=== PATIENT | female | born 1960 | race African-American/Black ===

== ENCOUNTER 2016-12-15 11:29 | Emergency (ER) | payer OTHER ==
[2016-12-15 11:39] VITALS: RESP 18
--- NOTE | 2016-12-15 11:51 | ED ---
General Adult HPI - General Chief complaint: Seizure Stated complaint: seizure Time Seen by Provider: 12/15/16 11:36 Source: patient, EMS, RN notes reviewed, old records reviewed Mode of arrival: EMS Limitations: no limitations - History of Present Illness Initial comments: Chief complaint and history of present illness is a 56-year-old female who according to the patient has had her third seizure in 1 month. The 2 previous seizures were treated at [facility]. ([facility] was called and they state they did not have any record of her having had any recent visit for seizures as she describes. They do have 1 visit in January 2015 where she was therefore a seizure.. ) Patient seizure was apparently witnessed lasted approximately 1 minute. EMS states she was postictal upon their arrival. The patient is less post ictal but still slightly forgetful. Patient denying any pain anywhere. - Related Data Home Medications Medication Instructions Recorded Confirmed ALPRAZolam [Xanax] 0.5 mg PO Q8HR 06/18/15 12/15/16 FLUoxetine HCL [PROzac] 40 mg PO DAILY 06/18/15 12/15/16 Losartan Potassium 100 mg PO DAILY 06/18/15 12/15/16 Docusate [Colace] 100 mg PO DAILY 12/15/16 12/15/16 Oxybutynin Chloride [Ditropan] 5 mg PO BID 12/15/16 12/15/16 Previous Rx's Medication Instructions Recorded Albuterol Inhaler [Ventolin Hfa 2 puff INHALATION RT-QID PRN #1 02/01/16 Inhaler] puff Chlorthalidone [Hygroton] 25 mg PO QAM #30 tab 02/01/16 Cholecalciferol [Vitamin D3] 800 unit PO DAILY #30 tab 02/01/16 Cyclobenzaprine [Flexeril] 10 mg PO TID #90 tab 02/01/16 Doxepin [SINEquan] 75 mg PO HS #90 cap 02/01/16 Fluticasone Nasal [place] [Flonase 1 spray EA NOSTRIL DAILY #1 spr 02/01/16 Nasal [place]] Montelukast [Singulair] 10 mg PO HS #30 tab 02/01/16 Pantoprazole [Protonix] 40 mg PO AC-BRKFST #30 tablet. 02/01/16 Perphenazine [Trilafon] 8 mg PO HS #60 tab 02/01/16 Allergies Allergy/AdvReac Type Severity Reaction Status Date / Time Penicillins Allergy Rash/Hives Verified 12/15/16 11:59 propoxyphene napsylate Allergy Itching Verified 12/15/16 11:59 [From Darvocet-N 100] aspirin AdvReac Nausea & Verified 12/15/16 11:59 Vomiting ibuprofen [From Motrin] AdvReac Nausea & Verified 12/15/16 11:59 Vomiting Review of Systems ROS Statement: Those systems with pertinent positive or pertinent negative responses have been documented in the HPI. Review of systems. Patient denies any visual acuity changes denies any headache denies chest pain denies shortness of breath denies any GI/ problems or neuro deficits. Not complaining of feeling depressed. All systems were otherwise reviewed. The patient also reports that she is not think she is taking tramadol or any medications that might lower her threshold have a seizure. But then on the other hand she can't remember her medications entirely she says she had them filled here in our pharmacy also be requested. Also her visit to [facility] will be requested.([facility] was notified. They state they do have records that are from January 2015 for having had a visit for a seizure .Patient's medication list was obtained from our pharmacy and there is no medication on the list I would typically decrease ones threshold to have a seizure. And it is unknown if the patient reviewing taken the medications listed. Past medical problems significant for hypertension and bipolar schizophrenia. The patient's surgeries total hysterectomy. Family history diabetes and hypertension. The patient has ALLERGIES to penicillin, aspirin, onions, Darvocet and ibuprofen. She does smoke strongly encouraged stop denies alcohol use. ROS Other: All systems not noted in ROS Statement are negative. Past Medical History Past Medical History: Asthma, Eye Disorder, Fibromyalgia, GERD/Reflux, Hyperlipidemia, Liver Disease, Osteoarthritis (OA), Seizure Disorder Additional Past Medical History / Comment(s): 08/11/15 Pt admitted to floor s/p anterior cervical decompression fusion C3-4, C4-5 with carpectomy. Other HX: had 1 seizure several years ago due to drug interaction, HIV positive, hx. Hep. C, neuropathy, hx. ulcers, glaucoma bilaterally with surgery. History of Any Multi-Drug Resistant Organisms: None Reported Past Surgical History: Hysterectomy Additional Past Surgical History / Comment(s): 08/11/15 Anterior cervical decompression fusion C3-4, C4-5 with carpectomy. Other surgical history: Eye surgery for glaucoma bilaterally. Past Anesthesia/Blood Transfusion Reactions: No Reported Reaction Past Psychological History: Anxiety, Depression, Schizophrenia Additional Psychological History / Comment(s): Pt lives alone. She uses a walker or wheelchair. She has never had a [place] driver's license. She gets rides thru her insurance. Smoking Status: Current every day smoker Past Alcohol Use History: Occasional Additional Past Alcohol Use History / Comment(s): Pt states she is 1 pack every 3 days smoker. She started smoking at age 14yrs. Pt states she will have an occasional beer or wine. Past Drug Use History: Marijuana Additional Drug Use History / Comment(s): medical use-smokes on occasion. - Past Family History Father History Unknown: Yes Family Medical History: Unable to Obtain Additional Family Medical History / Comment(s): Pt did not know her father. Mother Family Medical History: No Reported History General Exam - General Exam Comments Initial Comments: General: The patient is awake and alert, currently in no distress, and does not appear acutely ill. She had a 1 minute witnessed seizure and EMS reported that she was postictal upon pickup. Vital signs show temperature 98.1 pulse 103 her story rate 18 pulse ox 95% room air blood pressure 144/94 Eye: Pupils are equal, round and reactive to light, extra-ocular movements are intact ; there is normal conjunctiva bilaterally. No signs of icterus. Ears, nose, mouth and throat: There are moist mucous membranes and no oral lesions. Neck: The neck is supple, there is no tenderness . Cardiovascular: There is a regular rate and rhythm. No murmur, rub or gallop is appreciated. Respiratory: Lungs are clear to auscultation, respirations are non-labored, breath sounds are equal. No wheezes, stridor, rales, or rhonchi. Gastrointestinal: Soft, non-distended, non-tender abdomen without masses or organomegaly noted. There is no rebound or guarding present. No CVA tenderness. Bowel sounds are unremarkable. Back: There is no tenderness to palpation in the midline. There is no obvious deformity. No rashes noted. Musculoskeletal: Normal ROM, no tenderness, There is no pedal edema. There is no calf tenderness or swelling. Sensation intact. Pulses equal bilaterally 2+. Neurological: CN II-XII intact, There are no obvious motor or sensory deficits. Coordination appears grossly intact. Speech is normal. No focal or lateralizing findings. Skin: Skin is warm and dry and no rashes or lesions are noted. Psychiatric: No complaints and depression. Past history of bipolar disorder, schizophrenia. On psychiatric medications. Limitations: no limitations Course Vital Signs 12/15/16 11:35 Temperature 98.1 F Pulse Rate 103 H Respiratory 18 Rate Blood Pressure 144/94 O2 Sat by Pulse 95 Oximetry EKG Findings - EKG Comments: EKG Findings:: EKG was done and reviewed at 1212 show normal sinus rhythm no acute ST elevation no ectopy no ischemic changes. Rate 91. Was 152 QRS [address] QT [address] Chu Medical Decision Making - Medical Decision Making Medical decision making the patient's white count 6 hemoglobin 12 medical 37, potassium 3.9 BUN 13 creatinine 0.83 to GFR greater than 60. Glucose 122. Tylenol and aspirin levels 0. CT the brain was done and reviewed radiologist; his impression is; there is no evidence of acute intracranial hemorrhage, acute ischemic changes, mass, mass effect, or extra-axial fluid collection. There is no effacement of cerebral sulci or basal subarachnoid sisters. There is no hydrocephalus. There is no midline shift. Garcia-white matter distinction is preserved. Paranasal sinuses and mastoid air cells are well pneumatized, old medial orbital wall blowout fracture on the right. The globes appear intact. Impression no acute intracranial abnormality. As read by Dr. Osborne Patient has a place to stay with a girlfriend. She'll be given a taxi ride there. She'll be referred onto both her family physician and on-call neurologist Dr. Parikh. Patient states she was confused about the number seizure she's had recently and she does state that the last one she had was approximately 2 years ago. - Lab Data Result diagrams: 12/15/16 12:10 12/15/16 12:10 Lab Results 12/15/16 12/15/16 12/15/16 Range/Units 12:10 12:10 12:13 WBC 6.7 (3.8-10.6) k/uL RBC 4.30 (3.80-5.40) m/uL Hgb 12.2 (11.4-16.0) gm/dL Hct 37.9 (34.0-46.0) % MCV 88.0 (80.0-100.0) fL MCH 28.5 (25.0-35.0) pg MCHC 32.3 (31.0-37.0) g/dL RDW 13.8 (11.5-15.5) % Plt Count 226 (150-450) k/uL Neutrophils % 68 % Lymphocytes % 23 % Monocytes % 6 % Eosinophils % 0 % Basophils % 1 % Neutrophils # 4.5 (1.3-7.7) k/uL Lymphocytes # 1.5 (1.0-4.8) k/uL Monocytes # 0.4 (0-1.0) k/uL Eosinophils # 0.0 (0-0.7) k/uL Basophils # 0.0 (0-0.2) k/uL Sodium 141 (137-145) mmol/L Potassium 3.9 (3.5-5.1) mmol/L Chloride 103 (98-107) mmol/L Carbon Dioxide 24 (22-30) mmol/L Anion Gap 14 mmol/L BUN 13 (7-17) mg/dL Creatinine 0.83 (0.52-1.04) mg/dL Est GFR (MDRD) Af Amer >60 (>60 ml/min/1.73 sqM) Est GFR (MDRD) Non-Af >60 (>60 ml/min/1.73 sqM) Glucose 122 H (74-99) mg/dL POC Glucose (mg/dL) 103 H (75-99) mg/dL POC Glu Casserole Preparer ID Ofelia Hayes Calcium 9.5 (8.4-10.2) mg/dL Total Bilirubin 0.7 (0.2-1.3) mg/dL AST 26 (14-36) U/L ALT 23 (9-52) U/L Alkaline Phosphatase 108 (38-126) U/L Total Protein 8.1 (6.3-8.2) g/dL Albumin 4.5 (3.5-5.0) g/dL Salicylates <1.0 mg/dL Acetaminophen <10.0 ug/mL Disposition Clinical Impression: Seizure Disposition: HOME SELF-CARE Condition: Fair Instructions: New-Onset Seizure in Adults (ED) Additional Instructions: Follow-up with your family physician and on-call neurologist Dr. parikh Referrals: Stephanitaff,Physician [REFERRING] - 1-2 days Sonja Parikh MD [STAFF PHYSICIAN] - 1-2 days Time of Disposition: 14:09
[2016-12-15 12:16] LABS: Basophils % (A) 1 %; CH 28.3; CHCM 32.3; Eosinophils % (A) 0 %; HCT 37.9 % (34.0-46.0); HDW 2.41; HGB 12.2 gm/dL (11.4-16.0); Luc # (Auto) 0.14; Luc % (Auto) 2; Lymphocytes # (A) 1.5 k/uL (1.0-4.8); Lymphocytes % (A) 23 %; MCH 28.5 pg (25.0-35.0); MCHC 32.3 g/dL (31.0-37.0); Mean Platelet Volume 6.8; Monocytes # (A) 0.4 k/uL (0-1.0); Monocytes % (A) 6 %; Neutrophils # (A) 4.5 k/uL (1.3-7.7); Neutrophils % (A) 68 %; RDW 13.8 % (11.5-15.5); WBC 6.7 k/uL (3.8-10.6); WBC (Perox) 6.12
[2016-12-15 12:17] LABS: Glucose,Whole Blood 103 mg/dL (75-99)
[2016-12-15 12:28] LABS: ALT 23 U/L (9-52); AST 26 U/L (14-36); Acetaminophen <10.0 ug/mL; Alkaline Phosphatase 108 U/L (38-126); Anion Gap 14 mmol/L; Blood Urea Nitrogen 13 mg/dL (7-17); Calcium 9.5 mg/dL (8.4-10.2); Carbon Dioxide 24 mmol/L (22-30); Chloride 103 mmol/L (98-107); Glucose 122 mg/dL (74-99); Non-African American GFR(MDRD) >60 (>60 ml/min/1.73 sqM); Potassium 3.9 mmol/L (3.5-5.1); Salicylate <1.0 mg/dL; Sodium 141 mmol/L (137-145); Total Bilirubin 0.7 mg/dL (0.2-1.3); Total Protein 8.1 g/dL (6.3-8.2)
[2016-12-15] MEDS ORDERED: ACETAMINOPHEN TAB 500 MG TAB PO STA (13:00)
--- NOTE | 2016-12-15 13:41 | CT ---
EXAMINATION TYPE: CT brain wo con DATE OF EXAM: 12/15/2016 1:15 PM COMPARISON: NONE HISTORY: 56-year-old female seizure today. Patient appears weak and lethargic TECHNIQUE: Examination was done in axial plane without intravenous contrast. Coronal and sagittal r econstructions performed. CT DLP: 1017.9 mGycm Automated exposure control for dose reduction was used. FINDINGS: There is no evidence of acute intracranial hemorrhage, acute ischemic changes, mass, mass-effect, or extra-axial fluid collection. There is no effacement of cerebral sulci or basal subarachnoid cister ns. There is no hydrocephalus. There is no midline shift. Lin-white matter distinction is preserv ed. Paranasal sinuses and mastoid air cells are well pneumatized. Old medial orbital wall blowout fractur e on the right. The globes appear intact. IMPRESSION: No acute intracranial abnormality seen.
[2016-12-15 14:36] VITALS: BP 112/76; PULSE 85; TEMP 97.2
== END 2016-12-15 14:37 | disposition home or self-care (01) ==
LOC: EC 11:29
DX: G40.909 Epilepsy, unspecified, not intractable, without status epilepticus (principal); F41.9 Anxiety disorder, unspecified; F32.9 Major depressive disorder, single episode, unspecified; F17.200 Nicotine dependence, unspecified, uncomplicated; Z88.6 Allergy status to analgesic agent; Z88.0 Allergy status to penicillin; Z88.5 Allergy status to narcotic agent; Z79.899 Other long term (current) drug therapy
CPT/HCPCS: 36415; 70450; 80053; 83520; 85025; 93005; 99285

== ENCOUNTER → 2018-03-27 | Outpatient (CLI) | payer OTHER ==
--- NOTE | 2018-03-28 08:14 | MM ---
Reason for exam: screening (asymptomatic). Last mammogram was performed 3 years and 7 months ago. History: Patient is postmenopausal and had first child at age 32. Took estrogen for 1 year beginning at age 49. Physical Findings: A clinical breast exam by your physician is recommended on an annual basis and results should be correlated with mammographic findings. MG Screening Mammo w CAD Bilateral CC and MLO view(s) were taken. Prior study comparison: August 24, 2014, bilateral MG screening mammo w CAD. August 22, 2013, bilateral digital screening mammo w/CAD. The breast tissue is heterogeneously dense. This may lower the sensitivity of mammography. Focal asymmetry inner upper left breast posterior third position. This finding is changed when compared with previous exams. ASSESSMENT: Incomplete: need additional imaging evaluation, BI-RAD 0 RECOMMENDATION: Special view mammogram and ultrasound of the left breast. [facility] will attempt to contact patient to return for supplemental views and ultrasound.
== END | disposition home or self-care (01) ==
LOC: RADMAMWWP 08:43
PROVIDERS: ATTEND Nurse Practitioner
DX: Z12.31 Encounter for screening mammogram for malignant neoplasm of breast (principal)
CPT/HCPCS: 77067

== ENCOUNTER → 2018-04-04 | Outpatient (CLI) | payer OTHER ==
--- NOTE | 2018-04-04 11:05 | MM ---
Reason for exam: additional evaluation requested from abnormal screening. Last mammogram was performed less than 1 month ago. History: Patient is postmenopausal and had first child at age 32. Took estrogen for 1 year beginning at age 49. Physical Findings: Nurse Summary: 0.5cm nodule in the left breast at 11 o'clock and 3 o'clock (nurse cw). MG Work Up Mamm w CAD LT Spot compression CC, spot compression ML, and LM view(s) were taken of the left breast. Prior study comparison: March 27, 2018, bilateral MG screening mammo w CAD. August 24, 2014, bilateral MG screening mammo w CAD. The breast tissue is heterogeneously dense. This may lower the sensitivity of mammography. BB's correspond to spherical areas of density. No significant new findings when compared with previous films. These results were verbally communicated with the patient and result sheet given to the patient on 04/04/18. ASSESSMENT: Benign, BI-RAD 2 RECOMMENDATION: Return to routine screening mammogram schedule for both breasts.
== END | disposition home or self-care (01) ==
LOC: RADMAMWWP 09:03
PROVIDERS: ATTEND Nurse Practitioner
DX: R92.8 Other abnormal and inconclusive findings on diagnostic imaging of breast (principal)
CPT/HCPCS: 77065

== ENCOUNTER → 2019-05-28 | Outpatient (CLI) | payer OTHER ==
--- NOTE | 2019-06-30 11:55 | EM ---
EVENT MONITOR I have only been provided one rhythm strip at this patient with monitoring time of 05/28/2019 to 05/29/2019. Not quite sure what happened to the rest of the rhythm strips but this is a normal sinus rhythm and one episode of sinus tachycardia with a heart rate of 111 beats per minute. MMJEAN CARLOS / DUNIA: [id number] /
== END | disposition home or self-care (01) ==
LOC: RADECHMAIN 11:44
PROVIDERS: ATTEND Internal Medicine Cardiovascular Disease
DX: R00.2 Palpitations (principal)
CPT/HCPCS: 93270

== ENCOUNTER 2019-12-01 15:34 | Observation (INO) | payer OTHER ==
--- NOTE | 2019-12-01 16:41 | ED ---
Fall HPI - General Chief Complaint: Fall Stated Complaint: Fall Time Seen by Provider: 12/01/19 15:40 Source: patient, EMS Mode of arrival: EMS - History of Present Illness Initial Comments: The patient is a 59-year-old female with past medical history of seizure disorder, hepatitis C, HIV who presents to the emergency department with reported bilateral lower extremity weakness, back pain and multiple falls. The patient reports that she has chronic knee pain secondary to osteoarthritis was previously on Mathews. States she has not taken this medication overuse year. States her pain has gotten progressive to the point where he has had difficulty ambulating. Over the past several days she has had 2 falls because her legs are buckling on her. She denies any saddle anesthesia. No bowel or bladder incontinence. Denies any fevers or chills. No current or recent IV drug use. She denies any abdominal pain. No headaches or vertiginous symptoms. Denies ataxia. The patient is concerned that she lives alone. There are no other alleviating, precipitating or modifying factors - Related Data Home Medications Medication Instructions Recorded Confirmed FLUoxetine HCL [PROzac] 40 mg PO HS 06/18/15 12/01/19 Losartan Potassium 100 mg PO DAILY 06/18/15 12/01/19 Docusate [Colace] 100 mg PO HS 12/15/16 12/01/19 Albuterol Sulfate [Ventolin HFA] 2 puff INHALATION RT-QID PRN 12/01/19 12/01/19 Cyanocobalamin (Vitamin B-12) 1,000 mcg PO DAILY 12/01/19 12/01/19 [Vitamin B-12] Doxepin HCl [SINEquan] 150 mg PO HS 12/01/19 12/01/19 Metoprolol Tartrate [Lopressor] 50 mg PO BID 12/01/19 12/01/19 Perphenazine [Trilafon] 8 mg PO HS 12/01/19 12/01/19 Thiamine [Vitamin B-1] 100 mg PO DAILY 12/01/19 12/01/19 hydrOXYzine PAMOATE [Vistaril] 50 mg PO HS 12/01/19 12/01/19 levETIRAcetam [Keppra] 500 mg PO BID 12/01/19 12/01/19 Previous Rx's Medication Instructions Recorded HYDROcodone/APAP 10-325MG [Mathews 1 each PO Q4HR PRN #18 tab 12/03/19 10-325] Allergies Allergy/AdvReac Type Severity Reaction Status Date / Time Penicillins Allergy Rash/Hives Verified 12/01/19 20:45 propoxyphene napsylate Allergy Itching Verified 12/01/19 20:45 [From Darvocet-N 100] aspirin AdvReac Nausea & Verified 12/01/19 20:45 Vomiting ibuprofen [From Motrin] AdvReac Nausea & Verified 12/01/19 20:45 Vomiting Review of Systems ROS Statement: Those systems with pertinent positive or pertinent negative responses have been documented in the HPI. ROS Other: All systems not noted in ROS Statement are negative. Past Medical History Past Medical History: Asthma, Eye Disorder, Fibromyalgia, GERD/Reflux, Hyperlipidemia, Liver Disease, Osteoarthritis (OA), Seizure Disorder Additional Past Medical History / Comment(s): 08/11/15 Pt admitted to floor s/p anterior cervical decompression fusion C3-4, C4-5 with carpectomy. Other HX: had 1 seizure several years ago due to drug interaction, HIV positive, hx. Hep. C, neuropathy, hx. ulcers, glaucoma bilaterally with surgery. History of Any Multi-Drug Resistant Organisms: None Reported Past Surgical History: Hysterectomy Additional Past Surgical History / Comment(s): 08/11/15 Anterior cervical decompression fusion C3-4, C4-5 with carpectomy. Other surgical history: Eye surgery for glaucoma bilaterally. Past Anesthesia/Blood Transfusion Reactions: No Reported Reaction Past Psychological History: Anxiety, Depression, Schizophrenia Smoking Status: Former smoker Past Alcohol Use History: Occasional Past Drug Use History: Marijuana - Past Family History Father History Unknown: Yes Family Medical History: Unable to Obtain Additional Family Medical History / Comment(s): Pt did not know her father. Mother Family Medical History: No Reported History General Exam Limitations: no limitations General appearance: alert, in no apparent distress Head exam: Present: atraumatic, normocephalic, normal inspection Eye exam: Present: normal appearance, PERRL, EOMI. Absent: scleral icterus, conjunctival injection, periorbital swelling ENT exam: Present: normal exam, mucous membranes moist Neck exam: Present: normal inspection. Absent: tenderness, meningismus, lymphadenopathy Respiratory exam: Present: normal lung sounds bilaterally. Absent: respiratory distress, wheezes, rales, rhonchi, stridor Cardiovascular Exam: Present: regular rate, normal rhythm, normal heart sounds. Absent: systolic murmur, diastolic murmur, rubs, gallop, clicks GI/Abdominal exam: Present: soft, normal bowel sounds. Absent: distended, tenderness, guarding, rebound, rigid Extremities exam: Present: normal inspection, full ROM, normal capillary refill, other (5/5 muscle strength in the bilateral lower extremities. Achilles and patellar reflexes intact. tenderness to palpation of the bilateral knees however no appreciable joint swelling. No calf pain or tenderness to palpation. ). Absent: tenderness, pedal edema, joint swelling, calf tenderness Back exam: Present: normal inspection Neurological exam: Present: alert, oriented X3, CN II-XII intact Psychiatric exam: Present: normal affect, normal mood Skin exam: Present: warm, dry, intact, normal color. Absent: rash Course Vital Signs 12/01/19 12/01/19 12/01/19 15:36 18:51 20:40 Temperature 99.1 F Pulse Rate 99 84 85 Pulse Rate [ Pulse Oximetery ] Respiratory 18 16 16 Rate Blood Pressure 153/110 128/92 138/90 Blood Pressure [Right Arm] O2 Sat by Pulse 100 97 97 Oximetry 12/01/19 12/01/19 21:35 21:40 Temperature 98.2 F 98.2 F Pulse Rate Pulse Rate [ 77 Pulse Oximetery ] Respiratory 18 Rate Blood Pressure Blood Pressure 155/103 [Right Arm] O2 Sat by Pulse 97 95 Oximetry Medical Decision Making - Medical Decision Making Upon arrival the patient is placed in room 16. A thorough history and physical exam was performed. The patient was provided with an oral Mathews. Laboratory studies were conducted and she was sent over for a chest x-ray, lumbar spine CT and bilateral knee x-ray. Laboratory studies are unremarkable. Urinalysis is positive for 33 epithelial cells with occasional bacteria. The testing is negative chest x-ray demonstrates no evidence for acute cardiopulmonary disease. CT of the lumbar spine demonstrates multilevel degenerative changes. Bilateral knee x-ray demonstrates mild to moderate tricompartment joint space loss with mild to moderate spurring. No acute fractures. Discuss results with the patient. She states that she does feel comfortable going home at this time because of her multiple falls. I discussed the case with Dr. Becerril who agreed to admit the patient. Patient was transferred to the floor in stable condition - Lab Data Result diagrams: 12/02/19 06:13 12/02/19 06:13 Lab Results 12/01/19 12/01/19 12/01/19 Range/Units 17:37 17:37 17:37 WBC 10.0 (3.8-10.6) k/uL RBC 5.25 (3.80-5.40) m/uL Hgb 14.4 (11.4-16.0) gm/dL Hct 46.0 (34.0-46.0) % MCV 87.7 (80.0-100.0) fL MCH 27.5 (25.0-35.0) pg MCHC 31.3 (31.0-37.0) g/dL RDW 13.3 (11.5-15.5) % Plt Count 232 (150-450) k/uL Neutrophils % 74 % Lymphocytes % 19 % Monocytes % 5 % Eosinophils % 1 % Basophils % 0 % Neutrophils # 7.4 (1.3-7.7) k/uL Lymphocytes # 1.9 (1.0-4.8) k/uL Monocytes # 0.5 (0-1.0) k/uL Eosinophils # 0.1 (0-0.7) k/uL Basophils # 0.0 (0-0.2) k/uL Hypochromasia Slight Sodium (137-145) mmol/L Potassium (3.5-5.1) mmol/L Chloride (98-107) mmol/L Carbon Dioxide (22-30) mmol/L Anion Gap mmol/L BUN (7-17) mg/dL Creatinine (0.52-1.04) mg/dL Est GFR (CKD-EPI)AfAm (>60 ml/min/1.73 sqM) Est GFR (CKD-EPI)NonAf (>60 ml/min/1.73 sqM) Glucose (74-99) mg/dL Plasma Lactic Acid Robbie (0.7-2.0) mmol/L Calcium (8.4-10.2) mg/dL Magnesium (1.6-2.3) mg/dL Total Bilirubin (0.2-1.3) mg/dL AST (14-36) U/L ALT (4-34) U/L Alkaline Phosphatase (38-126) U/L Creatine Kinase 114 (30-135) U/L Troponin I 0.015 (0.000-0.034) ng/mL Total Protein (6.3-8.2) g/dL Albumin (3.5-5.0) g/dL Vitamin D 25-Hydroxy (30.0-100.0) ng/mL TSH (0.465-4.680) mIU/L Urine Color Urine Appearance (Clear) Urine pH (5.0-8.0) Ur Specific [place] (1.001-1.035) Urine Protein (Negative) Urine Glucose (UA) (Negative) Urine Ketones (Negative) Urine Blood (Negative) Urine Nitrite (Negative) Urine Bilirubin (Negative) Urine Urobilinogen (<2.0) mg/dL Ur Leukocyte Esterase (Negative) Urine RBC (0-5) /hpf Urine WBC (0-5) /hpf Ur Squamous Epith Cells (0-4) /hpf Amorphous Sediment (None) /hpf Urine Bacteria (None) /hpf Hyaline Casts (0-2) /lpf Urine Mucus (None) /hpf Coronavirus (PCR) (Not Detectd) 12/01/19 12/01/19 12/01/19 Range/Units 17:37 18:18 19:10 WBC (3.8-10.6) k/uL RBC (3.80-5.40) m/uL Hgb (11.4-16.0) gm/dL Hct (34.0-46.0) % MCV (80.0-100.0) fL MCH (25.0-35.0) pg MCHC (31.0-37.0) g/dL RDW (11.5-15.5) % Plt Count (150-450) k/uL Neutrophils % % Lymphocytes % % Monocytes % % Eosinophils % % Basophils % % Neutrophils # (1.3-7.7) k/uL Lymphocytes # (1.0-4.8) k/uL Monocytes # (0-1.0) k/uL Eosinophils # (0-0.7) k/uL Basophils # (0-0.2) k/uL Hypochromasia Sodium 140 (137-145) mmol/L Potassium 4.4 (3.5-5.1) mmol/L Chloride 111 H (98-107) mmol/L Carbon Dioxide 22 (22-30) mmol/L Anion Gap 7 mmol/L BUN 14 (7-17) mg/dL Creatinine 0.69 (0.52-1.04) mg/dL Est GFR (CKD-EPI)AfAm >90 (>60 ml/min/1.73 sqM) Est GFR (CKD-EPI)NonAf >90 (>60 ml/min/1.73 sqM) Glucose 89 (74-99) mg/dL Plasma Lactic Acid Robbie 0.8 (0.7-2.0) mmol/L Calcium 9.6 (8.4-10.2) mg/dL Magnesium (1.6-2.3) mg/dL Total Bilirubin 0.8 (0.2-1.3) mg/dL AST 37 H (14-36) U/L ALT 24 (4-34) U/L Alkaline Phosphatase 108 (38-126) U/L Creatine Kinase (30-135) U/L Troponin I (0.000-0.034) ng/mL Total Protein 7.9 (6.3-8.2) g/dL Albumin 4.3 (3.5-5.0) g/dL Vitamin D 25-Hydroxy (30.0-100.0) ng/mL TSH (0.465-4.680) mIU/L Urine Color Yellow Urine Appearance Cloudy H (Clear) Urine pH 5.5 (5.0-8.0) Ur Specific [place] 1.027 (1.001-1.035) Urine Protein 1+ H (Negative) Urine Glucose (UA) Negative (Negative) Urine Ketones Negative (Negative) Urine Blood Negative (Negative) Urine Nitrite Negative (Negative) Urine Bilirubin Negative (Negative) Urine Urobilinogen <2.0 (<2.0) mg/dL Ur Leukocyte Esterase Small H (Negative) Urine RBC 1 (0-5) /hpf Urine WBC 4 (0-5) /hpf Ur Squamous Epith Cells 33 H (0-4) /hpf Amorphous Sediment Rare H (None) /hpf Urine Bacteria Occasional H (None) /hpf Hyaline Casts 4 H (0-2) /lpf Urine Mucus Many H (None) /hpf Coronavirus (PCR) (Not Detectd) 12/01/19 12/01/19 12/02/19 Range/Units 20:38 22:45 06:13 WBC 7.9 (3.8-10.6) k/uL RBC 5.08 (3.80-5.40) m/uL Hgb 14.0 (11.4-16.0) gm/dL Hct 45.6 (34.0-46.0) % MCV 89.8 (80.0-100.0) fL MCH 27.6 (25.0-35.0) pg MCHC 30.7 L (31.0-37.0) g/dL RDW 13.4 (11.5-15.5) % Plt Count 230 (150-450) k/uL Neutrophils % 44 % Lymphocytes % 46 % Monocytes % 6 % Eosinophils % 2 % Basophils % 0 % Neutrophils # 3.5 (1.3-7.7) k/uL Lymphocytes # 3.7 (1.0-4.8) k/uL Monocytes # 0.4 (0-1.0) k/uL Eosinophils # 0.1 (0-0.7) k/uL Basophils # 0.0 (0-0.2) k/uL Hypochromasia Moderate Sodium (137-145) mmol/L Potassium (3.5-5.1) mmol/L Chloride (98-107) mmol/L Carbon Dioxide (22-30) mmol/L Anion Gap mmol/L BUN (7-17) mg/dL Creatinine (0.52-1.04) mg/dL Est GFR (CKD-EPI)AfAm (>60 ml/min/1.73 sqM) Est GFR (CKD-EPI)NonAf (>60 ml/min/1.73 sqM) Glucose (74-99) mg/dL Plasma Lactic Acid Robbie (0.7-2.0) mmol/L Calcium (8.4-10.2) mg/dL Magnesium 1.9 (1.6-2.3) mg/dL Total Bilirubin (0.2-1.3) mg/dL AST (14-36) U/L ALT (4-34) U/L Alkaline Phosphatase (38-126) U/L Creatine Kinase (30-135) U/L Troponin I (0.000-0.034) ng/mL Total Protein (6.3-8.2) g/dL Albumin (3.5-5.0) g/dL Vitamin D 25-Hydroxy 10.0 L (30.0-100.0) ng/mL TSH (0.465-4.680) mIU/L Urine Color Urine Appearance (Clear) Urine pH (5.0-8.0) Ur Specific [place] (1.001-1.035) Urine Protein (Negative) Urine Glucose (UA) (Negative) Urine Ketones (Negative) Urine Blood (Negative) Urine Nitrite (Negative) Urine Bilirubin (Negative) Urine Urobilinogen (<2.0) mg/dL Ur Leukocyte Esterase (Negative) Urine RBC (0-5) /hpf Urine WBC (0-5) /hpf Ur Squamous Epith Cells (0-4) /hpf Amorphous Sediment (None) /hpf Urine Bacteria (None) /hpf Hyaline Casts (0-2) /lpf Urine Mucus (None) /hpf Coronavirus (PCR) Not Detected (Not Detectd) 12/02/19 Range/Units 06:13 WBC (3.8-10.6) k/uL RBC (3.80-5.40) m/uL Hgb (11.4-16.0) gm/dL Hct (34.0-46.0) % MCV (80.0-100.0) fL MCH (25.0-35.0) pg MCHC (31.0-37.0) g/dL RDW (11.5-15.5) % Plt Count (150-450) k/uL Neutrophils % % Lymphocytes % % Monocytes % % Eosinophils % % Basophils % % Neutrophils # (1.3-7.7) k/uL Lymphocytes # (1.0-4.8) k/uL Monocytes # (0-1.0) k/uL Eosinophils # (0-0.7) k/uL Basophils # (0-0.2) k/uL Hypochromasia Sodium 140 (137-145) mmol/L Potassium 4.1 (3.5-5.1) mmol/L Chloride 109 H (98-107) mmol/L Carbon Dioxide 26 (22-30) mmol/L Anion Gap 5 mmol/L BUN 10 (7-17) mg/dL Creatinine 0.65 (0.52-1.04) mg/dL Est GFR (CKD-EPI)AfAm >90 (>60 ml/min/1.73 sqM) Est GFR (CKD-EPI)NonAf >90 (>60 ml/min/1.73 sqM) Glucose 87 (74-99) mg/dL Plasma Lactic Acid Robbie (0.7-2.0) mmol/L Calcium 9.4 (8.4-10.2) mg/dL Magnesium (1.6-2.3) mg/dL Total Bilirubin (0.2-1.3) mg/dL AST (14-36) U/L ALT (4-34) U/L Alkaline Phosphatase (38-126) U/L Creatine Kinase (30-135) U/L Troponin I (0.000-0.034) ng/mL Total Protein (6.3-8.2) g/dL Albumin (3.5-5.0) g/dL Vitamin D 25-Hydroxy (30.0-100.0) ng/mL TSH (0.465-4.680) mIU/L Urine Color Urine Appearance (Clear) Urine pH (5.0-8.0) Ur Specific [place] (1.001-1.035) Urine Protein (Negative) Urine Glucose (UA) (Negative) Urine Ketones (Negative) Urine Blood (Negative) Urine Nitrite (Negative) Urine Bilirubin (Negative) Urine Urobilinogen (<2.0) mg/dL Ur Leukocyte Esterase (Negative) Urine RBC (0-5) /hpf Urine WBC (0-5) /hpf Ur Squamous Epith Cells (0-4) /hpf Amorphous Sediment (None) /hpf Urine Bacteria (None) /hpf Hyaline Casts (0-2) /lpf Urine Mucus (None) /hpf Coronavirus (PCR) (Not Detectd) - EKG Data EKG Comments: EKG demonstrates a normal sinus rhythm with a ventricular rate of 89. KS interval 160. QRS 88. QTC of 476. Left axis deviation. No acute ST segment elevations. Disposition Clinical Impression: Multiple falls, Low back pain, Chronic pain of both knees Disposition: ADMITTED IP TO THIS HOSP Condition: Stable Is patient prescribed a controlled substance at d/c from ED?: No Decision to Admit Reason: Admit from EC Decision Date: 12/01/19 Decision Time: 20:59
[2019-12-01] MEDS ORDERED: HYDROcodone/APAP 5-325MG 1 EACH TAB PO STA (17:09)
[2019-12-01 17:48] LABS: Basophils % (A) 0 %; Eosinophils # (A) 0.1 k/uL (0-0.7); Eosinophils % (A) 1 %; HGB 14.4 gm/dL (11.4-16.0); Hypochromasia Slight; Lymphocytes # (A) 1.9 k/uL (1.0-4.8); Lymphocytes % (A) 19 %; MCH 27.5 pg (25.0-35.0); MCHC 31.3 g/dL (31.0-37.0); MCV 87.7 fL (80.0-100.0); Mean Platelet Volume 8.5; Monocytes # (A) 0.5 k/uL (0-1.0); Monocytes % (A) 5 %; Neutrophils # (A) 7.4 k/uL (1.3-7.7); Neutrophils % (A) 74 %; Platelet Count 232 k/uL (150-450); RBC 5.25 m/uL (3.80-5.40); RDW 13.3 % (11.5-15.5)
--- NOTE | 2019-12-01 17:52 | XR ---
EXAMINATION TYPE: XR chest 2V DATE OF EXAM: 12/01/2019 COMPARISON: 06/17/2015 HISTORY: Shortness of breath TECHNIQUE: Frontal and lateral views of the chest are obtained. FINDINGS: Scattered senescent parenchymal changes noted. Hyperinflation compatible with COPD. No evidence for infiltrate. No evidence for atelectasis. Heart size is stable. Mediastinal structures are stable and grossly unremarkable. No evidence for hilar prominence. Degenerative changes dorsal spine. IMPRESSION: 1. No evidence for acute pulmonary disease.
[2019-12-01 17:56] LABS: ALT 24 U/L (4-34); AST 37 U/L (14-36); African American GFR (CKD) >90 (>60 ml/min/1.73 sqM); Albumin 4.3 g/dL (3.5-5.0); Alkaline Phosphatase 108 U/L (38-126); Anion Gap 7 mmol/L; Blood Urea Nitrogen 14 mg/dL (7-17); Calcium 9.6 mg/dL (8.4-10.2); Carbon Dioxide 22 mmol/L (22-30); Chloride 111 mmol/L (98-107); Glucose 89 mg/dL (74-99); Non-African American GFR(CKD) >90 (>60 ml/min/1.73 sqM); Potassium 4.4 mmol/L (3.5-5.1); Sodium 140 mmol/L (137-145); Total Bilirubin 0.8 mg/dL (0.2-1.3); Total Protein 7.9 g/dL (6.3-8.2)
[2019-12-01 19:22] LABS: Amorphous Sediment,Urine Rare /hpf; Appearance,Urine Cloudy (Clear); Bacteria,Urine Occasional /hpf; Bilirubin,Urine Negative (Negative); Blood,Urine Negative (Negative); Color,Urine Yellow; Glucose,Urine (UA) Negative (Negative); Hyaline Casts,Urine 4 /lpf (0-2); Ketones,Urine Negative (Negative); Leukocyte Esterase,Urine Small (Negative); Mucus,Urine Many /hpf; Nitrite,Urine Negative (Negative); PH, Urine 5.5 (5.0-8.0); Protein,Urine 1+ (Negative); RBC,Urine 1 /hpf (0-5); Specific Gravity,Urine 1.027 (1.001-1.035); Squamous Epithelial Cell,Urine 33 /hpf (0-4); Urobilinogen,Urine <2.0 mg/dL (<2.0); WBC,Urine 4 /hpf (0-5)
--- NOTE | 2019-12-01 20:12 | CT ---
EXAMINATION TYPE: CT lumbar spine wo con DATE OF EXAM: 12/01/2019 8:04 PM COMPARISON: None. HISTORY: chronic low back pain CT DLP: 934.6 mGycm Automated exposure control for dose reduction was used. Unenhanced CT of the lumbar spine was performed. Bone and soft tissue window settings are submitted as well as coronal and sagittal reconstructions. There are 5 lumbar type vertebra identified. Lumbar spine shows satisfactory alignment without eviden ce of acute fracture or dislocation. Vertebral body heights are maintained. There is mild to moderate disc space narrowing with vacuum disc phenomenon at T12-L1 level. There is moderate disc space narro wing with vacuum disc phenomenon at L5-S1 level. Mild multilevel anterior and lateral spurring is pre sent. Posterior disc herniation noted L5-S1 level on sagittal images. Review of axial images shows mild facet degenerative change and broad disc bulge minimally effacing a nterior thecal sac at L2-L3 level. Axial images at L3-L4 level show mild/moderate facet degenerative changes and ligament flavum hypertr ophy with mild broad disc bulge minimally effaces the anterior thecal sac. Axial images at L4-L5 level show moderate to advanced right greater than left facet degenerative jones ges effacing posterior lateral thecal sac. There is broad-based posterior disc protrusion causing mil d to moderate bilateral neural foraminal narrowing. Axial images at L5-S1 level show mild/moderate facet degenerative changes bilaterally. There is broad -based posterior disc protrusion minimally effacing the anterior thecal sac and causing moderate bila teral anterior inferior neural foraminal narrowing. Some fecal prominence of the cecum is partially i pablo. IMPRESSION: Multilevel degenerative changes as detailed above. No acute findings are evident.
[2019-12-01] MEDS ORDERED: cefTRIAXone IN SWFI 1,000 MG/10 ML SYRINGE IVP STA (20:58)
[2019-12-01] MEDS ORDERED: HYDROcodone/APAP 5-325MG 1 EACH TAB PO PRN (21:00)
[2019-12-01] MEDS ORDERED: NALOXONE 0.4 MG/ML 1 ML VIAL IV PRN (21:00)
--- NOTE | 2019-12-01 21:49 | XR ---
EXAMINATION TYPE: XR knee 4V bilateral DATE OF EXAM: 12/01/2019 CLINICAL HISTORY: Bilateral pain TECHNIQUE: 4 views of bilateral knees are obtained. COMPARISON: None. FINDINGS: There is no acute fracture/dislocation evident in either knee. Patellar articulation is sa tisfactory in the bilateral sunrise views. Mild to moderate tricompartment joint space loss with mild to moderate spurring greatest medial tibiofemoral and patellofemoral compartments bilaterally. Ricardo tional anterior superior spurs at distal quadriceps tendon attachment bilaterally. Right knee shows a dditional anterior inferior spur of proximal patellar tendon attachment. The overlying soft tissue ap pears unremarkable bilaterally. IMPRESSION: As above.
[2019-12-01 23:11] LABS: Magnesium 1.9 mg/dL (1.6-2.3)
[2019-12-01] MEDS: PERPHENAZINE 4 MG TAB PO SCH (23:31)
[2019-12-01] MEDS: hydrOXYzine HCL 25 MG TAB PO SCH (23:31)
--- NOTE | 2019-12-01 23:31 | P.HPIM ---
History of Present Illness H&P Date: 12/01/19 Chief Complaint: falls at home 59 year old female wtih hypertension , History of HIV, seizure patient comes in due to frequent falling at home, due to acute on chronic low b ack pain patient reports that when she starts walking around her home using a chiquis, her back starts hurting and she starts leaning forward then loses her balance and falls down, denies any head injury or LOC, deneis any associated dizziness, lightheadeness, nausea , vomiting , palpitations, SOB, chest pain. denies any focal neuro deficits, denies any weakness, numbness or tingling she denies any saddle numbness, or urinary or bowel incontinence or retention she denies any recent injuries to her back, denies any fever, or chills. in the ED her workup was unremarkable patient did not feel safe to go home, as she lives alone and having freqquennt falls. Review of Systems Pertinent positives as noted in HPI. All other systems were reviewed and are negative Past Medical History Past Medical History: Asthma, Eye Disorder, Fibromyalgia, GERD/Reflux, Hyperlipidemia, Liver Disease, Osteoarthritis (OA), Seizure Disorder Additional Past Medical History / Comment(s): 08/11/15 Pt admitted to floor s/p anterior cervical decompression fusion C3-4, C4-5 with carpectomy. Other HX: had 1 seizure several years ago due to drug interaction, HIV positive, hx. Hep. C, neuropathy, hx. ulcers, glaucoma bilaterally with surgery. History of Any Multi-Drug Resistant Organisms: None Reported Past Surgical History: Hysterectomy Additional Past Surgical History / Comment(s): 08/11/15 Anterior cervical decompression fusion C3-4, C4-5 with carpectomy. Other surgical history: Eye surgery for glaucoma bilaterally. Past Anesthesia/Blood Transfusion Reactions: No Reported Reaction Past Psychological History: Anxiety, Depression, Schizophrenia Smoking Status: Former smoker Past Alcohol Use History: Occasional Past Drug Use History: Marijuana - Past Family History Father History Unknown: Yes Family Medical History: Unable to Obtain Additional Family Medical History / Comment(s): Pt did not know her father. Mother Family Medical History: No Reported History Medications and Allergies Home Medications Medication Instructions Recorded Confirmed Type FLUoxetine HCL [PROzac] 40 mg PO HS 06/18/15 12/01/19 History Losartan Potassium 100 mg PO DAILY 06/18/15 12/01/19 History Docusate [Colace] 100 mg PO HS 12/15/16 12/01/19 History Albuterol Sulfate [Ventolin HFA] 2 puff INHALATION RT-QID PRN 12/01/19 12/01/19 History Cyanocobalamin (Vitamin B-12) 1,000 mcg PO DAILY 12/01/19 12/01/19 History [Vitamin B-12] Doxepin HCl [SINEquan] 150 mg PO HS 12/01/19 12/01/19 History Metoprolol Tartrate [Lopressor] 50 mg PO BID 12/01/19 12/01/19 History Perphenazine [Trilafon] 8 mg PO HS 12/01/19 12/01/19 History Thiamine [Vitamin B-1] 100 mg PO DAILY 12/01/19 12/01/19 History hydrOXYzine PAMOATE [Vistaril] 50 mg PO HS 12/01/19 12/01/19 History levETIRAcetam [Keppra] 500 mg PO BID 12/01/19 12/01/19 History Allergies Allergy/AdvReac Type Severity Reaction Status Date / Time Penicillins Allergy Rash/Hives Verified 12/01/19 20:45 propoxyphene napsylate Allergy Itching Verified 12/01/19 20:45 [From Darvocet-N 100] aspirin AdvReac Nausea & Verified 12/01/19 20:45 Vomiting ibuprofen [From Motrin] AdvReac Nausea & Verified 12/01/19 20:45 Vomiting Physical Exam Vitals: Vital Signs Temp Pulse Resp BP Pulse Ox 12/01/19 20:40 85 16 138/90 97 12/01/19 18:51 84 16 128/92 97 12/01/19 15:36 99.1 F 99 18 153/110 100 Intake and Output 12/01/19 12/01/19 12/01/19 06:59 14:59 22:59 Other: Weight 78.018 kg Constitutional: No acute distress, conversant, pleasant Eyes: Anicteric sclerae, moist conjunctiva, no lid-lag Pupils equal round reactive to light ENMT: NC/AT Oropharynx clear, no erythema, or exudates Neck: Supple, FROM, no masses, or JVD No carotid bruits No thyromegaly Lungs: Clear to auscultation Clear to percussion Normal respiratory effort, no accessory muscle use Cardiovascular: Heart regular in rate and rhythm, No murmurs, gallops, or rubs No peripheral edema Abdominal: Soft Nontender, no guarding, rebound or rigidity Abdomen moving with respiration Normoactive bowel sounds No hepatomegaly, No splenomegaly No palpable mass No abdominal wall hernia noted Skin: Normal temperature, tone, texture, turgor No induration No subcutaneous nodules No rash, lesions No ulcers Extremities: No digital cyanosis No clubbing Pedal pulses intact and symmetrical Radial pulses intact and symmetrical No calf tenderness Psychiatric: Alert and oriented to person, place and time Appropriate affect fair judgement Neuro Muscles Strength 5/5 in all 4 extremities Sensation to light touch grossly present throughout Cranial nerves II-XII grossly intact No focal sensory deficits straight leg rising is negative bilaterally deep tendon reflexes brisk bilateral knees, equivocal planter reflex Lymphatics: no palpable cervical or supraclavicular , or inguinal lymph no liza Results CBC & Chem 7: 12/01/19 17:37 12/01/19 17:37 Labs: Abnormal Lab Results - Last 24 Hours (Table) 12/01/19 12/01/19 Range/Units 17:37 19:10 Chloride 111 H (98-107) mmol/L AST 37 H (14-36) U/L Urine Appearance Cloudy H (Clear) Urine Protein 1+ H (Negative) Ur Leukocyte Esterase Small H (Negative) Ur Squamous Epith Cells 33 H (0-4) /hpf Amorphous Sediment Rare H (None) /hpf Urine Bacteria Occasional H (None) /hpf Hyaline Casts 4 H (0-2) /lpf Urine Mucus Many H (None) /hpf Assessment and Plan Assessment: 59 year old female with recent diagnosis of seizure, history of HIV and liver disease but patient claims to be stable off medications. she comes in due to frequent falling over the past 2 days due to severe low back pain acute on chronic admitted under observation with anticipated length of stay < 2 midnights acute on chronic low back pain frequent falling fall precautions neuro checks PT /OT eval pain control with norco no focal neuro deficits no urinary or bowel incontinence or retention check vit D 25 hydroxy chronic conditions HIV seizure chronic liver disease hypertension resume home meds CODE STATUS:full code DVT prophylaxis: heparin sc tid Discussed with: Patient, ER, RN Anticipated length of stay <than [address]: home A total of 75 minutes was spent on the care of this complex patient more than 50% of the time was spent in counseling and care coordination.
[2019-12-01] MEDS: levETIRAcetam 500 MG TAB PO SCH (23:32)
[2019-12-01] MEDS: DOXEPIN 25 MG CAP PO SCH (23:32)
[2019-12-01] MEDS: DOCUSATE 100 MG CAP PO SCH (23:33)
[2019-12-01] MEDS: METOPROLOL TARTRATE 50 MG TAB PO SCH (23:33)
[2019-12-01] MEDS: CYANOCOBALAMIN 500 MCG TAB PO SCH (23:33)
[2019-12-01] MEDS: FLUoxetine HCL 20 MG CAP PO SCH (23:33)
[2019-12-01] MEDS: HYDROcodone/APAP 10-325MG 1 EACH TAB PO PRN (23:34)
[2019-12-02] MEDS: HEPARIN SODIUM,PORCINE 5,000 UNIT/ML 1 ML VIAL SQ SCH ×4 (01:33→23:19)
[2019-12-02] MEDS: HYDROcodone/APAP 10-325MG 1 EACH TAB PO PRN ×3 (06:20→20:05)
[2019-12-02 06:37] LABS: Basophils % (A) 0 %; Eosinophils # (A) 0.1 k/uL (0-0.7); Eosinophils % (A) 2 %; HCT 45.6 % (34.0-46.0); Hypochromasia Moderate; Lymphocytes # (A) 3.7 k/uL (1.0-4.8); Lymphocytes % (A) 46 %; MCH 27.6 pg (25.0-35.0); MCHC 30.7 g/dL (31.0-37.0); MCV 89.8 fL (80.0-100.0); Mean Platelet Volume 8.5; Monocytes # (A) 0.4 k/uL (0-1.0); Monocytes % (A) 6 %; Neutrophils # (A) 3.5 k/uL (1.3-7.7); Neutrophils % (A) 44 %; Platelet Count 230 k/uL (150-450); RBC 5.08 m/uL (3.80-5.40); RDW 13.4 % (11.5-15.5); WBC 7.9 k/uL (3.8-10.6)
[2019-12-02 06:47] LABS: African American GFR (CKD) >90 (>60 ml/min/1.73 sqM); Anion Gap 5 mmol/L; Blood Urea Nitrogen 10 mg/dL (7-17); Calcium 9.4 mg/dL (8.4-10.2); Carbon Dioxide 26 mmol/L (22-30); Chloride 109 mmol/L (98-107); Glucose 87 mg/dL (74-99); Non-African American GFR(CKD) >90 (>60 ml/min/1.73 sqM); Potassium 4.1 mmol/L (3.5-5.1); Sodium 140 mmol/L (137-145)
[2019-12-02] MEDS: ALBUTEROL NEBULIZED 2.5 MG/3 ML INHALATION PRN ×3 (07:42→16:34)
[2019-12-02] MEDS: CYANOCOBALAMIN 500 MCG TAB PO SCH (08:35)
[2019-12-02] MEDS: LOSARTAN 50 MG TAB PO SCH (08:35)
[2019-12-02] MEDS: THIAMINE 100 MG TAB PO SCH (08:35)
[2019-12-02] MEDS: levETIRAcetam 500 MG TAB PO SCH ×2 (08:36→20:06)
[2019-12-02] MEDS: METOPROLOL TARTRATE 50 MG TAB PO SCH ×2 (08:36→20:06)
--- NOTE | 2019-12-02 11:17 | P.PN ---
Subjective Progress Note Date: 12/02/19 Principal diagnosis: Recurrent Falls 59 year old female wtih hypertension , History of HIV, seizure Patient comes in due to frequent falling at home, due to acute on chronic low b ack pain Patient reports that when she starts walking around her home using a chiquis, her back starts hurting and she starts leaning forward then loses her balance and falls down, denies any head injury or LOC, deneis any associated dizziness, lightheadeness, nausea , vomiting , palpitations, SOB, chest pain. denies any focal neuro deficits, denies any weakness, numbness or tingling she denies any saddle numbness, or urinary or bowel incontinence or retention she denies any recent injuries to her back, denies any fever, or chills. In the ED her workup was unremarkable Patient did not feel safe to go home, as she lives alone and having freqquennt falls. Patient seen and examined at chair side. Patient is awake alert and denies chest pain shortness of breath nausea vomiting fevers or chills. Objective - Vital Signs Vital signs: Vital Signs Temp 97.8 F 12/02/19 07:00 Pulse 72 12/02/19 07:50 Resp 20 12/02/19 07:00 BP 136/87 12/02/19 07:00 Pulse Ox 94 L 12/02/19 07:00 Intake & Output 12/01/19 12/02/19 12/02/19 18:59 06:59 18:59 Weight 78.018 kg 78.018 kg Other: # Voids 1 - Exam General: [non toxic], [no distress], [appears at stated age] Derm: [warm], [dry] Head: [atraumatic], [normocephalic], [symmetric] Eyes: [EOMI], [no lid lag], [anicteric sclera] Mouth: [no lip lesion], [mucus membranes moist] Cardiovascular: [S1S2 reg], [no murmur], [positive posterior tibial pulse bilateral], Lungs: [CTA bilateral], [no rhonchi, no rales] , [no accessory muscle use] Abdominal: [soft], [ nontender to palpation], [no guarding], [no appreciable organomegaly] Ext: [no gross muscle atrophy], [no edema], [no contractures] Neuro: [ CN II-XI grossly intact], [no focal neuro deficits] Psych: [Alert], [oriented], [appropriate affect] - Labs CBC & Chem 7: 12/02/19 06:13 12/02/19 06:13 Labs: Abnormal Lab Results - Last 24 Hours (Table) 12/01/19 12/01/19 12/02/19 Range/Units 17:37 19:10 06:13 MCHC 30.7 L (31.0-37.0) g/dL Chloride 111 H (98-107) mmol/L AST 37 H (14-36) U/L Urine Appearance Cloudy H (Clear) Urine Protein 1+ H (Negative) Ur Leukocyte Esterase Small H (Negative) Ur Squamous Epith Cells 33 H (0-4) /hpf Amorphous Sediment Rare H (None) /hpf Urine Bacteria Occasional H (None) /hpf Hyaline Casts 4 H (0-2) /lpf Urine Mucus Many H (None) /hpf 12/02/19 Range/Units 06:13 MCHC (31.0-37.0) g/dL Chloride 109 H (98-107) mmol/L AST (14-36) U/L Urine Appearance (Clear) Urine Protein (Negative) Ur Leukocyte Esterase (Negative) Ur Squamous Epith Cells (0-4) /hpf Amorphous Sediment (None) /hpf Urine Bacteria (None) /hpf Hyaline Casts (0-2) /lpf Urine Mucus (None) /hpf Assessment and Plan Assessment: 1. Acute on chronic low back pain with frequent falls patient was placed on IV Abx possible UTI no culture obtained fall precautions neuro checks PT /OT eval pain control with norco no focal neuro deficits no urinary or bowel incontinence or retention Consult Case Management for placement since patient feels unsafe at home 2. Hx of HIV 3. Hx of Seizure seizure keppra 4. Hx Chronic liver disease 5. Hypertension controlled resume home meds 6 GI and DVT prophylaxis CODE STATUS:full code DVT prophylaxis: heparin sc tid Discussed with: Patient Anticipated length of stay > [address]: home vs SNF A total of 35 minutes was spent on the care of this complex patient more than 50% of the time was spent in counseling and care coordination.
[2019-12-02] MEDS: FAMOTIDINE 20 MG TAB PO SCH (11:52)
--- NOTE | 2019-12-02 13:12 | P.CNOR ---
History of Present Illness - [facility] Consult date: 12/02/19 Requesting physician: Juno Becerril Consult reason: low back pain (Severe low back pain) History of present illness: Patient is a very pleasant 59-year-old female who is well known to our service who is seen and examined at bedside for intractable low back pain and difficulty with ambulation due to pain with frequent falls. Patient states she has been using a cane to aid in ambulation with past 2 years. Over the past 2 months she has been experiencing significantly worsening low back pain causing her legs to give out on her and her to fall to the ground. She has fallen multiple times in the past 2 months. She has fell 3 times yesterday. She was attempting to ambu late to our office at [facility] and fell to the ground outside of the office. EMS was called and she was transferred to [facility] for further evaluation. Patient denies specific lower extremity radiculopathy or weakness bilaterally. She states during ambulating the back pain becomes so severe it causes her to ambulate with small steps and then her legs gave out causing her to fall to the ground. She is difficulty with getting up after falling. She does have pain at the bilateral knees. She is known to have degenerative changes at her bilateral knees. Patient does have a significant medical history including HIV, hepatitis, and seizure disorder. She is not on any medications were HIV or hepatitis. She does regularly take medications for seizures. She does continue to experience seizures couple times per year. Patient also has hypertension. She is previously known to have undergone a cervical fusion in 2016 and has recovered well without difficulty. She has not had any recent evaluation regards to her lumbar spine. Patient does not feel safe at home. She has been seen by medicine who are planning for evaluation for placement at the time of discharge. She denies any changes in bowel or bladder. She is eating and voiding without difficulty. Past Medical History Past Medical History: Asthma, Eye Disorder, Fibromyalgia, GERD/Reflux, Hyperlipidemia, Liver Disease, Osteoarthritis (OA), Seizure Disorder Additional Past Medical History / Comment(s): 08/11/15 Pt admitted to floor s/p anterior cervical decompression fusion C3-4, C4-5 with carpectomy. Other HX: had 1 seizure several years ago due to drug interaction, HIV positive, hx. Hep. C, neuropathy, hx. ulcers, glaucoma bilaterally with surgery. History of Any Multi-Drug Resistant Organisms: None Reported Past Surgical History: Hysterectomy Additional Past Surgical History / Comment(s): 08/11/15 Anterior cervical decompression fusion C3-4, C4-5 with carpectomy. Other surgical history: Eye surgery for glaucoma bilaterally. Past Anesthesia/Blood Transfusion Reactions: No Reported Reaction Past Psychological History: Anxiety, Depression, Schizophrenia Smoking Status: Former smoker Past Alcohol Use History: Occasional Past Drug Use History: Marijuana - Past Family History Father History Unknown: Yes Family Medical History: Unable to Obtain Additional Family Medical History / Comment(s): Pt did not know her father. Mother Family Medical History: No Reported History Medications and Allergies Home Medications Medication Instructions Recorded Confirmed Type FLUoxetine HCL [PROzac] 40 mg PO HS 06/18/15 12/01/19 History Losartan Potassium 100 mg PO DAILY 06/18/15 12/01/19 History Docusate [Colace] 100 mg PO HS 12/15/16 12/01/19 History Albuterol Sulfate [Ventolin HFA] 2 puff INHALATION RT-QID PRN 12/01/19 12/01/19 History Cyanocobalamin (Vitamin B-12) 1,000 mcg PO DAILY 12/01/19 12/01/19 History [Vitamin B-12] Doxepin HCl [SINEquan] 150 mg PO HS 12/01/19 12/01/19 History Metoprolol Tartrate [Lopressor] 50 mg PO BID 12/01/19 12/01/19 History Perphenazine [Trilafon] 8 mg PO HS 12/01/19 12/01/19 History Thiamine [Vitamin B-1] 100 mg PO DAILY 12/01/19 12/01/19 History hydrOXYzine PAMOATE [Vistaril] 50 mg PO HS 12/01/19 12/01/19 History levETIRAcetam [Keppra] 500 mg PO BID 12/01/19 12/01/19 History Allergies Allergy/AdvReac Type Severity Reaction Status Date / Time Penicillins Allergy Rash/Hives Verified 12/01/19 20:45 propoxyphene napsylate Allergy Itching Verified 12/01/19 20:45 [From Darvocet-N 100] aspirin AdvReac Nausea & Verified 12/01/19 20:45 Vomiting ibuprofen [From Motrin] AdvReac Nausea & Verified 12/01/19 20:45 Vomiting Physical Examination Physical exam: Patient is awake, alert, and oriented 3 Vital signs stable Good chest excursion with deep inspiration and expiration Abdomen soft nontender Examination of lumbar spine reveals skin is intact with no abrasions, lacerations, or bruises; no erythema, purulence or signs of infection Pain with palpation along the midline of the mid to lower lumbar spine Dorsiflexion, plantarflexion, and extensor hallucis longus positive sustained bilaterally Lower extremity strength 5/5 bilaterally Patellar reflex 2+ bilaterally and Achilles reflexes 2+ bilaterally Some generalized pain with active range of motion of the knees bilaterally No lower extremity hyperreflexia bilaterally Straight leg test negative bilateral lower extremities Negative Lasegue's test bilaterally No signs or symptoms of DVT; no calf pain No pain with internal and external rotation of the hips bilaterally Neurovascularly intact Results Pertinent studies: CT of the lumbar spine taken on 12/01/2019: L3-4 facet degenerative changes and mild broad-based disc bulging with ligament of flavum hypertrophy; L4-5 facet arthropathy greater on the right than the left with broad-based posterior disc protrusion resulting in mild to moderate bilateral neural foraminal narrowing; L5-S1 degenerative disc disease, vacuum disc phenomenon, multiple moderate facet degenerative changes and broad-based disc herniation resulting in bilateral neural foraminal narrowing; no evidence of vertebral body compression fracture; no evidence of spondylolisthesis; T12-L1 degenerative disc disease with vacuum disc phenomenon X-rays of bilateral knees taken on 12/01/2019: No evidence of fracture dislocation in the knees bilaterally; mild to moderate tricompartmental joint space loss with mild to moderate spurring; anterior spurring at the distal quadriceps attachment bilaterally; additional spurring at the inferior proximal patellar tendon on the right - Labs Labs: Abnormal Lab Results - Last 24 Hours (Table) 12/01/19 12/01/19 12/01/19 Range/Units 17:37 19:10 22:45 MCHC (31.0-37.0) g/dL Chloride 111 H (98-107) mmol/L AST 37 H (14-36) U/L Vitamin D 25-Hydroxy 10.0 L (30.0-100.0) ng/mL Urine Appearance Cloudy H (Clear) Urine Protein 1+ H (Negative) Ur Leukocyte Esterase Small H (Negative) Ur Squamous Epith Cells 33 H (0-4) /hpf Amorphous Sediment Rare H (None) /hpf Urine Bacteria Occasional H (None) /hpf Hyaline Casts 4 H (0-2) /lpf Urine Mucus Many H (None) /hpf 12/02/19 12/02/19 Range/Units 06:13 06:13 MCHC 30.7 L (31.0-37.0) g/dL Chloride 109 H (98-107) mmol/L AST (14-36) U/L Vitamin D 25-Hydroxy (30.0-100.0) ng/mL Urine Appearance (Clear) Urine Protein (Negative) Ur Leukocyte Esterase (Negative) Ur Squamous Epith Cells (0-4) /hpf Amorphous Sediment (None) /hpf Urine Bacteria (None) /hpf Hyaline Casts (0-2) /lpf Urine Mucus (None) /hpf H & H 12/01/19 12/02/19 Range/Units 17:37 06:13 Hgb 14.4 14.0 (11.4-16.0) gm/dL Hct 46.0 45.6 (34.0-46.0) % Result Diagrams: 12/02/19 06:13 12/02/19 06:13 Assessment and Plan Assessment: Assessment: Intractable low back pain Frequent falls Difficulty ambulation due to back pain Lumbar facet arthropathy L5-S1 degenerative disc disease, vacuum disc phenomenon, herniated nucleus pulposus and facet degeneration Osteoarthritis of the bilateral knees Chronic bilateral knee pain History of HIV History hepatitis C Seizure disorder Hypertension (1) Intractable low back pain Current Visit: Yes Status: Acute Code(s): M54.5 - LOW BACK PAIN SNOMED Code(s): 47478904225182589 (2) Osteoarthritis of knees, bilateral Current Visit: Yes Status: Acute Code(s): M17.0 - BILATERAL PRIMARY OSTEOARTHRITIS OF KNEE SNOMED Code(s): 294413220067736 (3) Degenerative disc disease at L5-S1 level Current Visit: Yes Status: Acute Code(s): M51.36 - OTHER INTERVERTEBRAL DISC DEGENERATION, LUMBAR REGION SNOMED Code(s): 43110052 (4) Facet arthritis, degenerative, L5-S1 level, lumbosacral spine Current Visit: Yes Status: Acute Code(s): M47.817 - SPONDYLS W/O MYELOPATHY OR RADICULOPATHY, LUMBOSACR REGION SNOMED Code(s): 605977812 (5) History of HIV infection Current Visit: Yes Status: Acute Code(s): B20 - HUMAN IMMUNODEFICIENCY VIRUS [HIV] DISEASE SNOMED Code(s): 212733477 (6) History of hepatitis C Current Visit: Yes Status: Acute Code(s): Z86.19 - PERSONAL HISTORY OF OTHER INFECTIOUS AND PARASITIC DISEASES SNOMED Code(s): 15271049927984 (7) Seizure disorder Current Visit: Yes Status: Acute Code(s): G40.909 - EPILEPSY, UNSP, NOT INTRACTABLE, WITHOUT STATUS EPILEPTICUS SNOMED Code(s): 631593075 (8) Hypertension Current Visit: Yes Status: Acute Code(s): I10 - ESSENTIAL (PRIMARY) HYPERTENSION SNOMED Code(s): 50738281 (9) Chronic pain of both knees Current Visit: Yes Status: Acute Code(s): M25.561 - PAIN IN RIGHT KNEE; M25.562 - PAIN IN LEFT KNEE; G89.29 - OTHER CHRONIC PAIN SNOMED Code(s): 54166528 (10) Multiple falls Current Visit: Yes Status: Acute Code(s): R29.6 - REPEATED FALLS SNOMED Code(s): 213798679 Plan: Plan: 1. After physical examination the patient, further discussion with the patient, and review of imaging, we will currently plan to order an MRI of the lumbar spine with and without contrast. Patient has been sitting worsening and debilitating low back pain with frequent falls and inability to ambulate due to pain over the past 2 months. She fell 3 times yesterday and needed to be garrett sported to the hospital via EMS. She is known to have degenerative changes at her bilateral knees. She is not currently experiencing significant or specific lower extremity weakness or radiculopathy bilaterally. Her pain is most specific at her lumbar spine but has become debilitating. She has been using a cane to aid in ambulation with a past 2 years. At this time, we'll plan to obtain a lumbar MRI and will follow up with further evaluation and a plan of care following the completion and interpretation of her lumbar MRI. 2. Patient may continue with pain control medications as prescribed by medicine 3. Patient will continue to be seen and examined by medicine Time with Patient: Greater than 30 (Including obtaining history, physical examination, reviewing of imaging, and dictation.)
[2019-12-02] MEDS ORDERED: ALPRAZolam 0.5 MG TAB PO PRN (13:51)
--- NOTE | 2019-12-02 15:50 | MR ---
EXAMINATION TYPE: MR lumbar spine wo con DATE OF EXAM: 12/02/2019 COMPARISON: CT lumbar spine one day earlier HISTORY: Intractable Lower Back Pain. Difficulty Ambulating. LBP for years but getting Worse. TECHNIQUE: Multiplanar, multisequence imaging of the lumbar spine is performed without IV contrast. FINDINGS: Sagittal images of the lumbar spine show vertebral body heights and alignment to remain sat isfactory. There is multilevel disc desiccation. There is vacuum disc phenomenon with mild to modera te disc space narrowing L5-S1 level. 1The conus medullaris is slightly low in position ending mid to inferior L2 level. No abnormal signal or suspicious clumping of lumbosacral nerve roots. The bone mar row signal intensity is within normal limits. Axial images show T12-L1 and L1-L2 levels to appear within normal limits. Axial images at L2-L3 level show mild broad disc bulge minimally effacing anterior thecal sac. Axial images at L3-L4 level show mild broad disc bulge minimally effacing the anterior thecal sac. Axial images at L4-L5 level show moderate facet degenerative changes and ligamentum flavum hypertroph y. There is left foraminal disc protrusion causing mild left-sided anterior inferior neural foraminal narrowing. Axial images at the L5-S1 level show moderate facet degenerative changes bilaterally. There is broad- based paracentral/foraminal disc protrusion but spinal canal is preserved. [id number] bilateral anterior inferior neural foraminal narrowing encroaching along the anterior-inferior margin of both L5 nerves axial image 3 corresponding to sagittal image 12 on the right and 2 on the left respectivel y. No suspicious incidental retroperitoneal finding. IMPRESSION: Multilevel degenerative changes in the mid to lower lumbar spine. Encroachment along the anterior-inferior margin of the bilateral L5 nerves noted on MRI.
[2019-12-02] MEDS: hydrOXYzine HCL 25 MG TAB PO SCH (20:06)
[2019-12-02] MEDS: FLUoxetine HCL 20 MG CAP PO SCH (20:06)
[2019-12-02] MEDS: DOXEPIN 25 MG CAP PO SCH (20:06)
[2019-12-02] MEDS: PERPHENAZINE 4 MG TAB PO SCH (20:06)
[2019-12-02] MEDS: DOCUSATE 100 MG CAP PO SCH (20:06)
[2019-12-03 07:41] VITALS: BP 136/87; PULSE 55; RESP 17; TEMP 97.7
[2019-12-03] MEDS: METOPROLOL TARTRATE 50 MG TAB PO SCH (08:18)
[2019-12-03] MEDS: HEPARIN SODIUM,PORCINE 5,000 UNIT/ML 1 ML VIAL SQ SCH (08:18)
[2019-12-03] MEDS: CYANOCOBALAMIN 500 MCG TAB PO SCH (08:18)
[2019-12-03] MEDS: THIAMINE 100 MG TAB PO SCH (08:18)
[2019-12-03] MEDS: LOSARTAN 50 MG TAB PO SCH (08:18)
[2019-12-03] MEDS: FAMOTIDINE 20 MG TAB PO SCH (08:18)
[2019-12-03] MEDS: levETIRAcetam 500 MG TAB PO SCH (08:19)
--- NOTE | 2019-12-03 09:57 | P.PN ---
Progress Note - Text Progress Note Date: 12/03/19 Patient is seen and examined at bedside. She says that she has been having issues with her walking and neck and frequent falls. She says her. She feels like her back is out. She is not having specific radiculopathy her lower extremities. She says that she feels she bends forward more and more and then has the point where she is unable to stand on her own. She denies any fevers chills. She denies any change in bowel bladder function. On exam She is afebrile stable vital signs. She is comfortable in her room. She is able to sit up in bed without any problems. And lower extremity shows full active and passive range of motion with 5 out of 5 strength the dorsal flexion plantarflexion EHL hip flexion and extension. There is no pain with internal or external rotation of her hips. There is no pain at her back. Her back is clear without any tenderness to palpation. Her skin is clear. her new MRI was completed. It shows degenerative disc disease L3 4 L4 5. There is some facet arthrosis with some evidence of foraminal stenosis particularly at L4 5 and some degree at L5-S1. There is no significant central stenosis there is no evidence of any cauda equina syndrome or significant neurologic compromise. There is no evidence of any fracture Assessment and plan Acute on chronic lumbar strain Frequent falls without neurologic deficit Degenerative disc disease L3 4 L4 5 and L5-S1 with mild to moderate foraminal encroachment without obvious neurologic deficit, no new herniation or stenosis I think the patient had an acute flareup of her chronic lumbar issues. She does not have any specific neurologic deficit and I do not think she is a candidate for any surgical intervention for her lumbar spine. I would not recommend any specific further surgical intervention and the patient is asking to go home today. From a orthopedic spine standpoint it is okay for the patient be discharged home today. She may be candidate for interventional pain management on an outpatient basis which she can pursue with acid painter. I do not have any plans for surgical intervention and she can follow-up with me on an as-needed basis. She is encouraged to continue her home exercises and to try to increase her core strength and mobility and endurance. I discussed with her that her core strength and mobility is less than a can help keep her back strong and prevent recurrent flareups and she seems to understand.
--- NOTE | 2019-12-03 12:34 | P.DS ---
Providers Date of admission: 12/03/19 09:32 Expected date of discharge: 12/03/19 Attending physician: Juno Becerril MD Consults: 12/02/19 00:11 Consult Physician Routine Consulting Provider: Pasquale Mobley Consult Reason/Comments: severe low back pain Do you want consulting provider notified?: Yes, Notify in am Primary care physician: [facility] Course: 59 year old female wtih hypertension , History of HIV, seizure Patient comes in due to frequent falling at home, due to acute on chronic low back pain Patient reports that when she starts walking around her home using a cane, her back starts hurting and she starts leaning forward then loses her balance and falls down, denies any head injury or LOC, denies any associated dizziness, lightheadeness, nausea, vomiting, palpitations, SOB, chest pain. denies any focal neuro deficits, denies any weakness, numbness or tingling she denies any saddle numbness, or urinary or bowel incontinence or retention. Patient was an unsafe discharge for home as she lived by herself and she was admitted for treatment of acute on chronic lower back pain. She was placed on fall precautions, advanced neurochecks and physical therapy was consulted. Her pain was controlled with Napavine. Orthopedic surgery was also consulted. Orthopedic surgery recommended no surgical intervention and conservative darren gement. Her pain did improve with oral analgesics. PT worked with the patient during her hospitalization. Patient was adamant about wanting to go home rather than any sort of rehab. MRI of the lumbar spine was done which showed multilevel degenerative changes with encroachment along the anterior inferior margin of the L5 nerves. Patient was seen and examined. No acute events overnight. Patient reports improvement in her lower back pain. She denies any chest pain, shortness of breath or palpitations. No nausea or vomiting. No fever or chills. General: [non toxic], [no distress], [appears at stated age] Derm: [warm], [dry] Head: [atraumatic], [normocephalic], [symmetric] Eyes: [EOMI], [no lid lag], [anicteric sclera] Mouth: [no lip lesion], [mucus membranes moist] Cardiovascular: [S1S2 reg], [no murmur], [positive DP pulse bilateral], Lungs: [CTA bilateral], [no rhonchi, no rales] , [no accessory muscle use] Abdominal: [soft], [ nontender to palpation], [no guarding], [no appreciable organomegaly] Ext: [no gross muscle atrophy], [no edema], [no contractures] Neuro: [no focal neuro deficits] Psych: [Alert], [oriented], [appropriate affect] 1. Acute on chronic low back pain with frequent falls patient was placed on IV Abx possible UTI no culture obtained fall precautions neuro checks PT /OT eval pain control with norco no focal neuro deficits no urinary or bowel incontinence or retention Consult Case Management for placement since patient feels unsafe at home but patient is unwilling 2. Hx of HIV 3. Hx of Seizure seizure keppra 4. Hx Chronic liver disease 5. Hypertension controlled resume home meds 6 GI and DVT prophylaxis [Plans for DC home today with 3 day supply of Napavine. Patient is agreeable to the plan.] Pertinent Studies: Chest x-ray, lumbar spine CT, knee x-ray, MRI lumbar spine Patient Condition at Discharge: Stable Plan - Discharge Summary Discharge Rx Participant: Yes New Discharge Prescriptions: New HYDROcodone/APAP 10-325MG [Napavine 10-325] 1 each PO Q4HR PRN #18 tab PRN Reason: Pain Continue FLUoxetine HCL [PROzac] 40 mg PO HS Losartan Potassium 100 mg PO DAILY Docusate [Colace] 100 mg PO HS Albuterol Sulfate [Ventolin HFA] 2 puff INHALATION RT-QID PRN PRN Reason: Shortness Of Breath Cyanocobalamin (Vitamin B-12) [Vitamin B-12] 1,000 mcg PO DAILY Doxepin HCl [SINEquan] 150 mg PO HS hydrOXYzine PAMOATE [Vistaril] 50 mg PO HS levETIRAcetam [Keppra] 500 mg PO BID Metoprolol Tartrate [Lopressor] 50 mg PO BID Perphenazine [Trilafon] 8 mg PO HS Thiamine [Vitamin B-1] 100 mg PO DAILY Discharge Medication List FLUoxetine HCL [PROzac] 40 mg PO HS 06/18/15 [History] Losartan Potassium 100 mg PO DAILY 06/18/15 [History] Docusate [Colace] 100 mg PO HS 12/15/16 [History] Albuterol Sulfate [Ventolin HFA] 2 puff INHALATION RT-QID PRN 12/01/19 [History] Cyanocobalamin (Vitamin B-12) [Vitamin B-12] 1,000 mcg PO DAILY 12/01/19 [History] Doxepin HCl [SINEquan] 150 mg PO HS 12/01/19 [History] Metoprolol Tartrate [Lopressor] 50 mg PO BID 12/01/19 [History] Perphenazine [Trilafon] 8 mg PO HS 12/01/19 [History] Thiamine [Vitamin B-1] 100 mg PO DAILY 12/01/19 [History] hydrOXYzine PAMOATE [Vistaril] 50 mg PO HS 12/01/19 [History] levETIRAcetam [Keppra] 500 mg PO BID 12/01/19 [History] HYDROcodone/APAP 10-325MG [Napavine 10-325] 1 each PO Q4HR PRN #18 tab 12/03/19 [Rx] Follow up Appointment(s)/Referral(s): Pasquale Mobley DO [Doctor of Osteopathic Medicine] - As Needed [facility] [[facility]] - 12/11/19 12:00 pm [facility] Visiting Nurse, [NON-STAFF] - Patient Instructions/Handouts: Fall Prevention for Older Adults (DC), Fall Prevention (DC) Activity/Diet/Wound Care/Special Instructions: Diet: Low-salt Follow-up PCP within 3 days of discharge. Follow-up with orthopedic surgery within 1 week of discharge. Take all medications as advised. Come back to the ED or call 911 for unilateral weakness of your lower extremities, bladder or bowel incontinence, loss of sensation in the groin area. Discharge Disposition: HOME SELF-CARE
== END 2019-12-03 12:15 | disposition home or self-care (01) ==
LOC: EC 15:34 → 4SSUR 21:00 → INTOOBSV 12-03 09:32 → OBSVTOIN 12-03 09:32 → UNDODISIN 12-03 12:15
PROVIDERS: ADMIT Internal Medicine; ATTEND Internal Medicine
DX: M54.5 Low back pain (principal); M51.16 Intervertebral disc disorders with radiculopathy, lumbar region; R29.6 Repeated falls; E78.5 Hyperlipidemia, unspecified; F20.9 Schizophrenia, unspecified; F32.9 Major depressive disorder, single episode, unspecified; F41.9 Anxiety disorder, unspecified; G40.909 Epilepsy, unspecified, not intractable, without status epilepticus; G89.29 Other chronic pain; I10 Essential (primary) hypertension; Z21 Asymptomatic human immunodeficiency virus [HIV] infection status; J45.909 Unspecified asthma, uncomplicated; B19.20 Unspecified viral hepatitis C without hepatic coma; M17.0 Bilateral primary osteoarthritis of knee; M47.26 Other spondylosis with radiculopathy, lumbar region; M79.7 Fibromyalgia; W19.XXXA Unspecified fall, initial encounter; Y92.009 Unspecified place in unspecified non-institutional (private) residence as the place of occurrence of the external cause; Z79.899 Other long term (current) drug therapy; Z03.818 Encounter for observation for suspected exposure to other biological agents ruled out; Z87.891 Personal history of nicotine dependence; Z90.710 Acquired absence of both cervix and uterus; Z98.1 Arthrodesis status; H40.9 Unspecified glaucoma; Z60.2 Problems related to living alone; G62.9 Polyneuropathy, unspecified; Z88.6 Allergy status to analgesic agent; Z88.0 Allergy status to penicillin
CPT/HCPCS: 96365; 96366; 96372 ×2; 99285; 36415; 94640 ×2; 93005; 97116; 97162; 97535; 97166; 80053; 80048; 82550; 83605; 83735; 84443; 84484; 85025 ×2; 81001; 87040; 82306; 87635; 73564; 71046; 72131; 72148; G0378 ×3; Q0175 ×2; J1644 ×2; J0696

== ENCOUNTER 2020-03-30 17:17 | Emergency (ER) | payer OTHER ==
[2020-03-30 17:24] VITALS: RESP 18
--- NOTE | 2020-03-30 17:40 | ED ---
General Adult HPI - General Chief complaint: Psychiatric Symptoms Stated complaint: mental health Time Seen by Provider: 03/30/20 17:25 Source: patient, RN notes reviewed Mode of arrival: ambulatory Limitations: no limitations - History of Present Illness Initial comments: Patient is a pleasant [age]-year-old female presenting to the emergency department secondary to not having her medications. Patient states it is been around 10 days. Patient states she does go to [facility] [address] and has been calling however they have not given her the medications. Patient states she has not slept the last 10 days. No hallucinations. No alcohol or street drug use other than marijuana. No suicidal or homicidal thoughts. Patient admits to feeling anxious. No new physical complaints. - Related Data Home Medications Medication Instructions Recorded Confirmed FLUoxetine HCL [PROzac] 40 mg PO HS 06/18/15 03/30/20 Losartan Potassium 100 mg PO DAILY 06/18/15 03/30/20 Docusate [Colace] 100 mg PO HS 12/15/16 03/30/20 Albuterol Sulfate [Ventolin HFA] 2 puff INHALATION RT-QID PRN 12/01/19 03/30/20 Cyanocobalamin (Vitamin B-12) 1,000 mcg PO DAILY 12/01/19 03/30/20 [Vitamin B-12] Doxepin HCl [SINEquan] 150 mg PO HS 12/01/19 03/30/20 Metoprolol Tartrate [Lopressor] 50 mg PO BID 12/01/19 03/30/20 Perphenazine [Trilafon] 8 mg PO HS 12/01/19 03/30/20 Thiamine [Vitamin B-1] 100 mg PO DAILY 12/01/19 03/30/20 hydrOXYzine pamoate [Vistaril] 50 mg PO HS 12/01/19 03/30/20 levETIRAcetam [Keppra] 500 mg PO BID 12/01/19 03/30/20 Previous Rx's Medication Instructions Recorded Doxepin HCl [SINEquan] 150 mg PO DAILY #7 cap 03/30/20 FLUoxetine HCL [PROzac] 40 mg PO DAILY #7 cap 03/30/20 Allergies Allergy/AdvReac Type Severity Reaction Status Date / Time Penicillins Allergy Rash/Hives Verified 03/30/20 19:39 propoxyphene napsylate Allergy Itching Verified 03/30/20 19:39 [From Darvocet-N 100] aspirin AdvReac Nausea & Verified 03/30/20 19:39 Vomiting ibuprofen [From Motrin] AdvReac Nausea & Verified 03/30/20 19:39 Vomiting Review of Systems ROS Statement: Those systems with pertinent positive or pertinent negative responses have been documented in the HPI. ROS Other: All systems not noted in ROS Statement are negative. Constitutional: Denies: fever Eyes: Denies: eye pain ENT: Denies: ear pain Respiratory: Denies: cough, dyspnea Cardiovascular: Denies: chest pain Endocrine: Denies: fatigue Gastrointestinal: Denies: abdominal pain Genitourinary: Denies: urgency Musculoskeletal: Denies: back pain Skin: Denies: rash Neurological: Denies: weakness Psychiatric: Reports: anxiety, depression. Denies: auditory hallucinations, visual hallucinations, homicidal thoughts, suicidal thoughts Past Medical History Past Medical History: Asthma, Eye Disorder, Fibromyalgia, GERD/Reflux, Hyperlipidemia, Liver Disease, Osteoarthritis (OA), Seizure Disorder Additional Past Medical History / Comment(s): 08/11/15 Pt admitted to floor s/p anterior cervical decompression fusion C3-4, C4-5 with carpectomy. Other HX: had 1 seizure several years ago due to drug interaction, HIV positive, hx. Hep. C, neuropathy, hx. ulcers, glaucoma bilaterally with surgery. History of Any Multi-Drug Resistant Organisms: None Reported Past Surgical History: Hysterectomy Additional Past Surgical History / Comment(s): 08/11/15 Anterior cervical decompression fusion C3-4, C4-5 with carpectomy. Other surgical history: Eye surgery for glaucoma bilaterally. Past Anesthesia/Blood Transfusion Reactions: No Reported Reaction Past Psychological History: Anxiety, Depression, Schizophrenia Smoking Status: Never smoker Past Alcohol Use History: Occasional Past Drug Use History: Marijuana - Past Family History Father History Unknown: Yes Family Medical History: Unable to Obtain Additional Family Medical History / Comment(s): Pt did not know her father. Mother Family Medical History: No Reported History General Exam Limitations: no limitations General appearance: alert, in no apparent distress Head exam: Present: atraumatic Eye exam: Present: normal appearance Neck exam: Present: normal inspection Respiratory exam: Present: normal lung sounds bilaterally Cardiovascular Exam: Present: regular rate, normal rhythm GI/Abdominal exam: Present: soft. Absent: tenderness Extremities exam: Present: normal inspection Neurological exam: Present: alert Psychiatric exam: Present: normal affect, normal mood Skin exam: Present: normal color Course Vital Signs 03/30/20 17:19 Temperature 99.0 F Pulse Rate 66 Respiratory 18 Rate Blood Pressure 163/114 O2 Sat by Pulse 96 Oximetry Medical Decision Making - Medical Decision Making Patient seen by mental health services with plan for discharge. They do request patient to get a few day prescription of her doxepin and Prozac. Patient will follow-up with [facility]. They will call to help arrange follow-up. - Lab Data Lab Results 03/30/20 Range/Units 17:40 Urine Opiates Screen Not Detected (NotDetected) Ur Oxycodone Screen Not Detected (NotDetected) Urine Methadone Screen Not Detected (NotDetected) Ur Propoxyphene Screen Not Detected (NotDetected) Ur Barbiturates Screen Not Detected (NotDetected) U Tricyclic Antidepress Detected H (NotDetected) Ur Phencyclidine Scrn Not Detected (NotDetected) Ur Amphetamines Screen Not Detected (NotDetected) U Methamphetamines Scrn Not Detected (NotDetected) U Benzodiazepines Scrn Not Detected (NotDetected) Urine Cocaine Screen Not Detected (NotDetected) U Marijuana (THC) Screen Detected H (NotDetected) Disposition Clinical Impression: Acute anxiety Disposition: HOME SELF-CARE Condition: Stable Instructions (If sedation given, give patient instructions): Depression (ED), Anxiety (ED) Additional Instructions: Prescriptions sent to [facility]. Please follow-up with [facility] in the next day or 2 as recommended. Please also follow-up with primary care physician. Return for thoughts of self-harm, worsening symptoms or other concerns. Prescriptions: FLUoxetine HCL [PROzac] 40 mg PO DAILY #7 cap Doxepin HCl [SINEquan] 150 mg PO DAILY #7 cap Is patient prescribed a controlled substance at d/c from ED?: No Referrals: [facility] [Primary Care Provider] - 1-2 days Time of Disposition: 20:24
[2020-03-30 18:14] LABS: Amphetamine Screen,Urine Not Detected (NotDetected); Barbiturate Screen,Urine Not Detected (NotDetected); Benzodiazepines Screen,Urine Not Detected (NotDetected); Cocaine Screen,Urine Not Detected (NotDetected); Methadone Screen, Urine Not Detected (NotDetected); Opiate Screen,Urine Not Detected (NotDetected); Oxycodone Screen, Urine Not Detected (NotDetected); Phencyclidine Screen,Urine Not Detected (NotDetected); Tricyclic Antidepressant,Urine Detected (NotDetected); Urn Cannabinoid Scrn Detected (NotDetected)
[2020-03-30] MEDS ORDERED: FLUoxetine HCL 20 MG CAP PO STA (20:24)
[2020-03-30 20:51] VITALS: BP 156/88; PULSE 69; TEMP 98.8
== END 2020-03-30 20:51 | disposition home or self-care (01) ==
LOC: EC 17:17
DX: F41.9 Anxiety disorder, unspecified (principal); F32.9 Major depressive disorder, single episode, unspecified; F41.0 Panic disorder [episodic paroxysmal anxiety]; J45.909 Unspecified asthma, uncomplicated; F20.9 Schizophrenia, unspecified; M19.90 Unspecified osteoarthritis, unspecified site; G40.909 Epilepsy, unspecified, not intractable, without status epilepticus; M79.7 Fibromyalgia; Z21 Asymptomatic human immunodeficiency virus [HIV] infection status; Z88.0 Allergy status to penicillin; Z88.6 Allergy status to analgesic agent; Z88.8 Allergy status to other drugs, medicaments and biological substances; Z98.1 Arthrodesis status
CPT/HCPCS: 80306; 82075; 99284

== ENCOUNTER 2020-09-08 13:10 | Inpatient (IN) | payer OTHER ==
[2020-09-08] MEDS ORDERED: MORPHINE SULFATE 4 MG/ML SYRINGE IVP STA (13:41)
[2020-09-08] MEDS ORDERED: ONDANSETRON 4 MG/2 ML VIAL IVP STA (13:41)
--- NOTE | 2020-09-08 13:56 | ED ---
Fall HPI - General Chief Complaint: Fall Stated Complaint: Fall Time Seen by Provider: 09/08/20 13:28 Source: patient, EMS, RN notes reviewed Mode of arrival: EMS Limitations: no limitations - History of Present Illness Initial Comments: 59-year-old female presents emergency Department with chief complaint of left ankle injury. Patient states she had a prior fracture when she was younger. Patient states that she was walking stepped on some ice to a ankle she states she felt a pop. Patient complains of pain on the lateral portion of her left ankle no head injury no loss conscious denies any hip pain no back pain no chest pain or shortness breath. - Related Data Home Medications Medication Instructions Recorded Confirmed FLUoxetine HCL [PROzac] 40 mg PO HS 06/18/15 03/30/20 Losartan Potassium 100 mg PO DAILY 06/18/15 03/30/20 Docusate [Colace] 100 mg PO HS 12/15/16 03/30/20 Albuterol Sulfate [Ventolin HFA] 2 puff INHALATION RT-QID PRN 12/01/19 03/30/20 Cyanocobalamin (Vitamin B-12) 1,000 mcg PO DAILY 12/01/19 03/30/20 [Vitamin B-12] Doxepin HCl [SINEquan] 150 mg PO HS 12/01/19 03/30/20 Metoprolol Tartrate [Lopressor] 50 mg PO BID 12/01/19 03/30/20 Perphenazine [Trilafon] 8 mg PO HS 12/01/19 03/30/20 Thiamine [Vitamin B-1] 100 mg PO DAILY 12/01/19 03/30/20 hydrOXYzine pamoate [Vistaril] 50 mg PO HS 12/01/19 03/30/20 levETIRAcetam [Keppra] 500 mg PO BID 12/01/19 03/30/20 Previous Rx's Medication Instructions Recorded Doxepin HCl [SINEquan] 150 mg PO DAILY #7 cap 03/30/20 FLUoxetine HCL [PROzac] 40 mg PO DAILY #7 cap 03/30/20 Allergies Allergy/AdvReac Type Severity Reaction Status Date / Time Penicillins Allergy Rash/Hives Verified 03/30/20 19:39 propoxyphene napsylate Allergy Itching Verified 03/30/20 19:39 [From Darvocet-N 100] aspirin AdvReac Nausea & Verified 03/30/20 19:39 Vomiting ibuprofen [From Motrin] AdvReac Nausea & Verified 03/30/20 19:39 Vomiting Review of Systems ROS Statement: Those systems with pertinent positive or pertinent negative responses have been documented in the HPI. ROS Other: All systems not noted in ROS Statement are negative. Past Medical History Past Medical History: Asthma, Eye Disorder, Fibromyalgia, GERD/Reflux, Hyperlipidemia, Liver Disease, Osteoarthritis (OA), Seizure Disorder Additional Past Medical History / Comment(s): 08/11/15 Pt admitted to floor s/p anterior cervical decompression fusion C3-4, C4-5 with carpectomy. Other HX: had 1 seizure several years ago due to drug interaction, HIV positive, hx. Hep. C, neuropathy, hx. ulcers, glaucoma bilaterally with surgery. History of Any Multi-Drug Resistant Organisms: None Reported Past Surgical History: Hysterectomy Additional Past Surgical History / Comment(s): 08/11/15 Anterior cervical decompression fusion C3-4, C4-5 with carpectomy. Other surgical history: Eye surgery for glaucoma bilaterally. Past Anesthesia/Blood Transfusion Reactions: No Reported Reaction Past Psychological History: Anxiety, Depression, Schizophrenia Smoking Status: Never smoker Past Alcohol Use History: Occasional Past Drug Use History: Marijuana - Past Family History Father History Unknown: Yes Family Medical History: Unable to Obtain Additional Family Medical History / Comment(s): Pt did not know her father. Mother Family Medical History: No Reported History General Exam General appearance: alert, in no apparent distress Head exam: Present: atraumatic, normocephalic, normal inspection Eye exam: Present: normal appearance, PERRL, EOMI. Absent: scleral icterus, conjunctival injection, periorbital swelling Respiratory exam: Present: normal lung sounds bilaterally. Absent: respiratory distress, wheezes, rales, rhonchi, stridor Cardiovascular Exam: Present: regular rate, normal rhythm, normal heart sounds. Absent: systolic murmur, diastolic murmur, rubs, gallop, clicks GI/Abdominal exam: Present: soft, normal bowel sounds. Absent: distended, tenderness, guarding, rebound, rigid Extremities exam: Present: other (Left ankle there is swelling on the lateral portion of the lateral malleoli region, tenderness with palpation no proximal tib-fib tenderness no distal foot tenderness pulses are palpable and equal bilaterally.) Back exam: Present: full ROM. Absent: tenderness, paraspinal tenderness, vertebral tenderness Neurological exam: Present: alert, oriented X3, reflexes normal. Absent: motor sensory deficit Skin exam: Present: warm, dry, intact, normal color. Absent: rash Course Vital Signs 09/08/20 13:16 Temperature 98.9 F Pulse Rate 75 Respiratory 18 Rate Blood Pressure 148/104 O2 Sat by Pulse 92 L Oximetry Procedures - Orthopedic Splinting/Casting Injury #1 Side: left Lower Extremity Injury Location: short leg, ankle Lower Extremity Immobilizer: posterior splint, synthetic pre-padded splint Medical Decision Making - Medical Decision Making 59-year-old female presented for fall left ankle injury. X-ray reviewed shows evidence of displaced fracture. Case discussed with bartolome montenegro on-call for orthopedics. Patient had CT and will be admitted for surgery patient will be placed in splints with neuro checks and consult to medicine Disposition Clinical Impression: Fall, Closed fracture of distal end of left fibula and tibia Disposition: ADMITTED IP TO THIS HOSP Condition: Fair Referrals: [facility] [Primary Care Provider] - 1-2 days
--- NOTE | 2020-09-08 14:14 | XR ---
EXAMINATION TYPE: XR ankle complete LT DATE OF EXAM: 09/08/2020 COMPARISON: NONE HISTORY: Pain FINDINGS: Three views of the ankle demonstrate displaced oblique fracture of the distal tibia and fibula. Soft tissue edema noted. IMPRESSION: 1. Diffuse soft tissue edema with oblique displaced fractures of the distal tibia and fibula.
[2020-09-08] MEDS ORDERED: ACETAMINOPHEN TAB 325 MG TAB PO PRN (14:52)
[2020-09-08] MEDS ORDERED: ONDANSETRON 4 MG/2 ML VIAL IVP PRN (14:52)
[2020-09-08] MEDS ORDERED: HYDROcodone/APAP 5-325MG 1 EACH TAB PO PRN (14:52)
[2020-09-08] MEDS ORDERED: NALOXONE 0.4 MG/ML 1 ML VIAL IV PRN (14:52)
--- NOTE | 2020-09-08 14:54 | CT ---
EXAMINATION TYPE: CT ankle LT wo con DATE OF EXAM: 09/08/2020 COMPARISON: X-ray 09/08/2014 HISTORY: Fractured left ankle CT DLP: 313 mGycm Automated exposure control for dose reduction was used. CONTRAST: CT scan of the ankle was performed. FINDINGS- Diffuse soft tissue edema. There is a posterior malleolus fracture of the tibia. Proximally there is an oblique fracture with displacement of the distal diaphysis of the tibia. There is a displaced frac ture involving the distal diaphysis of the fibula which has a spiral orientation extending into the m etaphysis. Medial malleolus appears intact. Remaining osseous structures intact. There is asymmetry o f the ankle mortise. IMPRESSION- 1. There are oblique fractures of the distal tibia and fibula corresponding to the x-ray abnormality. 2. There is a posterior malleolar, tibial fracture with mild displacement. 3. Asymmetry of the ankle mortise.
[2020-09-08] MEDS: MORPHINE SULFATE 4 MG/ML SYRINGE IV PRN ×2 (15:14→23:27)
[2020-09-08 15:16] LABS: Basophils % (A) 0 %; Eosinophils # (A) 0.1 k/uL (0-0.7); Eosinophils % (A) 1 %; HCT 43.9 % (34.0-46.0); HGB 14.1 gm/dL (11.4-16.0); Lymphocytes # (A) 1.7 k/uL (1.0-4.8); Lymphocytes % (A) 18 %; MCH 27.9 pg (25.0-35.0); MCHC 32.2 g/dL (31.0-37.0); MCV 86.7 fL (80.0-100.0); Mean Platelet Volume 7.4; Monocytes # (A) 0.5 k/uL (0-1.0); Monocytes % (A) 5 %; Neutrophils # (A) 7.1 k/uL (1.3-7.7); Neutrophils % (A) 75 %; Platelet Count 219 k/uL (150-450); RBC 5.07 m/uL (3.80-5.40); RDW 13.7 % (11.5-15.5); WBC 9.5 k/uL (3.8-10.6)
[2020-09-08 15:25] LABS: ALT 16 U/L (4-34); AST 21 U/L (14-36); African American GFR (CKD) >90 (>60 ml/min/1.73 sqM); Alkaline Phosphatase 98 U/L (38-126); Anion Gap 6 mmol/L; Blood Urea Nitrogen 17 mg/dL (7-17); Calcium 9.3 mg/dL (8.4-10.2); Carbon Dioxide 25 mmol/L (22-30); Chloride 107 mmol/L (98-107); Glucose 112 mg/dL (74-99); Non-African American GFR(CKD) 79 (>60 ml/min/1.73 sqM); Sodium 138 mmol/L (137-145); Total Bilirubin 0.7 mg/dL (0.2-1.3); Total Protein 7.6 g/dL (6.3-8.2)
[2020-09-08 15:26] LABS: INR 0.9 (<1.2); Partial Thromboplastin Time 22.6 sec (22.0-30.0); Prothrombin Time 10.2 sec (9.0-12.0)
[2020-09-08] MEDS ORDERED: HYDROmorphone 0.5 MG/0.5 ML SYRINGE IVP STA (16:01)
--- NOTE | 2020-09-08 16:02 | ED ---
Medical Decision Making - Lab Data Result diagrams: 09/08/20 15:01 09/08/20 15:01 Lab Results 09/08/20 09/08/20 09/08/20 Range/Units 15:01 15:01 15:01 WBC 9.5 (3.8-10.6) k/uL RBC 5.07 (3.80-5.40) m/uL Hgb 14.1 (11.4-16.0) gm/dL Hct 43.9 (34.0-46.0) % MCV 86.7 (80.0-100.0) fL MCH 27.9 (25.0-35.0) pg MCHC 32.2 (31.0-37.0) g/dL RDW 13.7 (11.5-15.5) % Plt Count 219 (150-450) k/uL MPV 7.4 Neutrophils % 75 % Lymphocytes % 18 % Monocytes % 5 % Eosinophils % 1 % Basophils % 0 % Neutrophils # 7.1 (1.3-7.7) k/uL Lymphocytes # 1.7 (1.0-4.8) k/uL Monocytes # 0.5 (0-1.0) k/uL Eosinophils # 0.1 (0-0.7) k/uL Basophils # 0.0 (0-0.2) k/uL PT 10.2 (9.0-12.0) sec INR 0.9 (<1.2) APTT 22.6 (22.0-30.0) sec Sodium 138 (137-145) mmol/L Potassium 5.0 (3.5-5.1) mmol/L Chloride 107 (98-107) mmol/L Carbon Dioxide 25 (22-30) mmol/L Anion Gap 6 mmol/L BUN 17 (7-17) mg/dL Creatinine 0.81 (0.52-1.04) mg/dL Est GFR (CKD-EPI)AfAm >90 (>60 ml/min/1.73 sqM) Est GFR (CKD-EPI)NonAf 79 (>60 ml/min/1.73 sqM) Glucose 112 H (74-99) mg/dL Calcium 9.3 (8.4-10.2) mg/dL Total Bilirubin 0.7 (0.2-1.3) mg/dL AST 21 (14-36) U/L ALT 16 (4-34) U/L Alkaline Phosphatase 98 (38-126) U/L Total Protein 7.6 (6.3-8.2) g/dL Albumin 4.0 (3.5-5.0) g/dL Disposition Clinical Impression: Fall, Closed fracture of distal end of left fibula and tibia Disposition: ADMITTED IP TO THIS [facility] Condition: Fair Procedures - Orthopedic Splinting/Casting Injury #1 Side: left Lower Extremity Injury Location: short leg Lower Extremity Immobilizer: posterior splint Additional Comments: neuro Vascular status intact after splint applied.
[2020-09-08 17:17] LABS: Basophils % (A) 0 %; Eosinophils % (A) 0 %; HGB 13.9 gm/dL (11.4-16.0); Lymphocytes % (A) 19 %; MCH 27.8 pg (25.0-35.0); MCHC 31.7 g/dL (31.0-37.0); MCV 87.6 fL (80.0-100.0); Mean Platelet Volume 7.5; Monocytes # (A) 0.5 k/uL (0-1.0); Monocytes % (A) 4 %; Neutrophils % (A) 75 %; Platelet Count 231 k/uL (150-450); RBC 5.02 m/uL (3.80-5.40); RDW 13.7 % (11.5-15.5); WBC 10.7 k/uL (3.8-10.6)
[2020-09-08 17:21] LABS: ALT 16 U/L (4-34); AST 23 U/L (14-36); African American GFR (CKD) >90 (>60 ml/min/1.73 sqM); Albumin 4.1 g/dL (3.5-5.0); Albumin/Globulin Ratio 1.1; Alkaline Phosphatase 104 U/L (38-126); Anion Gap 7 mmol/L; Blood Urea Nitrogen 16 mg/dL (7-17); Calcium 9.3 mg/dL (8.4-10.2); Carbon Dioxide 24 mmol/L (22-30); Chloride 107 mmol/L (98-107); Globulin 3.6 g/dL; Glucose 114 mg/dL (74-99); Non-African American GFR(CKD) 84 (>60 ml/min/1.73 sqM); Potassium 4.7 mmol/L (3.5-5.1); Sodium 138 mmol/L (137-145); Total Bilirubin 0.8 mg/dL (0.2-1.3); Total Protein 7.7 g/dL (6.3-8.2)
[2020-09-08] MEDS: hydrALAZINE HCL 20 MG/ML 1 ML VIAL IVP PRN (17:40)
--- NOTE | 2020-09-08 18:07 | P.HPOR ---
History of Present Illness H&P Date: 09/08/20 Chief Complaint: Left ankle fracture Patient is a 59-year-old female who presents [facility] today after injuring her left leg. Patient apparently slipped on ice and felt a pop in her left ankle. She noticed immediate deformity and was unable to weight-cruzito r. EMS to bring the patient to the hospital for further evaluation. Upon arrival to the hospital, imaging and lab tests were done. Images demonstrated a displaced and comminuted left distal tibia and fibular fracture. I was contacted by the emergency room staff regarding the patient, I was unable to discuss the case my attending Dr. Means. A computed tomography scan of the left ankle was then obtained prior to admission. Patient was then admitted under our orthopedic care was plan for surgical intervention. A posterior splint was applied via the emergency room staff, patient's neurovascular status was intact prior and after splint application. Patient was evaluated today in the med/surgical floor. She is resting in her bed. She notes all discomfort in the distal aspect of her left lower extremity. She denies any right lower extremity pain. She denies any bilateral upper extremity pain. She denies any new onset cervical, thoracic or lumbar pain. She denies any paresthesias of the bilateral upper extremities or lower extremities. Patient does have a history of previous left ankle fracture when she was younger, there was no surgical intervention done. Currently patient denies any headaches, lightheadedness, shortness of breath, chest pain, nausea vomiting, abdominal pain, fever or chills. Review of Systems Constitutional: Reports as per HPI Past Medical History Past Medical History: Asthma, Eye Disorder, Fibromyalgia, GERD/Reflux, Hyperlipidemia, Liver Disease, Osteoarthritis (OA), Seizure Disorder Additional Past Medical History / Comment(s): Other HX: had 1 seizure several years ago due to drug interaction, HIV positive, hx. Hep. C, neuropathy, hx. ulcers, glaucoma bilaterally with surgery. History of Any Multi-Drug Resistant Organisms: None Reported Past Surgical History: Hysterectomy Additional Past Surgical History / Comment(s): 08/11/15 Anterior cervical decom pression fusion C3-4, C4-5 with carpectomy. Other surgical history: Eye surgery for glaucoma bilaterally. Past Anesthesia/Blood Transfusion Reactions: No Reported Reaction Past Psychological History: Anxiety, Depression, Schizophrenia Additional Psychological History / Comment(s): Pt lives alone. She uses a walker or wheelchair. 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 She gets rides thru her insurance. Smoking Status: Never smoker Past Alcohol Use History: Occasional Additional Past Alcohol Use History / Comment(s): Pt states she is 1 pack every 3 days smoker. She started smoking at age 14yrs. Pt states she will have an occasional beer or wine. Past Drug Use History: Marijuana Additional Drug Use History / Comment(s): medical use-smokes on occasion. - Past Family History Father History Unknown: Yes Family Medical History: Unable to Obtain Additional Family Medical History / Comment(s): Pt did not know her father. Mother Family Medical History: No Reported History Medications and Allergies Home Medications Medication Instructions Recorded Confirmed Type Losartan Potassium 100 mg PO DAILY 06/18/15 09/08/20 History Docusate [Colace] 100 mg PO DAILY 12/15/16 09/08/20 History Albuterol Sulfate [Ventolin HFA] 2 puff INHALATION RT-Q4H PRN 12/01/19 09/08/20 History Doxepin HCl [SINEquan] 150 mg PO HS 12/01/19 09/08/20 History Metoprolol Tartrate [Lopressor] 50 mg PO BID 12/01/19 09/08/20 History Perphenazine [Trilafon] 8 mg PO HS 12/01/19 09/08/20 History Thiamine [Vitamin B-1] 100 mg PO DAILY 12/01/19 09/08/20 History hydrOXYzine pamoate [Vistaril] 50 mg PO HS 12/01/19 09/08/20 History levETIRAcetam [Keppra] 500 mg PO BID 12/01/19 09/08/20 History FLUoxetine HCL [PROzac] 40 mg PO DAILY #7 cap 03/30/20 09/08/20 Rx Cholecalciferol (Vitamin D3) 125 mcg PO DAILY 09/08/20 09/08/20 History [Vitamin D3 (5000 Iu)] Fluticasone Nasal [place] [Flonase 1 spray EA NOSTRIL DAILY 09/08/20 09/08/20 History Nasal [place]] Omeprazole 20 mg PO DAILY 09/08/20 09/08/20 History Allergies Allergy/AdvReac Type Severity Reaction Status Date / Time Penicillins Allergy Rash/Hives Verified 09/08/20 15:41 propoxyphene napsylate Allergy Itching Verified 09/08/20 15:41 [From Darvocet-N 100] aspirin AdvReac Nausea & Verified 09/08/20 15:41 Vomiting ibuprofen [From Motrin] AdvReac Nausea & Verified 09/08/20 15:41 Vomiting Physical Examination Left lower extremity: Posterior splint with Dominick bandage fixation is in place. The splint is placed slightly more medial, the foot is more externally rotated, but ankle flexion is close to 90. Her sensation to light touch both proximal and distal to the splinter intact. The skin is warm to touch both proximal and distal to the splint. She is nontender with palpation surrounding the knee. She is nontender the proximal femur. Logroll maneuver the extremity reproduces no groin pain. Range of motion along with strength testing was not assessed the remaining muscle groups of the left lower extremity Right lower extremity: No obvious open lesions or sores are visualized throughout the extremity, there is no point tenderness noted throughout the extremity. Range of motion is intact with regards to hip flexion, knee extension, knee flexion, plantar flexion, dorsiflexion, EHL, FHL. Logroll maneuver reproduces no pain. Calf is soft, no tenderness with palpation. Sensory exam to light touch throughout the extremity is intact, dorsalis pedis pulses 2+. Gen. orthopedic exam: No obvious skin changes are noted throughout the bilateral upper extremities, full range of motion of all major muscle groups of the bilateral upper extremities. No obvious point tenderness noted throughout the bilateral upper extremities Nontender with palpation of the midline and paraspinal regions cervical, thoracic or lumbar spine Results - Labs Labs: Abnormal Lab Results - Last 24 Hours (Table) 09/08/20 09/08/20 09/08/20 Range/Units 15:01 16:50 16:50 WBC 10.7 H (3.8-10.6) k/uL Neutrophils # 8.0 H (1.3-7.7) k/uL Glucose 112 H 114 H (74-99) mg/dL H & H 09/08/20 09/08/20 Range/Units 15:01 16:50 Hgb 14.1 13.9 (11.4-16.0) gm/dL Hct 43.9 44.0 (34.0-46.0) % Coagulation 09/08/20 Range/Units 15:01 INR 0.9 (<1.2) Result Diagrams: 09/08/20 16:50 09/08/20 16:50 - Diagnostic results Ankle/Foot x-ray: report reviewed, image reviewed Ankle/Foot CT: report reviewed, image reviewed Assessment and Plan Assessment: Imaging: Multiple x-rays were reviewed of the left ankle including a computed tomography scan of the left ankle. These images and reports were also reviewed with my attending Dr. Means. Obvious displaced and comminuted left distal tibia and fibular fracture. There is also posterior malleolus fracture involving the left tibia. Assessment: Left distal tibia fracture, displaced and comminuted Left distal fibular fracture, displaced and comminuted Left ankle posterior malleolus fracture, displaced Status post slip and fall on ice Plan: Patient will be admitted under orthopedic care with plan for surgical intervention. Plan for surgery on 09/10/2020. Please see consent form for further description of procedure. Treatment option was discussed with the patient today at bedside, she was notified to Dr. Means would be available to discuss risk and assessment of the procedure Dr. Means will be available tomorrow along with myself to further evaluate the splint integrity Nonweightbearing left lower extremity, ice and elevate [id number] Neurovascular checks every 3 hours DVT prophylaxis, heparin 5000 units every 12 Medical recommendations and clearance for surgery Pain control, oral and IV medication as needed Regular diet at this time Further recommendations to follow Time with Patient: Less than 30
--- NOTE | 2020-09-08 19:13 | P.CONS ---
History of Present Illness - Reason for Consult Consult date: 09/08/20 Requesting physician: Arvind Means - Chief Complaint Ankle fracture - History of Present Illness This is a 59-year-old pleasant lady, known history of asthma, mild intermittent, fibromyalgia, hyperlipidemia, liver disease, seizure disorder HIV, hepatitis C, neuropathy, last seizure was several years ago, due to drug interaction. Also with glaucoma requiring surgery. She presented emergency room after injuring her left leg, she slipped on ice, and felt discomfort and a pop in her left ankle. She noticed some local swelling, and vomiting, unable to put weight on it. EMS has seen the patient, and brought her to evaluation, for which imaging x-rays shows comminuted displaced left distal tibia fibular fracture. Consult was made to our service from primary admitting with Dr. Means for medical management. They anticipating surgery tomorrow morning September 09, most likely ORIF. Patient currently any symptoms of chest pain palpitations, headedness dizziness, shortness of breath no abdominal pain nausea vomiting no diarrhea. No fever no chills no cough, no symptoms of any viral infection. Review of Systems Constitutional: Reports as per HPI, Denies anorexia, Denies chills, Denies chronic headaches, Denies chronic pain, Denies daytime sleepiness, Denies fatigue, Denies fever, Denies lethargy, Denies malaise, Denies night sweats, Denies poor appetite, Denies sweats, Denies weakness, Denies weight gain, Denies weight loss Ears, nose, mouth and throat: Reports as per HPI, Denies ant. neck pain, Denies bleeding gums, Denies dental pain, Denies dysphagia, Denies epistaxis, Denies headache, Denies hoarseness, Denies mouth pain, Denies nasal congestion, Denies nasal discharge, Denies neck fullness/pressure, Denies neck lump, Denies nose pain, Denies odynophagia, Denies post-nasal drip, Denies sinus pain, Denies sinus pressure, Denies swelling in mouth, Denies swelling in throat, Denies sore throat, Denies vertigo, Denies voice changes Cardiovascular: Reports as per HPI Respiratory: Reports as per HPI, Denies congestion, Denies cough, Denies cough with sputum, Denies dyspnea, Denies excessive sputum, Denies hemoptysis, Denies home oxygen, Denies pain, Denies pain on inspiration, Denies pleurisy, Denies respiratory infections, Denies sleep apnea, Denies snoring, Denies wheezing Gastrointestinal: Reports as per HPI, Denies abdominal pain, Denies belching, Denies bloating, Denies BRBPR, Denies change in bowel habits, Denies coffee ground emesis, Denies constipation, Denies diarrhea, Denies dyspepsia, Denies early satiety, Denies excessive gas, Denies heartburn, Denies hematemesis, Denie s hematochezia, Denies indigestion, Denies jaundice, Denies lactose intolerance, Denies loss of appetite, Denies melena, Denies nausea, Denies vomiting Genitourinary: Reports as per HPI, Denies abnormal vaginal bleeding, Denies decreased libido, Denies difficulty conceiving, Denies difficulty voiding, Denies dysmenorrhea, Denies dyspareunia, Denies dysuria, Denies flank pain, Denies genital sores, Denies hematuria, Denies hot flashes, Denies incomplete emptying, Denies kidney stones, Denies menorrhagia, Denies mixed incontinence, Denies nocturia, Denies pelvic pain, Denies post void dribbling, Denies , Denies prolapse symptoms, Denies stress incontinence, Denies urge incontinence, Denies urgency, Denies urinary frequency, Denies vaginal discharge, Denies vaginal dryness, Denies vaginal itching, Denies vaginal odor Menstruation: Reports as per HPI, Denies amenorrhea, Denies amenorrhea on BC, Denies currently menstrual, Denies cycle < 21 days, Denies cycle > 35 days, Denies cycle variable, Denies menses 1-7 days, Denies menses 8 or > days, Denies menses variable, Denies period heavy, Denies period light, Denies period normal, Denies period spotting, Denies post hysterectomy, Denies postmenopausal, Denies premenarcheal Musculoskeletal: Reports as per HPI, Denies arm numbness/tingling, Denies atrophy, Denies fractures, Denies frequent falls, Denies gait dysfunction, Denies hot joints, Denies leg numbness/tingling, Denies limitation of motion, Denies loss of height, Denies low back pain, Denies morning stiffness, Denies muscle cramps, Denies muscle weakness, Denies myalgias, Denies neck pain, Denies neck stiffness, Denies prior amputations, Denies redness of joints, Denies shooting arm pain, Denies shooting leg pain Integumentary: Reports as per HPI Neurological: Reports as per HPI, Reports gait dysfunction, Denies aphasia, Denies ataxia, Denies balance difficulties, Denies burning pain, Denies change in mentation, Denies change in smell/taste, Denies change in speech, Denies confusion, Denies convulsions, Denies double vision, Denies head injury, Denies headaches, Denies hearing difficulties, Denies lack of coordination, Denies loss of vision, Denies memory loss, Denies migraines, Denies motor disturbance, Denies numbness, Denies paralysis, Denies paresthesias, Denies seizures, Denies sensory deficit, Denies spasticity, Denies syncope, Denies tic, Denies tingling, Denies transient paralysis, Denies tremors, Denies vertigo, Denies weakness, Denies visual changes Psychiatric: Reports as per HPI, Denies anhedonia, Denies anxiety, Denies anxiety attacks, Denies change in appetite, Denies change in libido, Denies change in sleep habits, Denies confusion, Denies depression, Denies difficulty concentrating, Denies disorientation, Denies hallucinations, Denies hopelessness, Denies hypersomnia, Denies insomnia, Denies irritability, Denies memory loss, Denies mood swings, Denies paranoia, Denies sadness/tearfulness, Denies sleep disturbances, Denies suicidal ideation Endocrine: Reports as per HPI Hematologic/Lymphatic: Reports as per HPI Allergic/Immunologic: Reports as per HPI Past Medical History Past Medical History: Asthma, Eye Disorder, Fibromyalgia, GERD/Reflux, Hyperlipidemia, Liver Disease, Osteoarthritis (OA), Seizure Disorder Additional Past Medical History / Comment(s): Other HX: had 1 seizure several years ago due to drug interaction, HIV positive, hx. Hep. C, neuropathy, hx. ulcers, glaucoma bilaterally with surgery. History of Any Multi-Drug Resistant Organisms: None Reported Past Surgical History: Hysterectomy Additional Past Surgical History / Comment(s): 08/11/15 Anterior cervical decompression fusion C3-4, C4-5 with carpectomy. Other surgical history: Eye surgery for glaucoma bilaterally. Past Anesthesia/Blood Transfusion Reactions: No Reported Reaction Past Psychological History: Anxiety, Depression, Schizophrenia Additional Psychological History / Comment(s): Pt lives alone. She uses a walker or wheelchair. She has never had a hog driver's license. She gets rides thru her insurance. Smoking Status: Never smoker Past Alcohol Use History: Occasional Additional Past Alcohol Use History / Comment(s): Pt states she is 1 pack every 3 days smoker. She started smoking at age 14yrs. Pt states she will have an occasional beer or wine. Past Drug Use History: Marijuana Additional Drug Use History / Comment(s): medical use-smokes on occasion. - Past Family History Father History Unknown: Yes Family Medical History: Unable to Obtain Additional Family Medical History / Comment(s): Pt did not know her father. Mother Family Medical History: No Reported History Medications and Allergies Home Medications Medication Instructions Recorded Confirmed Type Losartan Potassium 100 mg PO DAILY 06/18/15 09/08/20 History Docusate [Colace] 100 mg PO DAILY 12/15/16 09/08/20 History Albuterol Sulfate [Ventolin HFA] 2 puff INHALATION RT-Q4H PRN 12/01/19 09/08/20 History Doxepin HCl [SINEquan] 150 mg PO HS 12/01/19 09/08/20 History Metoprolol Tartrate [Lopressor] 50 mg PO BID 12/01/19 09/08/20 History Perphenazine [Trilafon] 8 mg PO HS 12/01/19 09/08/20 History Thiamine [Vitamin B-1] 100 mg PO DAILY 12/01/19 09/08/20 History hydrOXYzine pamoate [Vistaril] 50 mg PO HS 12/01/19 09/08/20 History levETIRAcetam [Keppra] 500 mg PO BID 12/01/19 09/08/20 History FLUoxetine HCL [PROzac] 40 mg PO DAILY #7 cap 03/30/20 09/08/20 Rx Cholecalciferol (Vitamin D3) 125 mcg PO DAILY 09/08/20 09/08/20 History [Vitamin D3 (5000 Iu)] Fluticasone Nasal [place] [Flonase 1 spray EA NOSTRIL DAILY 09/08/20 09/08/20 History Nasal [place]] Omeprazole 20 mg PO DAILY 09/08/20 09/08/20 History Allergies Allergy/AdvReac Type Severity Reaction Status Date / Time Penicillins Allergy Rash/Hives Verified 09/08/20 15:41 propoxyphene napsylate Allergy Itching Verified 09/08/20 15:41 [From Darvocet-N 100] aspirin AdvReac Nausea & Verified 09/08/20 15:41 Vomiting ibuprofen [From Motrin] AdvReac Nausea & Verified 09/08/20 15:41 Vomiting Physical Exam Vitals: Vital Signs Temp Pulse Pulse Resp BP BP Pulse Ox 09/08/20 18:27 144/95 09/08/20 16:25 99.1 F 66 16 170/113 95 09/08/20 15:51 90 18 138/98 95 09/08/20 13:16 98.9 F 75 18 148/104 92 L Intake and Output 09/08/20 09/08/20 09/08/20 06:59 14:59 22:59 Other: # Voids 1 Weight 75.75 kg 75.75 kg - Constitutional General appearance: cooperative, no acute distress, obese - EENT Eyes: EOMI, PERRLA, dentition normal, normal appearance - Neck Neck: normal ROM - Respiratory Respiratory: bilateral: CTA, negative: diminished, dullness, rales, rhonchi - Cardiovascular Rhythm: regular Heart sounds: normal: S1, S2 Abnormal Heart Sounds: no systolic murmur, no diastolic murmur, no rub, no S3 Gallop, no S4 Gallop, no click, no other - Gastrointestinal General gastrointestinal: normal bowel sounds, soft - Integumentary Integumentary: decreased turgor, normal - Neurologic Neurologic: CNII-XII intact - Musculoskeletal Musculoskeletal: strength equal bilaterally - Psychiatric Psychiatric: A&O x's 3, appropriate affect, intact judgment & insight Results CBC & Chem 7: 09/08/20 16:50 09/08/20 16:50 Labs: Abnormal Lab Results - Last 24 Hours (Table) 09/08/20 09/08/20 09/08/20 Range/Units 15:01 16:50 16:50 WBC 10.7 H (3.8-10.6) k/uL Neutrophils # 8.0 H (1.3-7.7) k/uL Glucose 112 H 114 H (74-99) mg/dL Laboratory Results WBC 10.7 k/uL (3.8-10.6) H 09/08/20 16:50 RBC 5.02 m/uL (3.80-5.40) 09/08/20 16:50 Hgb 13.9 gm/dL (11.4-16.0) 09/08/20 16:50 Hct 44.0 % (34.0-46.0) 09/08/20 16:50 MCV 87.6 fL (80.0-100.0) 09/08/20 16:50 MCH 27.8 pg (25.0-35.0) 09/08/20 16:50 MCHC 31.7 g/dL (31.0-37.0) 09/08/20 16:50 RDW 13.7 % (11.5-15.5) 09/08/20 16:50 Plt Count 231 k/uL (150-450) 09/08/20 16:50 MPV 7.5 09/08/20 16:50 Neutrophils % 75 % 09/08/20 16:50 Lymphocytes % 19 % 09/08/20 16:50 Monocytes % 4 % 09/08/20 16:50 Eosinophils % 0 % 09/08/20 16:50 Basophils % 0 % 09/08/20 16:50 Neutrophils # 8.0 k/uL (1.3-7.7) H 09/08/20 16:50 Lymphocytes # 2.0 k/uL (1.0-4.8) 09/08/20 16:50 Monocytes # 0.5 k/uL (0-1.0) 09/08/20 16:50 Eosinophils # 0.0 k/uL (0-0.7) 09/08/20 16:50 Basophils # 0.0 k/uL (0-0.2) 09/08/20 16:50 PT 10.2 sec (9.0-12.0) 09/08/20 15:01 INR 0.9 (<1.2) 09/08/20 15:01 APTT 22.6 sec (22.0-30.0) 09/08/20 15:01 Sodium 138 mmol/L (137-145) 09/08/20 16:50 Potassium 4.7 mmol/L (3.5-5.1) 09/08/20 16:50 Chloride 107 mmol/L (98-107) 09/08/20 16:50 Carbon Dioxide 24 mmol/L (22-30) 09/08/20 16:50 Anion Gap 7 mmol/L 09/08/20 16:50 BUN 16 mg/dL (7-17) 09/08/20 16:50 Creatinine 0.77 mg/dL (0.52-1.04) 09/08/20 16:50 Est GFR (CKD-EPI)AfAm >90 (>60 ml/min/1.73 sqM) 09/08/20 16:50 Est GFR (CKD-EPI)NonAf 84 (>60 ml/min/1.73 sqM) 09/08/20 16:50 Glucose 114 mg/dL (74-99) H 09/08/20 16:50 Calcium 9.3 mg/dL (8.4-10.2) 09/08/20 16:50 Total Bilirubin 0.8 mg/dL (0.2-1.3) 09/08/20 16:50 AST 23 U/L (14-36) 09/08/20 16:50 ALT 16 U/L (4-34) 09/08/20 16:50 Alkaline Phosphatase 104 U/L (38-126) 09/08/20 16:50 Total Protein 7.7 g/dL (6.3-8.2) 09/08/20 16:50 Albumin 4.1 g/dL (3.5-5.0) 09/08/20 16:50 Globulin 3.6 g/dL 09/08/20 16:50 Albumin/Globulin Ratio 1.1 09/08/20 16:50 Coronavirus (PCR) Not Detected (Not Detectd) 09/08/20 15:47 Assessment and Plan Plan: 1. Left ankle fracture displaced comminuted left distal tib-fib, on traumatic fall from ice, patient will undergo surgical nutrition on 09/09/2020, patient does not have any history of CAD CHF CVA, diabetes mellitus type 2, no CK D stage III. She would be classified as class II ASA risk, with pre-existing mild intermittent asthma which is controlled, and history of hepatitis C and HIV. Seizures is controlled. RCR I of 0. Patient would present with low risk for surgical intervention complications, [facility] 2 Mild intermittent asthma, controlled, when necessary Flonase, and albuterol as needed. 3. Seizure disorder, Keppra 500 mg twice a day maintained controlled without any flareups over several years. Maintain sleep hygiene, avoid sleep deprivation, control pain on doxepin 150 at bedtime 4. History of HIV, and hepatitis C 5 Hx of schizophrenia on [er[henazine.caution on anesthetic for its use 6. Hypertension, on losartan 100 mg daily, metoprolol 50 mg twice a day, hydralazine 10 every 4 when necessary for uncontrolled pain 7. Prior history of anterior cervical decompression on 08/11/2015, involving C3-C4, C4-C5 with corpectomy, GI prophylaxis DVT prophylaxis
[2020-09-08] MEDS: HYDROcodone/APAP 7.5-325MG 1 EACH TAB PO PRN (19:33)
[2020-09-08] MEDS: hydrOXYzine pamoate 25 MG CAP PO SCH (20:45)
[2020-09-08] MEDS: DOXEPIN 25 MG CAP PO SCH (20:46)
[2020-09-08] MEDS: METOPROLOL TARTRATE 50 MG TAB PO SCH (20:46)
[2020-09-08] MEDS: PERPHENAZINE 4 MG TAB PO SCH (20:46)
[2020-09-08] MEDS: levETIRAcetam 500 MG TAB PO SCH (20:46)
[2020-09-09] MEDS: HYDROcodone/APAP 7.5-325MG 1 EACH TAB PO PRN ×3 (04:23→16:32)
[2020-09-09] MEDS: MORPHINE SULFATE 4 MG/ML SYRINGE IV PRN (07:04)
[2020-09-09] MEDS: METOPROLOL TARTRATE 50 MG TAB PO SCH ×2 (08:21→21:56)
[2020-09-09] MEDS: CHOLECALCIFEROL 25 MCG (1000 IU) TABLET PO SCH (08:21)
[2020-09-09] MEDS: PANTOPRAZOLE 40 MG TABLET PO SCH (08:22)
[2020-09-09] MEDS: LOSARTAN 50 MG TAB PO SCH (08:22)
[2020-09-09] MEDS: THIAMINE 100 MG TAB PO SCH (08:22)
[2020-09-09] MEDS: FLUoxetine HCL 20 MG CAP PO SCH (08:23)
[2020-09-09] MEDS: FLUTICASONE 50MCG/SPRAY NASAL 16GM EA NOSTRIL SCH (08:29)
[2020-09-09] MEDS: ALBUTEROL HFA INHALER INHALATION PRN ×3 (08:54→21:05)
[2020-09-09] MEDS ORDERED: HYDROmorphone 1 MG/ML 1 ML SYRINGE IVP STA (09:25)
[2020-09-09] MEDS ORDERED: CYCLOBENZAPRINE 10 MG TAB PO PRN (10:24)
[2020-09-09] MEDS: DOCUSATE 100 MG CAP PO SCH (10:35)
[2020-09-09] MEDS: levETIRAcetam 500 MG TAB PO SCH ×2 (10:51→21:56)
[2020-09-09] MEDS: CYCLOBENZAPRINE 10 MG TAB PO PRN ×2 (13:04→22:04)
[2020-09-09] MEDS: HYDROmorphone 1 MG/ML 1 ML SYRINGE IVP PRN ×3 (13:04→20:37)
--- NOTE | 2020-09-09 14:38 | P.PN ---
Subjective Progress Note Date: 09/09/20 HISTORY OF PRESENT ILLNESS This is a 59-year-old pleasant lady, known history of asthma, mild intermittent, fibromyalgia, hyperlipidemia, liver disease, seizure disorder HIV, hepatitis C, neuropathy, last seizure was several years ago, due to drug interaction. Also with glaucoma requiring surgery. She presented emergency room after injuring her left leg, she slipped on ice, and felt discomfort and a pop in her left ankle. She noticed some local swelling, and vomiting, unable to put weight on it. EMS has seen the patient, and brought her to evaluation, for which imaging x-rays shows comminuted displaced left distal tibia fibular fracture. Consult was made to our service from primary admitting with Dr. Means for medical management. They anticipating surgery tomorrow morning September 09, most likely ORIF. Patient currently any symptoms of chest pain palpitations, headedness dizziness, shortness of breath no abdominal pain nausea vomiting no diarrhea. No fever no chills no cough, no symptoms of any viral infection. 09/09: Patient is seen in follow-up today. She is scheduled for surgery tomorrow, I am nail left tibia, ORIF left ankle lateral and posterior malleolus. She has been afebrile, heart rate 89, blood pressure 137/93, pulse ox 96% on room air. Incentive spirometry ordered. REVIEW OF SYSTEMS Constitutional: No fever, no chills, no night sweats. No weight change. No weakness, fatigue or lethargy. No daytime sleepiness. EENT: No headache. No blurred vision or double vision, no loss of vision. No loss of Hearing, no ringing in the ears, no dizziness. No nasal drainage or congestion. No epistaxis. No sore throat. Lungs: No shortness of breath, cough, no sputum production. No wheezing. Cardiovascular: No chest pain, no lower extremity edema. No palpitations. No paroxysmal nocturnal dyspnea. No orthopnea. No lightheadedness or dizziness. No syncopal episodes. Abdominal: No abdominal pain. No nausea, vomiting. No diarrhea. No constipation. No bloody or tarry stools.. No loss of appetite. Genitourinary: No dysuria, increased frequency, urgency. No urinary retention. Musculoskeletal: No myalgias. No muscle weakness, no gait dysfunction, no frequent falls. No back pain. No neck pain. Integumentary: No wounds, no lesions. No rash or pruritus. No unusual bruising. No change in hair or nails. Neurologic: No aphasia. No facial droop. No change in mentation. No head injury. No headache. No paralysis. No paresthesia. Psychiatric: No depression. No anxiety. No mood swings. Endocrine: No abnormal blood sugars. No weight change. No excessive sweating or thirst. No cold intolerance. PHYSICAL EXAMINATION Gen: This is a 59-year-old female. Patient is resting in bed and appears to be comfortable. HEENT: Head is atraumatic, normocephalic. Pupils equal, round. Sclerae is anicteric. NECK: Supple. No JVD. No lymphadenopathy. No thyromegaly. LUNGS: Clear to auscultation. No wheezes or rhonchi. No intercostal retractions. HEART: Regular rate and rhythm. No murmur. ABDOMEN: Soft. Bowel sounds are present. No masses. No tenderness. EXTREMITIES: No pedal edema. No calf tenderness. Dressing in place to the left lower leg and ankle. NEUROLOGICAL: Patient is awake, alert and oriented x3. Cranial nerves 2 through 12 are grossly intact. ASSESSMENT AND PLAN 1. Left ankle fracture displaced comminuted left distal tib-fib, on traumatic fall from ice, patient will undergo surgical retention tomorrow She would be classified as class II ASA risk, with pre-existing mild intermittent asthma which is controlled, and history of hepatitis C and HIV. Seizures is controlled. RCR I of 0. Patient would present with low risk for surgical intervention complications. 2 Mild intermittent asthma, controlled, when necessary Flonase, and albuterol as needed. 3. Seizure disorder, Keppra 500 mg twice a day maintained controlled without any flareups over several years. Maintain sleep hygiene, avoid sleep depri vation, control pain on doxepin 150 at bedtime 4. History of HIV, and hepatitis C 5 Hx of schizophrenia area and continue perphenazine. 6. Hypertension, on losartan 100 mg daily, metoprolol 50 mg twice a day, hydralazine 10 every 4 when necessary for uncontrolled pain 7. Prior history of anterior cervical decompression on 08/11/2015, involving C3-C4, C4-C5 with corpectomy, GI prophylaxis DVT prophylaxis DISCHARGE PLAN To be determined. Possibly home with [facility]NA Impression and plan of care have been directed as dictated by the signing physician. Penny Lugo nurse practitioner acting as scribe for signing physician. Objective - Vital Signs Vital signs: Vital Signs Temp 97.3 F L 09/09/20 06:59 Pulse 69 09/09/20 06:59 Resp 14 09/09/20 07:00 BP 137/93 09/09/20 06:59 Pulse Ox 96 09/09/20 06:59 Intake & Output 09/08/20 09/09/20 09/09/20 18:59 06:59 18:59 Weight 75.75 kg Other: # Voids 1 3 - Labs CBC & Chem 7: 09/08/20 16:50 09/08/20 16:50 Labs: Abnormal Lab Results - Last 24 Hours (Table) 09/08/20 09/08/20 09/08/20 Range/Units 15:01 16:50 16:50 WBC 10.7 H (3.8-10.6) k/uL Neutrophils # 8.0 H (1.3-7.7) k/uL Glucose 112 H 114 H (74-99) mg/dL
[2020-09-09] MEDS: hydrALAZINE HCL 20 MG/ML 1 ML VIAL IVP PRN (20:37)
[2020-09-09] MEDS: hydrOXYzine pamoate 25 MG CAP PO SCH (21:57)
[2020-09-09] MEDS: DOXEPIN 25 MG CAP PO SCH (21:58)
[2020-09-09] MEDS: PERPHENAZINE 4 MG TAB PO SCH (22:02)
[2020-09-10] MEDS: HYDROmorphone 1 MG/ML 1 ML SYRINGE IVP PRN ×3 (01:16→11:50)
[2020-09-10] MEDS ORDERED: CLINDAMYCIN 900 MG in DEXTROSE 5% IN WATER 50 ML IVPB ONE ×2 (05:00)
[2020-09-10] MEDS: PANTOPRAZOLE 40 MG TABLET PO SCH (07:50)
[2020-09-10] MEDS: MORPHINE SULFATE 4 MG/ML SYRINGE IV PRN (08:00)
[2020-09-10] MEDS: LOSARTAN 50 MG TAB PO SCH (08:13)
[2020-09-10] MEDS: levETIRAcetam 500 MG TAB PO SCH ×2 (08:14→20:55)
[2020-09-10] MEDS: METOPROLOL TARTRATE 50 MG TAB PO SCH ×2 (08:14→20:55)
[2020-09-10] MEDS: FLUoxetine HCL 20 MG CAP PO SCH (08:14)
[2020-09-10] MEDS: FLUTICASONE 50MCG/SPRAY NASAL 16GM EA NOSTRIL SCH (08:15)
--- NOTE | 2020-09-10 08:20 | P.PN ---
Progress Note - Text Progress Note Date: 09/10/20 Patient seen and examined this morning. No acute events overnight. She is ready for surgery. Orthopedic Surgery Risk Review Ilda Mojica is a 59-year-old female presenting for evaluation of sudden onset sided leg pain, inability to ambulate after standing on ice. It was my pleasure to have seen and examined Ilda Mojica. In our visit today we have had a chance to go over subjective complaints, physical examination findings and treatments including the natural course history without intervention and various interventional options. And her imaging demonstrates the one third spiral tibial shaft fracture with a distal fibular fracture. On physical exam, Ilda Mojica demonstrates pain with motion of left lower extremity, which is NV intact at this time. I have explained to the patient that this fracture needs stabilization. Based on the patients imaging, physical exam, and the rapid progression and disabling nature of her symptoms, at this time I recommend surgery in the form or a: Open reduction internal fixation left tibia and fibula fracture with intramedullary nail fixation I discussed the risk and benefits of this procedure at length with Ilda Mojica. Questions were invited and answered, and the patient wishes to proceed as outlined below. Currently, I am recommendin. Open reduction and internal fixation of the left tibia and fibula fracture with intramedullary fixation of tibia and plate fixation of fibula 2. Review of surgical risks and benefits as well as an educational packet on the proposed surgical procedure. Risks: All surgical procedures come with inherent risks, including those related to positioning, anesthesia, intraoperative findings, and postoperative complications. It is important to understand that surgery does not come with any guarantee of a successful outcome as complications and adverse events are always possible. The patient was given a handout discussing the surgical procedure and risks associated with the intervention, both of which were discussed with the patient. These risks include but are not limited to the following: - Experiencing same, different or even worse symptoms compared to before surgery. - Requiring further surgery or other forms of treatment presently or at some time in the future . - On an extreme but fortunately relatively rare basis severe complication such as blindness, stroke, heart attack, temporary and/or permanent nerve injury, paralysis, coma, or may occur, sometimes without known explanation. - Surgical complications may include but are not limited to risk of infection, fluid accumulation in the surgical dissection site, including a seroma or hematoma, that requires additional surgery, wound drainage, bleeding, new numbness or weakness, vision changes/loss, spinal fluid leakage, non-healing and/or infected incision, headaches, difficulty or inability to swallow, hoarseness, hemopneumothorax, pneumothorax, injury to nerves, spinal cord, blood vessels, lymphatics or other vital organs (i.e., bowel injury, injury to the great vessels); heterotopic bone formation; complications related to the hardware such as screws, rods, including misplaced hardware, device failure, hardware fracture/breakage, or hardware loosening; retained surgical instrumentations or devices and the need for further surgery. - Medical risks of the planned surgery include but are not limited to generalized Infections to the whole body or local areas outside of the surgical site (sepsis), heart attack, bleeding, anaphylaxis, meningitis, seizure, epilepsy, hearing loss, burn mena, laceration of the head or other areas of the body, bruising, hypersensitivity of the skin, bladder over distension; allergic reaction; shoulder injury related to positioning; fat, blood and air clots to other areas of the body like heart, lungs, brain; failure of internal organs such as lungs, kidneys, liver and excessive bleeding. If blood transfusions are necessary, note that transfusions may cause intolerance reactions such as anaphylaxis or other complex reactions. Despite best efforts, the results of surgery might not heal in terms of bone, soft tissues such as skin, fascia, ligaments, and joints. [facility] is an educational center that serves as a training facility for physician assistants, nurses, orthopedic residents and fellows. Residents are physicians who are completing their surgical intensive training following medical school. They assist in the operating room with direct supervision of the attending surgeons. Mccracken are surgeons who have completed their training and eligible for board certification. They have opted for an elective year of more specialized training in their field. They assist in the operating room under the supervision of the attending surgeons. Physician assistants are medically trained surgical providers who function in the outpatient, inpatient, and operating room setting under the direct supervision of the attending surgeon. [facility] has multiple operating rooms with single and overlapping rooms running daily. They currently function under the required guidelines as produced by the [facility] with regards to the overlapping rooms and will continue to comply with changes to this policy as they occur. The requirements include and are complied with as follows: (1) the critical portions of the overlapping rooms will not occur at the same time, (2) the attending physician will be physically present during the critical portions of the procedure and immediately available during the entire case, and (3) a back-up attending is designated should the primary attending not be immediately available. The patient has had a chance to review all the listed information, has been given print outs detailing this information, and has had all his/her questions answered to their satisfaction. It was my pleasure to have seen and examined Ilda Mojica. In our visit today we have had a chance to go over my understanding of our patient's current condition, the natural course history without intervention and various interventional options. Questions were invited and answered, and the patient wishes to proceed as outlined above. I have seen and examined the patient for 25 minutes and we have spent more than 50% of the time in repeat and detailed counseling about the patient's condition, its natural course history with out and as much as can be predicted with surgery and re-review of various surgical treatment options. In conclusion, Ilda Mojica requested we proceed with the above suggested surgery and are willing to accept risks and limitations of the suggested surgery as nature of the disease process and our best attempts at treatment for the condition. Thank you again for allowing us to be part of your patient's care. Please don't hesitate to contact me if you have any further questions. Signed and authenticated by: Arvind Tariq [facility] [address] [place] [id number]
[2020-09-10] MEDS: ALBUTEROL HFA INHALER INHALATION PRN (08:59)
[2020-09-10] MEDS: CYCLOBENZAPRINE 10 MG TAB PO PRN (09:18)
[2020-09-10] MEDS: CHOLECALCIFEROL 25 MCG (1000 IU) TABLET PO SCH (10:43)
[2020-09-10] MEDS: THIAMINE 100 MG TAB PO SCH (10:44)
[2020-09-10] MEDS: DOCUSATE 100 MG CAP PO SCH (10:44)
--- NOTE | 2020-09-10 12:41 | P.PN ---
Subjective Progress Note Date: 09/10/20 HISTORY OF PRESENT ILLNESS This is a 59-year-old pleasant lady, known history of asthma, mild intermittent, fibromyalgia, hyperlipidemia, liver disease, seizure disorder HIV, hepatitis C, neuropathy, last seizure was several years ago, due to drug interaction. Also with glaucoma requiring surgery. She presented emergency room after injuring her left leg, she slipped on ice, and felt discomfort and a pop in her left ankle. She noticed some local swelling, and vomiting, unable to put weight on it. EMS has seen the patient, and brought her to evaluation, for which imaging x-rays shows comminuted displaced left distal tibia fibular fracture. Consult was made to our service from primary admitting with Dr. Means for medical management. They anticipating surgery tomorrow morning September 09, most likely ORIF. Patient currently any symptoms of chest pain palpitations, headedness dizziness, shortness of breath no abdominal pain nausea vomiting no diarrhea. No fever no chills no cough, no symptoms of any viral infection. 09/09: Patient is seen in follow-up today. She is scheduled for surgery tomorrow, I am nail left tibia, ORIF left ankle lateral and posterior malleolus. She has been afebrile, heart rate 89, blood pressure 137/93, pulse ox 96% on room air. Incentive spirometry ordered. 09/10: Patient is scheduled for surgery today. She denies having any chest pain or shortness of breath. No lightheadedness or dizziness. She has been afebrile, heart rate 94, blood pressure 121/84, pulse ox 93% on room air. REVIEW OF SYSTEMS Constitutional: No fever, no chills, no night sweats. No weight change. No weakness, fatigue or lethargy. No daytime sleepiness. EENT: No headache. No blurred vision or double vision, no loss of vision. No loss of Hearing, no ringing in the ears, no dizziness. No nasal drainage or congestion. No epistaxis. No sore throat. Lungs: No shortness of breath, cough, no sputum production. No wheezing. Cardiovascular: No chest pain, no lower extremity edema. No palpitations. No paroxysmal nocturnal dyspnea. No orthopnea. No lightheadedness or dizziness. No syncopal episodes. Abdominal: No abdominal pain. No nausea, vomiting. No diarrhea. No constipation. No bloody or tarry stools.. No loss of appetite. Genitourinary: No dysuria, increased frequency, urgency. No urinary retention. Musculoskeletal: No myalgias. No muscle weakness, no gait dysfunction, no frequent falls. No back pain. No neck pain. Integumentary: No wounds, no lesions. No rash or pruritus. No unusual bruising. No change in hair or nails. Neurologic: No aphasia. No facial droop. No change in mentation. No head injury. No headache. No paralysis. No paresthesia. Psychiatric: No depression. No anxiety. No mood swings. Endocrine: No abnormal blood sugars. No weight change. No excessive sweating or thirst. No cold intolerance. PHYSICAL EXAMINATION Gen: This is a 59-year-old female. Patient is resting in bed and appears to be comfortable. HEENT: Head is atraumatic, normocephalic. Pupils equal, round. Sclerae is anicteric. NECK: Supple. No JVD. No lymphadenopathy. No thyromegaly. LUNGS: Clear to auscultation. No wheezes or rhonchi. No intercostal retractions. HEART: Regular rate and rhythm. No murmur. ABDOMEN: Soft. Bowel sounds are present. No masses. No tenderness. EXTREMITIES: No pedal edema. No calf tenderness. Dressing in place to the left lower leg and ankle. NEUROLOGICAL: Patient is awake, alert and oriented x3. Cranial nerves 2 through 12 are grossly intact. ASSESSMENT AND PLAN 1. Left ankle fracture displaced comminuted left distal tib-fib, on traumatic fall from ice, patient will undergo surgical retention tomorrow She would be classified as class II ASA risk, with pre-existing mild intermittent asthma which is controlled, and history of hepatitis C and HIV. Seizures is controlled. RCR I of 0. Patient would present with low risk for surgical intervention complications. 2 Mild intermittent asthma, controlled, when necessary Flonase, and albuterol as needed. 3. Seizure disorder, Keppra 500 mg twice a day maintained controlled without any flareups over several years. Maintain sleep hygiene, avoid sleep deprivation, control pain on doxepin 150 at bedtime 4. History of HIV, and hepatitis C 5. Hx of schizophrenia area and continue perphenazine. 6. Hypertension, on losartan 100 mg daily, metoprolol 50 mg twice a day, hydralazine 10 every 4 when necessary for uncontrolled pain 7. Prior history of anterior cervical decompression on 08/11/2015, involving C3-C4, C4-C5 with corpectomy, GI prophylaxis DVT prophylaxis DISCHARGE PLAN [facility] Impression and plan of care have been directed as dictated by the signing physician. Penny Lugo nurse practitioner acting as scribe for signing physician. Objective - Vital Signs Vital signs: Vital Signs Temp 98.7 F 09/10/20 01:51 Pulse 87 09/10/20 01:51 Resp 19 09/10/20 01:51 BP 154/98 09/10/20 01:51 Pulse Ox 93 L 09/10/20 01:51 Intake & Output 09/09/20 09/10/20 09/10/20 18:59 06:59 18:59 Intake Total 320 Balance 320 Intake: Oral 320 Other: Voiding Method Bedpan Bedpan Diaper # Voids 3 - Labs CBC & Chem 7: 09/08/20 16:50 09/08/20 16:50
[2020-09-10] MEDS ORDERED: LACTATED RINGERS 1,000 ML IV ONE ×2 (13:37→18:12)
[2020-09-10] MEDS ORDERED: DEXAMETHASONE SOD PHOSPHATE 4 MG/ML 1 ML VIAL IVP ONE (13:42)
[2020-09-10] MEDS ORDERED: ONDANSETRON 4 MG/2 ML VIAL IVP ONE (13:42)
[2020-09-10] MEDS ORDERED: fentaNYL (PF) 50 MCG/ML 2 ML AMP IVP ONE (13:43)
[2020-09-10] MEDS ORDERED: ePHEDrine SULFATE/0.9% NACL/PF 50 MG/5 ML SYRINGE IV ONE (15:13)
[2020-09-10] MEDS ORDERED: LIDOCAINE 1% INJ 10MG/ML (20 ML MDV) ONE (15:13)
[2020-09-10] MEDS ORDERED: SUCCINYLCHOLINE CHLORIDE 100 MG/5 ML SYR IV ONE (15:13)
[2020-09-10] MEDS ORDERED: GLYCOPYRROLATE 0.2 MG/ML 2 ML VIAL ONE (15:13)
[2020-09-10] MEDS ORDERED: PROPOFOL 10 MG/ML 20 ML VIAL IV ONE (15:13)
[2020-09-10] MEDS ORDERED: MIDAZOLAM 2 MG/2 ML VIAL ONE (15:13)
[2020-09-10] MEDS ORDERED: HYDROmorphone (PF) 1 MG/ML ONE (15:13)
[2020-09-10] MEDS ORDERED: fentaNYL (PF) 50 MCG/ML 2 ML AMP ONE (15:13)
[2020-09-10] MEDS ORDERED: NEOSTIGMINE 1 MG/ML 10 ML VIAL ONE (15:13)
[2020-09-10] MEDS ORDERED: PHENYLEPHRINE-0.9% NACL SYG 1,000 MCG/10 ML SYRINGE ONE (15:13)
[2020-09-10] MEDS ORDERED: ROCURONIUM 10 MG/ML (5 ML VIAL) IV ONE (15:13)
[2020-09-10] MEDS ORDERED: HYDROmorphone 0.5 MG/0.5 ML SYRINGE IVP ONE ×2 (19:26→19:40)
[2020-09-10] MEDS ORDERED: hydrALAZINE HCL 20 MG/ML 1 ML VIAL IV ONE (19:35)
[2020-09-10] MEDS: DOXEPIN 25 MG CAP PO SCH (20:52)
[2020-09-10] MEDS: hydrOXYzine pamoate 25 MG CAP PO SCH (20:52)
[2020-09-10] MEDS: PERPHENAZINE 4 MG TAB PO SCH (20:56)
[2020-09-10] MEDS: HEPARIN SODIUM,PORCINE 5,000 UNIT/ML 1 ML VIAL SQ SCH (21:07)
[2020-09-10] MEDS: HYDROcodone/APAP 7.5-325MG 1 EACH TAB PO PRN (21:19)
--- NOTE | 2020-09-10 23:05 | XR ---
EXAMINATION TYPE: XR tibia fibula LT DATE OF EXAM: 09/10/2020 COMPARISON: NONE HISTORY: Tibia surgery TECHNIQUE: 9 views FINDINGS: 9 fluoroscopic images were obtained at show placement of intramedullary porter with transverse screws in the tibia fixing the fracture of the distal shaft of the tibia. There is a plate with scre ws fixing fracture distal shaft of the fibula. Fragments are in anatomic position. There was 4 minutes and 16 seconds fluoroscopy time recorded for the operation. IMPRESSION: Satisfactory internal fixation of the fractures.
[2020-09-10] MEDS: CLINDAMYCIN 900 MG in DEXTROSE 5% IN WATER 50 ML IVPB SCH ×2 (23:58)
[2020-09-11] MEDS: CYCLOBENZAPRINE 10 MG TAB PO PRN ×2 (00:03→19:25)
[2020-09-11] MEDS: HYDROmorphone 1 MG/ML 1 ML SYRINGE IVP PRN (01:48)
[2020-09-11] MEDS: CLINDAMYCIN 900 MG in DEXTROSE 5% IN WATER 50 ML IVPB SCH ×2 (07:22)
[2020-09-11] MEDS: HEPARIN SODIUM,PORCINE 5,000 UNIT/ML 1 ML VIAL SQ SCH ×2 (07:39→20:23)
[2020-09-11] MEDS: HYDROcodone/APAP 7.5-325MG 1 EACH TAB PO PRN ×4 (07:39→17:39)
[2020-09-11] MEDS: PANTOPRAZOLE 40 MG TABLET PO SCH (07:40)
[2020-09-11] MEDS: METOPROLOL TARTRATE 50 MG TAB PO SCH ×2 (07:40→20:18)
[2020-09-11] MEDS: DOCUSATE 100 MG CAP PO SCH (07:41)
[2020-09-11] MEDS: THIAMINE 100 MG TAB PO SCH (07:41)
[2020-09-11] MEDS: LOSARTAN 50 MG TAB PO SCH (07:41)
[2020-09-11] MEDS: FLUoxetine HCL 20 MG CAP PO SCH (07:50)
[2020-09-11] MEDS: CHOLECALCIFEROL 25 MCG (1000 IU) TABLET PO SCH (07:50)
[2020-09-11] MEDS: ALBUTEROL HFA INHALER INHALATION PRN ×4 (08:25→19:14)
[2020-09-11] MEDS: FLUTICASONE 50MCG/SPRAY NASAL 16GM EA NOSTRIL SCH (09:39)
[2020-09-11] MEDS: levETIRAcetam 500 MG TAB PO SCH ×2 (09:39→20:23)
--- NOTE | 2020-09-11 09:40 | FL ---
EXAMINATION TYPE: FL guidance operating room DATE OF EXAM: 09/10/2020 FLUOROSCOPY Fluoroscopy time of 4 minutes 16 seconds was used during ORIF left tibia/fibula. 9 image/s document/ s the procedure.
--- NOTE | 2020-09-11 11:03 | P.PN ---
Subjective Progress Note Date: 09/11/20 Principal diagnosis: Right distal one third tibial shaft fracture Right distal fibula comminuted fracture Patient seen and examined she doing well she is in bed she has her leg elevated for swelling control. She states pain in her leg is much better she denies a numbness or tingling states she is able move her toes denies fevers chills shortness of breath or chest pain has not been up. Objective - Vital Signs Vital signs: Vital Signs Temp 100.5 F H 09/11/20 08:00 Pulse 95 09/11/20 08:00 Resp 16 09/11/20 08:00 BP 126/83 09/11/20 08:00 Pulse Ox 96 09/11/20 08:00 Intake & Output 09/10/20 09/11/20 09/11/20 18:59 06:59 18:59 Intake Total 1256 50 Output Total 550 975 Balance 706 -925 Intake: IV 1256 50 Output: Urine 400 975 Estimated Blood Loss 150 Other: Voiding Method Bedpan Indwelling Catheter Diaper # Voids 1 - Exam Patient is alert and oriented 3 appears well-nourished well-hydrated is in no acute distress. They does not appear septic. On exam the patient has no t enderness to palpation of her thoracic or lumbar spine. There is no edema or ballottement sign. They have good strength in her lower extremities with 5 out of 5 dorsiflexion plantar flexion EHL and FHL bilaterally. Upper extremities show 5/5 strength in all major muscle groups. There is FROM that is painless of the b/l UE and LE in all major joints. They are intact to light touch sensation in L2 to S1 nerve distribution. Patient has palpable dorsalis pedis was posterior tibial pulses. Compartments are soft and compressible. Patient shows a negative Homans, Julien's, negative Babinski's negative clonus bilaterally. negative straight leg raise bilaterally. No tensioning signs.Cranial nerves II through XII are grossly intact. Overall alignment is well-maintained in the sagittal coronal planes. Cast is clean dry and intact Wiggles all toes appropriately on the left Refill brisk and less than 2 seconds in the left lower extremity Compartments are soft and compressive - Labs CBC & Chem 7: 09/08/20 16:50 09/08/20 16:50 Assessment and Plan Assessment: Postop day 1 left tibial IM nail placement with a left fibular ORIF doing well Plan: -Appreciate medicine management. -Pain control: Adequate at this time -Nonweightbearing left lower extremity -Walker -Aggressive ambulation protocol. OOB with all meals. OOB or in chair 4-5x daily. -PT/OT -TEDs, SCDs, mechanical ppx. OK for heparin today. Early ambulation is best. -GI ppx. -[No further imaging needed at this time] -Trend labs. -Dispo: Pending. Will likely need SANTOS she lives alone
--- NOTE | 2020-09-11 11:16 | P.OP ---
Date of Procedure: 09/10/20 Preoperative Diagnosis: L closed, comminuted, displaced distal 1/3 tibial shaft fracture L closed, comminuted, displaced distal fibular fracture [facility] S/p fall from standing Multiple medical comorbidities. Postoperative Diagnosis: Same Procedure(s) Performed: 1. Intramedullary nail fixation of LEFT TIBIA 2. Open reduction and internal fixation of LEFT distal fibular fracture Implants: Synthese TFN and distal locking fibular plate Anesthesia: GETA Surgeon: Arvind Means Senior Branch Manager #1: Prashant Menchaca (Present for the entire case and necessary due to the complexity of the case.) Estimated Blood Loss (ml): 200 IV fluids (ml): 2,000 Urine output (ml): 200 Pathology: none sent Condition: stable Disposition: PACU Indications for Procedure: HPI: This is 59-year-old female presented to [facility] after falling onto her left leg. She has slipped a fall on ice felt a pop in her left leg and left ankle and immediate pain and deformity was noted. Patient came to the emergency department was found to have a distal spiral tibia and fibular fracture. She is splinted in the emergency department and admitted hospital. Patient has a host of medical comorbidities including HIV and hep C. She states pain in her left lower extremity denies numbness or tingling. She states that she is comfortable in bed right now. She denies any other injuries and no blunt head trauma or loss of consciousness with fall. No fevers chills shortness breath or chest pain at this time. Operative Findings: Comminuted displaced fractures of the distal 1/3 tibial shaft and distal fibula compromising the ankle mortise. Description of Procedure: The patient was seen and examined in the preoperative area. All preoperative protocols were followed. Informed consent was obtained risks and benefits of the procedure were discussed at length. Risks including bleeding infection damage to the surrounding tissue and risk of reoperation were discussed with the patient. Risk of anesthesia up to and including was a discussed with the patient. These are outlined in the risk reviewed. They were willing to accept these risks and all of the risks of surgery. The patient was given a weight- based dose of antibiotics in the form of 900 mg clindamycin IVPB preoperatively. The patient was seen and evaluated by the anesthesia team who deemed them fit for surgery. The site was marked, the patient was willing to proceed with the procedure. The patient was transferred to the operative suite by the Department of anesthesia. There were then drifted off to sleep by the department of anesthesia an GETA anesthesia was used. Once adequate anesthesia had been obtained the patient was carefully transferred to the operative bed. All bony prominences were padded accordingly. SCDs were placed on the nonoperative lower extremities. Arms were well padded. Left lower extremity was exposed. Tourniquet was placed around patient's left upper leg. She is well-padded. 10:15 placed around this. Her left lower shunt was placed on a bone foam bump placed under left hip. Preoperative briefing was done with the operative team and everyone was ready for the procedure to start. The patients left lower extremity was then prepped and draped in the normal sterile fashion. Timeout was then performed and all parties in agreement with the procedure to be performed. Incision was made over the suprapatellar region taken down to the quad tendon for split in line with the fibers to access the knee joint. Suprapatellar patient's jig was then inserted underneath the patella carefully advancing until it was on the anterior superior portion of the tibial plateau. Under fluoroscopy AP and lateral and positioned this guide as well as a starting pin disallow the medial tibial eminence directed straight down the shaft of the tibia M on the ridge of the articular surface taking care not to violate or disrupt the articular surface. Once guidepins in place initially G was removed entrance reamer was placed under fluoroscopic guidance followed by reamers sequentially down a ball tip guidewire which was placed distally x-rays were taken to ensure that the guidewires in good position. We then sequentially reamed from 9-12 for placement of a 11 mm nail there was good chatter at 12 mm reamer fracture was held reduced during reaming to allow for correct reaming profile. Then over the guidewire the nail was placed under fluoroscopic guidance and with gentle tamponade. Once the nail was at the fascial scar distally AP and lateral confirmed good placement as well as reduction of the fracture however slight distraction the fracture. Therefore distal screws were placed in the a to P as well as oblique holes using perfect tolowa dee-ni' method once these were placed the nail was gently back slapped to allow for compression fracture and under fluoroscopic guidance to showed good compression and reduction of fracture canal was then statically and dynamically locked proximally with 2 screws through the jig. Under fluoroscopic visualization this was all done and there were no issues. The insertion guide was then removed from the nail as well as a suprapatellar guide. Final x-rays taken and the fracture was reduced with good nail placement the knee joint was then copiously irrigated with sterile saline and antibiotic irrigation the quad tendon was closed with 0 Vicryl in a running locking fashion followed by 0 Vicryl in the subcuticular subcu region 2-0 Vicryl subcu region and alfonzo the poke holes distally were closed with nylon stitch. Attention was then drawn to the patient's fibula. Fluoroscopic guidance showed that there was incomplete reduction of the Turner B portion of the fracture of the fibula and so in order to reduce this standard lateral approach to the ankle was performed subperiosteal dissectors and would handle periosteal dissectors allowed for visualization of the fracture. There is a high amount of comminution of this fracture which appeared to be more high-energy than initially thought periosteal stripping was noted all the way up to the middle one third of the fibula. Reduction clamps were used to reduce the fibula and up a plate was selected and pinned into place x-ray guidance confirmed good placement of the plate as well as reduction of the fracture we selected a bridge plating technique secondary to high comminution of the fracture and so distal locking screws were placed first once these were placed proximal shaft screws were placed which offered maintenance of length alignment and rotation fracture reduction and stabilization. We then stressed the ankle with a cotton test as well as external rotation test and the mortise was stable. Final images were taken the wound was copiously irrigated with normal sterile saline. Wound was then closed all outside with 2-0 Vicryl as well as 2-0 nylon in a running stitch wounds were then cleaned with alcohol and dried and dressed sterilely with sterile Adaptic 4 x 4's ABDs. Patient was placed in a short leg bivalve cast that was well-padded and well molded. This was overwrapped with an Dominick wrap. The patient was then transferred back to their hospital bed. There were awakened by department of anesthesia having tolerated the procedure very well with no complications. The patient was then transported to the postoperative care unit in stable condition.
[2020-09-11 16:16] LABS: Appearance,Urine Clear (Clear); Bilirubin,Urine Negative (Negative); Blood,Urine Moderate (Negative); Color,Urine Yellow; Glucose,Urine (UA) Negative (Negative); Ketones,Urine Negative (Negative); Leukocyte Esterase,Urine Small (Negative); Nitrite,Urine Negative (Negative); Protein,Urine Trace (Negative); RBC,Urine 23 /hpf (0-5); Specific Gravity,Urine 1.014 (1.001-1.035); Urobilinogen,Urine <2.0 mg/dL (<2.0); WBC,Urine 8 /hpf (0-5)
--- NOTE | 2020-09-11 17:32 | P.PN ---
Subjective Progress Note Date: 09/11/20 This is a 59-year-old pleasant lady, known history of asthma, mild intermittent, fibromyalgia, hyperlipidemia, liver disease, seizure disorder HIV, hepatitis C, neuropathy, last seizure was several years ago, due to drug interaction. Also with glaucoma requiring surgery. She presented emergency room after injuring her left leg, she slipped on ice, and felt discomfort and a pop in her left ankle. She noticed some local swelling, and vomiting, unable to put weight on it. EMS has seen the patient, and brought her to evaluation, for which imaging x-rays shows comminuted displaced left distal tibia fibular fracture. Consult was made to our service from primary admitting with Dr. Means for medical management. They anticipating surgery tomorrow morning September 09, most likely ORIF. Patient currently any symptoms of chest pain palpitations, headedness dizziness, shortness of breath no abdominal pain nausea vomiting no diarrhea. No fever no chills no cough, no symptoms of any viral infection. 09/09: Patient is seen in follow-up today. She is scheduled for surgery tomorrow, I am nail left tibia, ORIF left ankle lateral and posterior malleolus. She has been afebrile, heart rate 89, blood pressure 137/93, pulse ox 96% on room air. Incentive spirometry ordered. 09/10: Patient is scheduled for surgery today. She denies having any chest pain or shortness of breath. No lightheadedness or dizziness. She has been afebrile, heart rate 94, blood pressure 121/84, pulse ox 93% on room air. 09/11: Patient underwent ORIF IM nailing left tibia, left ankle, and last for posterior malleolus, on 09/10/2020, patient is on an immobilizer cast below the knee, noted to have some hypotension and slight tachycardia today, has some lightheadedness, patient did not fall, no syncope. IV fluids increase, metoprolol 50 mg twice a day continue,, and losartan 25 mg daily., Anticipate for transfer to subacute rehab [facility] most likely Sunday. Patient lives alone, has difficulties with pivoting, nonweightbearing on the left leg, moderate assistance required. Fall risk very high REVIEW OF SYSTEMS Constitutional: No fever, no chills, no night sweats. No weight change. No weakness, fatigue or lethargy. No daytime sleepiness. EENT: No headache. No blurred vision or double vision, no loss of vision. No loss of Hearing, no ringing in the ears, no dizziness. No nasal drainage or congestion. No epistaxis. No sore throat. Lungs: No shortness of breath, cough, no sputum production. No wheezing. Cardiovascular: No chest pain, no lower extremity edema. No palpitations. No paroxysmal nocturnal dyspnea. No orthopnea. No lightheadedness or dizziness. No syncopal episodes. Abdominal: No abdominal pain. No nausea, vomiting. No diarrhea. No constipation. No bloody or tarry stools.. No loss of appetite. Genitourinary: No dysuria, increased frequency, urgency. No urinary retention. Musculoskeletal: No myalgias. No muscle weakness, no gait dysfunction, no frequent falls. No back pain. No neck pain. Integumentary: No wounds, no lesions. No rash or pruritus. No unusual bruising. No change in hair or nails. Neurologic: No aphasia. No facial droop. No change in mentation. No head injury. No headache. No paralysis. No paresthesia. Psychiatric: No depression. No anxiety. No mood swings. Endocrine: No abnormal blood sugars. No weight change. No excessive sweating or thirst. No cold intolerance. Objective - Vital Signs Vital signs: Vital Signs Temp 99.6 F 09/11/20 14:00 Pulse 142 H 09/11/20 14:00 Resp 18 09/11/20 14:00 BP 94/68 09/11/20 14:00 Pulse Ox 97 09/11/20 14:00 Intake & Output 09/10/20 09/11/20 09/11/20 18:59 06:59 18:59 Intake Total 1256 50 Output Total 550 975 Balance 706 -925 Intake: IV 1256 50 Output: Urine 400 975 Estimated Blood Loss 150 Other: Voiding Method Bedpan Indwelling Catheter Diaper # Voids 1 - Constitutional General appearance: Present: cooperative, no acute distress - EENT Eyes: Present: EOMI, PERRLA, dentition normal ENT: Present: NA/AT, normal oropharynx - Neck Neck: Present: normal ROM - Respiratory Respiratory: bilateral: CTA, negative: diminished, dullness, rales - Cardiovascular Rhythm: regular Heart sounds: normal: S1, S2 Abnormal Heart Sounds: Absent: systolic murmur, diastolic murmur, rub, S3 Gallop, S4 Gallop, click, other - Gastrointestinal General gastrointestinal: Present: soft - Integumentary Integumentary: Present: decreased turgor, normal - Neurologic Neurologic: Present: CNII-XII intact - Musculoskeletal Musculoskeletal: Present: gait normal, strength equal bilaterally - Psychiatric Psychiatric: Present: appropriate affect, intact judgment & insight - Labs CBC & Chem 7: 09/08/20 16:50 09/08/20 16:50 Labs: Abnormal Lab Results - Last 24 Hours (Table) 09/11/20 Range/Units 16:08 Urine Protein Trace H (Negative) Urine Blood Moderate H (Negative) Ur Leukocyte Esterase Small H (Negative) Urine RBC 23 H (0-5) /hpf Urine WBC 8 H (0-5) /hpf Assessment and Plan Plan: 1. Left ankle fracture displaced comminuted left distal tib-fib, on traumatic fall from ice, patient will undergo surgicalintervention on 09/09/2020, patient does not have any history of CAD CHF CVA, diabetes mellitus type 2, no CK D stage III. She would be classified as class II ASA risk, with pre-existing mild intermittent asthma which is controlled, and history of hepatitis C and HIV. Seizures is controlled. RCR I of 0. Patient would present with low risk for surgical intervention complications, with the limb orthopedic surgery ORIF on 2020 IM nailing fixation, left tibia left distal fibular fracture. Nonweightbearing lower extremity nonweightbearing left lower extremity, local cast care, below the knee 2 Mild intermittent asthma, controlled, when necessary Flonase, and albuterol as needed. 3. Seizure disorder, Keppra 500 mg twice a day maintained controlled without any flareups over several years. Maintain sleep hygiene, avoid sleep deprivation, control pain on doxepin 150 at bedtime 4. History of HIV, and hepatitis C 5 Hx of schizophrenia on [er[henazine.caution on anesthetic for its use 6. Hypertension, on losartan 100 mg daily, metoprolol 50 mg twice a day, h ydralazine 10 every 4 when necessary for uncontrolled pain 7. Prior history of anterior cervical decompression on 08/11/2015, involving C3-C4, C4-C5 with corpectomy, GI prophylaxis DVT prophylaxis [facility] nonweightbearing left lower extremity
[2020-09-11] MEDS: PERPHENAZINE 4 MG TAB PO SCH (20:22)
[2020-09-11] MEDS: hydrOXYzine pamoate 25 MG CAP PO SCH (20:22)
[2020-09-11] MEDS: DOXEPIN 25 MG CAP PO SCH (20:23)
[2020-09-12] MEDS: HYDROcodone/APAP 7.5-325MG 1 EACH TAB PO PRN ×4 (00:21→21:32)
[2020-09-12] MEDS: FLUoxetine HCL 20 MG CAP PO SCH (08:15)
[2020-09-12] MEDS: FLUTICASONE 50MCG/SPRAY NASAL 16GM EA NOSTRIL SCH (08:16)
[2020-09-12] MEDS: levETIRAcetam 500 MG TAB PO SCH ×2 (08:16→20:48)
[2020-09-12] MEDS: CHOLECALCIFEROL 25 MCG (1000 IU) TABLET PO SCH (08:16)
[2020-09-12] MEDS: METOPROLOL TARTRATE 50 MG TAB PO SCH ×2 (08:16→20:48)
[2020-09-12] MEDS: PANTOPRAZOLE 40 MG TABLET PO SCH (08:16)
[2020-09-12] MEDS: polyethylene glycoL 3350 17 GM POWD.PACK PO SCH (08:16)
[2020-09-12] MEDS: LOSARTAN 25 MG TAB PO SCH (08:16)
[2020-09-12] MEDS: DOCUSATE 100 MG CAP PO SCH (08:16)
[2020-09-12] MEDS: THIAMINE 100 MG TAB PO SCH (08:16)
[2020-09-12] MEDS: HEPARIN SODIUM,PORCINE 5,000 UNIT/ML 1 ML VIAL SQ SCH ×2 (08:17→20:49)
[2020-09-12 10:11] LABS: African American GFR (CKD) 92.2 (60.0-200.0); Albumin 4.1 g/dL (3.80-4.90); Albumin/Globulin Ratio 1.58 (1.60-3.17); BUN/Creat Ratio 8.75 Ratio (12.00-20.00); Calcium 8.9 mg/dL (8.7-10.3); Globulin 2.6 g/dL (1.6-3.3); Non-African American GFR(CKD) 79.6 (60.0-200.0); Potassium 5.9 mmol/L (3.5-5.5); Total Protein 6.7 g/dL (6.2-8.2)
--- NOTE | 2020-09-12 10:32 | XR ---
EXAMINATION TYPE: XR tibia fibula LT DATE OF EXAM: 09/12/2020 COMPARISON: NONE HISTORY: Postop TECHNIQUE: Two views are submitted. FINDINGS: Postsurgical changes are seen. Diffuse osteopenia. Alignment near-anatomic. Small ossific density adj acent to the tibial tubercle. Slight persistent deformity of the distal fibula. IMPRESSION: 1. Postsurgical change
--- NOTE | 2020-09-12 12:10 | P.PN ---
Subjective Progress Note Date: 09/12/20 Principal diagnosis: Right distal one third tibial shaft fracture Right distal fibula comminuted fracture Patient was evaluated at bedside today, she is resting comfortably. She has her foot elevated on multiple toes. She notes improvement in the overall pain of the left lower extremity. She currently denies any headaches, lightheadedness, chest pain, shortness of breath, fever or chills, nausea vomiting Objective - Vital Signs Vital signs: Vital Signs Temp 98.8 F 09/12/20 08:45 Pulse 116 H 09/12/20 08:45 Resp 16 09/12/20 08:45 BP 134/95 09/12/20 08:45 Pulse Ox 96 09/12/20 08:45 Intake & Output 09/11/20 09/12/20 09/12/20 18:59 06:59 18:59 Intake Total 540 Output Total 500 1300 Balance 40 -1300 Intake: Oral 540 Output: Urine 500 1300 Other: # Bowel Movements 0 - Exam Left lower extremity: Short leg cast is in good position and condition, Dominick bandages in good position. Her skin is warm to touch both proximal distal to the cast. Compartments of the upper leg are soft and compressible. She is able to wiggle the toes and no difficulties. Sensation to light touch both proximal distal splinter intact - Labs CBC & Chem 7: 09/08/20 16:50 09/12/20 06:16 Labs: Abnormal Lab Results - Last 24 Hours (Table) 09/11/20 09/12/20 Range/Units 16:08 06:16 Potassium 5.9 H (3.5-5.5) mmol/L BUN 7.0 L (9.0-27.0) mg/dL BUN/Creatinine Ratio 8.75 L (12.00-20.00) Ratio Glucose 113 H (70-110) mg/dL AST 51 H (13-35) U/L Albumin/Globulin Ratio 1.58 L (1.60-3.17) g/dL Urine Protein Trace H (Negative) Urine Blood Moderate H (Negative) Ur Leukocyte Esterase Small H (Negative) Urine RBC 23 H (0-5) /hpf Urine WBC 8 H (0-5) /hpf Assessment and Plan Assessment: Postoperative day #2 status post IM nail left tibia fracture, ORIF left distal fibular fracture Plan: Pain control, continue current medication. Continue to limit IV pain medication DVT prophylaxis, continue subcu heparin. We'll likely discharged on the same medication Nonweightbearing left lower extremity, continued ice and elevate [id number] PT/OT evaluation on Sunday, utilize walker or crutches Internal medicine recommendations Encourage incentive spirometer Discharge planning: Anticipate discharge to rehab tomorrow Time with Patient: Less than 30
[2020-09-12 13:06] LABS: Basophils # (A) 0.05 X 10*3/uL (0.00-0.10); Basophils % (A) 0.3 %; Eosinophils # (A) 0.09 X 10*3/uL (0.04-0.35); Eosinophils % (A) 0.6 %; HCT 40.1 % (37.2-46.3); HGB 12.4 g/dL (12.0-15.0); Lymphocytes # (A) 2.82 X 10*3/uL (0.90-5.00); MCH 28.5 pg (27.0-32.0); MCHC 30.9 g/dL (32.0-37.0); MCV 92.2 fL (80.0-97.0); Mean Platelet Volume 11.3 fL (9.5-12.2); Monocytes # (A) 1.32 X 10*3/uL (0.20-1.00); Monocytes % (A) 8.9 %; Neutrophils % (A) 70.7 %; Platelet Count 235 X 10*3/uL (140-440); RBC 4.35 X 10*6/uL (4.10-5.20); RDW 14.3 % (11.5-14.5); WBC 14.86 X 10*3/uL (4.50-10.00)
--- NOTE | 2020-09-12 15:00 | P.PN ---
Subjective Progress Note Date: 09/12/20 This is a 59-year-old pleasant lady, known history of asthma, mild intermittent, fibromyalgia, hyperlipidemia, liver disease, seizure disorder HIV, hepatitis C, neuropathy, last seizure was several years ago, due to drug interaction. Also with glaucoma requiring surgery. She presented emergency room after injuring her left leg, she slipped on ice, and felt discomfort and a pop in her left ankle. She noticed some local swelling, and vomiting, unable to put weight on it. EMS has seen the patient, and brought her to evaluation, for which imaging x-rays shows comminuted displaced left distal tibia fibular fracture. Consult was made to our service from primary admitting with Dr. Means for medical management. They anticipating surgery tomorrow morning September 09, most likely ORIF. Patient currently any symptoms of chest pain palpitations, headedness dizziness, shortness of breath no abdominal pain nausea vomiting no diarrhea. No fever no chills no cough, no symptoms of any viral infection. 09/09: Patient is seen in follow-up today. She is scheduled for surgery tomorrow, I am nail left tibia, ORIF left ankle lateral and posterior malleolus. She has been afebrile, heart rate 89, blood pressure 137/93, pulse ox 96% on room air. Incentive spirometry ordered. 09/10: Patient is scheduled for surgery today. She denies having any chest pain or shortness of breath. No lightheadedness or dizziness. She has been afebrile, heart rate 94, blood pressure 121/84, pulse ox 93% on room air. 09/11: Patient underwent ORIF IM nailing left tibia, left ankle, and last for posterior malleolus, on 09/10/2020, patient is on an immobilizer cast below the knee, noted to have some hypotension and slight tachycardia today, has some lightheadedness, patient did not fall, no syncope. IV fluids increase, metoprolol 50 mg twice a day continue,, and losartan 25 mg daily., Anticipate for transfer to subacute rehab [facility] most likely Sunday. Patient lives alone, has difficulties with pivoting, nonweightbearing on the left leg, moderate assistance required. Fall risk very high 09/12: Patient is doing better, postop pain is controlled, no nausea, patient was constipated, MiraLAX ordered, patient does not have any fever no chills, no lightheadedness no dizziness. Hemoglobin 12.2 wbc count 14.86, creatinine normal potassium at 5.4 urine WBC of 8 most likely at contaminant, no antibiotics needed at this time plan for subacute rehab, in the next 24 hours REVIEW OF SYSTEMS Constitutional: No fever, no chills, no night sweats. No weight change. No weakness, fatigue or lethargy. No daytime sleepiness. EENT: No headache. No blurred vision or double vision, no loss of vision. No loss of Hearing, no ringing in the ears, no dizziness. No nasal drainage or congestion. No epistaxis. No sore throat. Lungs: No shortness of breath, cough, no sputum production. No wheezing. Cardiovascular: No chest pain, no lower extremity edema. No palpitations. No paroxysmal nocturnal dyspnea. No orthopnea. No lightheadedness or dizziness. No syncopal episodes. Abdominal: No abdominal pain. No nausea, vomiting. No diarrhea. No constipation. No bloody or tarry stools.. No loss of appetite. Genitourinary: No dysuria, increased frequency, urgency. No urinary retention. Musculoskeletal: No myalgias. No muscle weakness, no gait dysfunction, no frequent falls. No back pain. No neck pain. Integumentary: No wounds, no lesions. No rash or pruritus. No unusual bruising. No change in hair or nails. Neurologic: No aphasia. No facial droop. No change in mentation. No head injury. No headache. No paralysis. No paresthesia. Psychiatric: No depression. No anxiety. No mood swings. Endocrine: No abnormal blood sugars. No weight change. No excessive sweating or thirst. No cold intolerance. Objective - Vital Signs Vital signs: Vital Signs Temp 98.8 F 09/12/20 08:45 Pulse 116 H 09/12/20 08:45 Resp 16 09/12/20 08:45 BP 134/95 09/12/20 08:45 Pulse Ox 96 09/12/20 08:45 Intake & Output 09/11/20 09/12/20 09/12/20 18:59 06:59 18:59 Intake Total 540 Output Total 500 1300 Balance 40 -1300 Intake: Oral 540 Output: Urine 500 1300 Other: # Bowel Movements 0 - Constitutional General appearance: Present: cooperative, no acute distress - EENT Eyes: Present: PERRLA, dentition normal, normal appearance ENT: Present: NA/AT, normal oropharynx - Neck Neck: Present: lymphadenopathy, other - Respiratory Respiratory: bilateral: CTA, wheezing, prolonged expiration, prolonged inspiration - Cardiovascular Rhythm: regular Heart sounds: normal: S1, S2 - Gastrointestinal General gastrointestinal: Present: normal bowel sounds, soft - Integumentary Integumentary: Present: normal - Musculoskeletal Musculoskeletal: Present: gait normal, strength equal bilaterally - Psychiatric Psychiatric: Present: A&O x's 3, appropriate affect - Labs CBC & Chem 7: 09/12/20 06:16 09/12/20 06:16 Labs: Abnormal Lab Results - Last 24 Hours (Table) 09/11/20 09/12/20 Range/Units 16:08 06:16 Potassium 5.9 H (3.5-5.5) mmol/L BUN 7.0 L (9.0-27.0) mg/dL BUN/Creatinine Ratio 8.75 L (12.00-20.00) Ratio Glucose 113 H (70-110) mg/dL AST 51 H (13-35) U/L Albumin/Globulin Ratio 1.58 L (1.60-3.17) g/dL Urine Protein Trace H (Negative) Urine Blood Moderate H (Negative) Ur Leukocyte Esterase Small H (Negative) Urine RBC 23 H (0-5) /hpf Urine WBC 8 H (0-5) /hpf Assessment and Plan Plan: 1. Left ankle fracture displaced comminuted left distal tib-fib, on traumatic fall from ice, patient will undergo surgicalintervention on 09/09/2020, postop day #3 patient does not have any history of CAD CHF CVA, diabetes mellitus type 2, no CK D stage III. She would be classified as class II ASA risk, with pre- existing mild intermittent asthma which is controlled, and history of hepatitis C and HIV. Seizures is controlled. RCR I of 0. Patient would present with low risk for surgical intervention complications, with the limb orthopedic surgery ORIF on 2020 IM nailing fixation, left tibia left distal fibular fracture. Nonweightbearing lower extremity nonweightbearing left lower extremity, local cast care, below the knee 2 Mild intermittent asthma, controlled, when necessary Flonase, and albuterol as needed. 3. Seizure disorder, Keppra 500 mg twice a day maintained controlled without any flareups over several years. Maintain sleep hygiene, avoid sleep deprivation, control pain on doxepin 150 at bedtime 4. History of HIV, and hepatitis C 5 Hx of schizophrenia on [er[henazine.caution on anesthetic for its use 6. Hypertension, on losartan 100 mg daily, metoprolol 50 mg twice a day, hydralazine 10 every 4 when necessary for uncontrolled pain 7. Prior history of anterior cervical decompression on 08/11/2015, involving C3-C4, C4-C5 with corpectomy, 8 Hyperkalemia, possibly related to hemolysis during blood draw, GI prophylaxis DVT prophylaxis [facility] non[facility] left lower extremity
[2020-09-12] MEDS: hydrOXYzine pamoate 25 MG CAP PO SCH (20:48)
[2020-09-12] MEDS: DOXEPIN 25 MG CAP PO SCH (20:48)
[2020-09-12] MEDS: PERPHENAZINE 4 MG TAB PO SCH (20:48)
[2020-09-13] MEDS: HEPARIN SODIUM,PORCINE 5,000 UNIT/ML 1 ML VIAL SQ SCH (07:53)
[2020-09-13] MEDS: levETIRAcetam 500 MG TAB PO SCH (07:53)
[2020-09-13] MEDS: PANTOPRAZOLE 40 MG TABLET PO SCH (07:53)
[2020-09-13] MEDS: METOPROLOL TARTRATE 50 MG TAB PO SCH (07:53)
[2020-09-13] MEDS: THIAMINE 100 MG TAB PO SCH (07:53)
[2020-09-13] MEDS: DOCUSATE 100 MG CAP PO SCH (07:53)
[2020-09-13] MEDS: FLUTICASONE 50MCG/SPRAY NASAL 16GM EA NOSTRIL SCH (07:53)
[2020-09-13] MEDS: LOSARTAN 25 MG TAB PO SCH (07:53)
[2020-09-13] MEDS: CHOLECALCIFEROL 25 MCG (1000 IU) TABLET PO SCH (07:54)
[2020-09-13] MEDS: FLUoxetine HCL 20 MG CAP PO SCH (07:54)
[2020-09-13] MEDS: HYDROcodone/APAP 7.5-325MG 1 EACH TAB PO PRN ×2 (07:54→13:52)
[2020-09-13] MEDS: polyethylene glycoL 3350 17 GM POWD.PACK PO SCH (07:55)
[2020-09-13] MEDS ORDERED: SENNOSIDES-DOCUSATE SODIUM 1 EACH TAB PO SCH ×2 (09:00)
--- NOTE | 2020-09-13 09:57 | P.PN ---
Subjective Progress Note Date: 09/13/20 Principal diagnosis: Right distal one third tibial shaft fracture Right distal fibula comminuted fracture Patient was evaluated at bedside today, she is resting comfortably. Pain is well controlled. She currently denies any headaches, lightheadedness, chest pain, shortness of breath, fever or chills, nausea vomiting Objective - Vital Signs Vital signs: Vital Signs Temp 98.8 F 09/13/20 08:00 Pulse 90 09/13/20 08:00 Resp 17 09/13/20 08:00 BP 141/93 09/13/20 08:00 Pulse Ox 92 L 09/13/20 08:00 Intake & Output 09/12/20 09/13/20 09/13/20 18:59 06:59 18:59 Intake Total 540 Balance 540 Intake: Oral 540 Other: Voiding Method Indwelling Catheter # Voids 3 2 - Exam Left lower extremity: Short leg cast is in good position and condition, Dominick bandages in good position. Her skin is warm to touch both proximal distal to the cast. Compartments of the upper leg are soft and compressible. She is able to wiggle the toes and no difficulties. Sensation to light touch both proximal distal splinter intact - Labs CBC & Chem 7: 09/12/20 06:16 09/12/20 06:16 Labs: Abnormal Lab Results - Last 24 Hours (Table) 09/12/20 09/12/20 Range/Units 06:16 06:16 WBC 14.86 H (4.50-10.00) X 10*3/uL MCHC 30.9 L (32.0-37.0) g/dL Immature Gran # 0.08 H (0.00-0.04) X 10*3/uL Neutrophils # 10.50 H (1.80-7.70) X 10*3/uL Monocytes # 1.32 H (0.20-1.00) X 10*3/uL Potassium 5.9 H (3.5-5.5) mmol/L BUN 7.0 L (9.0-27.0) mg/dL BUN/Creatinine Ratio 8.75 L (12.00-20.00) Ratio Glucose 113 H (70-110) mg/dL AST 51 H (13-35) U/L Albumin/Globulin Ratio 1.58 L (1.60-3.17) g/dL Assessment and Plan Assessment: Postoperative day #3 status post IM nail left tibia fracture, ORIF left distal fibular fracture Plan: Pain control, plan for discharge on [place] 7.5mg/325mg DVT prophylaxis, heparin 5000 units q 12 hours Nonweightbearing left lower extremity, continued ice and elevate [id number] Internal medicine recommendations Encourage incentive spirometer Discharge planning: Discharge to rehab today Time with Patient: Less than 30
--- NOTE | 2020-09-13 10:07 | P.DS ---
Providers Date of admission: 09/10/20 14:56 Expected date of discharge: 09/13/20 Attending physician: Arvind Means DO Consults: 09/08/20 14:52 Consult Physician Urgent Consulting Provider: Odilia Capone Consult Reason/Comments: Surgical clearance, Andrew management Do you want consulting provider notified?: Yes Primary care physician: [facility] Hospital Course: Date of admission: 09/08/2020 Date of discharge: 09/13/2020 Admission diagnosis: L closed, comminuted, displaced distal 1/3 tibial shaft fracture, L closed, comminuted, displaced distal fibular fracture [place] B/C Discharge diagnosis: Same Attending physician: Dr. Means Surgical procedures: Intramedullary nail fixation of left tibia, open reduction internal fixation of left distal fibular fracture Brief history: Patient is a 59-year-old female who presented to [facility] on 09/08/2020 after slipping on ice and sustaining an injury to her left ankle. It was determined she had a very severe fracture that will require surgical fixation. She was admitted under orthopedic care with plan for surgical intervention on 09/10/2020. Internal medicine was consulted for clearance and medical management. Hospital course: Details of patient's surgery can be found in operative report. Patient tolerated the procedure well and was subsequently transported to [facility]. Patient's orthopeidc and medical care was provided daily. Patient had daily laboratory tests performed for evaluation of overall blood counts. Patient had daily physical therapy to include strengthening range of motion as well as education with walker ambulation. Patient was treated with heparin for their postoperative DVT prophylaxis during their inpatient stay. Patient was noted to have a relatively uneventful postoperative course. Patient reported satisfactory pain control with oral pain medications by postoperative day 0. Patient showed satisfactory progress with physical therapy. Patient moved steadily through the program and had no difficulty meeting the goals by postoperative day 3. Given patient's otherwise satisfactory course and having met physical therapy goals, plan is to discharge patient rehab on postoperative day 3. Discharge condition/disposition: Patient will be discharged to rehab in stable condition. Discharge medications: Instructions are given on resumption of patient's normal daily medications per primary care recommendation, in addition patient will be prescribed [place] 7.5 mg/325 mg, Colace 100 mg, MiraLAX 17.6 g, heparin 5000 units. Discharge instructions: 1. Nonweightbearing left lower extremity 2. Do not remove Dominick wrap or cast 3. Keep the cast covered and dry while showering 4. Utilize crutches, walker or wheelchair 5. Plan [facility] 2 weeks for recheck Procedures: Intramedullary nail fixation of LEFT TIBIA, open reduction and internal fixation of LEFT distal fibular fracture Patient Condition at Discharge: Fair Plan - Discharge Summary Discharge Rx Participant: Yes New Discharge Prescriptions: New Heparin Sodium,Porcine [Heparin Sodium] 5,000 unit SQ Q12HR #60 vial polyethylene glycoL 3350 [Miralax] 17 gm PO DAILY #21 packet HYDROcodone/APAP 7.5-325MG [[place]ams 7.5] 1 - 2 each PO Q6HR PRN #42 tab PRN Reason: Pain No Action Losartan Potassium 100 mg PO DAILY Docusate [Colace] 100 mg PO DAILY Albuterol Sulfate [Ventolin HFA] 2 puff INHALATION RT-Q4H PRN PRN Reason: Shortness Of Breath Doxepin HCl [SINEquan] 150 mg PO HS hydrOXYzine pamoate [Vistaril] 50 mg PO HS levETIRAcetam [Keppra] 500 mg PO BID Metoprolol Tartrate [Lopressor] 50 mg PO BID Perphenazine [Trilafon] 8 mg PO HS Thiamine [Vitamin B-1] 100 mg PO DAILY FLUoxetine HCL [PROzac] 40 mg PO DAILY #7 cap Fluticasone Nasal [place] [Flonase Nasal [place]] 1 spray EA NOSTRIL DAILY Cholecalciferol (Vitamin D3) [Vitamin D3 (5000 Iu)] 125 mcg PO DAILY Omeprazole 20 mg PO DAILY Discharge Medication List Losartan Potassium 100 mg PO DAILY 06/18/15 [History] Docusate [Colace] 100 mg PO DAILY 12/15/16 [History] Albuterol Sulfate [Ventolin HFA] 2 puff INHALATION RT-Q4H PRN 12/01/19 [History] Doxepin HCl [SINEquan] 150 mg PO HS 12/01/19 [History] Metoprolol Tartrate [Lopressor] 50 mg PO BID 12/01/19 [History] Perphenazine [Trilafon] 8 mg PO HS 12/01/19 [History] Thiamine [Vitamin B-1] 100 mg PO DAILY 12/01/19 [History] hydrOXYzine pamoate [Vistaril] 50 mg PO HS 12/01/19 [History] levETIRAcetam [Keppra] 500 mg PO BID 12/01/19 [History] FLUoxetine HCL [PROzac] 40 mg PO DAILY #7 cap 03/30/20 [Rx] Cholecalciferol (Vitamin D3) [Vitamin D3 (5000 Iu)] 125 mcg PO DAILY 09/08/20 [History] Fluticasone Nasal [place] [Flonase Nasal [place]] 1 spray EA NOSTRIL DAILY 09/08/20 [History] Omeprazole 20 mg PO DAILY 09/08/20 [History] HYDROcodone/APAP 7.5-325MG [[place] 7.5] 1 - 2 each PO Q6HR PRN #42 tab 09/13/20 [Rx] Heparin Sodium,Porcine [Heparin Sodium] 5,000 unit SQ Q12HR #60 vial 09/13/20 [Rx] polyethylene glycoL 3350 [Miralax] 17 gm PO DAILY #21 packet 09/13/20 [Rx] Follow up Appointment(s)/Referral([facility] - 1-2 days Arvind Means DO [Doctor of Osteopathic Medicine] - 2 Weeks Patient Instructions/Handouts: Closed Reduction Internal Fixation of Leg Fracture in Adults (DC) Activity/Diet/Wound Care/Special Instructions: Orthopedic discharge instructions: 1. Nonweightbearing left lower extremity 2. Do not remove the splint or Dominick bandage 3. Keep extremity elevated and iced at all times 4. Utilize walker, crutches or wheelchair with ambulation 5. Plan for [facility]-up at [facility] 2 weeks for recheck Discharge Disposition: TRANSFER TO SNF/ECF
[2020-09-13 10:21] LABS: HCT 38.3 % (34.0-46.0); HGB 11.9 gm/dL (11.4-16.0); MCH 27.1 pg (25.0-35.0); MCV 87.3 fL (80.0-100.0); Mean Platelet Volume 8.1; Platelet Count 250 k/uL (150-450); RBC 4.39 m/uL (3.80-5.40); RDW 13.6 % (11.5-15.5); WBC 11.1 k/uL (3.8-10.6)
[2020-09-13 10:31] LABS: African American GFR (CKD) >90 (>60 ml/min/1.73 sqM); Anion Gap 7 mmol/L; Blood Urea Nitrogen 9 mg/dL (7-17); Calcium 9.2 mg/dL (8.4-10.2); Carbon Dioxide 27 mmol/L (22-30); Chloride 102 mmol/L (98-107); Glucose 116 mg/dL (74-99); Non-African American GFR(CKD) >90 (>60 ml/min/1.73 sqM); Potassium 4.2 mmol/L (3.5-5.1); Sodium 136 mmol/L (137-145)
[2020-09-13 14:00] VITALS: BP 127/94; PULSE 93; RESP 18; TEMP 99.2
--- NOTE | 2020-09-17 11:50 | P.PN ---
Subjective Progress Note Date: 09/13/20 HISTORY OF PRESENT ILLNESS This is a 59-year-old pleasant lady, known history of asthma, mild intermittent, fibromyalgia, hyperlipidemia, liver disease, seizure disorder HIV, hepatitis C, neuropathy, last seizure was several years ago, due to drug interaction. Also with glaucoma requiring surgery. She presented emergency room after injuring her left leg, she slipped on ice, and felt discomfort and a pop in her left ankle. She noticed some local swelling, and vomiting, unable to put weight on it. EMS has seen the patient, and brought her to evaluation, for which imaging x-rays shows comminuted displaced left distal tibia fibular fracture. Consult was made to our service from primary admitting with Dr. Means for medical management. They anticipating surgery tomorrow morning September 09, most likely ORIF. Patient currently any symptoms of chest pain palpitations, headedness dizziness, shortness of breath no abdominal pain nausea vomiting no diarrhea. No fever no chills no cough, no symptoms of any viral infection. 09/09: Patient is seen in follow-up today. She is scheduled for surgery tomorrow, I am nail left tibia, ORIF left ankle lateral and posterior malleolus. She has been afebrile, heart rate 89, blood pressure 137/93, pulse ox 96% on room air. Incentive spirometry ordered. 09/10: Patient is scheduled for surgery today. She denies having any chest pain or shortness of breath. No lightheadedness or dizziness. She has been afebrile, heart rate 94, blood pressure 121/84, pulse ox 93% on room air. 09/11: Patient underwent ORIF IM nailing left tibia, left ankle, and last for posterior malleolus, on 09/10/2020, patient is on an immobilizer cast below the knee, noted to have some hypotension and slight tachycardia today, has some lig htheadedness, patient did not fall, no syncope. IV fluids increase, metoprolol 50 mg twice a day continue,, and losartan 25 mg daily., Anticipate for transfer [facility] subacute [facility] [place] most likely Sunday. Patient lives alone, has difficulties with pivoting, nonweightbearing on the left leg, moderate assistance required. Fall risk very high 09/12: Patient is doing better, postop pain is controlled, no nausea, patient was constipated, MiraLAX ordered, patient does not have any fever no chills, no lightheadedness no dizziness. Hemoglobin 12.2 wbc count 14.86, creatinine normal potassium at 5.4 urine WBC of 8 most likely at contaminant, no antibiotics needed at this time plan for subacute rehab, in the next 24 hours 09/13: Patient is postop day #3 for IM nail left tibial fracture, ORIF left distal fibular fracture. Patient is nonweightbearing on the left lower extremity. Patient is scheduled for discharge to rehab today. Temperature max 100.0. Heart rate 90, blood pressure 141/93, pulse ox 92% on room air. TSH 2.940. Medication reconciliation has been reviewed. Patient is clear for discharge from medicine. REVIEW OF SYSTEMS Constitutional: No fever, no chills, no night sweats. No weight change. No weakness, fatigue or lethargy. No daytime sleepiness. EENT: No headache. No blurred vision or double vision, no loss of vision. No loss of Hearing, no ringing in the ears, no dizziness. No nasal drainage or congestion. No epistaxis. No sore throat. Lungs: No shortness of breath, cough, no sputum production. No wheezing. Cardiovascular: No chest pain, no lower extremity edema. No palpitations. No paroxysmal nocturnal dyspnea. No orthopnea. No lightheadedness or dizziness. No syncopal episodes. Abdominal: No abdominal pain. No nausea, vomiting. No diarrhea. Reports constipation. No bloody or tarry stools.. No loss of appetite. Genitourinary: No dysuria, increased frequency, urgency. No urinary retention. Musculoskeletal: No myalgias. No muscle weakness, reports gait dysfunction, no frequent falls. No back pain. No neck pain. Reports left leg pain. Integumentary: No wounds, no lesions. No rash or pruritus. No unusual bruising. No change in hair or nails. Neurologic: No aphasia. No facial droop. No change in mentation. No head injury. No headache. No paralysis. No paresthesia. Psychiatric: No depression. No anxiety. No mood swings. Endocrine: No abnormal blood sugars. No weight change. No excessive sweating or thirst. No cold intolerance. PHYSICAL EXAMINATION Gen: This is a 59-year-old female. Patient is resting in bed and appears to be comfortable. HEENT: Head is atraumatic, normocephalic. Pupils equal, round. Sclerae is anicteric. NECK: Supple. No JVD. No lymphadenopathy. No thyromegaly. LUNGS: Clear to auscultation. No wheezes or rhonchi. No intercostal retractions. HEART: Regular rate and rhythm. No murmur. ABDOMEN: Soft. Bowel sounds are present. No masses. No tenderness. EXTREMITIES: No pedal edema. No calf tenderness. Dressing in place to the left lower leg and ankle. NEUROLOGICAL: Patient is awake, alert and oriented x3. Cranial nerves 2 through 12 are grossly intact. ASSESSMENT AND PLAN 1. Left ankle fracture displaced comminuted left distal tib-fib, on traumatic fall from ice status post ORIF IM nailing left tibia, left ankle, and last for posterior malleolus. 2. Mild intermittent asthma, controlled, when necessary Flonase, and albuterol as needed. 3. Seizure disorder, Keppra 500 mg twice a day maintained controlled without any flareups over several years. Maintain sleep hygiene, avoid sleep deprivation, control pain on doxepin 150 at bedtime 4. History of HIV, and hepatitis C 5. Hx of schizophrenia area and continue perphenazine. 6. Hypertension, on losartan increased to 25 mg daily due to hypotension, continue metoprolol 50 mg twice a day, hydralazine 10 every 4 when necessary for uncontrolled pain 7. Prior history of anterior cervical decompression on 08/11/2015, involving C3-C4, C4-C5 with corpectomy, GI prophylaxis DVT prophylaxis DISCHARGE PLAN [facility] Impression and plan of care have been directed as dictated by the signing physician. Penny Lugo nurse practitioner acting as scribe for signing physician. Objective - Vital Signs Vital signs: Vital Signs Temp 98.8 F 09/13/20 08:00 Pulse 90 09/13/20 08:00 Resp 17 09/13/20 08:00 BP 141/93 09/13/20 08:00 Pulse Ox 92 L 09/13/20 08:00 Intake & Output 09/12/20 09/13/20 09/13/20 18:59 06:59 18:59 Intake Total 540 Balance 540 Intake: Oral 540 Other: Voiding Method Indwelling Catheter # Voids 3 2 - Labs CBC & Chem 7: 09/13/20 09:40 09/13/20 09:40 Labs: Abnormal Lab Results - Last 24 Hours (Table) 09/12/20 09/12/20 Range/Units 06:16 06:16 WBC 14.86 H (4.50-10.00) X 10*3/uL MCHC 30.9 L (32.0-37.0) g/dL Immature Gran # 0.08 H (0.00-0.04) X 10*3/uL Neutrophils # 10.50 H (1.80-7.70) X 10*3/uL Monocytes # 1.32 H (0.20-1.00) X 10*3/uL Potassium 5.9 H (3.5-5.5) mmol/L BUN 7.0 L (9.0-27.0) mg/dL BUN/Creatinine Ratio 8.75 L (12.00-20.00) Ratio Glucose 113 H (70-110) mg/dL AST 51 H (13-35) U/L Albumin/Globulin Ratio 1.58 L (1.60-3.17) g/dL
== END 2020-09-13 15:26 | DRG 493 ==
LOC: EC 13:10 → 4SSUR 15:27 → OBSVTOIN 09-10 14:56
PROVIDERS: ADMIT Orthopaedic Surgery; ATTEND Orthopaedic Surgery
PROC: 0QSK04Z Reposition Left Fibula with Internal Fixation Device, Open Approach (ICD-10-PCS; 2020-09-10)
PROC: 0QSH06Z Reposition Left Tibia with Intramedullary Internal Fixation Device, Open Approach (ICD-10-PCS; principal; 2020-09-10 13:45)
DX: S82.62XA Displaced fracture of lateral malleolus of left fibula, initial encounter for closed fracture (principal); S82.242A Displaced spiral fracture of shaft of left tibia, initial encounter for closed fracture; Z21 Asymptomatic human immunodeficiency virus [HIV] infection status; Z20.822 Contact with and (suspected) exposure to COVID-19; I95.9 Hypotension, unspecified; G40.909 Epilepsy, unspecified, not intractable, without status epilepticus; F20.9 Schizophrenia, unspecified; B19.20 Unspecified viral hepatitis C without hepatic coma; E78.5 Hyperlipidemia, unspecified; J45.20 Mild intermittent asthma, uncomplicated; M79.7 Fibromyalgia; K21.9 Gastro-esophageal reflux disease without esophagitis; M19.90 Unspecified osteoarthritis, unspecified site; H40.9 Unspecified glaucoma; G62.9 Polyneuropathy, unspecified; F32.9 Major depressive disorder, single episode, unspecified; F41.9 Anxiety disorder, unspecified; M25.512 Pain in left shoulder; E87.5 Hyperkalemia; F17.210 Nicotine dependence, cigarettes, uncomplicated; I10 Essential (primary) hypertension; W00.0XXA Fall on same level due to ice and snow, initial encounter; Z79.899 Other long term (current) drug therapy; Z98.1 Arthrodesis status; Z90.710 Acquired absence of both cervix and uterus; Z98.890 Other specified postprocedural states; Z88.6 Allergy status to analgesic agent; Z88.0 Allergy status to penicillin; Z88.8 Allergy status to other drugs, medicaments and biological substances
CPT/HCPCS: 29515; 36415; 80048; 80053; 81001; 83735; 84443; 85025; 85027; 85610; 85730; 87635; 93005; 94640; 96374; 96375; 96376; 99285

== ENCOUNTER 2020-12-13 18:30 | Inpatient (IN) | payer OTHER ==
[2020-12-13] MEDS ORDERED: SODIUM CHLORIDE 0.9% 500 ML 500 ML IV STA (18:48)
[2020-12-13 18:56] LABS: Glucose,Whole Blood 107 mg/dL (75-99)
--- NOTE | 2020-12-13 18:57 | ED ---
General Adult HPI - General Chief complaint: Neuro Symptoms/Deficit Stated complaint: right side arm weakness Time Seen by Provider: 12/13/20 18:45 Source: patient Mode of arrival: wheelchair Limitations: no limitations - History of Present Illness Initial comments: Dictation was produced using [employer] dictation software. please excuse any grammatical, word or spelling errors. This patient was cared for during a federal and state declared state of emergency secondary to Covid 19 Chief Complaint: 60-year-old female with past medical history of nonprogressive HIV presents with right hand weakness History of Present Illness: 60-year-old female she states that at approximately 4:45 PM she noticed that her right hand became weak to the point where she was not able to use it. Patient also complains of weakness in her elbow and her right shoulder. She has no other complaints at this time. Patient denies any history of stroke. States she does not have any medical problems however on her chart review she has history of dyslipidemia seizure disorder asthma and liver disease. The ROS documented in this emergency department record has been reviewed and confirmed by me. Those systems with pertinent positive or negative responses have been documented in the HPI. All other systems are other negative and/or noncontributory. PHYSICAL EXAM: General Impression: Alert and oriented x3, not in acute distress HEENT: Normocephalic atraumatic, extra-ocular movements intact, pupils equal and reactive to light bilaterally, mucous membranes moist. Cardiovascular: Heart regular rate and rhythm Chest: Able to complete full sentences, no retractions, no tachypnea Abdomen: abdomen soft, non-tender, non-distended, no organomegaly Musculoskeletal: Pulses present and equal in all extremities, no peripheral edema Motor: no focal deficits noted Neurological: CN II-XII grossly intact, weakness to the right upper extremity most notable the right hand with mold runner strength, right elbow flexion and right upper extremity abduction, rest extremity shows no weakness. She has no sensory deficits to light touch. non-aphasic, no facial asymmetry, NIH of 1 Skin: Intact with no visualized rashes Psych: Normal affect and mood ED course: 60-year-old female presents to the emergency department for right upper extremity weakness. Patient's symptoms began at 4:45 PM. She presented to us 2 hours after the onset of symptoms. Code stroke page. Vital signs upon arrival are within acceptable limits. Dr. Oleary reviewed films. I did receive a call from him at around 7:11 PM. They're worse in ischemic findings seen in the left hemisphere. Did not recommend TPA or thrombectomy. He recommended aspirin and admission with neurology consultation. EKG interpretation: Ventricular rate 107, sinus tachycardia,. 122, QRS 80, QTc 451. No ME prolongation, no QTC prolongation, no ST or T-wave changes noted. EKG compared to that. 05/18/2021 showing no changes. Overall, this EKG is unremarkable Laboratory evaluation obtained. Leukocytosis O.4 likely secondary to stress. Coag panel is negative. Metabolic panel is within acceptable limits. Computed tomography scan the brain shows wedge-shaped area of low attenuation in the left posterior occipital lobe findings maintained a negative of subacute infarct. CT angiography of the head and neck shows no significant abnormality as read by radiologist. Case is discussed with Dr. Capone who is willing to accept patients care for admission. Dr. Capone requested echocardiogram ordered. Neurology on consult. Patient given aspirin. - Related Data Home Medications Medication Instructions Recorded Confirmed Docusate [Colace] 100 mg PO DAILY 12/15/16 12/13/20 Albuterol Sulfate [Ventolin HFA] 2 puff INHALATION RT-Q4H PRN 12/01/19 12/13/20 Doxepin HCl [SINEquan] 150 mg PO HS 12/01/19 12/13/20 Metoprolol Tartrate [Lopressor] 50 mg PO BID 12/01/19 12/13/20 Perphenazine [Trilafon] 8 mg PO HS 12/01/19 12/13/20 Thiamine [Vitamin B-1] 100 mg PO DAILY 12/01/19 12/13/20 hydrOXYzine pamoate [Vistaril] 50 mg PO HS 12/01/19 12/13/20 levETIRAcetam [Keppra] 500 mg PO BID 12/01/19 12/13/20 Cholecalciferol (Vitamin D3) 125 mcg PO DAILY 09/08/20 12/13/20 [Vitamin D3 (5000 Iu)] Fluticasone Nasal [place] [Flonase 1 spray EA NOSTRIL DAILY 09/08/20 12/13/20 Nasal [place]] Omeprazole 20 mg PO DAILY 09/08/20 12/13/20 Losartan Potassium [Cozaar] 100 mg PO DAILY 12/13/20 12/13/20 Naproxen [Naprosyn] 500 mg PO BID PRN 12/13/20 12/13/20 Previous Rx's Medication Instructions Recorded FLUoxetine HCL [PROzac] 40 mg PO DAILY #7 cap 03/30/20 Allergies Allergy/AdvReac Type Severity Reaction Status Date / Time Penicillins Allergy Rash/Hives Verified 12/13/20 20:22 propoxyphene napsylate Allergy Itching Verified 12/13/20 20:22 [From Darvocet-N 100] aspirin AdvReac Nausea & Verified 12/13/20 20:22 Vomiting ibuprofen [From Motrin] AdvReac Nausea & Verified 12/13/20 20:22 Vomiting Review of Systems ROS Statement: Those systems with pertinent positive or pertinent negative responses have been documented in the HPI. ROS Other: All systems not noted in ROS Statement are negative. Past Medical History Past Medical History: Asthma, Eye Disorder, Fibromyalgia, GERD/Reflux, Hyperlipidemia, Liver Disease, Osteoarthritis (OA), Seizure Disorder Additional Past Medical History / Comment(s): Other HX: had 1 seizure several years ago due to drug interaction, HIV positive, hx. Hep. C, neuropathy, hx. ulcers, glaucoma bilaterally with surgery. History of Any Multi-Drug Resistant Organisms: None Reported Past Surgical History: Hysterectomy Additional Past Surgical History / Comment(s): 08/11/15 Anterior cervical decompression fusion C3-4, C4-5 with carpectomy. Other surgical history: Eye surgery for glaucoma bilaterally. Past Anesthesia/Blood Transfusion Reactions: No Reported Reaction Past Psychological History: Anxiety, Depression, Schizophrenia Smoking Status: Never smoker Past Alcohol Use History: Occasional Past Drug Use History: Marijuana - Past Family History Father History Unknown: Yes Family Medical History: Unable to Obtain Additional Family Medical History / Comment(s): Pt did not know her father. Mother Family Medical History: No Reported History General Exam Limitations: no limitations Course Vital Signs 12/13/20 12/13/20 12/13/20 18:38 18:45 19:00 Temperature 99.2 F 98 F 98 F Pulse Rate 76 108 H 108 H Respiratory 16 18 18 Rate Blood Pressure 137/99 153/120 178/123 O2 Sat by Pulse 98 96 97 Oximetry 12/13/20 12/13/20 12/13/20 19:13 19:15 19:30 Temperature Pulse Rate 112 H 110 H 92 Respiratory 18 18 18 Rate Blood Pressure 189/116 179/126 163/116 O2 Sat by Pulse 99 95 99 Oximetry 12/13/20 12/13/20 12/13/20 19:45 20:00 20:15 Temperature Pulse Rate 107 H 118 H 96 Respiratory 18 18 18 Rate Blood Pressure 155/134 172/149 138/53 O2 Sat by Pulse 100 98 100 Oximetry 12/13/20 20:30 Temperature Pulse Rate 110 H Respiratory 18 Rate Blood Pressure 168/124 O2 Sat by Pulse 100 Oximetry Medical Decision Making - Lab Data Result diagrams: 12/13/20 18:53 12/13/20 18:53 Lab Results 12/13/20 12/13/20 12/13/20 Range/Units 18:50 18:53 18:53 WBC 12.4 H (3.8-10.6) k/uL RBC 6.00 H (3.80-5.40) m/uL Hgb 16.0 (11.4-16.0) gm/dL Hct 51.5 H (34.0-46.0) % MCV 85.8 (80.0-100.0) fL MCH 26.6 (25.0-35.0) pg MCHC 31.0 (31.0-37.0) g/dL RDW 13.8 (11.5-15.5) % Plt Count 276 (150-450) k/uL MPV 7.4 Neutrophils % 82 % Lymphocytes % 13 % Monocytes % 4 % Eosinophils % 1 % Basophils % 0 % Neutrophils # 10.1 H (1.3-7.7) k/uL Lymphocytes # 1.6 (1.0-4.8) k/uL Monocytes # 0.5 (0-1.0) k/uL Eosinophils # 0.1 (0-0.7) k/uL Basophils # 0.0 (0-0.2) k/uL PT 10.7 (9.0-12.0) sec INR 1.0 (<1.2) APTT 24.8 (22.0-30.0) sec Sodium (137-145) mmol/L Potassium (3.5-5.1) mmol/L Chloride (98-107) mmol/L Carbon Dioxide (22-30) mmol/L Anion Gap mmol/L BUN (7-17) mg/dL Creatinine (0.52-1.04) mg/dL Est GFR (CKD-EPI)AfAm (>60 ml/min/1.73 sqM) Est GFR (CKD-EPI)NonAf (>60 ml/min/1.73 sqM) Glucose (74-99) mg/dL POC Glucose (mg/dL) 107 H (75-99) mg/dL POC Glu Chemical Lab Technician ID Hortencia Leger Calcium (8.4-10.2) mg/dL Total Bilirubin (0.2-1.3) mg/dL AST (14-36) U/L ALT (4-34) U/L Alkaline Phosphatase (38-126) U/L Troponin I (0.000-0.034) ng/mL Total Protein (6.3-8.2) g/dL Albumin (3.5-5.0) g/dL 12/13/20 12/13/20 Range/Units 18:53 18:53 WBC (3.8-10.6) k/uL RBC (3.80-5.40) m/uL Hgb (11.4-16.0) gm/dL Hct (34.0-46.0) % MCV (80.0-100.0) fL MCH (25.0-35.0) pg MCHC (31.0-37.0) g/dL RDW (11.5-15.5) % Plt Count (150-450) k/uL MPV Neutrophils % % Lymphocytes % % Monocytes % % Eosinophils % % Basophils % % Neutrophils # (1.3-7.7) k/uL Lymphocytes # (1.0-4.8) k/uL Monocytes # (0-1.0) k/uL Eosinophils # (0-0.7) k/uL Basophils # (0-0.2) k/uL PT (9.0-12.0) sec INR (<1.2) APTT (22.0-30.0) sec Sodium 143 (137-145) mmol/L Potassium 4.1 (3.5-5.1) mmol/L Chloride 108 H (98-107) mmol/L Carbon Dioxide 20 L (22-30) mmol/L Anion Gap 15 mmol/L BUN 10 (7-17) mg/dL Creatinine 0.75 (0.52-1.04) mg/dL Est GFR (CKD-EPI)AfAm >90 (>60 ml/min/1.73 sqM) Est GFR (CKD-EPI)NonAf 86 (>60 ml/min/1.73 sqM) Glucose 115 H (74-99) mg/dL POC Glucose (mg/dL) (75-99) mg/dL POC Glu Chemical Lab Technician ID Calcium 10.3 H (8.4-10.2) mg/dL Total Bilirubin 0.8 (0.2-1.3) mg/dL AST 113 H (14-36) U/L ALT 56 H (4-34) U/L Alkaline Phosphatase 137 H (38-126) U/L Troponin I <0.012 (0.000-0.034) ng/mL Total Protein 8.9 H (6.3-8.2) g/dL Albumin 4.9 (3.5-5.0) g/dL Critical Care Time Critical Care Time: Yes Total Critical Care Time: 33 Disposition Clinical Impression: Cerebrovascular accident (CVA) Disposition: ADMITTED IP TO THIS [facility] Condition: Fair Referrals: [facility] [Primary Care Provider] - 1-2 days
[2020-12-13 19:05] LABS: Basophils % (A) 0 %; Eosinophils # (A) 0.1 k/uL (0-0.7); Eosinophils % (A) 1 %; HCT 51.5 % (34.0-46.0); Lymphocytes # (A) 1.6 k/uL (1.0-4.8); Lymphocytes % (A) 13 %; MCH 26.6 pg (25.0-35.0); MCV 85.8 fL (80.0-100.0); Mean Platelet Volume 7.4; Monocytes # (A) 0.5 k/uL (0-1.0); Monocytes % (A) 4 %; Neutrophils # (A) 10.1 k/uL (1.3-7.7); Neutrophils % (A) 82 %; Platelet Count 276 k/uL (150-450); RDW 13.8 % (11.5-15.5); WBC 12.4 k/uL (3.8-10.6)
[2020-12-13 19:11] LABS: ALT 56 U/L (4-34); AST 113 U/L (14-36); African American GFR (CKD) >90 (>60 ml/min/1.73 sqM); Albumin 4.9 g/dL (3.5-5.0); Alkaline Phosphatase 137 U/L (38-126); Anion Gap 15 mmol/L; Blood Urea Nitrogen 10 mg/dL (7-17); Calcium 10.3 mg/dL (8.4-10.2); Carbon Dioxide 20 mmol/L (22-30); Chloride 108 mmol/L (98-107); Glucose 115 mg/dL (74-99); Non-African American GFR(CKD) 86 (>60 ml/min/1.73 sqM); Sodium 143 mmol/L (137-145); Total Bilirubin 0.8 mg/dL (0.2-1.3); Total Protein 8.9 g/dL (6.3-8.2)
[2020-12-13] MEDS ORDERED: ASPIRIN 81 MG PO STA ×2 (19:12→20:36)
[2020-12-13 19:27] LABS: Potassium 4.1 mmol/L (3.5-5.1)
[2020-12-13 20:07] LABS: Partial Thromboplastin Time 24.8 sec (22.0-30.0); Prothrombin Time 10.7 sec (9.0-12.0)
--- NOTE | 2020-12-13 20:25 | CT ---
EXAMINATION TYPE: CT brain wo con for TPA DATE OF EXAM: 12/13/2020 COMPARISON: CT 12/15/2016 HISTORY: right sided arm weakness CT DLP: 1528.2 mGycm Automated exposure control for dose reduction was used. Helical imaging through the brain. FINDINGS: There is no hemorrhage or hydrocephalus. There is a wedge-shaped area of low-attenuation which is dev eloped in the interval involving the left posterior occipital lobe. IMPRESSION: FINDINGS MAY BE INDICATIVE OF SUBACUTE INFARCT.
--- NOTE | 2020-12-13 20:33 | XR ---
EXAMINATION TYPE: XR chest 1V portable DATE OF EXAM: 12/13/2020 COMPARISON: Chest x-ray December 01, 2019 HISTORY: Altered mental status and weakness. TECHNIQUE: Single AP portable frontal upright view of the chest is obtained. FINDINGS: There is chronic parenchymal changes bilaterally without suspicious new focal air space op acity, pleural effusion, or pneumothorax seen. The cardiac silhouette size is stable and upper limit s of normal. Surgical change to the cervical spine is redemonstrated. IMPRESSION: Chronic changes without acute pulmonary process.
[2020-12-13] MEDS ORDERED: ONDANSETRON 4 MG/2 ML VIAL IVP STA (20:36)
--- NOTE | 2020-12-13 20:47 | CT ---
EXAMINATION TYPE: CT angio head neck DATE OF EXAM: 12/13/2020 HISTORY: right sided arm weakness COMPARISON: CT brain same date CT DLP: 1528.2 mGycm. Automated Exposure Control for Dose Reduction was Utilized. TECHNIQUE: CTA scan of the neck is performed with IV Contrast, patient injected with 65 mL of Isovue 370, axial images are obtained, coronal and sagittal reformatted images are reviewed. Three-D recons tructed images are created on an independent workstation and reviewed. FINDINGS: Carotid/Vascular Structures: Thoracic aorta, 2 super branch vessels are patent, left and right subcla vian artery, innominate artery, left and right common carotid artery, left vertebral artery are paten t. There is no stenosis of the internal carotid arteries by NASCET criteria. Internal and external c arotid arteries are patent. [place] shows patent anterior and posterior circulation. No evident aneurysm, dissection, st enosis or embolus. Other: Postop changes are noted to the cervical spine. IMPRESSION: No significant abnormality is seen.
[2020-12-13] MEDS ORDERED: hydrALAZINE HCL 20 MG/ML 1 ML VIAL IVP PRN (23:35)
[2020-12-13] MEDS ORDERED: ALBUTEROL NEBULIZED 2.5 MG/3 ML INHALATION PRN (23:35)
[2020-12-13] MEDS: hydrOXYzine pamoate 25 MG CAP PO SCH (23:49)
[2020-12-13] MEDS: METOPROLOL TARTRATE 50 MG TAB PO SCH (23:49)
[2020-12-13] MEDS: DOXEPIN 25 MG CAP PO SCH (23:50)
[2020-12-13] MEDS: PERPHENAZINE 4 MG TAB PO SCH (23:50)
[2020-12-14] MEDS: PANTOPRAZOLE 40 MG TABLET PO SCH (06:41)
[2020-12-14] MEDS: ATORVASTATIN 40 MG TAB PO SCH (08:13)
[2020-12-14] MEDS: THIAMINE 100 MG TAB PO SCH (08:13)
[2020-12-14] MEDS: CHOLECALCIFEROL 25 MCG (1000 IU) TABLET PO SCH (08:14)
[2020-12-14] MEDS: FLUoxetine HCL 20 MG CAP PO SCH (08:14)
[2020-12-14] MEDS: METOPROLOL TARTRATE 50 MG TAB PO SCH ×2 (08:14→21:11)
[2020-12-14] MEDS: LOSARTAN 50 MG TAB PO SCH (08:14)
[2020-12-14] MEDS: DOCUSATE 100 MG CAP PO SCH (08:14)
[2020-12-14 09:08] LABS: Cholesterol 170 mg/dL (<200); HDL Cholesterol 51 mg/dL (40-60); LDL Cholesterol,Calculated 89 mg/dL (0-99); Triglycerides 151 mg/dL (<150)
--- NOTE | 2020-12-14 11:17 | P.HPIM ---
History of Present Illness H&P Date: 12/14/20 HISTORY OF PRESENT ILLNESS This is a 60-year-old female patient of David Akins NP at [facility] with past medical history of mild intermittent asthma, fibromyalgia, hyperlipidemia, hypertension, seizure disorder, HIV, hepatitis C, neuropathy, schizophrenia. Patient states that she was diagnosed with seizure 1 year ago and had only had one episode of seizure activity which she relates is medication related. She is maintained on Keppra and follows with Dr. Juarez as her neurologist. Patient gives history of having a fall about 2 weeks ago and was lightheaded at the time. She now presents yesterday to the emergency center complaining of right arm/hand weakness. She denies having any neck pain. No swallowing difficulties. No change in speech or smile. Patient presented to [facility] emergency center for evaluation. NIH score of 1. Temperature 99.2, heart rate 76, blood pressure 137/99, pulse ox 90% on room air. EKG was sinus tachycardia at heart rate of 107. WBC 12.4, hemoglobin 16, platelet count 276. Sodium 143, potassium 4.1, chloride 108, CO2 20, BUN 10 and creatinine 0.75. Blood sugar 115. Calcium 10.3. Total bilirubin 0.8, AST 113, ALT 56, alkaline phosphatase 137. Troponin negative. Triglycerides 151, cholesterol 170, LDL 89, HDL 51. Coronavirus PCR not detected. CAT scan of the brain resulted as may be indicative of subacute infarct. CT angiogram of the head and neck showed no significant abnormality. Case was reviewed by stroke team remotely with no recommendations for TPA or thrombectomy. It was recommended for aspirin and neurology consult. Chest x- ray showed chronic changes without acute process. Patient was admitted to the cardiac stepdown unit and consult requested with neurology. Patient was started on aspirin 325 mg daily, Lipitor 40 mg daily. REVIEW OF SYSTEMS Constitutional: No fever, no chills, no night sweats. No weight change. No weakness, fatigue or lethargy. No daytime sleepiness. EENT: No headache. No blurred vision or double vision, no loss of vision. No loss of Hearing, no ringing in the ears, no dizziness. No nasal drainage or congestion. No epistaxis. No sore throat. Lungs: No shortness of breath, cough, no sputum production. No wheezing. Cardiovascular: No chest pain, no lower extremity edema. No palpitations. No paroxysmal nocturnal dyspnea. No orthopnea. No lightheadedness or dizziness. No syncopal episodes. Abdominal: No abdominal pain. No nausea, vomiting. No diarrhea. No constipation. No bloody or tarry stools.. No loss of appetite. Genitourinary: No dysuria, increased frequency, urgency. No urinary retention. Musculoskeletal: No myalgias. No muscle weakness, reports gait dysfunction, occasional falls. No back pain. No neck pain. Integumentary: No wounds, no lesions. No rash or pruritus. No unusual bruising. No change in hair or nails. Neurologic: No aphasia. No facial droop. No change in mentation. No head injury. No headache. Weakness right hand. Psychiatric: No depression. No anxiety. No mood swings. Endocrine: No abnormal blood sugars. No weight change. No excessive sweating or thirst. No cold intolerance. SOCIAL HISTORY Patient is a smoker of one pack per 3 days. Patient smoked from age 14 until 58. She denies any alcohol intake. She does not have oxygen, CPAP at home. She does have a walker. Patient lives alone. FAMILY HISTORY Both parents have from alcohol complications. Patient does not have any sisters. She has 2 brothers and she does not know them. She has one son with no major medical problems.. PHYSICAL EXAMINATION Gen: This is a 60-year-old black female area patient is resting in bed and appears to be comfortable and in no acute distress. No respiratory distress noted. HEENT: Head is atraumatic, normocephalic. Pupils equal, round. Sclerae is anicteric. NECK: Supple. No JVD. No lymphadenopathy. No thyromegaly. LUNGS: Clear to auscultation. No wheezes or rhonchi. No intercostal retractions. HEART: Regular rate and rhythm. No murmur. ABDOMEN: Soft. Bowel sounds are present. No masses. No tenderness. EXTREMITIES: No pedal edema. No calf tenderness. NEUROLOGICAL: Patient is awake, alert and oriented x3. Cranial nerves 2 through 12 are grossly intact. Strength 3/5 in right upper extremity, 4/5 on right lower extremity. ASSESSMENT AND PLAN 1. Right arm weakness, rule out CVA. CT revealed possible subacute infarct. Continue aspirin 325 mg daily, Lipitor 40 mg daily, neurology consult, EEG to rule out seizure activity, echocardiogram, MRI of the brain, PT and OT consults. 2. Mild intermittent asthma, stable without exacerbation. Continue albuterol nebulizer treatment every 4 hours as needed. 3. Fibromyalgia, stable. 4. History of HIV. 5. History of hepatitis C. 6. Transaminitis of unclear etiology. Acute hepatitis panel ordered and repeat CMP tomorrow. 7. Peripheral neuropathy. 8. History of seizure disorder. Continue Keppra 500 mg twice daily. 9. Hyperlipidemia. Patient started on Lipitor. 10. Hypertension. Continue Cozaar 100 mg daily, Lopressor 50 mg twice daily. 11. Schizophrenia, generalized anxiety and recurrent depression. Continue doxepin 150 mg at bedtime, Prozac 40 mg daily, perphenazine 8 mg at bedtime, Vistaril 50 mg at bedtime 12. Gastroesophageal reflux disease and GI prophylaxis. Protonix 40 mg daily. 13. DVT prophylaxis. Heparin subcu. 14. COVID-19 testing negative. Patient has been hospitalized during a pandemic. Patient will be admitted to the hospital for a minimum of 2 night stay. DISCHARGE PLAN Most likely return home with homecare. PT and OT consults in place. Impression and plan of care have been directed as dictated by the signing physician. Penny Lugo nurse practitioner acting as scribe for signing physician. Past Medical History Past Medical History: Eye Disorder, Fibromyalgia, GERD/Reflux, Hyperlipidemia, Liver Disease, Osteoarthritis (OA), Seizure Disorder Additional Past Medical History / Comment(s): Other HX: had 1 seizure several years ago due to drug interaction, HIV positive, hx. Hep. C, neuropathy, hx. ulcers History of Any Multi-Drug Resistant Organisms: None Reported Past Surgical History: Hysterectomy Additional Past Surgical History / Comment(s): 08/11/15 Anterior cervical decompression fusion C3-4, C4-5 with carpectomy. Past Anesthesia/Blood Transfusion Reactions: No Reported Reaction Past Psychological History: Anxiety, Depression, Schizophrenia Additional Psychological History / Comment(s): Pt lives alone. She uses a walker or wheelchair. 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 She gets rides through her insurance. Smoking Status: Never smoker Past Alcohol Use History: Occasional Additional Past Alcohol Use History / Comment(s): Pt states she is 1 pack every 3 days smoker. She started smoking at age 14yrs. Pt states she will have an occasional beer or wine. Past Drug Use History: Marijuana Additional Drug Use History / Comment(s): medical use-smokes on occasion. - Past Family History Father History Unknown: Yes Family Medical History: Unable to Obtain Additional Family Medical History / Comment(s): Pt did not know her father. Mother Family Medical History: No Reported History Medications and Allergies Home Medications Medication Instructions Recorded Confirmed Type Docusate [Colace] 100 mg PO DAILY 12/15/16 12/13/20 History Albuterol Sulfate [Ventolin HFA] 2 puff INHALATION RT-Q4H PRN 12/01/19 12/13/20 History Doxepin HCl [SINEquan] 150 mg PO HS 12/01/19 12/13/20 History Metoprolol Tartrate [Lopressor] 50 mg PO BID 12/01/19 12/13/20 History Perphenazine [Trilafon] 8 mg PO HS 12/01/19 12/13/20 History Thiamine [Vitamin B-1] 100 mg PO DAILY 12/01/19 12/13/20 History hydrOXYzine pamoate [Vistaril] 50 mg PO HS 12/01/19 12/13/20 History levETIRAcetam [Keppra] 500 mg PO BID 12/01/19 12/13/20 History FLUoxetine HCL [PROzac] 40 mg PO DAILY #7 cap 03/30/20 12/13/20 Rx Cholecalciferol (Vitamin D3) 125 mcg PO DAILY 09/08/20 12/13/20 History [Vitamin D3 (5000 Iu)] Fluticasone Nasal [place] [Flonase 1 spray EA NOSTRIL DAILY 09/08/20 12/13/20 History Nasal [place]] Omeprazole 20 mg PO DAILY 09/08/20 12/13/20 History Losartan Potassium [Cozaar] 100 mg PO DAILY 12/13/20 12/13/20 History Naproxen [Naprosyn] 500 mg PO BID PRN 12/13/20 12/13/20 History Allergies Allergy/AdvReac Type Severity Reaction Status Date / Time Penicillins Allergy Rash/Hives Verified 12/13/20 20:22 propoxyphene napsylate Allergy Itching Verified 12/13/20 20:22 [From Darvocet-N 100] aspirin AdvReac Nausea & Verified 12/13/20 20:22 Vomiting ibuprofen [From Motrin] AdvReac Nausea & Verified 12/13/20 20:22 Vomiting Physical Exam Vitals: Vital Signs Temp Pulse Pulse Resp BP BP Pulse Ox 12/14/20 08:00 60 16 144/92 100 12/14/20 03:32 98.7 F 72 18 173/113 94 L 12/14/20 02:00 18 12/14/20 00:00 99.3 F 105 H 18 169/125 94 L 12/13/20 22:23 98.9 F 98 18 157/122 100 12/13/20 22:00 94 18 100 12/13/20 21:30 110 H 18 160/123 99 12/13/20 20:30 110 H 18 168/124 100 12/13/20 20:15 96 18 138/53 100 12/13/20 20:00 118 H 18 172/149 98 12/13/20 19:45 107 H 18 155/134 100 12/13/20 19:30 92 18 163/116 99 12/13/20 19:15 110 H 18 179/126 95 12/13/20 19:13 112 H 18 189/116 99 12/13/20 19:00 98 F 108 H 18 178/123 97 12/13/20 18:45 98 F 108 H 18 153/120 96 12/13/20 18:38 99.2 F 76 16 137/99 98 Intake and Output 12/13/20 12/14/20 12/14/20 22:59 06:59 14:59 Intake Total 10 Output Total 200 Balance -190 Intake: IV 10 Invasive Line 1 10 Output: Urine 200 Other: Voiding Method Bedside Commode # Voids 1 Weight 72.575 kg 62 kg Results CBC & Chem 7: 12/13/20 18:53 12/13/20 18:53 Labs: Abnormal Lab Results - Last 24 Hours (Table) 12/13/20 12/13/20 12/13/20 Range/Units 18:50 18:53 18:53 WBC 12.4 H (3.8-10.6) k/uL RBC 6.00 H (3.80-5.40) m/uL Hct 51.5 H (34.0-46.0) % Neutrophils # 10.1 H (1.3-7.7) k/uL Chloride 108 H (98-107) mmol/L Carbon Dioxide 20 L (22-30) mmol/L Glucose 115 H (74-99) mg/dL POC Glucose (mg/dL) 107 H (75-99) mg/dL Calcium 10.3 H (8.4-10.2) mg/dL AST 113 H (14-36) U/L ALT 56 H (4-34) U/L Alkaline Phosphatase 137 H (38-126) U/L Total Protein 8.9 H (6.3-8.2) g/dL Triglycerides (<150) mg/dL 12/14/20 Range/Units 07:57 WBC (3.8-10.6) k/uL RBC (3.80-5.40) m/uL Hct (34.0-46.0) % Neutrophils # (1.3-7.7) k/uL Chloride (98-107) mmol/L Carbon Dioxide (22-30) mmol/L Glucose (74-99) mg/dL POC Glucose (mg/dL) (75-99) mg/dL Calcium (8.4-10.2) mg/dL AST (14-36) U/L ALT (4-34) U/L Alkaline Phosphatase (38-126) U/L Total Protein (6.3-8.2) g/dL Triglycerides 151 H (<150) mg/dL Thrombosis Risk Factor Assmnt - Choose All That Apply Each Risk Factor Represents 2 Points: Age 61-74 years Thrombosis Risk Factor Assessment Total Risk Factor Score: 2 Thrombosis Risk Factor Assessment Level: Low Risk
--- NOTE | 2020-12-14 12:00 | ECHOF ---
Referral Reason:cva MEASUREMENTS -------- HEIGHT: 154.9 cm WEIGHT: 61.7 kg BP: 173/113 RVIDd: 3.0 cm (< 3.3) IVSd: 1.6 cm (0.6 - 1.1) LVIDd: 3.7 cm (3.9 - 5.3) LVPWd: 1.3 cm (0.6 - 1.1) IVSs: 1.8 cm LVIDs: 2.8 cm LVPWs: 1.4 cm LA Diam: 3.3 cm (2.7 - 3.8) LAESV Index (A-L): 25.08 ml/m Ao Diam: 3.8 cm (2.0 - 3.7) AV Cusp: 2.0 cm (1.5 - 2.6) MV EXCURSION: 14.881 mm (> 18.000) MV EF SLOPE: 65 mm/s (70 - 150) EPSS: 1.1 cm MV E Jake: 0.66 m/s MV DecT: 277 ms MV A Jake: 0.81 m/s MV E/A Ratio: 0.81 RAP: 5.00 mmHg RVSP: 31.05 mmHg FINDINGS -------- Sinus rhythm. This was a technically good study. The left ventricular size is normal. There is moderate concentric left ventricular hypertrophy. O verall left ventricular systolic function is mildly impaired with, an EF between 45 - 50 %. The right ventricle is normal in size. Normal LA size by volume 22+/-6 ml/m2. The right atrium is normal in size. Interatrial and interventricular septum intact. The aortic valve is trileaflet and appears structurally normal. There is trace to mild mitral regurgitation. Mild tricuspid regurgitation present. Right ventricular systolic pressure is normal at < 35 mmHg. There is no pulmonic regurgitation present. The aortic root is dilated measuring 3.8cm. Normal inferior vena cava with normal inspiratory collapse consistent with estimated right atrial pre ssure of 5 mmHg. There is no pericardial effusion. CONCLUSIONS -------- 1. The left ventricular size is normal. 2. There is moderate concentric left ventricular hypertrophy. 3. Overall left ventricular systolic function is mildly impaired with, an EF between 45 - 50 %. 4. There is trace to mild mitral regurgitation. 5. Mild tricuspid regurgitation present. 6. The aortic root is dilated measuring 3.8cm. 7. There is no pericardial effusion. ROD MILL OPERATOR: Chel Delgadillo RDCS
--- NOTE | 2020-12-14 14:22 | P.CNNES ---
History of Present Illness Consult date: 12/14/20 Requesting physician: Kota Mares Reason for Consult: CVA History of Present Illness: Patient is a 60-year-old female came to the hospital yesterday at 6:30 PM for acute onset of weakness of the right hand. No previous history of strokes. Patient states that the stroke symptoms started 2 days prior to arrival to the ER. She did not come to the hospital. She notices that she could not pear picker objects and things were falling off the right hand. She denies any weakness in the legs, any facial droop, any problem with the vision or speech. Patient does not take any aspirin or other antiplatelet medications. Patient was started on aspirin. She has not noticed any improvement or worsening since she arrived to the hospital. Vital signs on arrival blood pressure 137/99, pulse rate 76, temperature 99.2. The blood pressure did go up to 168/[address] head showed findings may be indicative of subacute infarct involving wedge shaped area of low attenuation in the left posterior occipital lobe. CTA of head and neck negative. No significant abnormality. Chest x-ray showed chronic changes without acute pulmonary process. EKG with sinus tachycardia, probable left atrial enlargement. Stroke code was activated in the ER and the ED physician spoke to Dr. Oleary, and patient was felt not a candidate for TPA. He recommended aspirin and admission for further workup. Patient denies any history of diabetes. She has hypertension, smoked 1 pack every 3 days since age 14, quit at age 56, (4 years ago). Denies any alcohol use or any drugs. Patient apparently does not take any antiplatelet medication at home. She is on Keppra 100 mg twice a day, doxepin 50 mg at bedtime, perphen azine 8 mg at bedtime, fluoxetine 40 mg losartan 100 mg. Patient also has history of seizure disorder. She states that she had 3 seizures in her lifetime, which for a few months apart. The last seizure was about a year ago. She was placed on Keppra and since then she has not had any seizures. Review of Systems As above in detail. Denies any chest pain, shortness of breath, wheezing or cough. Denies any abdominal pain nausea vomiting diarrhea. Denies any problem with the vision. Past Medical History Past Medical History: Eye Disorder, Fibromyalgia, GERD/Reflux, Hyperlipidemia, Liver Disease, Osteoarthritis (OA), Seizure Disorder Additional Past Medical History / Comment(s): Other HX: had 1 seizure several years ago due to drug interaction, HIV positive, hx. Hep. C, neuropathy, hx. ulcers History of Any Multi-Drug Resistant Organisms: None Reported Past Surgical History: Hysterectomy Additional Past Surgical History / Comment(s): 08/11/15 Anterior cervical decompression fusion C3-4, C4-5 with carpectomy. Past Anesthesia/Blood Transfusion Reactions: No Reported Reaction Past Psychological History: Anxiety, Depression, Schizophrenia Additional Psychological History / Comment(s): Pt lives alone. She uses a walker or wheelchair. 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 She gets rides through her insurance. Smoking Status: Never smoker Past Alcohol Use History: Occasional Additional Past Alcohol Use History / Comment(s): Pt states she is 1 pack every 3 days smoker. She started smoking at age 14yrs. Pt states she will have an occasional beer or wine. Past Drug Use History: Marijuana Additional Drug Use History / Comment(s): medical use-smokes on occasion. - Past Family History Father History Unknown: Yes Family Medical History: Unable to Obtain Additional Family Medical History / Comment(s): Pt did not know her father. Mother Family Medical History: No Reported History Medications and Allergies Home Medications Medication Instructions Recorded Confirmed Type Docusate [Colace] 100 mg PO DAILY 12/15/16 12/13/20 History Albuterol Sulfate [Ventolin HFA] 2 puff INHALATION RT-Q4H PRN 12/01/19 12/13/20 History Doxepin HCl [SINEquan] 150 mg PO HS 12/01/19 12/13/20 History Metoprolol Tartrate [Lopressor] 50 mg PO BID 12/01/19 12/13/20 History Perphenazine [Trilafon] 8 mg PO HS 12/01/19 12/13/20 History Thiamine [Vitamin B-1] 100 mg PO DAILY 12/01/19 12/13/20 History hydrOXYzine pamoate [Vistaril] 50 mg PO HS 12/01/19 12/13/20 History levETIRAcetam [Keppra] 500 mg PO BID 12/01/19 12/13/20 History FLUoxetine HCL [PROzac] 40 mg PO DAILY #7 cap 03/30/20 12/13/20 Rx Cholecalciferol (Vitamin D3) 125 mcg PO DAILY 09/08/20 12/13/20 History [Vitamin D3 (5000 Iu)] Fluticasone Nasal [place] [Flonase 1 spray EA NOSTRIL DAILY 09/08/20 12/13/20 History Nasal [place]] Omeprazole 20 mg PO DAILY 09/08/20 12/13/20 History Losartan Potassium [Cozaar] 100 mg PO DAILY 12/13/20 12/13/20 History Naproxen [Naprosyn] 500 mg PO BID PRN 12/13/20 12/13/20 History Allergies Allergy/AdvReac Type Severity Reaction Status Date / Time Penicillins Allergy Rash/Hives Verified 12/13/20 20:22 propoxyphene napsylate Allergy Itching Verified 12/13/20 20:22 [From Darvocet-N 100] aspirin AdvReac Nausea & Verified 12/13/20 20:22 Vomiting ibuprofen [From Motrin] AdvReac Nausea & Verified 12/13/20 20:22 Vomiting Physical Examination - Vital Signs Vital Signs: Vital Signs Temp Pulse Pulse Resp BP BP Pulse Ox 12/14/20 08:00 60 16 144/92 100 12/14/20 03:32 98.7 F 72 18 173/113 94 L 12/14/20 02:00 18 12/14/20 00:00 99.3 F 105 H 18 169/125 94 L 12/13/20 22:23 98.9 F 98 18 157/122 100 12/13/20 22:00 94 18 100 12/13/20 21:30 110 H 18 160/123 99 12/13/20 20:30 110 H 18 168/124 100 12/13/20 20:15 96 18 138/53 100 12/13/20 20:00 118 H 18 172/149 98 12/13/20 19:45 107 H 18 155/134 100 12/13/20 19:30 92 18 163/116 99 12/13/20 19:15 110 H 18 179/126 95 12/13/20 19:13 112 H 18 189/116 99 12/13/20 19:00 98 F 108 H 18 178/123 97 12/13/20 18:45 98 F 108 H 18 153/120 96 12/13/20 18:38 99.2 F 76 16 137/99 98 Intake and Output 12/13/20 12/14/20 12/14/20 22:59 06:59 14:59 Intake Total 10 10 Output Total 200 Balance -190 10 Intake: IV 10 10 Invasive Line 1 10 10 Output: Urine 200 Other: Voiding Method Bedside Commode # Voids 1 Weight 72.575 kg 62 kg Patient is a late middle aged Afro-[place] female, in no acute distress. Patient is alert and awake. Patient knows it is November and states the year is . Then she states it is 2000. She knows that she is in [place] in the hospital but does not know the name. Patient is alert awake oriented to time place and person. Speech and language functions are normal. Attention, concentration is decreased and fund of knowledge is slightly limited. Patient can name and repeat well. On cranial examination, pupils are equal, round and reacting to light, visual dasilva on confrontation revealed neglect on double simultaneous stimulation involving the right upper visual field. However patient has a fixed visual field deficit involving the right lower quadrant. extraocular muscles are intact with no nystagmus. Patient has right facial droop, tongue protrudes to the midline. Palatal elevation and sensation normal, hearing is mildly decreased and shoulder shrug normal, facial sensation normal. Shoulder shrug normal. On muscle strength testing, patient has right pronator drift. The strength is normal in the left arm and left leg. On the right side, deltoid is 4, biceps 5- , triceps 5-, whirley operator 4-. Hip flexion is 4+5-on the right. Ankle dorsiflexion is normal. Knee extension normal. Deep tendon reflexes are 2+ to 3 all over in the arms and legs and plantars are downgoing. Sensory to touch is equal with no neglect on double simultaneous stimulation. Cerebellar function showed no ataxia for [id number] testing, although patie nt is slow on the right. Finger tapping is slow on the right. Tone and bulk of muscles normal. Patient could not perform [id number] testing on the right leg as appears to be somewhat stiff. Gait deferred. On general examination, there is no carotid bruit or murmur, S1-S2 audible. Abdomen is soft nontender. Chest is clear. Peripheral pulses are present. No edema. Results - Laboratory Findings CBC and BMP: 12/13/20 18:53 12/13/20 18:53 Abnormal Lab Findings: Abnormal Labs 12/13/20 12/13/20 12/13/20 18:50 18:53 18:53 WBC 12.4 H RBC 6.00 H Hct 51.5 H Neutrophils # 10.1 H Chloride 108 H Carbon Dioxide 20 L Glucose 115 H POC Glucose (mg/dL) 107 H Calcium 10.3 H AST 113 H ALT 56 H Alkaline Phosphatase 137 H Total Protein 8.9 H Triglycerides 12/14/20 07:57 WBC RBC Hct Neutrophils # Chloride Carbon Dioxide Glucose POC Glucose (mg/dL) Calcium AST ALT Alkaline Phosphatase Total Protein Triglycerides 151 H Assessment and Plan Assessment: * Acute to Subacute ischemic stroke involving left posterior occipitoparietal junction. Patient clinically has right facial brachial weakness and right visual field deficit. * Hypertension * X tobacco use * HIV positive status. * Elevated LFTs. * Seizure disorder, well controlled on Keppra 500 mg twice a day. * Obesity Plan: * MRI of the brain to evaluate for acute stroke. * 2-D echo revealed normal left-ventricular size. Moderate concentric LVH. EF is 45-50%. Trace to mild MR. The aortic root is dilated measuring 3.8 cm. Consider SIMON. * Telemetry monitoring so far showing sinus rhythm. * Fasting lipid panel showed cholesterol 170, LDL 89, HDL 51 and triglycerides 151. * Patient was not taking any antiplatelet medication at home. Patient will be placed on dual antiplatelet medication for 21 days and then stop Plavix and continue aspirin 81 mg daily. * Hemoglobin A1c. * EEG pending. * Continue Keppra 500 mg twice a day. * Urine drug screen. * PT and OT.
--- NOTE | 2020-12-14 14:30 | MR ---
EXAMINATION TYPE: MR brain wo con DATE OF EXAM: 12/14/2020 COMPARISON: CT brain from yesterday. HISTORY: Rt side weakness, CVA TECHNIQUE: Multiplanar, multisequence imaging of the brain and brainstem is performed without IV cont rast. FINDINGS: Diffusion weighted images demonstrate areas of increased signal on diffusion weighted images with dim inished signal on ADC mapping left occipital level over roughly 2.7 x 2.8 cm segment with T2 hyperint ensity and T1 hypointensity that show sulcal effacement corresponding to the area of CT concern axial image 31. Cannot exclude additional punctate foci subcortical left parietal lobe and lateral aspect left external capsule image 112 series 305. Area of involvement roughly 3.7 cm craniocaudal dimension coronal image 26 Background mild ventricular and sulcal prominence. Septum pellucidum vergae redemonstrated. Backgroun d scattered foci of T2 hyperintensity throughout the superficial deep and periventricular white matte r more prominent than expected on CT comparison. Midline structures demonstrate normal morphology. The craniocervical junction appears within normal limits. Normal vascular flow voids are present. The visualized sinuses are clear and the globes are i ntact. IMPRESSION: 1. Confirmation of evolving acute/subacute infarct over roughly 3.7 cm segment left occipital lobe as detailed above. 2. Background mild diffuse cerebral atrophy and moderate to borderline advanced chronic small vessel ischemic changes. A Yellow level critical message alert has been initiated for Odilia Capone MD via the [employer] Critical Results System on 12/14/2020 2:28 PM. This message alert has been sent to David Gallardo via the preferences provided by the clinician for the receipt of Radiology Critical Findings. [employer]mon[employer].is ID [id number].
[2020-12-14] MEDS: HEPARIN SODIUM,PORCINE/PF 5,000 UNIT/0.5 ML SYRINGE SQ SCH (16:24)
[2020-12-14] MEDS: CLOPIDOGREL 75 MG TAB PO SCH (16:25)
[2020-12-14] MEDS: FLUTICASONE 50MCG/SPRAY NASAL 16GM EA NOSTRIL SCH (16:25)
[2020-12-14 19:30] LABS: Hepatitis A Antibody IgM Non-Reactive (Non-Reactive); Hepatitis B Core IgM Non-Reactive (Non-Reactive); Hepatitis B Surface Antigen Non-Reactive (Non-Reactive); Hepatitis C IgG Antibody Reactive (Non-Reactive)
[2020-12-14] MEDS: hydrOXYzine pamoate 25 MG CAP PO SCH (21:11)
[2020-12-14] MEDS: DOXEPIN 25 MG CAP PO SCH (21:11)
[2020-12-14] MEDS: PERPHENAZINE 4 MG TAB PO SCH (21:11)
[2020-12-14] MEDS: levETIRAcetam 500 MG TAB PO SCH (21:12)
[2020-12-15] MEDS: HEPARIN SODIUM,PORCINE/PF 5,000 UNIT/0.5 ML SYRINGE SQ SCH ×4 (01:09→23:38)
--- NOTE | 2020-12-15 06:02 | P.CONS ---
History of Present Illness - Chief Complaint Gait disturbance, right hemiparesthesias - History of Present Illness I had the opportunity to see patient for inpatient rehab consultation with regard to gait disturbance. Patient admitted to [facility] December 13 acute onset right-sided weakness. Seen by neurology, Dr. Graves for the stroke. Initial head CT demonstrates evolving left posterior occipital infarct. Chest x-ray chronic change. Angiogram CT negative. Brain MRI with left a simple infarct and atrophy. Patient started therapies. PT reports minimal assistance bed mobility, transfers, gait 4 feet, hand-held. OT reports minimal assistance for upper dressing and transfers and moderate assistance for lower dressing, bathing, toileting. Previous functional history as elicited from patient: 60-year-old left-handed female who is lives in a first-floor apartment with . On disability. She is independent with cooking and laundry and a sitdown shower. Has a girlfriend who assists with driving or Jayashree. Patient doesn't require assistive device for gait around apartment. PCP is [facility]. Denies tobacco or alcohol. Review of Systems Review of systems: ENT: Denies sneezes or discharge. Eyes: Denies discharge or photophobia. Cardiac: Denies chest pain or palpitation. Pulmonary: Denies cough or shortness of breath. Breast: Denies discharge or lumps. Gastrointestinal: Denies nausea, emesis, constipation, diarrhea. Genitourinary: Denies discharge or frequency. Musculoskeletal: Denies muscle or bone aches. Neurologic: Right-sided weakness. Endocrine: Denies shakes or sweats. Oncology: Denies cancers. Dermatologic: Denies rash, itching, pruritus. ALLERGY/immunology: Denies sneezes, rashes. Past Medical History Past Medical History: Eye Disorder, Fibromyalgia, GERD/Reflux, Hyperlipidemia, Liver Disease, Osteoarthritis (OA), Seizure Disorder Additional Past Medical History / Comment(s): Other HX: had 1 seizure several years ago due to drug interaction, HIV positive, hx. Hep. C, neuropathy, hx. ulcers History of Any Multi-Drug Resistant Organisms: None Reported Past Surgical History: Hysterectomy Additional Past Surgical History / Comment(s): 08/11/15 Anterior cervical decompression fusion C3-4, C4-5 with carpectomy. Past Anesthesia/Blood Transfusion Reactions: No Reported Reaction Past Psychological History: Anxiety, Depression, Schizophrenia Additional Psychological History / Comment(s): Pt lives alone. She uses a walker or wheelchair. 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 She gets rides through her insurance. Smoking Status: Never smoker Past Alcohol Use History: Occasional Additional Past Alcohol Use History / Comment(s): Pt states she is 1 pack every 3 days smoker. She started smoking at age 14yrs. Pt states she will have an occasional beer or wine. Past Drug Use History: Marijuana Additional Drug Use History / Comment(s): medical use-smokes on occasion. - Past Family History Father History Unknown: Yes Family Medical History: Unable to Obtain Additional Family Medical History / Comment(s): Pt did not know her father. Mother Family Medical History: No Reported History Medications and Allergies Home Medications Medication Instructions Recorded Confirmed Type Docusate [Colace] 100 mg PO DAILY 12/15/16 12/13/20 History Albuterol Sulfate [Ventolin HFA] 2 puff INHALATION RT-Q4H PRN 12/01/19 12/13/20 History Doxepin HCl [SINEquan] 150 mg PO HS 12/01/19 12/13/20 History Metoprolol Tartrate [Lopressor] 50 mg PO BID 12/01/19 12/13/20 History Perphenazine [Trilafon] 8 mg PO HS 12/01/19 12/13/20 History Thiamine [Vitamin B-1] 100 mg PO DAILY 12/01/19 12/13/20 History hydrOXYzine pamoate [Vistaril] 50 mg PO HS 12/01/19 12/13/20 History levETIRAcetam [Keppra] 500 mg PO BID 12/01/19 12/13/20 History FLUoxetine HCL [PROzac] 40 mg PO DAILY #7 cap 03/30/20 12/13/20 Rx Cholecalciferol (Vitamin D3) 125 mcg PO DAILY 09/08/20 12/13/20 History [Vitamin D3 (5000 Iu)] Fluticasone Nasal [place] [Flonase 1 spray EA NOSTRIL DAILY 09/08/20 12/13/20 History Nasal [place]] Omeprazole 20 mg PO DAILY 09/08/20 12/13/20 History Losartan Potassium [Cozaar] 100 mg PO DAILY 12/13/20 12/13/20 History Naproxen [Naprosyn] 500 mg PO BID PRN 12/13/20 12/13/20 History Allergies Allergy/AdvReac Type Severity Reaction Status Date / Time Penicillins Allergy Rash/Hives Verified 12/13/20 20:22 propoxyphene napsylate Allergy Itching Verified 12/13/20 20:22 [From Darvocet-N 100] aspirin AdvReac Nausea & Verified 12/13/20 20:22 Vomiting ibuprofen [From Motrin] AdvReac Nausea & Verified 12/13/20 20:22 Vomiting Physical Exam Vitals: Vital Signs Temp Pulse Resp BP Pulse Ox 12/15/20 00:00 98.5 F 61 16 158/117 92 L 12/14/20 20:00 99.1 F 76 16 163/113 96 12/14/20 16:00 16 154/102 95 12/14/20 14:00 16 12/14/20 12:00 59 L 16 148/97 97 12/14/20 08:00 60 16 144/92 100 Intake and Output 12/14/20 12/14/20 12/15/20 14:59 22:59 06:59 Intake Total 260 250 Output Total 200 Balance 260 50 Intake: IV 20 10 Invasive Line 1 20 10 Oral 240 240 Output: Urine 200 Other: Voiding Method Bedside Commode Bedside Commode Bedside Commode # Voids 1 1 Weight 70.5 kg Skin: Good color, texture, turgor. General: Medium build and comfortable appearance. Head: Normocephalic, atraumatic. Eyes: Symmetric. Pupils equal round. Ears: Symmetric. Hearing within normal limits. Mouth: Clear. Neck: Supple. Carotid without bruit. Cardiac: Regular rate and rhythm. Lungs: Clear anteriorly and posteriorly. Abdomen: Soft active nontender. Extremities: Normal tone. Neurological: Mental status: Alert, cooperative, pleasant. Cranial nerves: Symmetric facial tone and trapezius. Motor: Normal strength and isolation left arm and leg. Right arm more so than leg leg apraxic. Sensation: Intact throughout. DTRs: Symmetric and equal throughout. Mobility: Requires physical assist for bed mobility and to sit up. Results CBC & Chem 7: 12/13/20 18:53 12/13/20 18:53 Labs: Abnormal Lab Results - Last 24 Hours (Table) 12/14/20 12/14/20 Range/Units 07:57 07:57 Triglycerides 151 H (<150) mg/dL Hep C IgG Ab Reactive A (Non-Reactive) Assessment and Plan (1) Cerebrovascular accident (CVA) Current Visit: Yes Status: Acute Code(s): I63.9 - CEREBRAL INFARCTION, UNSPECIFIED SNOMED Code(s): 655459286 Plan: Impression: 1. Gait disturbance due to stroke result in right hemiparesthesias. 2. DDD including lumbar. 3. Osteoarthritis. 4. Hypertension. 5. Dyslipidemia. 6. GERD. Comments and plan: At this time PT and OT are ongoing. Safety concerns noted. Have discussed inpatient rehab with patient and she seems agreeable.
[2020-12-15] MEDS: PANTOPRAZOLE 40 MG TABLET PO SCH (06:30)
[2020-12-15 07:09] LABS: Amphetamine Screen,Urine Not Detected (NotDetected); Barbiturate Screen,Urine Not Detected (NotDetected); Benzodiazepines Screen,Urine Not Detected (NotDetected); Cocaine Screen,Urine Not Detected (NotDetected); Methadone Screen, Urine Not Detected (NotDetected); Opiate Screen,Urine Not Detected (NotDetected); Oxycodone Screen, Urine Not Detected (NotDetected); Phencyclidine Screen,Urine Not Detected (NotDetected); Tricyclic Antidepressant,Urine Detected (NotDetected); Urn Cannabinoid Scrn Detected (NotDetected)
[2020-12-15 08:06] LABS: HCT 44.1 % (34.0-46.0); HGB 14.4 gm/dL (11.4-16.0); MCH 28.1 pg (25.0-35.0); MCHC 32.6 g/dL (31.0-37.0); MCV 86.2 fL (80.0-100.0); Mean Platelet Volume 7.8; Platelet Count 237 k/uL (150-450); RBC 5.12 m/uL (3.80-5.40); RDW 13.3 % (11.5-15.5); WBC 8.4 k/uL (3.8-10.6)
[2020-12-15 08:19] LABS: Albumin 4.1 g/dL (3.5-5.0); Calcium 9.5 mg/dL (8.4-10.2); Potassium 4.3 mmol/L (3.5-5.1); Total Protein 7.3 g/dL (6.3-8.2)
[2020-12-15] MEDS ORDERED: ASPIRIN 325 MG TAB PO SCH (09:00)
[2020-12-15] MEDS: CHOLECALCIFEROL 25 MCG (1000 IU) TABLET PO SCH (09:01)
[2020-12-15] MEDS: LOSARTAN 50 MG TAB PO SCH (09:01)
[2020-12-15] MEDS: CLOPIDOGREL 75 MG TAB PO SCH (09:01)
[2020-12-15] MEDS: METOPROLOL TARTRATE 50 MG TAB PO SCH ×2 (09:01→20:07)
[2020-12-15] MEDS: ATORVASTATIN 40 MG TAB PO SCH (09:02)
[2020-12-15] MEDS: DOCUSATE 100 MG CAP PO SCH (09:02)
[2020-12-15] MEDS: FLUTICASONE 50MCG/SPRAY NASAL 16GM EA NOSTRIL SCH (09:02)
[2020-12-15] MEDS: levETIRAcetam 500 MG TAB PO SCH ×2 (09:02→20:08)
[2020-12-15] MEDS: FLUoxetine HCL 20 MG CAP PO SCH (09:02)
[2020-12-15] MEDS: THIAMINE 100 MG TAB PO SCH (09:02)
--- NOTE | 2020-12-15 13:51 | P.PN ---
Subjective Progress Note Date: 12/15/20 HISTORY OF PRESENT ILLNESS This is a 60-year-old female patient of David Akins NP at [facility] with past medical history of mild intermittent asthma, fibromyalgia, hyperlipidemia, hypertension, seizure disorder, HIV, hepatitis C, neuropathy, schizophrenia. Patient states that she was diagnosed with seizure 1 year ago and had only had one episode of seizure activity which she relates is medication related. She is maintained on Keppra and follows with Dr. Juarez as her neurologist. Patient gives history of having a fall about 2 weeks ago and was lightheaded at the time . She now presents yesterday to the emergency center complaining of right arm/hand weakness. She denies having any neck pain. No swallowing difficulties. No change in speech or smile. Patient presented to [facility] emergency center for evaluation. NIH score of 1. Temperature 99.2, heart rate 76, blood pressure 137/99, pulse ox 90% on room air. EKG was sinus tachycardia at heart rate of 107. WBC 12.4, hemoglobin 16, platelet count 276. Sodium 143, potassium 4.1, chloride 108, CO2 20, BUN 10 and creatinine 0.75. Blood sugar 115. Calcium 10.3. Total bilirubin 0.8, AST 113, ALT 56, alkaline phosphatase 137. Troponin negative. Triglycerides 151, cholesterol 170, LDL 89, HDL 51. Coronavirus PCR not detected. CAT scan of the brain resulted as may be indicative of subacute infarct. CT angiogram of the head and neck showed no significant abnormality. Case was reviewed by stroke team remotely with no recommendations for TPA or thrombectomy. It was recommended for aspirin and neurology consult. Chest x- ray showed chronic changes without acute process. Patient was admitted to the cardiac stepdown unit and consult requested with neurology. Patient was started on aspirin 325 mg daily, Lipitor 40 mg daily. 12/15: Patient is afebrile, heart rate 62, blood pressure 111/73, pulse ox 97% on room air. Repeat blood work reveals CBC was unremarkable. Electrolytes normal. BUN 18 and creatinine 0.89. Blood sugar 103. AST 37, ALT 30, alkaline phosphatase 110. Urine drug screen is positive for tricyclic antidepressants and marijuana. Hepatitis C IgG antibodies reactive. Echocardiogram reveals EF of 45-50% with moderate concentric left ventricle hypertrophy, trace to mild mitral regurgitation, mild tricuspid regurgitation. Aortic root is dilated at 3.8 cm. MRI of the brain revealed evolving acute/subacute infarct 3.7 cm left occipital lobe. Background of mild diffuse cerebral atrophy and moderate to borderline advanced chronic small vessel ischemic change. EEG report is pending. Therapies have recommended inpatient rehab. Dr. Landeros who started the patient on Plavix 75 mg daily. Patient has been seen by Dr. George and possible candidate for inpatient rehab. Case management and social services manager following. REVIEW OF SYSTEMS Constitutional: No fever, no chills, no night sweats. No weight change. No weakness, fatigue or lethargy. No daytime sleepiness. EENT: No headache. No blurred vision or double vision, no loss of vision. No loss of Hearing, no ringing in the ears, no dizziness. No nasal drainage or congestion. No epistaxis. No sore throat. Lungs: No shortness of breath, cough, no sputum production. No wheezing. Cardiovascular: No chest pain, no lower extremity edema. No palpitations. No paroxysmal nocturnal dyspnea. No orthopnea. No lightheadedness or dizziness. No syncopal episodes. Abdominal: No abdominal pain. No nausea, vomiting. No diarrhea. No constipation. No bloody or tarry stools.. No loss of appetite. Genitourinary: No dysuria, increased frequency, urgency. No urinary retention. Musculoskeletal: No myalgias. No muscle weakness, reports gait dysfunction, occasional falls. No back pain. No neck pain. Integumentary: No wounds, no lesions. No rash or pruritus. No unusual bruising. No change in hair or nails. Neurologic: No aphasia. No facial droop. No change in mentation. No head injury. No headache. Weakness right hand. Psychiatric: No depression. No anxiety. No mood swings. Endocrine: No abnormal blood sugars. No weight change. No excessive sweating or thirst. No cold intolerance. PHYSICAL EXAMINATION Gen: This is a 60-year-old black female area patient is resting in bed and appears to be comfortable and in no acute distress. No respiratory distress noted. HEENT: Head is atraumatic, normocephalic. Pupils equal, round. Sclerae is anicteric. NECK: Supple. No JVD. No lymphadenopathy. No thyromegaly. LUNGS: Clear to auscultation. No wheezes or rhonchi. No intercostal retractions. HEART: Regular rate and rhythm. No murmur. ABDOMEN: Soft. Bowel sounds are present. No masses. No tenderness. EXTREMITIES: No pedal edema. No calf tenderness. NEUROLOGICAL: Patient is awake, alert and oriented x3. Cranial nerves 2 through 12 are grossly intact. Strength 3/5 in right upper extremity, 4/5 on right lower extremity. ASSESSMENT AND PLAN 1. Right arm weakness secondary to acute or subacute left occipital CVA. Consult with neurology appreciated. Plan is for dual antiplatelet medication for 21 days and then stop Plavix. Continue aspirin 81 mg daily, Plavix 75 mg daily, Lipitor 40 mg daily, neurology consult, EEG to rule out seizure activity, PT and OT consults. 2. Mild intermittent asthma, stable without exacerbation. Continue albuterol nebulizer treatment every 4 hours as needed. 3. Fibromyalgia, stable. 4. History of HIV. 5. History of hepatitis C. 6. Transaminitis of unclear etiology. Acute hepatitis panel ordered and repeat CMP tomorrow. 7. Peripheral neuropathy. 8. History of seizure disorder. Continue Keppra 500 mg twice daily. EEG is pending. 9. Hyperlipidemia. Patient started on Lipitor. 10. Hypertension. Continue Cozaar 100 mg daily, Lopressor 50 mg twice daily. 11. Schizophrenia, generalized anxiety and recurrent depression. Continue doxepin 150 mg at bedtime, Prozac 40 mg daily, perphenazine 8 mg at bedtime, Vistaril 50 mg at bedtime 12. Gastroesophageal reflux disease and GI prophylaxis. Protonix 40 mg daily. 13. DVT prophylaxis. Heparin subcu. 14. COVID-19 testing negative. Patient has been hospitalized during a pandemic. DISCHARGE PLAN Inpatient rehab. Consult with Dr George appreciated. PT and OT consults in place. Impression and plan of care have been directed as dictated by the signing physician. Penny Lugo nurse practitioner acting as scribe for signing physician. Objective - Vital Signs Vital signs: Vital Signs Temp 98.3 F 12/15/20 04:00 Pulse 62 12/15/20 08:00 Resp 16 12/15/20 08:00 BP 111/73 12/15/20 08:00 Pulse Ox 97 12/15/20 08:00 Intake & Output 12/14/20 12/15/20 12/15/20 18:59 06:59 18:59 Intake Total 500 10 240 Output Total 200 Balance 300 10 240 Weight 70.5 kg Intake: IV 20 10 Invasive Line 1 20 10 Oral 480 240 Output: Urine 200 Other: Voiding Method Bedside Commode Bedside Commode Bedside Commode # Voids 1 1 - Labs CBC & Chem 7: 12/15/20 07:08 12/15/20 07:08 Labs: Abnormal Lab Results - Last 24 Hours (Table) 12/14/20 12/15/20 12/15/20 Range/Units 07:57 06:45 07:08 BUN 18 H (7-17) mg/dL Glucose 103 H (74-99) mg/dL AST 37 H (14-36) U/L ALT 38 H (4-34) U/L U Tricyclic Antidepress Detected H (NotDetected) U Marijuana (THC) Screen Detected H (NotDetected) Hep C IgG Ab Reactive A (Non-Reactive)
[2020-12-15] MEDS: DOXEPIN 25 MG CAP PO SCH (20:07)
[2020-12-15] MEDS: PERPHENAZINE 4 MG TAB PO SCH (20:08)
[2020-12-15] MEDS: ACETAMINOPHEN TAB 325 MG TAB PO PRN (20:08)
[2020-12-15] MEDS: hydrOXYzine pamoate 25 MG CAP PO SCH (20:08)
--- NOTE | 2020-12-16 00:36 | EEG ---
ELECTROENCEPHALOGRAM REPORT DATE OF SERVICE: 12/14/2020 PREAMBLE: This is a 60-year-old female came with a stroke. She does have history of seizure disorder. This study is performed to evaluate for any epileptiform activity. EEG FINDINGS: This is a 21 channel routine EEG recording in a patient utilizing 10/20 international system with referential and bipolar montages. Background consists of well-developed, moderately well regulated, mixed frequencies of an 8-9 hertz alpha with low-voltage fast frequency beta activity. Background is posterior dominant and seems to be reactive to eye opening and closing. Photic driving response was not clearly seen. Different stages of sleep were not seen. No definitive focal or generalized epileptiform activity was seen. EKG channel showed no arrhythmia. IMPRESSION: This is a mildly abnormal EEG due to slight disorganization and with excessive fast frequency beta activity. This is suggestive of mild generalized cerebral dysfunction as can be seen with encephalopathy from metabolic causes or medication effect. No definitive epileptiform activity was seen. MMODL / IJN: [id number] /
[2020-12-16] MEDS: ACETAMINOPHEN TAB 325 MG TAB PO PRN ×3 (05:46→20:11)
[2020-12-16] MEDS: PANTOPRAZOLE 40 MG TABLET PO SCH (07:03)
[2020-12-16] MEDS: CHOLECALCIFEROL 25 MCG (1000 IU) TABLET PO SCH (09:00)
[2020-12-16] MEDS: ASPIRIN 81 MG PO SCH (09:00)
[2020-12-16] MEDS: FLUoxetine HCL 20 MG CAP PO SCH (09:00)
[2020-12-16] MEDS: HEPARIN SODIUM,PORCINE/PF 5,000 UNIT/0.5 ML SYRINGE SQ SCH ×2 (09:00→16:22)
[2020-12-16] MEDS: LOSARTAN 50 MG TAB PO SCH (09:01)
[2020-12-16] MEDS: CLOPIDOGREL 75 MG TAB PO SCH (09:01)
[2020-12-16] MEDS: ATORVASTATIN 40 MG TAB PO SCH (09:01)
[2020-12-16] MEDS: DOCUSATE 100 MG CAP PO SCH (09:01)
[2020-12-16] MEDS: levETIRAcetam 500 MG TAB PO SCH ×2 (09:01→20:07)
[2020-12-16] MEDS: METOPROLOL TARTRATE 50 MG TAB PO SCH ×2 (09:01→20:08)
[2020-12-16] MEDS: THIAMINE 100 MG TAB PO SCH (09:01)
[2020-12-16] MEDS: FLUTICASONE 50MCG/SPRAY NASAL 16GM EA NOSTRIL SCH (09:01)
--- NOTE | 2020-12-16 09:11 | P.PN ---
Subjective Progress Note Date: 12/15/20 Patient was seen for a follow-up. Patient states she is feeling much better. No new neurological symptoms. Her right arm numbness and weakness has improved. Speech is improved. Telemetry monitoring showing sinus bradycardia. Objective - Vital Signs Vital signs: Vital Signs Temp 98.3 F 12/15/20 04:00 Pulse 57 L 12/15/20 16:00 Resp 16 12/15/20 16:00 BP 133/79 12/15/20 16:00 Pulse Ox 95 12/15/20 16:00 Intake & Output 12/15/20 12/15/20 12/16/20 06:59 18:59 06:59 Intake Total 10 480 240 Output Total 300 200 Balance 10 180 40 Weight 70.5 kg Intake: IV 10 Invasive Line 1 10 Oral 480 240 Output: Urine 300 200 Other: Voiding Method Bedside Commode Bedside Commode # Voids 1 - Exam Patient's mental status, speech and language functions are normal. Patient is much more fluent, no dysarthria. On cranial nerve examination pupils are round and reacting, visual dasilva revealed normal visual field involving the right lower quadrant with no neglect. She has only very mild neglect over the right upper quadrant only very peripherally, much improved than yesterday, face is symmetric and tongue protrudes the midline. Palatal elevation is normal. Muscle strength testing patient has mild right pronator drift. The strength is normal on the left side. In the right side, her deltoid is 5-, biceps 5, triceps 5, electrical inspector 3+, hip flexion 5-, ankles and toes are normal. Sensations are improved. No ataxia. - Labs CBC & Chem 7: 12/15/20 07:08 12/15/20 07:08 Labs: Abnormal Lab Results - Last 24 Hours (Table) 12/15/20 12/15/20 Range/Units 06:45 07:08 BUN 18 H (7-17) mg/dL Glucose 103 H (74-99) mg/dL AST 37 H (14-36) U/L ALT 38 H (4-34) U/L U Tricyclic Antidepress Detected H (NotDetected) U Marijuana (THC) Screen Detected H (NotDetected) Assessment and Plan Assessment: * Acute to Subacute ischemic stroke involving left posterior occipitoparietal junction. Patient clinically has right facial brachial weakness and right visual field deficit. Her neurological deficits have improved as compared to yesterday. * Hypertension * X tobacco use * HIV positive status. * Elevated LFTs. * Seizure disorder, well controlled on Keppra 500 mg twice a day. * Obesity Plan: * MRI of the brain revealed confirmation of evolving acute/subacute infarct over roughly 3.7 cm segment long occipital lobe. Background mild diffuse cerebral atrophy and moderate to borderline advanced chronic small vessel ischemic changes. * 2-D echo revealed normal left-ventricular size. Moderate concentric LVH. EF is 45-50%. Trace to mild MR. The aortic root is dilated measuring 3.8 cm. Recommend SIMON to rule out embolic source. * Telemetry monitoring so far showing sinus rhythm with sinus bradycardia. * Fasting lipid panel showed cholesterol 170, LDL 89, HDL 51 and triglycerides 151. * Patient was not taking any antiplatelet medication at home. Patient will be placed on dual antiplatelet medication for 21 days and then stop Plavix and continue aspirin 81 mg daily. * Hemoglobin A1c pending. * EEG was mildly abnormal due to slight disorganization with excessive fast frequency beta activity. This is suggestive of mild generalized cerebral dysfunction as can be seen with encephalopathy from metabolic cause or medication effect. No epileptiform activity was seen. * Continue Keppra 500 mg twice a day. * Urine drug screen positive for tricyclics and marijuana. * PT and OT.
--- NOTE | 2020-12-16 12:00 | P.PN ---
Subjective Progress Note Date: 12/16/20 HISTORY OF PRESENT ILLNESS This is a 60-year-old female patient of David Akins NP at [facility] with past medical history of mild intermittent asthma, fibromyalgia, hyperlipidemia, hypertension, seizure disorder, HIV, hepatitis C, neuropathy, schizophrenia. Patient states that she was diagnosed with seizure 1 year ago and had only had one episode of seizure activity which she relates is medication related. She is maintained on Keppra and follows with Dr. Juarez as her neurologist. Patient gives history of having a fall about 2 weeks ago and was lightheaded at the time . She now presents yesterday to the emergency center complaining of right arm/hand weakness. She denies having any neck pain. No swallowing difficulties. No change in speech or smile. Patient presented to [facility] emergency center for evaluation. NIH score of 1. Temperature 99.2, heart rate 76, blood pressure 137/99, pulse ox 90% on room air. EKG was sinus tachycardia at heart rate of 107. WBC 12.4, hemoglobin 16, platelet count 276. Sodium 143, potassium 4.1, chloride 108, CO2 20, BUN 10 and creatinine 0.75. Blood sugar 115. Calcium 10.3. Total bilirubin 0.8, AST 113, ALT 56, alkaline phosphatase 137. Troponin negative. Triglycerides 151, cholesterol 170, LDL 89, HDL 51. Coronavirus PCR not detected. CAT scan of the brain resulted as may be indicative of subacute infarct. CT angiogram of the head and neck showed no significant abnormality. Case was reviewed by stroke team remotely with no recommendations for TPA or thrombectomy. It was recommended for aspirin and neurology consult. Chest x- ray showed chronic changes without acute process. Patient was admitted to the cardiac stepdown unit and consult requested with neurology. Patient was started on aspirin 325 mg daily, Lipitor 40 mg daily. 12/15: Patient is afebrile, heart rate 62, blood pressure 111/73, pulse ox 97% on room air. Repeat blood work reveals CBC was unremarkable. Electrolytes normal. BUN 18 and creatinine 0.89. Blood sugar 103. AST 37, ALT 30, alkaline phosphatase 110. Urine drug screen is positive for tricyclic antidepressants and marijuana. Hepatitis C IgG antibodies reactive. Echocardiogram reveals EF of 45-50% with moderate concentric left ventricle hypertrophy, trace to mild mitral regurgitation, mild tricuspid regurgitation. Aortic root is dilated at 3.8 cm. MRI of the brain revealed evolving acute/subacute infarct 3.7 cm left occipital lobe. Background of mild diffuse cerebral atrophy and moderate to borderline advanced chronic small vessel ischemic change. EEG report is pending. Therapies have recommended inpatient rehab. Dr. Ladneros who started the patient on Plavix 75 mg daily. Patient has been seen by Dr. George and possible candidate for inpatient rehab. Case management and social services coordinator following. 12/16: Patient in general is feeling much better. Her speech is improved as well as her right arm weakness improved. Consult for cardiology for SIMON which is scheduled for tomorrow at noon. EEG revealed abnormal due to slight diso rganization and with excessive fast frequency beta activity. This is suggestive of mild generalized cerebral dysfunction as seen in encephalopathy from metabolic causes or medication effect. No definitive epileptiform activity was seen. Patient has been afebrile, heart rate 53, blood pressure 129/87, pulse ox 93% on room air. classroom monitor has been sinus bradycardia. Patient continues to be followed by therapies with plan for inpatient rehab tomorrow after SIMON is completed. REVIEW OF SYSTEMS Constitutional: No fever, no chills, no night sweats. No weight change. No weakness, fatigue or lethargy. No daytime sleepiness. EENT: No headache. No blurred vision or double vision, no loss of vision. No loss of Hearing, no ringing in the ears, no dizziness. No nasal drainage or congestion. No epistaxis. No sore throat. Lungs: No shortness of breath, cough, no sputum production. No wheezing. Cardiovascular: No chest pain, no lower extremity edema. No palpitations. No paroxysmal nocturnal dyspnea. No orthopnea. No lightheadedness or dizziness. No syncopal episodes. Abdominal: No abdominal pain. No nausea, vomiting. No diarrhea. No constipation. No bloody or tarry stools.. No loss of appetite. Genitourinary: No dysuria, increased frequency, urgency. No urinary retention. Musculoskeletal: No myalgias. No muscle weakness, reports gait dysfunction, occasional falls. No back pain. No neck pain. Integumentary: No wounds, no lesions. No rash or pruritus. No unusual bruising. No change in hair or nails. Neurologic: No aphasia. No facial droop. No change in mentation. No head injury. No headache. Weakness right hand. Psychiatric: No depression. No anxiety. No mood swings. Endocrine: No abnormal blood sugars. No weight change. No excessive sweating or thirst. No cold intolerance. PHYSICAL EXAMINATION Gen: This is a 60-year-old black female area patient is resting in bed and appears to be comfortable and in no acute distress. No respiratory distress noted. HEENT: Head is atraumatic, normocephalic. Pupils equal, round. Sclerae is anicteric. NECK: Supple. No JVD. No lymphadenopathy. No thyromegaly. LUNGS: Clear to auscultation. No wheezes or rhonchi. No intercostal retractions. HEART: Regular rate and rhythm. No murmur. ABDOMEN: Soft. Bowel sounds are present. No masses. No tenderness. EXTREMITIES: No pedal edema. No calf tenderness. NEUROLOGICAL: Patient is awake, alert and oriented x3. Cranial nerves 2 through 12 are grossly intact. Strength 3/5 in right upper extremity, 4/5 on right lower extremity. ASSESSMENT AND PLAN 1. Right arm weakness secondary to acute or subacute left occipital CVA. Consult with neurology appreciated. Plan is for dual antiplatelet medication for 21 days and then stop Plavix. Continue aspirin 81 mg daily, Plavix 75 mg daily, Lipitor 40 mg daily, neurology consult, appreciated, PT and OT consults. SIMON scheduled for tomorrow at noon. 2. Mild intermittent asthma, stable without exacerbation. Continue albuterol nebulizer treatment every 4 hours as needed. 3. Fibromyalgia, stable. 4. History of HIV. 5. History of hepatitis C. 6. Transaminitis of unclear etiology. Acute hepatitis panel ordered and repeat CMP tomorrow. 7. Peripheral neuropathy. 8. History of seizure disorder. Continue Keppra 500 mg twice daily. EEG is pending. 9. Hyperlipidemia. Patient started on Lipitor. 10. Hypertension. Continue Cozaar 100 mg daily, Lopressor 50 mg twice daily. 11. Schizophrenia, generalized anxiety and recurrent depression. Continue doxepin 150 mg at bedtime, Prozac 40 mg daily, perphenazine 8 mg at bedtime, Vistaril 50 mg at bedtime 12. Gastroesophageal reflux disease and GI prophylaxis. Protonix 40 mg daily. 13. DVT prophylaxis. Heparin subcu. 14. COVID-19 testing negative. Patient has been hospitalized during a pandemic. DISCHARGE PLAN Inpatient rehab on Sunday. Impression and plan of care have been directed as dictated by the signing physician. Penny Lugo nurse practitioner acting as scribe for signing physician. Objective - Vital Signs Vital signs: Vital Signs Temp 98.4 F 12/16/20 08:00 Pulse 53 L 12/16/20 08:00 Resp 16 12/16/20 08:00 BP 129/87 12/16/20 08:00 Pulse Ox 93 L 12/16/20 08:00 Intake & Output 12/15/20 12/16/20 12/16/20 18:59 06:59 18:59 Intake Total 480 250 120 Output Total 300 200 Balance 180 50 120 Weight 64.5 kg Intake: IV 10 Invasive Line 1 10 Oral 480 240 120 Output: Urine 300 200 Other: Voiding Method Bedside Commode Bedside Commode # Voids 1 - Labs CBC & Chem 7: 12/15/20 07:08 12/15/20 07:08
--- NOTE | 2020-12-16 16:10 | CONS ---
CONSULTATION CHIEF COMPLAINT: CVA. This is a 60-year-old lady with history of hypertension, dyslipidemia, fibromyalgia, seizure disorder, HIV, hepatitis C, neuropathy, schizophrenia, who presented to hospital with right arm weakness. CT scan showed a subacute infarct. Cardiology has been consulted for a SIMON. At the time of my evaluation, patient is feeling better. The right arm weakness has improved. I have explained risks and benefits of transesophageal echo. She understood and accepted. PAST MEDICAL HISTORY: Significant for hepatitis C, HIV, fibromyalgia, peripheral neuropathy, seizure disorder, hypertension, dyslipidemia, schizophrenia. MEDICATIONS: Medications at home include Ventolin, doxepin, Lopressor 50 b.i.d., thiamine, Vistaril, Keppra, Prozac, Flonase, Cozaar, omeprazole. ALLERGIES: PENICILLIN, ASPIRIN, MOTRIN DARVOCET. FAMILY HISTORY: Negative for premature coronary artery disease. SOCIAL HISTORY: Negative for smoking, EtOH abuse or drug abuse. REVIEW OF SYSTEMS: HEENT is unremarkable. CARDIAC: As described above. RESPIRATORY: As described above. GI: Negative. GENITOURINARY: Negative. ALLERGY: Negative. IMMUNOLOGY: Negative. SKIN: Negative. MUSCULOSKELETAL: Negative. ENDOCRINE: Negative. DERMATOLOGY: Negative. CONSTITUTIONAL: Negative. FINANCIAL SYSTEMS DIRECTOR: Significant for right arm weakness. PHYSICAL EXAMINATION: Patient is comfortable at rest. Afebrile. Heart rate is 53 beats per minute. Blood pressure is 130/87. Respiratory rate is 18. Oxygen saturation is 93%. There is no jugular venous distention. Carotid upstroke is normal. There is no bruit. Chest exam reveals good air entry bilaterally. Heart exam reveals first and second heart sounds. No gallop. No murmur. No rub. Abdomen is soft, nontender. Examination of extremities did not reveal any edema. Peripheral pulses are felt. FINANCIAL SYSTEMS DIRECTOR exam shows right arm weakness. LABS: Labs show a hemoglobin of 14.4, potassium of 4.3, creatinine of 0.89. UA was negative. Coronavirus test is negative. ASSESSMENT AND PLAN: Cerebrovascular accident. Rule out cardiac source of thromboembolic phenomenon. PLAN: Will do a SIMON on her tomorrow. MMODL / IJN: [id number] /
[2020-12-16 16:17] LABS: Hemoglobin A1C 5.2 % (4.0-6.0)
[2020-12-16] MEDS: DOXEPIN 25 MG CAP PO SCH (20:07)
[2020-12-16] MEDS: hydrOXYzine pamoate 25 MG CAP PO SCH (20:07)
[2020-12-16] MEDS: PERPHENAZINE 4 MG TAB PO SCH (20:07)
[2020-12-17] MEDS: HEPARIN SODIUM,PORCINE/PF 5,000 UNIT/0.5 ML SYRINGE SQ SCH ×2 (00:08→10:29)
[2020-12-17] MEDS: PANTOPRAZOLE 40 MG TABLET PO SCH (06:10)
[2020-12-17 08:09] VITALS: TEMP 98.2
--- NOTE | 2020-12-17 08:12 | P.PN ---
Subjective Progress Note Date: 12/16/20 Patient was seen for a follow-up. Patient states she is feeling much better, even as compared to yesterday. No new neurological symptoms. Her right arm numbness and weakness has improved. Speech is improved. Telemetry monitoring showing sinus bradycardia. Objective - Vital Signs Vital signs: Vital Signs Temp 98.1 F 12/16/20 20:00 Pulse 57 L 12/16/20 20:00 Resp 18 12/16/20 20:00 BP 144/98 12/16/20 20:00 Pulse Ox 97 12/16/20 20:00 Intake & Output 12/16/20 12/16/20 12/17/20 06:59 18:59 06:59 Intake Total 250 1040 550 Output Total 200 Balance 50 1040 550 Weight 64.5 kg Intake: IV 10 Invasive Line 1 10 Oral 240 1040 550 Output: Urine 200 Other: Voiding Method Bedside Commode Bedside Commode # Voids 1 - Exam Patient's mental status, speech and language functions are normal. Patient is much more fluent, no dysarthria. On cranial nerve examination pupils are round and reacting, visual dasilva still revealed some deficits on the right side, some neglect as well. Her face is symmetric and tongue protrudes the midline. Palatal elevation is normal. Muscle strength testing patient has mild right pro nator drift. The strength is normal on the left side. In the right side, her deltoid is 5-, biceps 5, triceps 5, inbound telemarketer 4, hip flexion 5-, ankles and toes are normal. Sensations are improved. No ataxia. - Labs CBC & Chem 7: 12/15/20 07:08 12/15/20 07:08 Assessment and Plan Assessment: * Acute to Subacute ischemic stroke involving left posterior occipitoparietal junction. Patient clinically has right facial brachial weakness and right visual field deficit. Her neurological deficits have improved as compared to yesterday. * Hypertension * X tobacco use * HIV positive status. * Elevated LFTs. * Seizure disorder, well controlled on Keppra 500 mg twice a day. * Obesity Plan: * MRI of the brain revealed confirmation of evolving acute/subacute infarct over roughly 3.7 cm segment long occipital lobe. Background mild diffuse cerebral atrophy and moderate to borderline advanced chronic small vessel ischemic changes. * 2-D echo revealed normal left-ventricular size. Moderate concentric LVH. EF is 45-50%. Trace to mild MR. The aortic root is dilated measuring 3.8 cm. P atient to undergo SIMON in a.m. to rule out embolic source. * Fasting lipid panel showed cholesterol 170, LDL 89, HDL 51 and triglycerides 151. * Patient was not taking any antiplatelet medication at home. Patient will be placed on dual antiplatelet medication for 21 days and then stop Plavix and continue aspirin 81 mg daily. * Hemoglobin A1c 5.2, normal. * EEG was mildly abnormal due to slight disorganization with excessive fast frequency beta activity. This is suggestive of mild generalized cerebral dysfunction as can be seen with encephalopathy from metabolic cause or medication effect. No epileptiform activity was seen. * Continue Keppra 500 mg twice a day. * Urine drug screen positive for tricyclics and marijuana. * Patient to be transferred to [facility] inpatient rehab after SIMON is completed in a.m.
[2020-12-17] MEDS ORDERED: fentaNYL (PF) 50 MCG/ML 2 ML AMP ONE (09:48)
[2020-12-17] MEDS ORDERED: SODIUM CHLORIDE 0.9% 1,000 ML IV ONE (09:50)
[2020-12-17] MEDS ORDERED: BENZOCAINE SPRAY 1 CAN MUCOUS MEM ONE ×2 (09:55→09:59)
[2020-12-17 10:01] VITALS: RESP 18
[2020-12-17] MEDS ORDERED: MIDAZOLAM 2 MG/2 ML VIAL IVP ONE (10:02)
[2020-12-17] MEDS ORDERED: fentaNYL (PF) 50 MCG/ML 2 ML AMP IVP ONE (10:02)
[2020-12-17] MEDS: ASPIRIN 81 MG PO SCH (10:28)
[2020-12-17] MEDS: CHOLECALCIFEROL 25 MCG (1000 IU) TABLET PO SCH (10:28)
[2020-12-17] MEDS: THIAMINE 100 MG TAB PO SCH (10:28)
[2020-12-17] MEDS: ATORVASTATIN 40 MG TAB PO SCH (10:29)
[2020-12-17] MEDS: METOPROLOL TARTRATE 50 MG TAB PO SCH (10:29)
[2020-12-17] MEDS: DOCUSATE 100 MG CAP PO SCH (10:29)
[2020-12-17] MEDS: LOSARTAN 50 MG TAB PO SCH (10:29)
[2020-12-17] MEDS: levETIRAcetam 500 MG TAB PO SCH (10:29)
[2020-12-17] MEDS: CLOPIDOGREL 75 MG TAB PO SCH (10:29)
[2020-12-17] MEDS: FLUTICASONE 50MCG/SPRAY NASAL 16GM EA NOSTRIL SCH (10:30)
[2020-12-17] MEDS: FLUoxetine HCL 20 MG CAP PO SCH (10:30)
--- NOTE | 2020-12-17 11:24 | ECHOT ---
TRANSESOPHAGEAL ECHOCARDIOGRAM INDICATIONS: CVA, rule out cardiac source of thromboembolic phenomenon. PROCEDURE NOTE: After obtaining informed consent, transesophageal echocardiogram is performed in left lateral position using an Omniplane probe. Local and IV sedation were obtained using Xylocaine spray, intravenous Versed and fentanyl. Patient received moderate conscious sedation. Total sedation time was 7 minutes. A 2D color Doppler and spectral analysis was performed. FINDIN. There is no intracardiac thrombus within the left atrial appendage, left atrium, right atrium, right ventricle. 2. Left ventricle has normal size and systolic function. 3. Left atrium appears mildly enlarged. 4. Interatrial Septum: There is no evidence of [id number] shunt by color-flow Doppler or [id number] shunt by agitated saline contrast. 5. Aorta shows multiple atherosclerotic changes. 6. Aortic valve is a 3-leaflet valve. There is no evidence of aortic stenosis or regurgitation. 7. Mitral valve is anatomically normal. There is trace noted. There is mild tricuspid regurgitation noted. 8. LV systolic function is normal. CONCLUSIONS: 1. No intracardiac thrombus. 2. No evidence of shunts. 3. Normal left ventricular function. MMODL / IJN: [id number] /
[2020-12-17] MEDS ORDERED: SODIUM CHLORIDE 0.9% 1,000 ML IV SCH (11:30)
--- NOTE | 2020-12-17 11:32 | P.DS ---
Providers Date of admission: 12/13/20 20:29 Expected date of discharge: 12/17/20 Attending physician: Odilia Capone Consults: 12/13/20 20:30 Consult Physician Routine Consulting Provider: Ester Landeros Consult Reason/Comments: cva Do you want consulting provider notified?: Yes 12/14/20 13:37 Consult Physician Routine Consulting Provider: Anirudh George Consult Reason/Comments: inpt rehab Do you want consulting provider notified?: Yes 12/16/20 09:59 Consult Physician Routine Consulting Provider: Anderson Leslie Consult Reason/Comments: SIMON, cva Do you want consulting provider notified?: Yes Primary care physician: [facility] Course: HISTORY OF PRESENT ILLNESS This is a 60-year-old female patient of David 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 Patient states that she was diagnosed with seizure 1 year ago and had only had one episode of seizure activity which she relates is medication related. She is maintained on Keppra and follows with Dr. Juarez as her neurologist. Patient gives history of having a fall about 2 weeks ago and was lightheaded at the time. She now presents yesterday to the emergency center complaining of right arm/hand weakness. She denies having any neck pain. No swallowing difficulties. No change in speech or smile. Patient presented to [facility] emergency center for evaluation. NIH score of 1. Temperature 99.2, heart rate 76, blood pressure 137/99, pulse ox 90% on room air. EKG was sinus tachycardia at heart rate of 107. WBC 12.4, hemoglobin 16, platelet count 276. Sodium 143, potassium 4.1, chloride 108, CO2 20, BUN 10 and creatinine 0.75. Blood sugar 115. Calcium 10.3. Total bilirubin 0.8, AST 113, ALT 56, alkaline phosphatase 137. Troponin negative. Triglycerides 151, cholesterol 170, LDL 89, HDL 51. Coronavirus PCR not detected. CAT scan of the brain resulted as may be indicative of subacute infarct. CT angiogram of the head and neck showed no significant abnormality. Case was reviewed by stroke team remotely with no recommendations for TPA or thrombectomy. It was recommended for aspirin and neurology consult. Chest x- ray showed chronic changes without acute process. Patient was admitted to the cardiac stepdown unit and consult requested with neurology. Patient was started on aspirin 325 mg daily, Lipitor 40 mg daily. 12/15: Patient is afebrile, heart rate 62, blood pressure 111/73, pulse ox 97% on room air. Repeat blood work reveals CBC was unremarkable. Electrolytes normal. BUN 18 and creatinine 0.89. Blood sugar 103. AST 37, ALT 30, alkaline phosphatase 110. Urine drug screen is positive for tricyclic antidepressants and marijuana. Hepatitis C IgG antibodies reactive. Echocardiogram reveals EF of 45-50% with moderate concentric left ventricle hypertrophy, trace to mild mitral regurgitation, mild tricuspid regurgitation. Aortic root is dilated at 3.8 cm. MRI of the brain revealed evolving acute/subacute infarct 3.7 cm left occipital lobe. Background of mild diffuse cerebral atrophy and moderate to borderline advanced chronic small vessel ischemic change. EEG report is pending. Therapies have recommended inpatient rehab. Dr. Landeros who started the patient on Plavix 75 mg daily. Patient has been seen by Dr. George and possible candidate for inpatient rehab. Case management and social media intern following. 12/16: Patient in general is feeling much better. Her speech is improved as well as her right arm weakness improved. Consult for cardiology for SIMON which is scheduled for tomorrow at noon. EEG revealed abnormal due to slight d isorganization and with excessive fast frequency beta activity. This is suggestive of mild generalized cerebral dysfunction as seen in encephalopathy from metabolic causes or medication effect. No definitive epileptiform activity was seen. Patient has been afebrile, heart rate 53, blood pressure 129/87, pulse ox 93% on room air. cooperative education coordinator has been sinus bradycardia. Patient continues to be followed by therapies with plan for inpatient rehab tomorrow after SIMON is completed. 12/17: Patient underwent SIMON today which was negative for thrombus, shunts. She has been afebrile, heart rate 56, blood pressure 139/72, pulse ox 92% on room air. Patient has been cleared by neurology for discharge. Insurance authorization has been obtained at [facility] for inpatient rehab. Patient will be discharged today in stable condition. ASSESSMENT AND PLAN 1. Right arm weakness secondary to acute or subacute left occipital CVA. 2. Mild intermittent asthma, stable without exacerbation. 3. Fibromyalgia, stable. 4. History of HIV. 5. History of hepatitis C. 6. Transaminitis, mild. 7. Peripheral neuropathy. 8. History of seizure disorder. 9. Hyperlipidemia. 10. Hypertension. 11. Schizophrenia, generalized anxiety and recurrent depression. 12. Gastroesophageal reflux disease. 13. COVID-19 testing negative. Patient has been hospitalized during a pandemic. DISCHARGE PLAN Inpatient rehab on Sunday. Impression and plan of care have been directed as dictated by the signing physician. Penny Lugo nurse practitioner acting as scribe for signing physician. Patient Condition at Discharge: Good Plan - Discharge Summary Discharge Rx Participant: No New Discharge Prescriptions: New Atorvastatin [Lipitor] 40 mg PO DAILY tab Aspirin 81 mg PO DAILY chew Clopidogrel [Plavix] 75 mg PO DAILY tab Continue Docusate [Colace] 100 mg PO DAILY Albuterol Sulfate [Ventolin HFA] 2 puff INHALATION RT-Q4H PRN PRN Reason: Shortness Of Breath Doxepin HCl [SINEquan] 150 mg PO HS hydrOXYzine pamoate [Vistaril] 50 mg PO HS levETIRAcetam [Keppra] 500 mg PO BID Metoprolol Tartrate [Lopressor] 50 mg PO BID Perphenazine [Trilafon] 8 mg PO HS Thiamine [Vitamin B-1] 100 mg PO DAILY FLUoxetine HCL [PROzac] 40 mg PO DAILY #7 cap Fluticasone Nasal [place] [Flonase Nasal [place]] 1 spray EA NOSTRIL DAILY Cholecalciferol (Vitamin D3) [Vitamin D3 (5000 Iu)] 125 mcg PO DAILY Omeprazole 20 mg PO DAILY Losartan Potassium [Cozaar] 100 mg PO DAILY Discontinued Naproxen [Naprosyn] 500 mg PO BID PRN PRN Reason: Pain Discharge Medication List Docusate [Colace] 100 mg PO DAILY 12/15/16 [History] Albuterol Sulfate [Ventolin HFA] 2 puff INHALATION RT-Q4H PRN 12/01/19 [History] Doxepin HCl [SINEquan] 150 mg PO HS 12/01/19 [History] Metoprolol Tartrate [Lopressor] 50 mg PO BID 12/01/19 [History] Perphenazine [Trilafon] 8 mg PO HS 12/01/19 [History] Thiamine [Vitamin B-1] 100 mg PO DAILY 12/01/19 [History] hydrOXYzine pamoate [Vistaril] 50 mg PO HS 12/01/19 [History] levETIRAcetam [Keppra] 500 mg PO BID 12/01/19 [History] FLUoxetine HCL [PROzac] 40 mg PO DAILY #7 cap 03/30/20 [Rx] Cholecalciferol (Vitamin D3) [Vitamin D3 (5000 Iu)] 125 mcg PO DAILY 09/08/20 [History] Fluticasone Nasal [place] [Flonase Nasal [place]] 1 spray EA NOSTRIL DAILY 09/08/20 [History] Omeprazole 20 mg PO DAILY 09/08/20 [History] Losartan Potassium [Cozaar] 100 mg PO DAILY 12/13/20 [History] Aspirin 81 mg PO DAILY chew 12/17/20 [Rx] Atorvastatin [Lipitor] 40 mg PO DAILY tab 12/17/20 [Rx] Clopidogrel [Plavix] 75 mg PO DAILY tab 12/17/20 [Rx] Follow up Appointment(s)/Referral(s): [facility] [Primary Care Provider] - 1 Week (after discharge from rehab ) Discharge Disposition: OTHER INSTITUTION NOT DEFINED
[2020-12-17 11:42] VITALS: BP 127/86; PULSE 55
[2020-12-17] MEDS: ACETAMINOPHEN TAB 325 MG TAB PO PRN (17:22)
== END 2020-12-17 18:53 | DRG 65 ==
LOC: EC 18:30 → 3SCARD 20:29
PROVIDERS: ADMIT Family Medicine; ATTEND Family Medicine
PROC: B32G1ZZ Computerized Tomography (CT Scan) of Bilateral Vertebral Arteries using Low Osmolar Contrast (ICD-10-PCS; principal; 2020-12-13)
PROC: B3201ZZ Computerized Tomography (CT Scan) of Thoracic Aorta using Low Osmolar Contrast (ICD-10-PCS; principal; 2020-12-13)
PROC: B3251ZZ Computerized Tomography (CT Scan) of Bilateral Common Carotid Arteries using Low Osmolar Contrast (ICD-10-PCS; principal; 2020-12-13)
PROC: B3281ZZ Computerized Tomography (CT Scan) of Bilateral Internal Carotid Arteries using Low Osmolar Contrast (ICD-10-PCS; principal; 2020-12-13)
DX: I63.9 Cerebral infarction, unspecified (principal); F33.9 Major depressive disorder, recurrent, unspecified; I11.9 Hypertensive heart disease without heart failure; B19.20 Unspecified viral hepatitis C without hepatic coma; F17.200 Nicotine dependence, unspecified, uncomplicated; F20.9 Schizophrenia, unspecified; F41.1 Generalized anxiety disorder; G40.909 Epilepsy, unspecified, not intractable, without status epilepticus; G62.9 Polyneuropathy, unspecified; Z21 Asymptomatic human immunodeficiency virus [HIV] infection status; Z20.822 Contact with and (suspected) exposure to COVID-19; M79.7 Fibromyalgia; J45.20 Mild intermittent asthma, uncomplicated; E66.9 Obesity, unspecified; M19.90 Unspecified osteoarthritis, unspecified site; R20.2 Paresthesia of skin; R26.9 Unspecified abnormalities of gait and mobility; H53.40 Unspecified visual field defects; R29.701 NIHSS score 1; K21.9 Gastro-esophageal reflux disease without esophagitis; G83.23 Monoplegia of upper limb affecting right nondominant side; R29.810 Facial weakness; E78.5 Hyperlipidemia, unspecified; Z79.82 Long term (current) use of aspirin; Z79.899 Other long term (current) drug therapy; Z90.710 Acquired absence of both cervix and uterus; Z88.0 Allergy status to penicillin; Z88.8 Allergy status to other drugs, medicaments and biological substances; Z79.02 Long term (current) use of antithrombotics/antiplatelets; Z98.1 Arthrodesis status; R00.1 Bradycardia, unspecified; Z91.81 History of falling
CPT/HCPCS: 36415; 70450; 70496; 70498; 70551; 71045; 80053; 80061; 80074; 80306; 83036; 84484; 85025; 85027; 85610; 85730; 87635; 93005; 93306; 93312; 93320; 93325; 94640; 95816; 99291

== ENCOUNTER 2021-02-26 12:07 | Inpatient (IN) | payer OTHER ==
[2021-02-26 12:12] LABS: Glucose,Whole Blood 200 mg/dL (75-99)
--- NOTE | 2021-02-26 12:20 | ED ---
General Adult HPI - General Chief complaint: Neuro Symptoms/Deficit Stated complaint: Confused Time Seen by Provider: 02/26/21 12:10 Source: patient, EMS, RN notes reviewed, old records reviewed Mode of arrival: EMS Limitations: altered mental status - History of Present Illness Initial comments: 60 yo female presents by EMS altered mental status, right-sided weakness, and fall. EMS did not have any history on the patient. She was unable to give a h istory. She was tachycardic tachypnea can hypertensive. She had fallen which was witnessed by bystanders indicating that she had fallen onto her backside. She did not hit her head. EMS did not note any external signs of trauma. What sugar was 170 by paramedics. By review the medical record she has a previous history of CVA however EMS reports that there was no residual deficit from this prior CVA. She does have history of HIV. Family unavailable at the time of initial presentation. - Related Data Home Medications Medication Instructions Recorded Confirmed Docusate [Colace] 100 mg PO DAILY 12/15/16 12/13/20 Albuterol Sulfate [Ventolin HFA] 2 puff INHALATION RT-Q4H PRN 12/01/19 12/13/20 Doxepin HCl [SINEquan] 150 mg PO HS 12/01/19 12/13/20 Metoprolol Tartrate [Lopressor] 50 mg PO BID 12/01/19 12/13/20 Perphenazine [Trilafon] 8 mg PO HS 12/01/19 12/13/20 Thiamine [Vitamin B-1] 100 mg PO DAILY 12/01/19 12/13/20 hydrOXYzine pamoate [Vistaril] 50 mg PO HS 12/01/19 12/13/20 levETIRAcetam [Keppra] 500 mg PO BID 12/01/19 12/13/20 Cholecalciferol (Vitamin D3) 125 mcg PO DAILY 09/08/20 12/13/20 [Vitamin D3 (5000 Iu)] Fluticasone Nasal [place] [Flonase 1 spray EA NOSTRIL DAILY 09/08/20 12/13/20 Nasal [place]] Omeprazole 20 mg PO DAILY 09/08/20 12/13/20 Losartan Potassium [Cozaar] 100 mg PO DAILY 12/13/20 12/13/20 Previous Rx's Medication Instructions Recorded FLUoxetine HCL [PROzac] 40 mg PO DAILY #7 cap 03/30/20 Aspirin 81 mg PO DAILY chew 12/17/20 Atorvastatin [Lipitor] 40 mg PO DAILY tab 12/17/20 Clopidogrel [Plavix] 75 mg PO DAILY tab 12/17/20 Allergies Allergy/AdvReac Type Severity Reaction Status Date / Time Penicillins Allergy Rash/Hives Verified 02/26/21 13:51 propoxyphene napsylate Allergy Itching Verified 02/26/21 13:51 [From Darvocet-N 100] aspirin AdvReac Nausea & Verified 02/26/21 13:51 Vomiting ibuprofen [From Motrin] AdvReac Nausea & Verified 02/26/21 13:51 Vomiting Review of Systems ROS Statement: Those systems with pertinent positive or pertinent negative responses have been documented in the HPI. ROS Other: All systems not noted in ROS Statement are negative. Past Medical History Past Medical History: CVA/TIA, Eye Disorder, Fibromyalgia, GERD/Reflux, Hyperlipidemia, Liver Disease, Osteoarthritis (OA), Seizure Disorder Additional Past Medical History / Comment(s): Other HX: had 1 seizure several years ago due to drug interaction, HIV positive, hx. Hep. C, neuropathy, hx. ulcers History of Any Multi-Drug Resistant Organisms: None Reported Past Surgical History: Hysterectomy Additional Past Surgical History / Comment(s): 08/11/15 Anterior cervical decompression fusion C3-4, C4-5 with carpectomy. Past Anesthesia/Blood Transfusion Reactions: No Reported Reaction Past Psychological History: Anxiety, Depression, Schizophrenia Smoking Status: Never smoker Past Alcohol Use History: Occasional Past Drug Use History: Marijuana - Past Family History Father History Unknown: Yes Family Medical History: Unable to Obtain Additional Family Medical History / Comment(s): Pt did not know her father. Mother Family Medical History: No Reported History General Exam Limitations: no limitations General appearance: lethargic, in distress Head exam: Present: atraumatic, normocephalic Eye exam: Present: normal appearance, PERRL ENT exam: Present: mucous membranes dry Neck exam: Present: normal inspection. Absent: tenderness, meningismus Respiratory exam: Present: respiratory distress, decreased breath sounds, other (Neck) Cardiovascular Exam: Present: normal rhythm, tachycardia GI/Abdominal exam: Present: soft, distended. Absent: tenderness, guarding, rebound Extremities exam: Absent: normal capillary refill, pedal edema, calf tenderness Neurological exam: Present: motor sensory deficit (Patient has a right-sided facial droop, right upper extremity drift, she has confusion and dysarthria). Absent: oriented X3, CN II-XII intact Skin exam: Present: diaphoretic, other (Cool) Course Vital Signs 02/26/21 02/26/21 02/26/21 12:11 12:15 12:44 Temperature 99.0 F 99.0 F 98.7 F Pulse Rate 120 H 119 H 111 H Respiratory 16 16 16 Rate Blood Pressure 139/104 132/96 142/96 O2 Sat by Pulse 92 L 98 97 Oximetry 02/26/21 02/26/21 02/26/21 12:45 13:00 13:15 Temperature 98.6 F 98.9 F 98.7 F Pulse Rate 108 H 101 H 101 H Respiratory 16 16 16 Rate Blood Pressure 129/98 124/93 127/93 O2 Sat by Pulse 98 99 97 Oximetry - Reevaluation(s) Reevaluation #1: 02/26/21 12:11 stroke activated, NIH of 9 Reevaluation #2: 02/26/21 13:44 Patient reevaluated, vital signs stable. She is more alert and able to give additional history. She states she's been out of her medication. She is uncertain exactly what medication she is on but by review the medical record there is indication that she's been prescribed both aspirin and Plavix. She s tates she had a stroke about 2 months ago. She is uncertain exactly what happened today. Denies any pain complaints. No headache. No chest pain. Reevaluation #3: 02/26/[address] Whelan, medical management recommended. EKG Findings - EKG Comments: EKG Findings:: Sinus tachycardia, biatrial enlargement, left axis, rate of 124, [place] interval 142, QRS duration 80, QTC 479. Do not see any ST segment elevation. Medical Decision Making - Medical Decision Making 60-year-old female presented with altered mental status, confusion, suspected CVA. She'll right arm weakness and right facial droop. Initial NIH of 9. She was cool and diaphoretic, tachycardic and tachypneic upon initial evaluation. There was no reported seizure activity but I had suspicion for possible seizure. She does have a leukocytosis and a lactic acidosis I suspect this is not from sepsis but may be reactive and may be secondary to seizure. CT CT angiography performed, which does show concern for left occipital possible acute infarction in the left MCA occlusion. This was reviewed both by radiology and by the stroke neurologist Dr. Lilly. Given the unknown time course Hospital seizure. Patient is not a TPA candidate. The stroke neurologist does recommend medical management. She's given rectal aspirin and IV fluids. He recommends permissive hypertension. Patient not a thrombectomy candidate. Chest x-ray negative for focal pneumonia. A she will be admitted for close monitoring, further CVA management and evaluation, hydration. As discussed with Dr. Garces who will admit. - Lab Data Result diagrams: 02/26/21 12:27 02/26/21 12:27 Lab Results 02/26/21 02/26/21 02/26/21 Range/Units 12:10 12:27 12:27 WBC 14.7 H (3.8-10.6) k/uL RBC 5.76 H (3.80-5.40) m/uL Hgb 16.1 H (11.4-16.0) gm/dL Hct 49.1 H (34.0-46.0) % MCV 85.2 (80.0-100.0) fL MCH 28.0 (25.0-35.0) pg MCHC 32.8 (31.0-37.0) g/dL RDW 13.3 (11.5-15.5) % Plt Count 282 (150-450) k/uL MPV 8.2 Neutrophils % 88 % Lymphocytes % 9 % Monocytes % 2 % Eosinophils % 0 % Basophils % 0 % Neutrophils # 13.0 H (1.3-7.7) k/uL Lymphocytes # 1.2 (1.0-4.8) k/uL Monocytes # 0.3 (0-1.0) k/uL Eosinophils # 0.0 (0-0.7) k/uL Basophils # 0.0 (0-0.2) k/uL PT 10.5 (9.0-12.0) sec INR 1.0 (<1.2) APTT 22.6 (22.0-30.0) sec VBG pH (7.31-7.41) VBG pCO2 (37-51) mmHg VBG HCO3 (24-28) mmol/L Sodium (137-145) mmol/L Potassium (3.5-5.1) mmol/L Chloride (98-107) mmol/L Carbon Dioxide (22-30) mmol/L Anion Gap mmol/L BUN (7-17) mg/dL Creatinine (0.52-1.04) mg/dL Est GFR (CKD-EPI)AfAm (>60 ml/min/1.73 sqM) Est GFR (CKD-EPI)NonAf (>60 ml/min/1.73 sqM) Glucose (74-99) mg/dL POC Glucose (mg/dL) 200 H (75-99) mg/dL POC Glu [employer] Clerk [employer] ID Amara Andrews Plasma Lactic Acid Robbie (0.7-2.0) mmol/L Calcium (8.4-10.2) mg/dL Magnesium (1.6-2.3) mg/dL Total Bilirubin (0.2-1.3) mg/dL AST (14-36) U/L ALT (4-34) U/L Alkaline Phosphatase (38-126) U/L Creatine Kinase (30-135) U/L Troponin I (0.000-0.034) ng/mL Total Protein (6.3-8.2) g/dL Albumin (3.5-5.0) g/dL Urine Color Urine Appearance (Clear) Urine pH (5.0-8.0) Ur Specific [place] (1.001-1.035) Urine Protein (Negative) Urine Glucose (UA) (Negative) Urine Ketones (Negative) Urine Blood (Negative) Urine Nitrite (Negative) Urine Bilirubin (Negative) Urine Urobilinogen (<2.0) mg/dL Ur Leukocyte Esterase (Negative) Urine RBC (0-5) /hpf Urine WBC (0-5) /hpf Ur Squamous Epith Cells (0-4) /hpf Urine Bacteria (None) /hpf Hyaline Casts (0-2) /lpf Urine Mucus (None) /hpf Serum Alcohol mg/dL 02/26/21 02/26/21 02/26/21 Range/Units 12:27 12:27 12:27 WBC (3.8-10.6) k/uL RBC (3.80-5.40) m/uL Hgb (11.4-16.0) gm/dL Hct (34.0-46.0) % MCV (80.0-100.0) fL MCH (25.0-35.0) pg MCHC (31.0-37.0) g/dL RDW (11.5-15.5) % Plt Count (150-450) k/uL MPV Neutrophils % % Lymphocytes % % Monocytes % % Eosinophils % % Basophils % % Neutrophils # (1.3-7.7) k/uL Lymphocytes # (1.0-4.8) k/uL Monocytes # (0-1.0) k/uL Eosinophils # (0-0.7) k/uL Basophils # (0-0.2) k/uL PT (9.0-12.0) sec INR (<1.2) APTT (22.0-30.0) sec VBG pH (7.31-7.41) VBG pCO2 (37-51) mmHg VBG HCO3 (24-28) mmol/L Sodium 142 (137-145) mmol/L Potassium 4.2 (3.5-5.1) mmol/L Chloride 109 H (98-107) mmol/L Carbon Dioxide 16 L (22-30) mmol/L Anion Gap 17 mmol/L BUN 10 (7-17) mg/dL Creatinine 0.91 (0.52-1.04) mg/dL Est GFR (CKD-EPI)AfAm 78 (>60 ml/min/1.73 sqM) Est GFR (CKD-EPI)NonAf 68 (>60 ml/min/1.73 sqM) Glucose 212 H (74-99) mg/dL POC Glucose (mg/dL) (75-99) mg/dL POC Glu Library Clerk [employer] ID Plasma Lactic Acid Robbie (0.7-2.0) mmol/L Calcium 10.5 H (8.4-10.2) mg/dL Magnesium 1.7 (1.6-2.3) mg/dL Total Bilirubin 1.1 (0.2-1.3) mg/dL AST 36 (14-36) U/L ALT 20 (4-34) U/L Alkaline Phosphatase 103 (38-126) U/L Creatine Kinase 402 H (30-135) U/L Troponin I <0.012 (0.000-0.034) ng/mL Total Protein 8.1 (6.3-8.2) g/dL Albumin 5.0 (3.5-5.0) g/dL Urine Color Yellow Urine Appearance Cloudy H (Clear) Urine pH 5.5 (5.0-8.0) Ur Specific [place] 1.041 H (1.001-1.035) Urine Protein 1+ H (Negative) Urine Glucose (UA) Negative (Negative) Urine Ketones 2+ H (Negative) Urine Blood Negative (Negative) Urine Nitrite Negative (Negative) Urine Bilirubin 1+ H (Negative) Urine Urobilinogen 2.0 (<2.0) mg/dL Ur Leukocyte Esterase Negative (Negative) Urine RBC 2 (0-5) /hpf Urine WBC 3 (0-5) /hpf Ur Squamous Epith Cells 3 (0-4) /hpf Urine Bacteria Rare H (None) /hpf Hyaline Casts 60 H (0-2) /lpf Urine Mucus Many H (None) /hpf Serum Alcohol <10 mg/dL 02/26/21 02/26/21 Range/Units 12:27 12:27 WBC (3.8-10.6) k/uL RBC (3.80-5.40) m/uL Hgb (11.4-16.0) gm/dL Hct (34.0-46.0) % MCV (80.0-100.0) fL MCH (25.0-35.0) pg MCHC (31.0-37.0) g/dL RDW (11.5-15.5) % Plt Count (150-450) k/uL MPV Neutrophils % % Lymphocytes % % Monocytes % % Eosinophils % % Basophils % % Neutrophils # (1.3-7.7) k/uL Lymphocytes # (1.0-4.8) k/uL Monocytes # (0-1.0) k/uL Eosinophils # (0-0.7) k/uL Basophils # (0-0.2) k/uL PT (9.0-12.0) sec INR (<1.2) APTT (22.0-30.0) sec VBG pH 7.41 (7.31-7.41) VBG pCO2 34 L (37-51) mmHg VBG HCO3 21 L (24-28) mmol/L Sodium (137-145) mmol/L Potassium (3.5-5.1) mmol/L Chloride (98-107) mmol/L Carbon Dioxide (22-30) mmol/L Anion Gap mmol/L BUN (7-17) mg/dL Creatinine (0.52-1.04) mg/dL Est GFR (CKD-EPI)AfAm (>60 ml/min/1.73 sqM) Est GFR (CKD-EPI)NonAf (>60 ml/min/1.73 sqM) Glucose (74-99) mg/dL POC Glucose (mg/dL) (75-99) mg/dL POC Glu Library Clerk [employer] ID Plasma Lactic Acid Robbie 4.4 H* (0.7-2.0) mmol/L Calcium (8.4-10.2) mg/dL Magnesium (1.6-2.3) mg/dL Total Bilirubin (0.2-1.3) mg/dL AST (14-36) U/L ALT (4-34) U/L Alkaline Phosphatase (38-126) U/L Creatine Kinase (30-135) U/L Troponin I (0.000-0.034) ng/mL Total Protein (6.3-8.2) g/dL Albumin (3.5-5.0) g/dL Urine Color Urine Appearance (Clear) Urine pH (5.0-8.0) Ur Specific [place] (1.001-1.035) Urine Protein (Negative) Urine Glucose (UA) (Negative) Urine Ketones (Negative) Urine Blood (Negative) Urine Nitrite (Negative) Urine Bilirubin (Negative) Urine Urobilinogen (<2.0) mg/dL Ur Leukocyte Esterase (Negative) Urine RBC (0-5) /hpf Urine WBC (0-5) /hpf Ur Squamous Epith Cells (0-4) /hpf Urine Bacteria (None) /hpf Hyaline Casts (0-2) /lpf Urine Mucus (None) /hpf Serum Alcohol mg/dL Disposition Clinical Impression: Cerebrovascular accident (CVA), Seizure disorder Disposition: ADMITTED IP TO THIS [facility] Condition: Stable Is patient prescribed a controlled substance at d/c from ED?: No [facility]errals[facility] [Primary Care Provider] - 1-2 days Decision to Admit Reason: Admit from EC Decision Date: 02/26/21 Decision Time: 13:52
[2021-02-26 12:38] LABS: Basophils % (A) 0 %; Eosinophils % (A) 0 %; HCT 49.1 % (34.0-46.0); HGB 16.1 gm/dL (11.4-16.0); Lymphocytes # (A) 1.2 k/uL (1.0-4.8); Lymphocytes % (A) 9 %; MCHC 32.8 g/dL (31.0-37.0); MCV 85.2 fL (80.0-100.0); Mean Platelet Volume 8.2; Monocytes # (A) 0.3 k/uL (0-1.0); Monocytes % (A) 2 %; Neutrophils % (A) 88 %; Platelet Count 282 k/uL (150-450); RBC 5.76 m/uL (3.80-5.40); RDW 13.3 % (11.5-15.5); WBC 14.7 k/uL (3.8-10.6)
--- NOTE | 2021-02-26 12:47 | CT ---
EXAMINATION TYPE: CT brain wo con for TPA DATE OF EXAM: 02/26/2021 COMPARISON: 12/13/2020 HISTORY: CODE STROKE CT DLP: 1096.8 mGycm Automated exposure control for dose reduction was used. FINDINGS: Low attenuation left occipital lobe stable compatible with previous infarct. It does appear to be exp ansion of the low attenuation in the left parietal lobe a subacute area of ischemia involving the dif ferential diagnosis. Generalized degenerative change with low attenuation in the white matter are nonspecific but most typ ical remote ischemia. No acute hemorrhage. Craniocervical junction maintained. Sella turcica has a normal appearance. Orbit s are symmetric. Sinuses are clear. IMPRESSION: 1. No acute hemorrhage or mass effect. 2. Remote infarct involving the left occipital lobe. However, there is no attenuation on today's exam extending from this region into the left parietal lobe in an area of subacute or acute infarct in th e differential diagnosis. Recommend correlation clinically and if necessary with MRI.
[2021-02-26 12:48] LABS: ALT 20 U/L (4-34); AST 36 U/L (14-36); African American GFR (CKD) 78 (>60 ml/min/1.73 sqM); Alcohol <10 mg/dL; Alkaline Phosphatase 103 U/L (38-126); Anion Gap 17 mmol/L; Blood Urea Nitrogen 10 mg/dL (7-17); Calcium 10.5 mg/dL (8.4-10.2); Carbon Dioxide 16 mmol/L (22-30); Chloride 109 mmol/L (98-107); Creatine Kinase 402 U/L (30-135); Glucose 212 mg/dL (74-99); Magnesium 1.7 mg/dL (1.6-2.3); Non-African American GFR(CKD) 68 (>60 ml/min/1.73 sqM); Potassium 4.2 mmol/L (3.5-5.1); Sodium 142 mmol/L (137-145); Total Bilirubin 1.1 mg/dL (0.2-1.3); Total Protein 8.1 g/dL (6.3-8.2); VBG PH 7.41 (7.31-7.41)
[2021-02-26 12:49] LABS: Partial Thromboplastin Time 22.6 sec (22.0-30.0); Prothrombin Time 10.5 sec (9.0-12.0)
[2021-02-26] MEDS ORDERED: ASPIRIN 325 MG TAB PO STA (12:53)
[2021-02-26] MEDS ORDERED: SODIUM CHLORIDE 0.9% 500 ML 500 ML IV ONE (12:53)
[2021-02-26] MEDS: SODIUM CHLORIDE 0.9% 1,000 ML IV SCH (12:58)
--- NOTE | 2021-02-26 12:58 | XR ---
EXAMINATION TYPE: XR chest 1V portable DATE OF EXAM: 02/26/2021 COMPARISON: 12/13/2016 HISTORY: Altered mental status TECHNIQUE: Single frontal view of the chest is obtained. FINDINGS: There is no focal air space opacity, pleural effusion, or pneumothorax seen. The cardiac silhouette size is within normal limits. The osseous structures are intact. Hyperinflation. Postsur gical change overlying the cervical spine. Diffuse osteopenia and arthropathy of the shoulder. IMPRESSION: No acute process.
[2021-02-26] MEDS ORDERED: SODIUM CHLORIDE 0.9% 1,000 ML IV SCH (13:00)
[2021-02-26] MEDS ORDERED: ASPIRIN 300 MG SUPP RECTAL STA (13:04)
--- NOTE | 2021-02-26 13:37 | CT ---
EXAMINATION TYPE: CT angio head neck DATE OF EXAM: 02/26/2021 HISTORY: Neuro deficit, acute, stroke suspected COMPARISON: CT brain 02/26/2021 CT DLP: 392.8 mGycm. Automated Exposure Control for Dose Reduction was Utilized. TECHNIQUE: CTA scan of the neck is performed without and with IV Contrast, patient injected with 65 ml mL of Isovue 370, axial images are obtained, coronal and sagittal reformatted images are reviewed. Three-D reconstructed images are created on an independent workstation and reviewed. The films are m samra available to read on the PACS system at 1:31 PM FINDINGS: Carotid bifurcation demonstrates wide patency with no significant stenosis. A bovine arch i s incidentally noted. Subclavian arteries are patent. Aorta appears to be of normal caliber. Hypertrophic and degenerative change of the cervical spine with postsurgical changes. Multilevel face t arthropathy. Left vertebral artery is dominant. Right vertebral artery is diminutive in size which may be congenit al be correlated clinically. Vertebral basilar system is patent. Posterior cerebral arteries are patent with no sizable aneurysm o r vascular malformation. Proximal A2 segments of the anterior cerebral arteries are limited in assess ment due to positioning. The right cerebral artery appears be patent. The trifurcation of the left MC A appears somewhat diminutive in a small branch vessel occlusion cannot be excluded. IMPRESSION: 1. The bifurcation vessels of the left MCA are somewhat diminutive relative to the right but appear t o enhance distally. Small branch vessel occlusion could not be excluded. 2. No sizable aneurysm. Proximal A2 segments of the anterior cerebral arteries particularly on the ri ght are not well-visualized which may be technical and related to positioning. Correlate with MRA and MRI as clinically warranted. 3. Carotid bifurcations are widely patent. NASCET criteria was used in interpretation of this exam?
[2021-02-26 13:38] LABS: Appearance,Urine Cloudy (Clear); Bacteria,Urine Rare /hpf; Bilirubin,Urine 1+ (Negative); Blood,Urine Negative (Negative); Color,Urine Yellow; Glucose,Urine (UA) Negative (Negative); Hyaline Casts,Urine 60 /lpf (0-2); Ketones,Urine 2+ (Negative); Leukocyte Esterase,Urine Negative (Negative); Mucus,Urine Many /hpf; Nitrite,Urine Negative (Negative); PH, Urine 5.5 (5.0-8.0); Protein,Urine 1+ (Negative); RBC,Urine 2 /hpf (0-5); Specific Gravity,Urine 1.041 (1.001-1.035); Squamous Epithelial Cell,Urine 3 /hpf (0-4); WBC,Urine 3 /hpf (0-5)
[2021-02-26 14:09] LABS: Amphetamine Screen,Urine Not Detected (NotDetected); Barbiturate Screen,Urine Not Detected (NotDetected); Benzodiazepines Screen,Urine Detected (NotDetected); Cocaine Screen,Urine Not Detected (NotDetected); Methadone Screen, Urine Not Detected (NotDetected); Opiate Screen,Urine Not Detected (NotDetected); Oxycodone Screen, Urine Not Detected (NotDetected); Phencyclidine Screen,Urine Not Detected (NotDetected); Tricyclic Antidepressant,Urine Detected (NotDetected); Urn Cannabinoid Scrn Detected (NotDetected)
--- NOTE | 2021-02-26 17:49 | ECHOF ---
Referral Reason:Thrombus MEASUREMENTS -------- HEIGHT: 154.9 cm WEIGHT: 63.5 kg BP: 132/95 RVIDd: 2.6 cm (< 3.3) IVSd: 1.2 cm (0.6 - 1.1) LVIDd: 4.0 cm (3.9 - 5.3) LVPWd: 1.2 cm (0.6 - 1.1) IVSs: 1.4 cm LVIDs: 2.6 cm LVPWs: 1.5 cm LA Diam: 2.7 cm (2.7 - 3.8) LAESV Index (A-L): 13.78 ml/m Ao Diam: 3.5 cm (2.0 - 3.7) AV Cusp: 2.0 cm (1.5 - 2.6) MV EXCURSION: 15.228 mm (> 18.000) MV EF SLOPE: 57 mm/s (70 - 150) EPSS: 0.5 cm MV E Jake: 0.61 m/s MV DecT: 391 ms MV A Jake: 0.90 m/s MV E/A Ratio: 0.68 RAP: 5.00 mmHg RVSP: 31.41 mmHg FINDINGS -------- Sinus rhythm. This was a technically adequate study. The left ventricular size is normal. There is borderline concentric left ventricular hypertrophy. Overall left ventricular systolic function is normal with, an EF between 55 - 60 %. The right ventricle is normal in size. Normal LA size by volume 22+/-6 ml/m2. The right atrium is normal in size. Contrast study was performed with 1 iv injection of 8 ccs of agitated normal saline at rest. Negative saline bubble study. No PFO noted Aneurysmal Interatrial septum. The aortic valve is trileaflet, and appears structurally normal. No aortic stenosis or regurgitation. Mild mitral annular calcification present. Mild tricuspid regurgitation present. Right ventricular systolic pressure is normal at < 35 mmHg. Trace/mild (physiologic) pulmonic regurgitation. The aortic root size is normal. Normal inferior vena cava with normal inspiratory collapse consistent with estimated right atrial pre ssure of 5 mmHg. There is no pericardial effusion. CONCLUSIONS -------- 1. The left ventricular size is normal. 2. There is borderline concentric left ventricular hypertrophy. 3. Overall left ventricular systolic function is normal with, an EF between 55 - 60 %. 4. Contrast study was performed with 1 iv injection of 8 ccs of agitated normal saline at rest. 5. Negative saline bubble study. No PFO noted 6. Aneurysmal Interatrial septum. 7. The aortic valve is trileaflet, and appears structurally normal. No aortic stenosis or regurgitati on. 8. Mild mitral annular calcification present. 9. Mild tricuspid regurgitation present. 10. Trace/mild (physiologic) pulmonic regurgitation. 11. There is no pericardial effusion. MANAGER OF SOFTWARE DEVELOPMENT: Chel Delgadillo RDCS
[2021-02-26] MEDS ORDERED: ALBUTEROL NEBULIZED 2.5 MG/3 ML INHALATION PRN (18:21)
[2021-02-26] MEDS: PERPHENAZINE 4 MG TAB PO SCH (20:21)
[2021-02-26] MEDS: hydrOXYzine pamoate 25 MG CAP PO SCH (20:21)
[2021-02-26] MEDS: SENNOSIDES 8.6 MG TAB PO SCH (20:21)
[2021-02-26] MEDS: levETIRAcetam 500 MG TAB PO SCH (20:21)
[2021-02-26] MEDS: DOXEPIN 25 MG CAP PO SCH (20:21)
[2021-02-26] MEDS: METOPROLOL TARTRATE 50 MG TAB PO SCH (20:21)
[2021-02-27] MEDS: SODIUM CHLORIDE 0.9% 1,000 ML IV SCH ×4 (05:09→19:57)
[2021-02-27] MEDS: PANTOPRAZOLE 40 MG TABLET PO SCH (06:23)
[2021-02-27 08:16] LABS: Basophils % (A) 0 %; Eosinophils # (A) 0.1 k/uL (0-0.7); Eosinophils % (A) 1 %; HCT 43.8 % (34.0-46.0); HGB 14.1 gm/dL (11.4-16.0); Lymphocytes # (A) 2.5 k/uL (1.0-4.8); Lymphocytes % (A) 22 %; MCH 28.1 pg (25.0-35.0); MCHC 32.1 g/dL (31.0-37.0); MCV 87.4 fL (80.0-100.0); Mean Platelet Volume 8.3; Monocytes # (A) 0.4 k/uL (0-1.0); Monocytes % (A) 4 %; Neutrophils # (A) 8.2 k/uL (1.3-7.7); Neutrophils % (A) 72 %; Platelet Count 253 k/uL (150-450); RBC 5.02 m/uL (3.80-5.40); RDW 13.4 % (11.5-15.5); WBC 11.4 k/uL (3.8-10.6)
[2021-02-27 08:37] LABS: African American GFR (CKD) >90 (>60 ml/min/1.73 sqM); Anion Gap 9 mmol/L; Blood Urea Nitrogen 8 mg/dL (7-17); Calcium 9.4 mg/dL (8.4-10.2); Carbon Dioxide 20 mmol/L (22-30); Chloride 112 mmol/L (98-107); Glucose 89 mg/dL (74-99); Non-African American GFR(CKD) >90 (>60 ml/min/1.73 sqM); Potassium 4.3 mmol/L (3.5-5.1); Sodium 141 mmol/L (137-145)
[2021-02-27] MEDS: ASPIRIN 325 MG TAB PO SCH (08:44)
[2021-02-27] MEDS: levETIRAcetam 500 MG TAB PO SCH ×2 (08:45→19:58)
[2021-02-27] MEDS: amLODIPine 10 MG TAB PO SCH (08:45)
[2021-02-27] MEDS: FOLIC ACID 1 MG TAB PO SCH (08:45)
[2021-02-27] MEDS: THIAMINE 100 MG TAB PO SCH (08:45)
[2021-02-27] MEDS: ATORVASTATIN 40 MG TAB PO SCH (08:45)
[2021-02-27] MEDS: CLOPIDOGREL 75 MG TAB PO SCH (08:45)
[2021-02-27] MEDS: SENNOSIDES 8.6 MG TAB PO SCH ×2 (08:45→19:57)
[2021-02-27] MEDS: DOCUSATE 100 MG CAP PO SCH (08:45)
[2021-02-27] MEDS: LOSARTAN 50 MG TAB PO SCH (08:45)
[2021-02-27] MEDS: METOPROLOL TARTRATE 50 MG TAB PO SCH ×2 (08:45→19:57)
[2021-02-27] MEDS: FLUoxetine HCL 20 MG CAP PO SCH (08:45)
[2021-02-27] MEDS ORDERED: ASPIRIN 81 MG PO SCH (09:00)
[2021-02-27] MEDS: FLUTICASONE 50MCG/SPRAY NASAL 16GM EA NOSTRIL SCH (09:05)
--- NOTE | 2021-02-27 10:06 | P.CNNES ---
History of Present Illness Consult date: 02/26/21 Requesting physician: Andrew Barr Reason for Consult: CVA, possible seizure History of Present Illness: This is a tele-neurology consultation performed on this patient today on 02/26/2021. Patient is a 60-year-old female came to the hospital today at 12:07 PM by ambulance for possible stroke. As per EMS flow sheet when EMS arrived, they found that bystander saw her stumbling around and empty parking lot. It appeared patient had fallen on her bottom several times trying to get up. Patient denied any neck pain or any tenderness from aberrations to her lower back from falling from her knees onto the edge of the curb. Patient was confused, using wrong words or unable to find the words she wanted to use. Patient's right hand lays limp in her lap. Patient had mentioned that she has walked from her home (over 12 blocks) to dislocation to go back to the bank which is across the road to get money to waste picker her prescriptions from the pharmacy. Patient tried to get to her knees to get up saying she doesn't want to go to the hospital. Patient was placed in the stretcher, unable to stand on the right leg although patient is able to lift the right leg while on the stretcher. Patient was cool, clammy and very diaphoretic and begins to hyperventilate. Patient stated she does need to go to the hospital at this point. She denied headache, chest pain, pressure or discomfort. EKG shows sinus tachycardia with 150 bpm. Her blood pressure was 164/110, pulse rate 150, respiration 28 saturation 96% and blood glucose 174. Patient was brought to the hospital. Vital signs on arrival blood pressure 139/104, pulse rate 120, temperature 99.0. CT head showed no acute hemorrhage or mass effect. Remote infarct involving the left occipital lobe. However there is no attenuation on today's exam ext ending from this region into left parietal lobe and an area of subacute or acute infarct in the differential diagnosis. Recommend correlation clinically, if necessary with MRI. Chest x-ray showed no acute process. CTA of head and neck showed the bifurcation vessels of left MCA is somewhat diminutive relative to the right but appear to enhance distally. Small branch vessel occlusion could not be excluded. No sizable aneurysm. Proximally A2 segments of the anterior cerebral arteries particularly on the right are not well visualized which may be technical and related to positioning. Correlate with MRA and MRI as clinically warranted. Carotid bifurcations are widely patent. EKG shows sinus tachycardia with biatrial enlargement. Stroke code was activated in the ED and patient was considered not a candidate for TPA, as she has a recent stroke, and also unclear last known well. No intervention was recommended. Patient today tells us that she has history of stroke, which affected the right side. However today at 3 AM it has got worse. She states she lives on her own, has no health and uses a walker to ambulate. Patient states that she cannot afford her medications and has not taken any medication for last 3 weeks. Patient denies any history of diabetes. She has hypertension, smoked 1 pack every 3 days since age 14, quit age 56 (4 years ago). She denies any alcohol use or any drugs. Patient was placed on dual antiplatelet medications after her last stroke on 12/14/2020. Patient also has reported that she has history of seizure disorder. She states that she had 3 seizures in her lifetime, which were few months apart. The last seizure was about a year prior. She was placed on Keppra and since then she has not had any seizures. Patient's EEG on 12/14/2020 shows mildly abnormal EEG due to slight disorganization and excessive fast frequency beta activity. This is suggestive of mild encephalopathy or medication effect. No epileptiform activity was seen. Review of Systems Patient denies headache. No problems with the vision. Denies chest pain. No fever or chills. No nausea vomiting diarrhea. No abdominal pain. Past Medical History Past Medical History: CVA/TIA, Eye Disorder, Fibromyalgia, GERD/Reflux, Hyperlipidemia, Liver Disease, Osteoarthritis (OA), Seizure Disorder Additional Past Medical History / Comment(s): Other HX: had 1 seizure several years ago due to drug interaction, HIV positive, hx. Hep. C, neuropathy, hx. ulcers History of Any Multi-Drug Resistant Organisms: None Reported Past Surgical History: Hysterectomy Additional Past Surgical History / Comment(s): 08/11/15 Anterior cervical decompression fusion C3-4, C4-5 with carpectomy. Past Anesthesia/Blood Transfusion Reactions: No Reported Reaction Past Psychological History: Anxiety, Depression, Schizophrenia Smoking Status: Never smoker Past Alcohol Use History: Occasional Past Drug Use History: Marijuana - Past Family History Father History Unknown: Yes Family Medical History: Unable to Obtain Additional Family Medical History / Comment(s): Pt did not know her father. Mother Family Medical History: No Reported History Medications and Allergies Home Medications Medication Instructions Recorded Confirmed Type Docusate [Colace] 100 mg PO DAILY 12/15/16 02/26/21 History Albuterol Sulfate [Ventolin HFA] 2 puff INHALATION RT-Q4H PRN 12/01/19 02/26/21 History Doxepin HCl [SINEquan] 150 mg PO HS 12/01/19 02/26/21 History Metoprolol Tartrate [Lopressor] 50 mg PO BID 12/01/19 02/26/21 History Perphenazine [Trilafon] 8 mg PO HS 12/01/19 02/26/21 History hydrOXYzine pamoate [Vistaril] 50 mg PO HS 12/01/19 02/26/21 History levETIRAcetam [Keppra] 500 mg PO BID 12/01/19 02/26/21 History FLUoxetine HCL [PROzac] 40 mg PO DAILY #7 cap 03/30/20 02/26/21 Rx Fluticasone Nasal [place] [Flonase 1 spray EA NOSTRIL DAILY 09/08/20 02/26/21 History Nasal [place]] Omeprazole 20 mg PO DAILY 09/08/20 02/26/21 History Losartan Potassium [Cozaar] 100 mg PO DAILY 12/13/20 02/26/21 History Aspirin 81 mg PO DAILY chew 12/17/20 02/26/21 Rx Atorvastatin [Lipitor] 40 mg PO DAILY tab 12/17/20 02/26/21 Rx Clopidogrel [Plavix] 75 mg PO DAILY tab 12/17/20 02/26/21 Rx Folic Acid 1 mg PO DAILY 02/26/21 02/26/21 History Sennosides [Senna] 8.6 mg PO BID 02/26/21 02/26/21 History amLODIPine [Norvasc] 10 mg PO DAILY 02/26/21 02/26/21 History Allergies Allergy/AdvReac Type Severity Reaction Status Date / Time Penicillins Allergy Rash/Hives Verified 02/26/21 13:51 propoxyphene napsylate Allergy Itching Verified 02/26/21 13:51 [From Trangt-N 100] aspirin AdvReac Nausea & Verified 02/26/21 13:51 Vomiting ibuprofen [From Motrin] AdvReac Nausea & Verified 02/26/21 13:51 Vomiting Physical Examination - Vital Signs Vital Signs: Vital Signs Temp Pulse Resp BP Pulse Ox 02/26/21 14:15 98.9 F 96 16 136/95 98 02/26/21 13:45 98.6 F 98 16 129/91 98 02/26/21 13:15 98.7 F 101 H 16 127/93 97 02/26/21 13:00 98.9 F 101 H 16 124/93 99 02/26/21 12:45 98.6 F 108 H 16 129/98 98 02/26/21 12:44 98.7 F 111 H 16 142/96 97 02/26/21 12:15 99.0 F 119 H 16 132/96 98 02/26/21 12:11 99.0 F 120 H 16 139/104 92 L Intake and Output 02/25/21 02/26/21 02/26/21 22:59 06:59 14:59 Other: Weight 77.111 kg Patient is a late middle aged Afro-[place] female, who appears older than her stated age. Patient is alert, awake, has slow mentation, prolonged latency time to answer questions. Patient states it's the third month, when she was prompted, states it is February and the year is 2014. After prompting, she was able to tell she is in [place] in [place]. Speech is mildly dysarthric and language functions are normal. Patient can name and repeat. Attention, concentration and fund of knowledge is slightly limited. On cranial examination, pupils are equal, round and reacting to light, 3 mm down to 2 mm. Visual dasilva are full on confrontation, extraocular muscles are intact with no nystagmus. Patient has right facial droopiness. Her tongue protrudes to the midline. Palatal elevation and sensation normal, hearing is slightly decreased and shoulder shrug normal, facial sensation slightly decreased on the right. On muscle strength testing, there is significant right pronator drift. Muscle strength is normal on the left side. 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 Hip flexion 4, knee extension 5, plantarflexion 5, ankle dorsiflexion 5. Deep tendon reflexes are 2 in the upper limbs, 3 at the knees 1 ankles and plantar is up on the right, down left. Sensory to touch is overall decreased on the right side. Cerebellar function showed ataxia for [id number] testing on the right although difficult to carry out. No ataxia on the left. Tone and bulk of muscles normal. Gait not checked. On general examination, there is no carotid bruit or murmur, S1-S2 audible. Abdomen is soft nontender. Chest is clear. No edema. Results - Laboratory Findings CBC and BMP: 02/27/21 07:46 02/27/21 07:46 Abnormal Lab Findings: Abnormal Labs 02/26/21 02/26/21 02/26/21 12:10 12:27 12:27 WBC 14.7 H RBC 5.76 H Hgb 16.1 H Hct 49.1 H Neutrophils # 13.0 H VBG pCO2 VBG HCO3 Chloride Carbon Dioxide Glucose POC Glucose (mg/dL) 200 H Plasma Lactic Acid Robbie Calcium Creatine Kinase Urine Appearance Cloudy H Ur Specific [place] 1.041 H Urine Protein 1+ H Urine Ketones 2+ H Urine Bilirubin 1+ H Urine Bacteria Rare H Hyaline Casts 60 H Urine Mucus Many H U Tricyclic Antidepress Detected H U Benzodiazepines Scrn Detected H U Marijuana (THC) Screen Detected H 02/26/21 02/26/21 02/26/21 12:27 12:27 12:27 WBC RBC Hgb Hct Neutrophils # VBG pCO2 34 L VBG HCO3 21 L Chloride 109 H Carbon Dioxide 16 L Glucose 212 H POC Glucose (mg/dL) Plasma Lactic Acid Robbie 4.4 H* Calcium 10.5 H Creatine Kinase 402 H Urine Appearance Ur Specific [place] Urine Protein Urine Ketones Urine Bilirubin Urine Bacteria Hyaline Casts Urine Mucus U Tricyclic Antidepress U Benzodiazepines Scrn U Marijuana (THC) Screen Assessment and Plan Assessment: * Acute ischemic stroke manifesting with worsening of baseline right hemipa resis. Patient had a recent stroke with right hemiparesis on 12/14/2020. This has got worse as of early this morning. * Medication noncompliance. Patient has not taken her dual antiplatelet medica tion for last 3 weeks. * Hypertension * X tobacco use * HIV-positive status * Elevated LFTs * Seizure disorder, well controlled on Keppra 500 mg twice a day * Obesity Plan: * Patient's stroke probably occurred because of stopping her antiplatelet medication in the last 3 weeks. We will resume dual antiplatelet medication if patient passes swallow studies. * Patient had a SIMON performed 12/17/2020, which revealed no intracardiac thrombus, no evidence of left to right shunt by color flow Doppler or [id number] shunt by agitated saline contrast. Normal left ventricular function. * 2-D echo performed today showed normal left-ventricular size. Borderline concentric LVH. EF is between 55-60%. Negative bubble study for PFO. Aneurysmal interatrial septum. * CTA of head and neck showed the bifurcation vessels of left MCA are somewhat diminutive relative to the right but appear to enhance distally. Small branch vessel occlusion could not be excluded. No sizable aneurysm. Proximally A2 segments of the anterior cerebral arteries particularly on the right are not well visualized which may be technical and related to positioning. Correlate with MRA and MRI as clinically warranted. Carotids are widely patent. * Patient's last hemoglobin A1c 5.2 on 12/14/2020, no need to repeat. * Lipid panel cholesterol 170, LDL 89, HDL 51 and triglycerides 151. Continue Lipitor 40 mg. * Check B12, folate. * Resume dual antiplatelet medications. * MRI of the brain to evaluate for the type and extent of stroke. * Continue neuro checks. * We will follow.
[2021-02-27 11:36] LABS: Chol/HDL Ratio 3.68; Cholesterol 125 mg/dL (0-200); LDL Cholesterol,Calculated 72.6 mg/dL (0.0-131.0)
--- NOTE | 2021-02-27 14:11 | P.HPIM ---
History of Present Illness H&P Date: 02/27/21 HISTORY OF PRESENT ILLNESS This is a 60-year-old female patient of David Akins NP at [facility] with past medical history of mild intermittent asthma, fibromyalgia, hyperlipidemia, hypertension, seizure disorderfollows with Dr. Juarez as her neurologist, HIV, hepatitis C, neuropathy, schizophrenia. Patient was diagnosed with seizure 1 year ago and had only had one episode of seizure activity which she relates is medication related. She is maintained on Keppra . Patient was seen in November 2020 or fall and weakness involving right arm. CAT scan of the brain resulted as may be indicative of subacute infarct. CT angiogram of the head and neck showed no significant abnormality. Case was reviewed by stroke team remotely with no recommendations for TPA or thrombectomy. It was recommended for aspirin and neurology consult. Echocardiogram reveals EF of 45-50% with moderate concentric left ventricle hypertrophy, trace to mild mitral regurgitation, mild tricuspid regurgitation. Aortic root is dilated at 3.8 cm. MRI of the brain revealed evolving acute/subacute infarct 3.7 cm left occipital lobe. Background of mild diffuse cerebral atrophy and moderate to borderline advanced chronic small vessel ischemic change. Patient was seen by Dr. Landeros who recommended patient starting Plavix. EEG revealed abnormal due to slight disorganization and with excessive fast frequency beta activity. This is suggestive of mild generalized cerebral dysfunction as seen in encephalopathy from metabolic causes or medication effect. No definitive epileptiform activity was seen. Patient underwent SIMON today which was negative for thrombus, shunts. Patient is discha rged to inpatient rehab. Patient was brought in by the EMS at around 12 PM. As per the report patient was found to be stumbling around in the empty parking lot by the bystander. She had fallen multiple times. Patient fall and was found to be confused and using the wrong words. She was unable to move her right lower extremity. According to the charts patient was walking to the bank from her home and she was noted to be stumbling in the parking lot. She was placed on the stretcher unable to stand on the right leg leg but was able to lift her right leg while on the stretcher. She was noted to be cold and clammy and very diaphoretic. Patient does not remember the incidence on evaluation today. She does state that she was weaker on the right side but is unable to provide any details of the history. In the ER, patient's vitals suggested a temp of 98.7 pulse 111 respiratory rate 16 blood pressure 142/96 oxygen saturation 97% on [address] head and echo suggested no acute hemorrhage or mass effect. Remote infarct involving the left occipital lobe was seen. Chest x-ray was negative for acute process CT angiogram since his bifurcation muscle of the left MCA to be diminutive relat blas to the right but appears to enhance distantly small vessel occlusion could not be excluded. No aneurysm noted proximal A2 segment of anterior cerebral arteries vertically in the right was not visualized. MRA and MRI was recommended EKG was suggestive of sinus tachycardia Echocardiogram was suggestive of borderline concentric left ventricular hypertrophy with EF 55-60%. Negative bubble study no PFO seen aneurysm of the interatrial septum noted. Labs were reviewed patient had a leukocytosis of 14.7 hemoglobin 16.1 platelet 282. Sodium 142 potassium 4.2 chloride 109 bicarb 16 glucose 212 lactic acid was 4.4 calcium 10.5 creatinine kinase 4 to troponin 1 negative prolactin was 6.2 ROS Constitutional: Denies chills, Denies fever, Denies lethargy, Denies malaise, Denies poor appetite, Denies weakness, Denies weight loss Eyes: denies decreased vision, denies diplopia, denies discharge, denies pain Ears: deny: decreased hearing Ears, nose, mouth and throat: Denies dental pain, Denies headache, Denies nasal discharge, Denies nose pain Cardiovascular: Denies chest pain, Denies decreased exercise tolerance, Denies edema, Denies high blood pressure, Denies irregular heart beat, Denies palpitations, Denies paroxysmal nocturnal dyspnea, Denies rapid heart beat, Denies shortness of breath Respiratory: Denies congestion, Denies cough, Denies cough with sputum, Denies dyspnea, Denies home oxygen, Denies wheezing Gastrointestinal: Denies abdominal pain, Denies change in bowel habits, Denies coffee ground emesis, Denies early satiety, Denies excessive gas, Denies heartburn, Denies hematemesis, Denies hematochezia, Denies loss of appetite, Denies nausea, Denies vomiting Genitourinary: Denies dysuria, Denies flank pain, Denies kidney stones, Denies menorrhagia, Denies urgency, Denies urinary frequency Musculoskeletal: Endorses gait dysfunction, endorses limitation of motion, Denies morning stiffness, Denies muscle cramps Integumentary: Denies rash, Denies wounds, Denies brittle nails, Denies change in hair/nails, Denies darkening of skin Neurological: Denies balance difficulties, Denies change in speech, Denies double vision, endorses gait dysfunction, Denies loss of vision, endorses motor disturbance improved since yesterday, Denies numbness, Denies paralysis, Denies paresthesias, Denies seizures Psychiatric: Denies anxiety, Denies depression Endocrine: Denies excessive sweating, Denies excessive thirst, Denies high blood sugars, Denies palpitations Hematologic/Lymphatic: Denies easy bruising, Denies lymphadenopathy Social history Patient is a smoker of one pack per 3 days. Patient smoked from age 14 until 58. She denies any alcohol intake. She does not have oxygen, CPAP at home. She does have a walker. Patient lives alone. Family history Both parents have from alcohol complications. Patient does not have any sisters. She has 2 brothers and she does not know them. She has one son with no major medical problems.. Physical exam - Constitutional General appearance: cooperative, no acute distress, obese - EENT Eyes: anicteric sclerae, PERRLA, normal appearance as right facial droop with decreased sensation on the right, right hemianopia ENT: hearing grossly normal - Neck Neck: no lymphadenopathy, normal ROM, no other, no rigidity, no stridor, no thyromegaly - Respiratory Respiratory: bilateral: CTA, negative: diminished, dullness, rales, rhonchi - Cardiovascular Rhythm: regular Heart sounds: normal: S1, S2 Abnormal Heart Sounds: no systolic murmur, no diastolic murmur, no rub, no S3 Gallop, no S4 Gallop, no click, no other - Gastrointestinal General gastrointestinal: normal bowel sounds, soft - Integumentary Integumentary: no rash - Neurologic Neurologic: Right facial droop, right upper extremity weakness with positive pronator drift sensation decreased on the right side. Reflexes reduced in the upper limb. [id number] abnormal on the right - Musculoskeletal Musculoskeletal: gait normal, strength equal bilaterally - Psychiatric Psychiatric: A&O x's 3, appropriate affect Assessment and plan 1. Right arm weakness, secondary to acute CVA. CT revealed possible subacute infarct, no acute stroke Continue aspirin 325 mg daily, Plavix 75 mg daily Lipitor 40 mg daily, neurology consult, EEG completed on November 2020 negative for epileptiform but positive for encephalopathy, echocardiogram negative for PFO EF 50-55%, MRI of the brain ordered, PT and OT consults. He secondary to noncompliance 2. History of seizure disorder. Continue Keppra 500 mg twice daily. 3. Leukocytosis secondary to dehydration improved on blood draw. 4. Metabolic encephalopathy. Patient is positive for benzos and marijuana in the urine drug screen. She is not on any benzodiazepine prescriptions. Hold sedating medications continue IV fluids at 1 30 mL/h 5. Lactic acidosis likely secondary to volume loss. seizure cannot be ruled out. Neurology consulted 6. History of HIV. 7. History of hepatitis C. 8. Transaminitis of unclear etiology. Acute hepatitis panel ordered and repeat CMP tomorrow. 9. Peripheral neuropathy. 10. Mild intermittent asthma, stable without exacerbation. Continue albuterol nebulizer treatment every 4 hours as needed. 11. Hyperlipidemia. Patient started on Lipitor. 12. Hypertension. Continue Cozaar 100 mg daily, Lopressor 50 mg twice daily. 13. Schizophrenia, generalized anxiety and recurrent depression. Continue doxepin 150 mg at bedtime, Prozac 40 mg daily, perphenazine 8 mg at bedtime, Vistaril 50 mg at bedtime 14. Gastroesophageal reflux disease and GI prophylaxis. Protonix 40 mg daily. 15. DVT prophylaxis. Heparin subcu. Patient will be admitted to the hospital for a minimum of 2 night stay. Past Medical History Past Medical History: CVA/TIA, Eye Disorder, Fibromyalgia, GERD/Reflux, Hyperlipidemia, Liver Disease, Osteoarthritis (OA), Seizure Disorder Additional Past Medical History / Comment(s): Other HX: had 1 seizure several years ago due to drug interaction, HIV positive, hx. Hep. C, neuropathy, hx. ulcers History of Any Multi-Drug Resistant Organisms: None Reported Past Surgical History: Hysterectomy Additional Past Surgical History / Comment(s): 08/11/15 Anterior cervical decompression fusion C3-4, C4-5 with carpectomy. Past Anesthesia/Blood Transfusion Reactions: No Reported Reaction Past Psychological History: Anxiety, Depression, Schizophrenia Smoking Status: Never smoker Past Alcohol Use History: Occasional Past Drug Use History: Marijuana - Past Family History Father History Unknown: Yes Family Medical History: Unable to Obtain Additional Family Medical History / Comment(s): Pt did not know her father. Mother Family Medical History: No Reported History Medications and Allergies Home Medications Medication Instructions Recorded Confirmed Type Docusate [Colace] 100 mg PO DAILY 12/15/16 02/26/21 History Albuterol Sulfate [Ventolin HFA] 2 puff INHALATION RT-Q4H PRN 12/01/19 02/26/21 History Doxepin HCl [SINEquan] 150 mg PO HS 12/01/19 02/26/21 History Metoprolol Tartrate [Lopressor] 50 mg PO BID 12/01/19 02/26/21 History Perphenazine [Trilafon] 8 mg PO HS 12/01/19 02/26/21 History hydrOXYzine pamoate [Vistaril] 50 mg PO HS 12/01/19 02/26/21 History levETIRAcetam [Keppra] 500 mg PO BID 12/01/19 02/26/21 History FLUoxetine HCL [PROzac] 40 mg PO DAILY #7 cap 03/30/20 02/26/21 Rx Fluticasone Nasal [place] [Flonase 1 spray EA NOSTRIL DAILY 09/08/20 02/26/21 History Nasal [place]] Omeprazole 20 mg PO DAILY 09/08/20 02/26/21 History Losartan Potassium [Cozaar] 100 mg PO DAILY 12/13/20 02/26/21 History Aspirin 81 mg PO DAILY chew 12/17/20 02/26/21 Rx Atorvastatin [Lipitor] 40 mg PO DAILY tab 12/17/20 02/26/21 Rx Clopidogrel [Plavix] 75 mg PO DAILY tab 12/17/20 02/26/21 Rx Folic Acid 1 mg PO DAILY 02/26/21 02/26/21 History Sennosides [Senna] 8.6 mg PO BID 02/26/21 02/26/21 History amLODIPine [Norvasc] 10 mg PO DAILY 02/26/21 02/26/21 History Allergies Allergy/AdvReac Type Severity Reaction Status Date / Time Penicillins Allergy Rash/Hives Verified 02/26/21 13:51 propoxyphene napsylate Allergy Itching Verified 02/26/21 13:51 [From Darvocet-N 100] aspirin AdvReac Nausea & Verified 02/26/21 13:51 Vomiting ibuprofen [From Motrin] AdvReac Nausea & Verified 02/26/21 13:51 Vomiting Physical Exam Vitals: Vital Signs Temp Pulse Pulse Resp BP BP Pulse Ox 02/27/21 08:00 98.4 F 68 16 121/76 94 L 02/27/21 03:44 98.1 F 65 18 119/82 95 02/26/21 23:06 97.7 F 72 14 121/87 96 02/26/21 19:34 97.7 F 83 14 120/79 94 L 02/26/21 18:27 74 16 120/79 96 02/26/21 14:57 98.1 F 84 18 134/92 95 02/26/21 14:15 98.9 F 96 16 136/95 98 02/26/21 13:45 98.6 F 98 16 129/91 98 02/26/21 13:15 98.7 F 101 H 16 127/93 97 02/26/21 13:00 98.9 F 101 H 16 124/93 99 02/26/21 12:45 98.6 F 108 H 16 129/98 98 02/26/21 12:44 98.7 F 111 H 16 142/96 97 02/26/21 12:15 99.0 F 119 H 16 132/96 98 02/26/21 12:11 99.0 F 120 H 16 139/104 92 L Intake and Output 02/26/21 02/27/21 02/27/21 22:59 06:59 14:59 Intake Total 0 240 Output Total 450 Balance 0 -450 240 Intake: Oral 0 240 Output: Urine 450 Other: Voiding Method Toilet # Voids 0 1 1 Weight 77.111 kg Results CBC & Chem 7: 02/27/21 07:46 02/27/21 07:46 Labs: Abnormal Lab Results - Last 24 Hours (Table) 02/26/21 02/26/21 02/26/21 Range/Units 12:10 12:27 12:27 WBC 14.7 H (3.8-10.6) k/uL RBC 5.76 H (3.80-5.40) m/uL Hgb 16.1 H (11.4-16.0) gm/dL Hct 49.1 H (34.0-46.0) % Neutrophils # 13.0 H (1.3-7.7) k/uL VBG pCO2 (37-51) mmHg VBG HCO3 (24-28) mmol/L Chloride (98-107) mmol/L Carbon Dioxide (22-30) mmol/L Glucose (74-99) mg/dL POC Glucose (mg/dL) 200 H (75-99) mg/dL Plasma Lactic Acid Rbobie (0.7-2.0) mmol/L Calcium (8.4-10.2) mg/dL Creatine Kinase (30-135) U/L Urine Appearance Cloudy H (Clear) Ur Specific Drury 1.041 H (1.001-1.035) Urine Protein 1+ H (Negative) Urine Ketones 2+ H (Negative) Urine Bilirubin 1+ H (Negative) Urine Bacteria Rare H (None) /hpf Hyaline Casts 60 H (0-2) /lpf Urine Mucus Many H (None) /hpf U Tricyclic Antidepress Detected H (NotDetected) U Benzodiazepines Scrn Detected H (NotDetected) U Marijuana (THC) Screen Detected H (NotDetected) 02/26/21 02/26/21 02/26/21 Range/Units 12:27 12:27 12:27 WBC (3.8-10.6) k/uL RBC (3.80-5.40) m/uL Hgb (11.4-16.0) gm/dL Hct (34.0-46.0) % Neutrophils # (1.3-7.7) k/uL VBG pCO2 34 L (37-51) mmHg VBG HCO3 21 L (24-28) mmol/L Chloride 109 H (98-107) mmol/L Carbon Dioxide 16 L (22-30) mmol/L Glucose 212 H (74-99) mg/dL POC Glucose (mg/dL) (75-99) mg/dL Plasma Lactic Acid Robbie 4.4 H* (0.7-2.0) mmol/L Calcium 10.5 H (8.4-10.2) mg/dL Creatine Kinase 402 H (30-135) U/L Urine Appearance (Clear) Ur Specific [place] (1.001-1.035) Urine Protein (Negative) Urine Ketones (Negative) Urine Bilirubin (Negative) Urine Bacteria (None) /hpf Hyaline Casts (0-2) /lpf Urine Mucus (None) /hpf U Tricyclic Antidepress (NotDetected) U Benzodiazepines Scrn (NotDetected) U Marijuana (THC) Screen (NotDetected) 02/26/21 02/27/21 02/27/21 Range/Units 18:41 07:46 07:46 WBC 11.4 H (3.8-10.6) k/uL RBC (3.80-5.40) m/uL Hgb (11.4-16.0) gm/dL Hct (34.0-46.0) % Neutrophils # 8.2 H (1.3-7.7) k/uL VBG pCO2 (37-51) mmHg VBG HCO3 (24-28) mmol/L Chloride 112 H (98-107) mmol/L Carbon Dioxide 20 L (22-30) mmol/L Glucose (74-99) mg/dL POC Glucose (mg/dL) (75-99) mg/dL Plasma Lactic Acid Robbie 0.6 L (0.7-2.0) mmol/L Calcium (8.4-10.2) mg/dL Creatine Kinase (30-135) U/L Urine Appearance (Clear) Ur Specific [place] (1.001-1.035) Urine Protein (Negative) Urine Ketones (Negative) Urine Bilirubin (Negative) Urine Bacteria (None) /hpf Hyaline Casts (0-2) /lpf Urine Mucus (None) /hpf U Tricyclic Antidepress (NotDetected) U Benzodiazepines Scrn (NotDetected) U Marijuana (THC) Screen (NotDetected) Thrombosis Risk Factor Assmnt - Choose All That Apply Each Factor Represents 1 point: Obesity (BMI >25) Each Risk Factor Represents 2 Points: Age 61-74 years Other congenital or acquired thrombophilia - If yes, enter type in comment: No Thrombosis Risk Factor Assessment Total Risk Factor Score: 3 Thrombosis Risk Factor Assessment Level: Moderate Risk
[2021-02-27] MEDS: PERPHENAZINE 4 MG TAB PO SCH (19:58)
[2021-02-27] MEDS: hydrOXYzine pamoate 25 MG CAP PO SCH (19:58)
[2021-02-27] MEDS: DOXEPIN 25 MG CAP PO SCH (19:59)
--- NOTE | 2021-02-28 00:57 | P.PN ---
Subjective Progress Note Date: 02/27/21 Patient was seen via Tele-neurology today on 02/27/2021. Patient was seen between 2:07 to 2:15 PM. Patient is laying comfortably in the bed. Patient continues to have right hemip aresis. Patient offers no complaints. Objective - Vital Signs Vital signs: Vital Signs Temp 98.3 F 02/27/21 19:54 Pulse 68 02/27/21 23:44 Resp 18 02/27/21 23:44 BP 122/84 02/27/21 23:44 Pulse Ox 97 02/27/21 23:44 Intake & Output 02/27/21 02/27/21 02/28/21 06:59 18:59 06:59 Intake Total 2220 Output Total 450 400 900 Balance -450 1820 -900 Intake: Intake, IV Titration 1560 Amount Sodium Chloride 0.9% 1, 1560 000 ml @ 130 mls/hr IV . [id number] [facility] Rx#:[id number] Oral 660 Output: Urine 450 400 900 Other: Voiding Method Toilet Toilet # Voids 1 1 1 - Exam Patient is alert and awake. Patient is in no distress, laying comfortably in the bed. Patient's speech is mildly dysarthric but no aphasia. Cranial nerves examination revealed right upper quadrant visual field defect. Patient has right facial weakness, central type. Patient has decreased sensation over right side of the face. On muscle strength testing deltoid is 2, biceps 2, sales representative groceries 1, hip flexion 4. Patient has decreased sensation on the right side as compared to the left. Patient is ataxic on the right side. - Labs CBC & Chem 7: 02/27/21 07:46 02/27/21 07:46 Labs: Abnormal Lab Results - Last 24 Hours (Table) 02/27/21 02/27/21 Range/Units 07:46 07:46 WBC 11.4 H (3.8-10.6) k/uL Neutrophils # 8.2 H (1.3-7.7) k/uL Chloride 112 H (98-107) mmol/L Carbon Dioxide 20 L (22-30) mmol/L HDL Cholesterol 34.0 L (40.0-60.0) mg/dL Assessment and Plan Assessment: * Acute ischemic stroke manifesting with worsening of baseline right hemiparesis. Patient had a recent stroke with right hemiparesis on 12/14/2020. This has got worse as of early this morning. * Medication noncompliance. Patient has not taken her dual antiplatelet medication for last 3 weeks. * Hypertension * X tobacco use * HIV-positive status * Elevated LFTs * Seizure disorder, well controlled on Keppra 500 mg twice a day * Obesity Plan: * Patient's stroke probably occurred because of stopping her antiplatelet medication in the last 3 weeks. * Resume dual antiplatelet medication. * Patient had a SIMON performed 12/17/2020, which revealed no intracardiac thrombus, no evidence of left to right shunt by color flow Doppler or [id number] shunt by agitated saline contrast. Normal left ventricular function. * 2-D echo performed 02/26/2021 showed normal left-ventricular size. Borderline concentric LVH. EF is between 55-60%. Negative bubble study for PFO. Aneurysmal interatrial septum. * CTA of head and neck showed the bifurcation vessels of left MCA are somewhat diminutive relative to the right but appear to enhance distally. Small branch vessel occlusion could not be excluded. No sizable aneurysm. Proximally A2 segments of the anterior cerebral arteries particularly on the right are not well visualized which may be technical and related to positioning. Correlate with MRA and MRI as clinically warranted. Carotids are widely patent. * Patient's last hemoglobin A1c 5.2 on 12/14/2020, no need to repeat. * Lipid panel cholesterol 125, LDL 72.6, HDL 34 and triglycerides 92. Continue Lipitor 40 mg. * Await B12, folate. * Await MRI of the brain to evaluate for the type and extent of stroke. * Continue neuro checks. * Dr. Sea Benitez Will resume neurology service in morning.
[2021-02-28] MEDS: SODIUM CHLORIDE 0.9% 1,000 ML IV SCH ×2 (06:42→12:00)
[2021-02-28] MEDS: PANTOPRAZOLE 40 MG TABLET PO SCH ×2 (06:42→09:57)
[2021-02-28 07:52] VITALS: RESP 16
--- NOTE | 2021-02-28 09:35 | MR ---
EXAMINATION TYPE: MR brain wo con DATE OF EXAM: 02/28/2021 COMPARISON: 12/14/2020 MRI brain, CT brain 02/26/2021 HISTORY: CVA, intracranial stenosis CONTRAST: Performed utilizing 0 mL intravenous Gadavist gadolinium contrast. TECHNIQUE: Multiplanar, multiecho imaging on a 3.0 Lucia magnet is performed through the brain. Stud y is performed within 24 hours of arrival to the hospital. The craniovertebral junction is normal. The pituitary is normal. Diffusion-weighted imaging is performed. There is an area of hyperintensity within the parietal-occi pital junction on the left. This measures 2.9 x 4.6 cm. This is enlarged from the comparison MRI. There are punctate hyperintensities within the left sheets radiata. Subcortical hyperintensities are present within the left centrum semiovale. These have increased in number and in size from the compar nupur. And T2 and inversion recovery weighted sequences of these diffusion hyperintensities are evident. Ad ditionally, there are scattered deep white matter changes which are chronic. Ventricles and sulci are appropriate for the patient age. IMPRESSIONS: 1. Hyperintense ischemic areas within the left occipital parietal junction, sheets radiata, and centr um semiovale including cortex and deep white matter. These are more extensive than the comparison vilma dy with new focal areas within the left sheets radiata and centrum semiovale compatible with expandin g acute ischemic change. 2. There is some mild underlying chronic white matter changes present. A [place] level critical message alert has been initiated for Treva Garces MD via the [employer] Critical Results System on 02/28/2021 9:32 AM. This message alert has been sent to Treva Garces MD v ia the preferences provided by the clinician for the receipt of Radiology Critical Findings. Message ID [id number].
--- NOTE | 2021-02-28 09:37 | MR ---
EXAMINATION TYPE: MR angio head wo con DATE OF EXAM: 02/28/2021 COMPARISON: 02/26/2021 CT brain HISTORY: CVA, intracranial stenosis CONTRAST: None TECHNIQUE: Multiplanar multiecho imaging on a 3.0 Lucia magnet is performed through the [place] [facility]. 3-D [id number] imaging is performed. Source images are reviewed on the computer in the axi al plane. Reconstructed images rotating on the computer are reviewed. FINDINGS: The internal carotid arteries bifurcate normally into A1 and M1 segments. The A2 segments are normal. Middle cerebral artery branches on the left are somewhat smaller caliber than on the rig ht. Focal stenosis however is not identified. Anterior communicating artery is absent. The right posterior communicating artery is patent. The left posterior communicating artery is patent. Vertebrobasilar arteries within the equzv-ju-psup are normal. Posterior cerebral vasculature is norm al. No suspicious aneurysm or aneurysmal dilatation is evident. No obstructions are identified. No significant flow-limiting stenosis is evident. IMPRESSIONS: 1. There is diminished caliber of left middle cerebral artery branches compared to right. Focal obstr uction is not identified. 2. Note is made of abnormal signal in the left parietal-occipital region suggestive for acute infarct .
[2021-02-28] MEDS: ASPIRIN 325 MG TAB PO SCH (09:55)
[2021-02-28] MEDS: LOSARTAN 50 MG TAB PO SCH (09:55)
[2021-02-28] MEDS: SENNOSIDES 8.6 MG TAB PO SCH ×2 (09:55→21:31)
[2021-02-28] MEDS: CLOPIDOGREL 75 MG TAB PO SCH (09:55)
[2021-02-28] MEDS: DOCUSATE 100 MG CAP PO SCH (09:55)
[2021-02-28] MEDS: THIAMINE 100 MG TAB PO SCH (09:55)
[2021-02-28] MEDS: FLUoxetine HCL 20 MG CAP PO SCH (09:56)
[2021-02-28] MEDS: levETIRAcetam 500 MG TAB PO SCH ×2 (09:56→21:31)
[2021-02-28] MEDS: ATORVASTATIN 40 MG TAB PO SCH (09:56)
[2021-02-28] MEDS: FOLIC ACID 1 MG TAB PO SCH (09:57)
[2021-02-28] MEDS: amLODIPine 10 MG TAB PO SCH (09:57)
[2021-02-28] MEDS: METOPROLOL TARTRATE 50 MG TAB PO SCH ×2 (09:57→21:31)
[2021-02-28] MEDS: FLUTICASONE 50MCG/SPRAY NASAL 16GM EA NOSTRIL SCH (10:01)
--- NOTE | 2021-02-28 10:45 | P.CONS ---
History of Present Illness - Chief Complaint Gait disturbance, right hemiparesthesias - History of Present Illness I had the opportunity to see patient for inpatient rehab consultation with regard to gait disturbance. She was admitted to [facility] February 26 acute onset right-sided weakness and history of fall. Seen by neurology, Dr. Landeros. 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 Initial head CT demonstrates old left occipital infarct mouth extension left parietal. Chest x-ray negative. Angiogram CT and head MRA demonstrates decreased caliber left versus right MCA. Brain MRI demonstrates left this up at all, sheets radiata and centrum semiovale infarct as well as chronic white matter change. Previous functional history as elicited from patient: 50-year-old left-handed female single lives in a first-floor apartment alone. Disabled secondary to psychiatric. Describes independent with own cooking, laundry, standing shower and gait without device. Does not drive. PCP is [facility], [facility]. Denies tobacco or alcohol. Patient reports being at least the past pain patient of mine is not on pain medication currently. Review of Systems Review of systems: ENT: Denies sneezes or discharge. Eyes: Denies discharge or photophobia. Cardiac: Denies chest pain or palpitation. Pulmonary: Denies cough or shortness of breath. Breast: Denies discharge or lumps. Gastrointestinal: Denies nausea, emesis, constipation, diarrhea. Genitourinary: Denies discharge or frequency. Musculoskeletal: Denies muscle or bone aches. Neurologic: Right-sided weakness and numbness. Endocrine: Denies shakes or sweats. Oncology: Denies cancers. Dermatologic: Denies rash, itching, pruritus. ALLERGY/immunology: Denies sneezes, rashes. Past Medical History Past Medical History: CVA/TIA, Eye Disorder, Fibromyalgia, GERD/Reflux, Hyperlipidemia, Liver Disease, Osteoarthritis (OA), Seizure Disorder Additional Past Medical History / Comment(s): Other HX: had 1 seizure several years ago due to drug interaction, HIV positive, hx. Hep. C, neuropathy, hx. ulcers History of Any Multi-Drug Resistant Organisms: None Reported Past Surgical History: Hysterectomy Additional Past Surgical History / Comment(s): 08/11/15 Anterior cervical decompression fusion C3-4, C4-5 with carpectomy. Past Anesthesia/Blood Transfusion Reactions: No Reported Reaction Past Psychological History: Anxiety, Depression, Schizophrenia Smoking Status: Never smoker Past Alcohol Use History: Occasional Past Drug Use History: Marijuana - Past Family History Father History Unknown: Yes Family Medical History: Unable to Obtain Additional Family Medical History / Comment(s): Pt did not know her father. Mother Family Medical History: No Reported History Medications and Allergies Home Medications Medication Instructions Recorded Confirmed Type Docusate [Colace] 100 mg PO DAILY 12/15/16 02/26/21 History Albuterol Sulfate [Ventolin HFA] 2 puff INHALATION RT-Q4H PRN 12/01/19 02/26/21 History Doxepin HCl [SINEquan] 150 mg PO HS 12/01/19 02/26/21 History Metoprolol Tartrate [Lopressor] 50 mg PO BID 12/01/19 02/26/21 History Perphenazine [Trilafon] 8 mg PO HS 12/01/19 02/26/21 History hydrOXYzine pamoate [Vistaril] 50 mg PO HS 12/01/19 02/26/21 History levETIRAcetam [Keppra] 500 mg PO BID 12/01/19 02/26/21 History FLUoxetine HCL [PROzac] 40 mg PO DAILY #7 cap 03/30/20 02/26/21 Rx Fluticasone Nasal [place] [Flonase 1 spray EA NOSTRIL DAILY 09/08/20 02/26/21 History Nasal [place]] Omeprazole 20 mg PO DAILY 09/08/20 02/26/21 History Losartan Potassium [Cozaar] 100 mg PO DAILY 12/13/20 02/26/21 History Aspirin 81 mg PO DAILY chew 12/17/20 02/26/21 Rx Atorvastatin [Lipitor] 40 mg PO DAILY tab 12/17/20 02/26/21 Rx Clopidogrel [Plavix] 75 mg PO DAILY tab 12/17/20 02/26/21 Rx Folic Acid 1 mg PO DAILY 02/26/21 02/26/21 History Sennosides [Senna] 8.6 mg PO BID 02/26/21 02/26/21 History amLODIPine [Norvasc] 10 mg PO DAILY 02/26/21 02/26/21 History Allergies Allergy/AdvReac Type Severity Reaction Status Date / Time Penicillins Allergy Rash/Hives Verified 02/26/21 13:51 propoxyphene napsylate Allergy Itching Verified 02/26/21 13:51 [From Darvocet-N 100] aspirin AdvReac Nausea & Verified 02/26/21 13:51 Vomiting ibuprofen [From Motrin] AdvReac Nausea & Verified 02/26/21 13:51 Vomiting Physical Exam Vitals: Vital Signs Temp Pulse Resp BP Pulse Ox 02/28/21 07:55 72 16 02/28/21 07:51 98.4 F 72 16 140/94 95 02/28/21 04:00 98.0 F 68 15 138/96 96 02/27/21 23:44 68 18 122/84 97 02/27/21 19:54 98.3 F 71 16 134/84 97 02/27/21 16:00 62 16 149/95 99 02/27/21 14:00 63 17 02/27/21 11:58 63 17 130/87 96 Intake and Output 02/27/21 02/28/21 02/28/21 22:59 06:59 14:59 Intake Total 1800 1560 118 Output Total 1300 Balance 500 1560 118 Intake: Intake, IV Titration 1560 1560 Amount Sodium Chloride 0.9% 1, 1560 1560 000 ml @ 130 mls/hr IV . Q7H42M [facility] Rx#:[id number] Oral 240 118 Output: Urine 1300 Other: Voiding Method Toilet Toilet Bedside Commode # Voids 1 3 Weight 52 kg Skin: Good color, texture, turgor. General: Thin build and comfortable appearance. Head: Normocephalic, atraumatic. Eyes: Symmetric. Pupils equal round. Ears: Symmetric. Hearing within normal limits. Mouth: Clear. Neck: Supple. Carotid without bruit. Cardiac: Regular rate and rhythm. Lungs: Clear anteriorly and posteriorly. Abdomen: Soft active nontender. Extremities: Normal tone. Neurological: Mental status: Alert, cooperative, pleasant. Cranial nerves: Symmetric facial tone and trapezius. Motor: Normal strength and isolation left arm and leg. Right arm poor and right leg extension synergy. Sensation: Intact left side and diminished right side. DTRs: Symmetric and equal throughout. Mobility: Sits with physical assistance. Results CBC & Chem 7: 02/27/21 07:46 02/27/21 07:46 Labs: Abnormal Lab Results - Last 24 Hours (Table) 02/27/21 Range/Units 07:46 HDL Cholesterol 34.0 L (40.0-60.0) mg/dL Assessment and Plan (1) Cerebrovascular accident (CVA) Current Visit: Yes Status: Acute Code(s): I63.9 - CEREBRAL INFARCTION, UNSPE CIFIED SNOMED Code(s): 405877405 (2) Cervical myelopathy Current Visit: No Status: Acute Code(s): G95.9 - DISEASE OF SPINAL CORD, UNSPECIFIED SNOMED Code(s): 996287801 (3) Degenerative disc disease at L5-S1 level Current Visit: No Status: Acute Code(s): M51.36 - OTHER INTERVERTEBRAL DISC DEGENERATION, LUMBAR REGION SNOMED Code(s): 48521941 Plan: Impression: 1. Gait disturbance due to stroke result in right hemiparesthesias history of previous stroke. 2. DDD cervical and lumbar spine with history of chronic pain. 3. Synthroid. 4. Fibromyalgia. 5. Dyslipidemia. 6. Liver disease. 7. GERD. Constant plan: At this time PT, OT, F[employer] E[employer]MENT MAINTENANCE SUPERVISOR all prescribed. Have discussed with patient possible need and benefit of inpatient rehab particularly in face of stroke. She is agreeable if necessary which seems likely, note that she lives alone.
[2021-02-28 11:29] LABS: Folate, Serum 11.5 ng/mL
--- NOTE | 2021-02-28 12:06 | P.PN ---
Subjective Progress Note Date: 02/28/21 HISTORY OF PRESENT ILLNESS This is a 60-year-old female patient of David Akins NP at [facility] with past medical history of mild intermittent asthma, fibromyalgia, hyperlipidemia, hypertension, seizure disorderfollows with Dr. Juarez as her neurologist, HIV, hepatitis C, neuropathy, schizophrenia. Patient was diagnosed with seizure 1 year ago and had only had one episode of seizure activity which she relates is medication related. She is maintained on Keppra . Patient was seen in November 2020 or fall and weakness involving right arm. CAT scan of the brain resulted as may be indicative of subacute infarct. CT angiogram of the head and neck showed no significant abnormality. Case was reviewed by stroke team remotely with no recommendations for TPA or thrombectomy. It was recommended for aspirin and neurology consult. Echocardiogram reveals EF of 45-50% with moderate concentric left ventricle hypertrophy, trace to mild mitral regurgitation, mild tricuspid regurgitation. Aortic root is dilated at 3.8 cm. MRI of the brain revealed evolving acute/subacute infarct 3.7 cm left occipital lobe. Background of mild diffuse cerebral atrophy and moderate to borderline advanced chronic small vessel ischemic change. Patient was seen by Dr. Landeros who recommended patient starting Plavix. EEG revealed abnormal due to slight disorganization and with excessive fast frequency beta activity. This is suggestive of mild generalized cerebral dysfunction as seen in encephalopathy from metabolic causes or medication effect. No definitive epileptiform activity was seen. Patient underwent SIMON today which was negative for thrombus, shunts. Patient is discharged to inpatient rehab. Patient was brought in by the EMS at around 12 PM. As per the report patient wa s found to be stumbling around in the empty parking lot by the bystander. She had fallen multiple times. Patient fall and was found to be confused and using the wrong words. She was unable to move her right lower extremity. According to the charts patient was walking to the bank from her home and she was noted to be stumbling in the parking lot. She was placed on the stretcher unable to stand on the right leg leg but was able to lift her right leg while on the stretcher. She was noted to be cold and clammy and very diaphoretic. Patient does not remember the incidence on evaluation today. She does state that she was weaker on the right side but is unable to provide any details of the history. In the ER, patient's vitals suggested a temp of 98.7 pulse 111 respiratory rate 16 blood pressure 142/96 oxygen saturation 97% on [address] head and echo suggested no acute hemorrhage or mass effect. Remote infarct involving the left occipital lobe was seen. Chest x-ray was negative for acute process CT angiogram since his bifurcation muscle of the left MCA to be diminutive relative to the right but appears to enhance distantly small vessel occlusion could not be excluded. No aneurysm noted proximal A2 segment of anterior cerebral arteries vertically in the right was not visualized. MRA and MRI was recommended EKG was suggestive of sinus tachycardia Echocardiogram was suggestive of borderline concentric left ventricular hypertrophy with EF 55-60%. Negative bubble study no PFO seen aneurysm of the interatrial septum noted. Labs were reviewed patient had a leukocytosis of 14.7 hemoglobin 16.1 platelet 282. Sodium 142 potassium 4.2 chloride 109 bicarb 16 glucose 212 lactic acid was 4.4 calcium 10.5 creatinine kinase 4 to troponin 1 negative prolactin was 6.2 8/2: MRI of the brain reveals hyperintense ischemic areas within the left occipital parietal junction, sheets radiata and centrum semiovale including cortex and deep white matter. These are more extensive than the comparison study with no focal areas within the left sheets radiata and centrum semiovale babble with expanding acute ischemic change. There is some mild underlying chronic white matter changes present. Consult was added for Dr. George for inpatient rehab evaluation. PT OT and speech therapies are ordered ROS Constitutional: Denies chills, Denies fever, Denies lethargy, Denies malaise, Denies poor appetite, Denies weakness, Denies weight loss Eyes: denies decreased vision, denies diplopia, denies discharge, denies pain Ears: deny: decreased hearing Ears, nose, mouth and throat: Denies dental pain, Denies headache, Denies nasal discharge, Denies nose pain Cardiovascular: Denies chest pain, Denies decreased exercise tolerance, Denies edema, Denies high blood pressure, Denies irregular heart beat, Denies palpitations, Denies paroxysmal nocturnal dyspnea, Denies rapid heart beat, Denies shortness of breath Respiratory: Denies congestion, Denies cough, Denies cough with sputum, Denies dyspnea, Denies home oxygen, Denies wheezing Gastrointestinal: Denies abdominal pain, Denies change in bowel habits, Denies coffee ground emesis, Denies early satiety, Denies excessive gas, Denies heartburn, Denies hematemesis, Denies hematochezia, Denies loss of appetite, Denies nausea, Denies vomiting Genitourinary: Denies dysuria, Denies flank pain, Denies kidney stones, Denies menorrhagia, Denies urgency, Denies urinary frequency Musculoskeletal: Endorses gait dysfunction, endorses limitation of motion, Denies morning stiffness, Denies muscle cramps Integumentary: Denies rash, Denies wounds, Denies brittle nails, Denies change in hair/nails, Denies darkening of skin Neurological: Denies balance difficulties, Denies change in speech, Denies double vision, endorses gait dysfunction, Denies loss of vision, endorses motor disturbance improved since yesterday, Denies numbness, Denies paralysis, Denies paresthesias, Denies seizures Psychiatric: Denies anxiety, Denies depression Endocrine: Denies excessive sweating, Denies excessive thirst, Denies high blood sugars, Denies palpitations Hematologic/Lymphatic: Denies easy bruising, Denies lymphadenopathy Physical exam - Constitutional General appearance: cooperative, no acute distress, obese - EENT Eyes: anicteric sclerae, PERRLA, normal appearance as right facial droop with decreased sensation on the right visual field intact ENT: hearing grossly normal - Neck Neck: no lymphadenopathy, normal ROM, no other, no rigidity, no stridor, no thyromegaly - Respiratory Respiratory: bilateral: CTA, negative: diminished, dullness, rales, rhonchi - Cardiovascular Rhythm: regular Heart sounds: normal: S1, S2 Abnormal Heart Sounds: no systolic murmur, no diastolic murmur, no rub, no S3 Gallop, no S4 Gallop, no click, no other - Gastrointestinal General gastrointestinal: normal bowel sounds, soft - Integumentary Integumentary: no rash - Neurologic Neurologic: Right facial droop, right upper extremity weakness with positive pronator drift sensation decreased on the right side. Reflexes reduced in the upper limb. [id number] abnormal on the right - Musculoskeletal Musculoskeletal: gait normal, strength equal bilaterally - Psychiatric Psychiatric: A&O x's 3, appropriate affect Assessment and plan 1. Right arm weakness, secondary to acute ischemic CVA. Continue aspirin 325 mg daily, Plavix 75 mg daily Lipitor 40 mg daily, neurology consult appreciated, EEG completed on November 2020 negative for epileptiform but positive for encephalopathy, echocardiogram negative for PFO EF 50-55%, ST PT and OT consults. CVA secondary to noncompliance with Plavix. 2. History of seizure disorder. Continue Keppra 500 mg twice daily. 3. Leukocytosis secondary to dehydration improved on blood draw. 4. Metabolic encephalopathy. Patient is positive for benzos and marijuana in the urine drug screen. She is not on any benzodiazepine prescriptions. Hold sedating medications continue IV fluids at 1 30 mL/h 5. Lactic acidosis likely secondary to volume loss. seizure cannot be ruled out. Neurology consulted 6. History of HIV. 7. History of hepatitis C. 8. Transaminitis of unclear etiology. Acute hepatitis panel ordered and repeat CMP tomorrow. 9. Peripheral neuropathy. 10. Mild intermittent asthma, stable without exacerbation. Continue albuterol nebulizer treatment every 4 hours as needed. 11. Hyperlipidemia. Patient started on Lipitor. 12. Hypertension. Continue Cozaar 100 mg daily, Lopressor 50 mg twice daily. 13. Schizophrenia, generalized anxiety and recurrent depression. Continue doxepin 150 mg at bedtime, Prozac 40 mg daily, perphenazine 8 mg at bedtime, Vistaril 50 mg at bedtime 14. Gastroesophageal reflux disease and GI prophylaxis. Protonix 40 mg daily. 15. DVT prophylaxis. Heparin subcu. Discharge plan Most likely inpatient or subacute rehab, PT and OT consults, consult with Dr. George Impression and plan of care have been directed as dictated by the signing physician. Penny Lugo nurse practitioner acting as scribe for signing physician. Objective - Vital Signs Vital signs: Vital Signs Temp 98.4 F 02/28/21 07:51 Pulse 72 02/28/21 07:55 Resp 16 02/28/21 07:55 BP 140/94 02/28/21 07:51 Pulse Ox 95 02/28/21 07:51 Intake & Output 02/27/21 02/28/21 02/28/21 18:59 06:59 18:59 Intake Total 2220 1560 118 Output Total 400 900 Balance 1820 660 118 Weight 52 kg Intake: Intake, IV Titration 1560 1560 Amount Sodium Chloride 0.9% 1, 1560 1560 000 ml @ 130 mls/hr IV . Q7H42M [facility] Rx#:[id number] Oral 660 118 Output: Urine 400 900 Other: Voiding Method Toilet Toilet Bedside Commode # Voids 1 3 - Labs CBC & Chem 7: 02/27/21 07:46 02/27/21 07:46 Labs: Abnormal Lab Results - Last 24 Hours (Table) 02/27/21 Range/Units 07:46 HDL Cholesterol 34.0 L (40.0-60.0) mg/dL
--- NOTE | 2021-02-28 16:19 | P.PN ---
Subjective Progress Note Date: 02/28/21 I am seeing the patient for the first time for neurological management. Please refer to Dr. Landeros's note for detailed history and his assessment and plan. The patient stated she feels about the same today compared to yesterday and denies of any neurological problems. MRI of the brain is reported as hyperintense ischemic area within the left occipital parietal junction, sheets radiata and Centrum; valve including the cortex and deep white matter. These are more extensive than the comparison study with new focal area within the left sheets radiata and centrum semiovale old valve compatible with an expanding acute ischemic change. There is some mild underlying chronic white matter changes at present. Prior study was on 12/14/2020 MRA of the head is reported as there is diminished caliber of the left middle cerebral artery branches compared to the right. Focal obstruction is not identified. Note is made of an abnormal signal in the left parietal occipital region suggestive for acute infarct Objective - Vital Signs Vital signs: Vital Signs Temp 98.1 F 02/28/21 12:00 Pulse 64 02/28/21 12:00 Resp 16 02/28/21 13:37 BP 120/86 02/28/21 12:00 Pulse Ox 93 L 02/28/21 12:00 Intake & Output 02/27/21 02/28/21 02/28/21 18:59 06:59 18:59 Intake Total 2220 1560 118 Output Total 400 900 Balance 1820 660 118 Weight 52 kg Intake: Intake, IV Titration 1560 1560 Amount Sodium Chloride 0.9% 1, 1560 1560 000 ml @ 130 mls/hr IV . Q7H42M [facility] Rx#:[id number] Oral 660 118 Output: Urine 400 900 Other: Voiding Method Toilet Toilet Bedside Commode # Voids 1 3 - Exam Patient is alert and awake. Patient is in no distress, laying comfortably in the bed. No aphasia or neglectc. Cranial nerves examination revealed right upper quadrant visual field defect. Normal facial sensation to touch. Patient has right facial weakness, central type. Patient's speech is mildly dysarthric On muscle strength testing Right has increased tone over the right upper extremity especially the hand. Deltoid is 2, biceps 2. While right hip flexion 4 and right lower extremity is 4+. Otherwise 5/5 over the left. Sensation is normal to touch throughout. WORK-UP: * 2-D echo performed 02/26/2021 showed normal left-ventricular size. Borderline concentric LVH. EF is between 55-60%. Negative bubble study for PFO. Aneurysmal interatrial septum. * CTA of head and neck showed the bifurcation vessels of left MCA are somewhat diminutive relative to the right but appear to enhance distally. Small branch vessel occlusion could not be excluded. No sizable aneurysm. Proximally A2 segments of the anterior cerebral arteries particularly on the right are not well visualized which may be technical and related to positioning. Correlate with MRA and MRI as clinically warranted. Carotids are widely patent. * Patient's last hemoglobin A1c 5.2 on 12/14/2020, no need to repeat. * Lipid panel cholesterol 125, LDL 72.6, HDL 34 and triglycerides 92. Continue Lipitor 40 mg. * MRI of the brain is reported as hyperintense ischemic area within the left occipital parietal junction, sheets radiata and Centrum seimiovalve including the cortex and deep white matter. These are more extensive than the comparison study with new focal area within the left sheets radiata and centrum semiovale old valve compatible with an expanding acute ischemic change. There is some mild underlying chronic white matter changes at present. Prior study was on 12/14/2020 * MRA of the head is reported as there is diminished caliber of the left middle cerebral artery branches compared to the right. Focal obstruction is not identified. Note is made of an abnormal signal in the left parietal occipital region suggestive for acute infarct * Vitamin B12: 1381 (normal). Folate 11.5 (normal). * Patient had a SIMON performed 12/17/2020, which revealed no intracardiac thrombus, no evidence of left to right shunt by color flow Doppler or [id number] shunt by agitated saline contrast. Normal left ventricular function. - Labs CBC & Chem 7: 02/27/21 07:46 02/27/21 07:46 Labs: Abnormal Lab Results - Last 24 Hours (Table) 02/28/21 Range/Units 07:19 Vitamin B12 1381.0 H (200.0-944.0) pg/mL Assessment and Plan Assessment: * Acute ischemic stroke manifesting with worsening of baseline right hemiparesi s. Patient had a recent stroke with right hemiparesis on 12/14/2020. Seems embolic * Medication noncompliance. Patient has not taken her dual antiplatelet medication for last 3 weeks. * Diminished caliber of the left middle cerebral artery branches * Hypertension * X tobacco use * HIV-positive status * Elevated LFTs * Seizure disorder, well controlled on Keppra 500 mg twice a day * Obesity Plan: * MRI of the brain is reported as hyperintense ischemic area within the left o ccipital parietal junction, sheets radiata and Centrum seimiovalve including the cortex and deep white matter. These are more extensive than the comparison study with new focal area within the left sheets radiata and centrum semiovale old valve compatible with an expanding acute ischemic change. There is some mild underlying chronic white matter changes at present. Prior study was on 12/14/2020. * Patient had a SIMON performed 12/17/2020, which revealed no intracardiac thrombus, no evidence of left to right shunt by color flow Doppler or [id number] shunt by agitated saline contrast. Normal left ventricular function. * Patient does not want to pursue with a repeat SIMON. * Resume dual antiplatelet medication (ASA 325mg daily and Plavix 75mg daily). Increased Lipitor 80mg daily from 40mg for secondary stroke prophylaxis. * Continue Q4 hours neuro-checks. * On cardiac monitoring. * PT, OT and [facility] are consuted. * Inpatient rehab team is consulted. * Ordered event monitor and patient needs to follow-up with pediatric psychiatrist. * Ordered HIV CD4/CD8 and will defer management to primary team. * For DVT prophylaxis: Placed on subq heparin 5000U eveyr 12 hours. * Upon discharge, the patient needs to follow-up with a neurologist as outpatient within 1-2 weeks. There is no further neurological work-up. She is clear for discharge and hopefully inpatient rehab which I think the patient will benefit from. Sea Benitez MD Neuro-Hospitalist Time with Patient: Less than 30
[2021-02-28] MEDS: hydrOXYzine pamoate 25 MG CAP PO SCH (21:30)
[2021-02-28] MEDS: HEPARIN SODIUM,PORCINE/PF 5,000 UNIT/0.5 ML SYRINGE SQ SCH (21:30)
[2021-02-28] MEDS: PERPHENAZINE 4 MG TAB PO SCH (21:31)
[2021-02-28] MEDS: DOXEPIN 25 MG CAP PO SCH (21:31)
[2021-03-01] MEDS: PANTOPRAZOLE 40 MG TABLET PO SCH (06:39)
[2021-03-01] MEDS: SODIUM CHLORIDE 0.9% 1,000 ML IV SCH ×3 (06:39→13:27)
[2021-03-01] MEDS: HEPARIN SODIUM,PORCINE/PF 5,000 UNIT/0.5 ML SYRINGE SQ SCH (07:47)
[2021-03-01] MEDS: FOLIC ACID 1 MG TAB PO SCH (07:47)
[2021-03-01] MEDS: LOSARTAN 50 MG TAB PO SCH (07:47)
[2021-03-01] MEDS: ASPIRIN 325 MG TAB PO SCH (07:47)
[2021-03-01] MEDS: FLUoxetine HCL 20 MG CAP PO SCH (07:47)
[2021-03-01] MEDS: amLODIPine 10 MG TAB PO SCH (07:47)
[2021-03-01] MEDS: DOCUSATE 100 MG CAP PO SCH (07:48)
[2021-03-01] MEDS: CLOPIDOGREL 75 MG TAB PO SCH (07:48)
[2021-03-01] MEDS: SENNOSIDES 8.6 MG TAB PO SCH (07:48)
[2021-03-01] MEDS: levETIRAcetam 500 MG TAB PO SCH (07:48)
[2021-03-01] MEDS: METOPROLOL TARTRATE 50 MG TAB PO SCH (07:48)
[2021-03-01] MEDS: THIAMINE 100 MG TAB PO SCH (07:48)
[2021-03-01] MEDS: FLUTICASONE 50MCG/SPRAY NASAL 16GM EA NOSTRIL SCH (07:49)
[2021-03-01] MEDS ORDERED: ATORVASTATIN 40 MG TAB PO SCH (09:00)
[2021-03-01 09:06] LABS: T4/T8 Ratio (CD4:CD8) 1.5 (1.0-3.7)
--- NOTE | 2021-03-01 09:37 | P.DS ---
Providers Date of admission: 02/26/21 13:48 Expected date of discharge: 03/01/21 Attending physician: Treva Garces MD Consults: 02/26/21 13:49 Consult Physician Routine Consulting Provider: Ester Landeros Consult Reason/Comments: CVA, possible seizure Do you want consulting provider notified?: Yes 02/28/21 09:48 Consult Physician Routine Consulting Provider: Anirudh George Consult Reason/Comments: IP rehab Do you want consulting provider notified?: Yes Primary care physician: [facility] Hospital Course: HISTORY OF PRESENT ILLNESS This is a 60-year-old female patient of David Akins [employer]ING [employer]ATE at [facility] with past medical history of mild intermittent asthma, fibromyalgia, hyperlipidemia, hypertension, seizure disorderfollows with Dr. Juarez as her neurologist, HIV, hepatitis C, neuropathy, schizophrenia. Patient was diagnosed with seizure 1 year ago and had only had one episode of seizure activity which she relates is medication related. She is maintained on Keppra . Patient was seen in November 2020 or fall and weakness involving right arm. CAT scan of the brain resulted as may be indicative of subacute infarct. CT angiogram of the head and neck showed no significant abnormality. Case was reviewed by stroke team remotely with no recommendations for TPA or thrombectomy. It was recommended for aspirin and neurology consult. Echocardiogram reveals EF of 45-50% with moderate concentric left ventricle hypertrophy, trace to mild mitral regurgitation, mild tricuspid regurgitation. Aortic root is dilated at 3.8 cm. MRI of the brain revealed evolving acute/subacute infarct 3.7 cm left occipital lobe. Background of mild diffuse cerebral atrophy and moderate to borderline advanced chronic small vessel ischemic change. Patient was seen by Dr. Landeros who recommended patient starting Plavix. EEG revealed abnormal due to slight disorganization and with excessive fast frequency beta activity. This is suggestive of mild generalized cerebral dysfunction as seen in encephalopathy from metabolic causes or medication effect. No definitive epileptiform activity was seen. Patient underwent SIMON today which was negative for thrombus, shunts. Patient is discharged to inpatient rehab. Patient was brought in by the EMS at around 12 PM. As per the report patient was found to be stumbling around in the empty parking lot by the bystander. She had fallen multiple times. Patient fall and was found to be confused and using the wrong words. She was unable to move her right lower extremity. According to the charts patient was walking to the bank from her home and she was noted to be stumbling in the parking lot. She was placed on the stretcher unable to stand on the right leg leg but was able to lift her right leg while on the stretcher. She was noted to be cold and clammy and very diaphoretic. Patient does not remember the incidence on evaluation today. She does state that she was weaker on the right side but is unable to provide any details of the history. In the ER, patient's vitals suggested a temp of 98.7 pulse 111 respiratory rate 16 blood pressure 142/96 oxygen saturation 97% on [address] head and echo suggested no acute hemorrhage or mass effect. Remote infarct involving the left occipital lobe was seen. Chest x-ray was negative for acute process CT angiogram since his bifurcation muscle of the left MCA to be diminutive relative to the right but appears to enhance distantly small vessel occlusion could not be excluded. No aneurysm noted proximal A2 segment of anterior cerebral arteries vertically in the right was not visualized. MRA and MRI was recommended EKG was suggestive of sinus tachycardia Echocardiogram was suggestive of borderline concentric left ventricular hypertrophy with EF 55-60%. Negative bubble study no PFO seen aneurysm of the interatrial septum noted. Labs were reviewed patient had a leukocytosis of 14.7 hemoglobin 16.1 platelet 282. Sodium 142 potassium 4.2 chloride 109 bicarb 16 glucose 212 lactic acid was 4.4 calcium 10.5 creatinine kinase 4 to troponin 1 negative prolactin was 6.2 02/28: MRI of the brain reveals hyperintense ischemic areas within the left occipital parietal junction, sheets radiata and centrum semiovale including cortex and deep white matter. These are more extensive than the comparison study with no focal areas within the left sheets radiata and centrum semiovale babble with expanding acute ischemic change. There is some mild underlying chronic white matter changes present. Consult was added for Dr. George for inpatient rehab evaluation. PT OT and speech therapies are ordered 03/01: Neurology as recommended Plavix 75 mg daily, aspirin 325 mg daily and increase Lipitor to 80 mg daily which will be continued at discharge. Neurology is also recommending an event monitor which we will leave this for cardiology to arrange. Patient has been afebrile, heart rate 60, blood pressure 129/81, pulse ox 95% on room air. 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 Patient will be discharged to inpatient rehab once authorization has been obtained. Assessment and plan 1. Right arm weakness, secondary to acute ischemic CVA. 2. History of seizure disorder. 3. Leukocytosis secondary to dehydration improved on blood draw. 4. Metabolic encephalopathy. Patient is positive for benzos and marijuana in the urine drug screen. She is not on any benzodiazepine prescriptions. 5. Lactic acidosis likely secondary to volume loss. 6. History of HIV. 7. History of hepatitis C. 8. Transaminitis of unclear etiology. 9. Peripheral neuropathy. 10. Mild intermittent asthma, stable without exacerbation. 11. Hyperlipidemia. 12. Hypertension. 13. Schizophrenia, generalized anxiety and recurrent depression. 14. Gastroesophageal reflux disease. Discharge plan [facility] for inpatient or subacute rehab with Dr. George Impression and plan of care have been directed as dictated by the signing physician. Penny Lugo nurse practitioner acting as scribe for signing physician. Patient Condition at Discharge: Stable Plan - Discharge Summary Discharge Rx Participant: No New Discharge Prescriptions: New Aspirin 325 mg PO DAILY tab Thiamine [Vitamin B-1] 100 mg PO DAILY tab Continue Docusate [Colace] 100 mg PO DAILY Albuterol Sulfate [Ventolin HFA] 2 puff INHALATION RT-Q4H PRN PRN Reason: Shortness Of Breath Doxepin HCl [SINEquan] 150 mg PO HS hydrOXYzine pamoate [Vistaril] 50 mg PO HS levETIRAcetam [Keppra] 500 mg PO BID Metoprolol Tartrate [Lopressor] 50 mg PO BID Perphenazine [Trilafon] 8 mg PO HS FLUoxetine HCL [PROzac] 40 mg PO DAILY #7 cap Fluticasone Nasal [place] [Flonase Nasal [place]] 1 spray EA NOSTRIL DAILY Omeprazole 20 mg PO DAILY amLODIPine [Norvasc] 10 mg PO DAILY Folic Acid 1 mg PO DAILY Sennosides [Senna] 8.6 mg PO BID Losartan Potassium [Cozaar] 100 mg PO DAILY Clopidogrel [Plavix] 75 mg PO DAILY tab Changed Atorvastatin [Lipitor] 80 mg PO DAILY #0 tab Discontinued Aspirin 81 mg PO DAILY chew Discharge Medication List Docusate [Colace] 100 mg PO DAILY 12/15/16 [History] Albuterol Sulfate [Ventolin HFA] 2 puff INHALATION RT-Q4H PRN 12/01/19 [History] Doxepin HCl [SINEquan] 150 mg PO HS 12/01/19 [History] Metoprolol Tartrate [Lopressor] 50 mg PO BID 12/01/19 [History] Perphenazine [Trilafon] 8 mg PO HS 12/01/19 [History] hydrOXYzine pamoate [Vistaril] 50 mg PO HS 12/01/19 [History] levETIRAcetam [Keppra] 500 mg PO BID 12/01/19 [History] FLUoxetine HCL [PROzac] 40 mg PO DAILY #7 cap 03/30/20 [Rx] Fluticasone Nasal [place] [Flonase Nasal [place]] 1 spray EA NOSTRIL DAILY 09/08/20 [History] Omeprazole 20 mg PO DAILY 09/08/20 [History] Losartan Potassium [Cozaar] 100 mg PO DAILY 12/13/20 [History] Clopidogrel [Plavix] 75 mg PO DAILY tab 12/17/20 [Rx] Folic Acid 1 mg PO DAILY 02/26/21 [History] Sennosides [Senna] 8.6 mg PO BID 02/26/21 [History] amLODIPine [Norvasc] 10 mg PO DAILY 02/26/21 [History] Aspirin 325 mg PO DAILY tab 03/01/21 [Rx] Atorvastatin [Lipitor] 80 mg PO DAILY #0 tab 03/01/21 [Rx] Thiamine [Vitamin B-1] 100 mg PO DAILY tab 03/01/21 [Rx] Follow up Appointment(s)/Referral(s): [facility] [Primary Care Provider] - 1 Week (after dc from rehab) Discharge Disposition: DC/TRNS INTERMEDIATE CARE FAC
[2021-03-01 11:07] VITALS: BP 129/81; PULSE 60; TEMP 98
== END 2021-03-01 16:45 | DRG 64 ==
LOC: EC 12:07 → 3SCARD 13:48
PROVIDERS: ADMIT Internal Medicine; ATTEND Internal Medicine
DX: I63.412 Cerebral infarction due to embolism of left middle cerebral artery (principal); G93.41 Metabolic encephalopathy; G81.91 Hemiplegia, unspecified affecting right dominant side; G93.49 Other encephalopathy; E87.2 Acidosis; F33.9 Major depressive disorder, recurrent, unspecified; M51.06 Intervertebral disc disorders with myelopathy, lumbar region; M50.00 Cervical disc disorder with myelopathy, unspecified cervical region; I10 Essential (primary) hypertension; R29.709 NIHSS score 9; Z21 Asymptomatic human immunodeficiency virus [HIV] infection status; G40.909 Epilepsy, unspecified, not intractable, without status epilepticus; E66.9 Obesity, unspecified; E78.5 Hyperlipidemia, unspecified; D72.829 Elevated white blood cell count, unspecified; E86.0 Dehydration; F17.200 Nicotine dependence, unspecified, uncomplicated; F20.9 Schizophrenia, unspecified; F41.1 Generalized anxiety disorder; G62.9 Polyneuropathy, unspecified; I11.9 Hypertensive heart disease without heart failure; J45.20 Mild intermittent asthma, uncomplicated; K21.9 Gastro-esophageal reflux disease without esophagitis; M51.37 Other intervertebral disc degeneration, lumbosacral region; K76.9 Liver disease, unspecified; M79.7 Fibromyalgia; G89.29 Other chronic pain; M19.90 Unspecified osteoarthritis, unspecified site; Z91.19 Patient's noncompliance with other medical treatment and regimen; Z91.14 Patient's other noncompliance with medication regimen; Z90.710 Acquired absence of both cervix and uterus; Z79.899 Other long term (current) drug therapy; Z79.82 Long term (current) use of aspirin; Z79.02 Long term (current) use of antithrombotics/antiplatelets
CPT/HCPCS: 36415; 70450; 70496; 70498; 70544; 70551; 71045; 80048; 80053; 80061; 80306; 80320; 81001; 82550; 82607; 82746; 82803; 83605; 83735; 84146; 84484; 85025; 85610; 85730; 86360; 93005; 93270; 93306; 96360; 99285

== ENCOUNTER 2021-03-23 15:32 | Observation (INO) | payer OTHER ==
--- NOTE | 2021-03-23 16:02 | ED ---
General Adult HPI - General Chief complaint: Weakness Stated complaint: weakness Time Seen by Provider: 03/23/21 15:41 Source: patient, family Mode of arrival: EMS Limitations: no limitations - History of Present Illness Initial comments: Is a 4-year-old female with a history of seizure disorder, CVA, hypertension, hyperlipidemia HIV, hepatitis who presents emergency department for generalized weakness, lightheadedness and fatigue. The patient states that she was walking and became very hot and flushed and felt lightheaded like she was going to pass out. She states she became very generally weak. The patient states that she does not believe that she had a seizure however does have a history of seizures. She states that she did not take her morning dose of Keppra today however has been compliant otherwise. She states that she has not had any chest pain or shortness of breath. No cough. She's had no nausea, vomiting, or diarrhea. No abdominal pain. She states that she's been urinating normally without any dysuria or hematuria. The patient does have some right upper extremity weakness which she states is chronic for quite some time and secondary to her history of stroke. She denies any new focal weakness however just feels generally weak. She states that she has not eaten or drank today and has been outside most of the day in the heat. She denies any other complaints at this time. - Related Data Home Medications Medication Instructions Recorded Confirmed Docusate [Colace] 100 mg PO DAILY 12/15/16 03/23/21 Albuterol Sulfate [Ventolin HFA] 2 puff INHALATION RT-Q4H PRN 12/01/19 03/23/21 Doxepin HCl [SINEquan] 150 mg PO HS 12/01/19 03/23/21 Metoprolol Tartrate [Lopressor] 50 mg PO BID 12/01/19 03/23/21 hydrOXYzine pamoate [Vistaril] 50 mg PO HS 12/01/19 03/23/21 levETIRAcetam [Keppra] 500 mg PO BID 12/01/19 03/23/21 Fluticasone Nasal [place] [Flonase 1 spray EA NOSTRIL DAILY 09/08/20 03/23/21 Nasal [place]] Omeprazole 20 mg PO DAILY 09/08/20 03/23/21 Losartan Potassium [Cozaar] 100 mg PO DAILY 12/13/20 03/23/21 Folic Acid 1 mg PO DAILY 02/26/21 03/23/21 Sennosides [Senna] 8.6 mg PO BID 02/26/21 03/23/21 amLODIPine [Norvasc] 10 mg PO DAILY 02/26/21 03/23/21 Aspirin EC [Ecotrin Low Dose] 81 mg PO DAILY 03/23/21 03/23/21 Atorvastatin [Lipitor] 40 mg PO DAILY 03/23/21 03/23/21 Perphenazine 8mg 8 mg PO HS 03/23/21 03/23/21 Previous Rx's Medication Instructions Recorded FLUoxetine HCL [PROzac] 40 mg PO DAILY #7 cap 03/30/20 Clopidogrel [Plavix] 75 mg PO DAILY tab 12/17/20 Thiamine [Vitamin B-1] 100 mg PO DAILY tab 03/01/21 Allergies Allergy/AdvReac Type Severity Reaction Status Date / Time Penicillins Allergy Rash/Hives Verified 03/23/21 16:16 propoxyphene napsylate Allergy Itching Verified 03/23/21 16:16 [From Darvocet-N 100] aspirin AdvReac Nausea & Verified 03/23/21 16:16 Vomiting ibuprofen [From Motrin] AdvReac Nausea & Verified 03/23/21 16:16 Vomiting Review of Systems ROS Statement: Those systems with pertinent positive or pertinent negative responses have been documented in the HPI. ROS Other: All systems not noted in ROS Statement are negative. Past Medical History Past Medical History: CVA/TIA, Eye Disorder, Fibromyalgia, GERD/Reflux, Hyperlipidemia, Liver Disease, Osteoarthritis (OA), Seizure Disorder Additional Past Medical History / Comment(s): Other HX: had 1 seizure several y ears ago due to drug interaction, HIV positive, hx. Hep. C, neuropathy, hx. ulcers. Seizure 03/19 History of Any Multi-Drug Resistant Organisms: None Reported Past Surgical History: Hysterectomy Additional Past Surgical History / Comment(s): 08/11/15 Anterior cervical decompression fusion C3-4, C4-5 with carpectomy. Past Anesthesia/Blood Transfusion Reactions: No Reported Reaction Past Psychological History: Anxiety, Depression, Schizophrenia Smoking Status: Never smoker Past Alcohol Use History: Occasional Past Drug Use History: Marijuana - Past Family History Father History Unknown: Yes Family Medical History: Unable to Obtain Additional Family Medical History / Comment(s): Pt did not know her father. Mother Family Medical History: No Reported History General Exam - General Exam Comments Initial Comments: Constitutional: Awake alert Appears comfortable Head: Normocephalic atraumatic Eyes: no conjunctival injection No scleral icterus EOMI, pupils are 3 mm and reactive bilaterally Neck: No JVD Supple Heart: Tachycardia with regular rhythm normal S1-S2 no murmurs Lungs: Clear to auscultation bilaterally No wheezing No rales Abdomen: Soft nondistended nontender Extremities: Non edematous DP pulses intact Radial pulses intact Neuro: Patient is a wake and alert and oriented 2. The patient is unable to tell me the month or the year correctly, cranial nerves II through XII are grossly intact, the patient has 5 out of 5 strength in left upper and bilateral lower extremities in that she is able to hold both of her legs off of the gurney and hold her left arm up. She does have some weakness to the right upper extremity with decreased [employer] strength and decreased ability to hold her arm and gravity. Psych: Appropriate mood and affect Limitations: no limitations Course Vital Signs 03/23/21 03/23/21 03/23/21 15:36 16:15 19:28 Temperature 99.7 F H 98.9 F 98.1 F Pulse Rate 129 H 103 H 93 Respiratory 18 16 16 Rate Blood Pressure 146/95 144/104 O2 Sat by Pulse 93 L 93 L 94 L Oximetry EKG Findings - EKG Comments: EKG Findings:: EKG showing sinus tachycardia with a rate of 106. There are no abnormal ST segment changes. Appears to be some T-wave flattening in V2 and V3. QTC is 464. Other intervals appear normal. No ectopy. Medical Decision Making - Medical Decision Making This is a 60-year-old female who presents emergency department for an episode of lightheadedness, generalized weakness, fatigue. The patient was found have confused speech on arrival and all seem to have some word finding difficulties. Also some slurred speech and some chronic weakness of the right upper extremity. She also had some ataxia of the bilateral lower extremities. All these things seem to be chronic except for the aphasia. When I asked the patient when her speech changes started she stated last month however earlier she stated that it started a couple of days ago. The patient is a very poor historian.. The patient is not TPA candidate because she is outside of TPA window and unclear last known normal. Blood work was performed and unremarkable. The patient was given IV fluids with improvement in her symptoms. I was able to get the patient up and she was able to stand and walk under her own power however her speech changes remained. I did review the patient's previous admission and she does have some significant narrowing of the left MCA and also has a seizure history. Unclear the patient had a minor seizure and this was she's having persistent neurologic deficits from her previous stroke or if she had worsening perfusion of the left MCA territory. I spoke with Dr. Lomeli he recommended the patient be placed in observation for his evaluation tomorrow. The patient was given aspirin and Prolonged emergency department. The patient will be monitored overnight. Dr. Nuñez accepts the patient for admission. - Lab Data Result diagrams: 03/23/21 15:54 03/23/21 15:54 Lab Results 03/23/21 03/23/21 03/23/21 Range/Units 15:54 15:54 15:54 WBC 13.2 H (3.8-10.6) k/uL RBC 5.33 (3.80-5.40) m/uL Hgb 14.8 (11.4-16.0) gm/dL Hct 45.5 (34.0-46.0) % MCV 85.4 (80.0-100.0) fL MCH 27.8 (25.0-35.0) pg MCHC 32.6 (31.0-37.0) g/dL RDW 14.5 (11.5-15.5) % Plt Count 282 (150-450) k/uL MPV 8.0 Neutrophils % 85 % Lymphocytes % 9 % Monocytes % 4 % Eosinophils % 0 % Basophils % 0 % Neutrophils # 11.3 H (1.3-7.7) k/uL Lymphocytes # 1.2 (1.0-4.8) k/uL Monocytes # 0.6 (0-1.0) k/uL Eosinophils # 0.0 (0-0.7) k/uL Basophils # 0.0 (0-0.2) k/uL Hypochromasia Slight PT 10.8 (9.0-12.0) sec INR 1.0 (<1.2) APTT 23.6 (22.0-30.0) sec Sodium (137-145) mmol/L Potassium (3.5-5.1) mmol/L Chloride (98-107) mmol/L Carbon Dioxide (22-30) mmol/L Anion Gap mmol/L BUN (7-17) mg/dL Creatinine (0.52-1.04) mg/dL Est GFR (CKD-EPI)AfAm (>60 ml/min/1.73 sqM) Est GFR (CKD-EPI)NonAf (>60 ml/min/1.73 sqM) Glucose (74-99) mg/dL Plasma Lactic Acid Robbie (0.7-2.0) mmol/L Calcium (8.4-10.2) mg/dL Total Bilirubin (0.2-1.3) mg/dL AST (14-36) U/L ALT (4-34) U/L Alkaline Phosphatase (38-126) U/L Troponin I (0.000-0.034) ng/mL Total Protein (6.3-8.2) g/dL Albumin (3.5-5.0) g/dL Urine Color Light Yellow Urine Appearance Clear (Clear) Urine pH 6.5 (5.0-8.0) Ur Specific [place] 1.009 (1.001-1.035) Urine Protein Negative (Negative) Urine Glucose (UA) Negative (Negative) Urine Ketones Trace H (Negative) Urine Blood Negative (Negative) Urine Nitrite Negative (Negative) Urine Bilirubin Negative (Negative) Urine Urobilinogen <2.0 (<2.0) mg/dL Ur Leukocyte Esterase Negative (Negative) Urine Opiates Screen (NotDetected) Ur Oxycodone Screen (NotDetected) Urine Methadone Screen (NotDetected) Ur Propoxyphene Screen (NotDetected) Ur Barbiturates Screen (NotDetected) U Tricyclic Antidepress (NotDetected) Ur Phencyclidine Scrn (NotDetected) Ur Amphetamines Screen (NotDetected) U Methamphetamines Scrn (NotDetected) U Benzodiazepines Scrn (NotDetected) Urine Cocaine Screen (NotDetected) U Marijuana (THC) Screen (NotDetected) Serum Alcohol mg/dL Coronavirus (PCR) (Not Detectd) 03/23/21 03/23/21 03/23/21 Range/Units 15:54 15:54 15:54 WBC (3.8-10.6) k/uL RBC (3.80-5.40) m/uL Hgb (11.4-16.0) gm/dL Hct (34.0-46.0) % MCV (80.0-100.0) fL MCH (25.0-35.0) pg MCHC (31.0-37.0) g/dL RDW (11.5-15.5) % Plt Count (150-450) k/uL MPV Neutrophils % % Lymphocytes % % Monocytes % % Eosinophils % % Basophils % % Neutrophils # (1.3-7.7) k/uL Lymphocytes # (1.0-4.8) k/uL Monocytes # (0-1.0) k/uL Eosinophils # (0-0.7) k/uL Basophils # (0-0.2) k/uL Hypochromasia PT (9.0-12.0) sec INR (<1.2) APTT (22.0-30.0) sec Sodium 138 (137-145) mmol/L Potassium 4.2 (3.5-5.1) mmol/L Chloride 103 (98-107) mmol/L Carbon Dioxide 23 (22-30) mmol/L Anion Gap 12 mmol/L BUN 16 (7-17) mg/dL Creatinine 0.95 (0.52-1.04) mg/dL Est GFR (CKD-EPI)AfAm 75 (>60 ml/min/1.73 sqM) Est GFR (CKD-EPI)NonAf 65 (>60 ml/min/1.73 sqM) Glucose 133 H (74-99) mg/dL Plasma Lactic Acid Robbie 1.9 (0.7-2.0) mmol/L Calcium 10.1 (8.4-10.2) mg/dL Total Bilirubin 1.0 (0.2-1.3) mg/dL AST 41 H (14-36) U/L ALT 34 (4-34) U/L Alkaline Phosphatase 96 (38-126) U/L Troponin I 0.033 (0.000-0.034) ng/mL Total Protein 7.7 (6.3-8.2) g/dL Albumin 4.7 (3.5-5.0) g/dL Urine Color Urine Appearance (Clear) Urine pH (5.0-8.0) Ur Specific [place] (1.001-1.035) Urine Protein (Negative) Urine Glucose (UA) (Negative) Urine Ketones (Negative) Urine Blood (Negative) Urine Nitrite (Negative) Urine Bilirubin (Negative) Urine Urobilinogen (<2.0) mg/dL Ur Leukocyte Esterase (Negative) Urine Opiates Screen (NotDetected) Ur Oxycodone Screen (NotDetected) Urine Methadone Screen (NotDetected) Ur Propoxyphene Screen (NotDetected) Ur Barbiturates Screen (NotDetected) U Tricyclic Antidepress (NotDetected) Ur Phencyclidine Scrn (NotDetected) Ur Amphetamines Screen (NotDetected) U Methamphetamines Scrn (NotDetected) U Benzodiazepines Scrn (NotDetected) Urine Cocaine Screen (NotDetected) U Marijuana (THC) Screen (NotDetected) Serum Alcohol <10 mg/dL Coronavirus (PCR) (Not Detectd) 03/23/21 03/23/21 03/23/21 Range/Units 16:02 16:10 19:30 WBC (3.8-10.6) k/uL RBC (3.80-5.40) m/uL Hgb (11.4-16.0) gm/dL Hct (34.0-46.0) % MCV (80.0-100.0) fL MCH (25.0-35.0) pg MCHC (31.0-37.0) g/dL RDW (11.5-15.5) % Plt Count (150-450) k/uL MPV Neutrophils % % Lymphocytes % % Monocytes % % Eosinophils % % Basophils % % Neutrophils # (1.3-7.7) k/uL Lymphocytes # (1.0-4.8) k/uL Monocytes # (0-1.0) k/uL Eosinophils # (0-0.7) k/uL Basophils # (0-0.2) k/uL Hypochromasia PT (9.0-12.0) sec INR (<1.2) APTT (22.0-30.0) sec Sodium (137-145) mmol/L Potassium (3.5-5.1) mmol/L Chloride (98-107) mmol/L Carbon Dioxide (22-30) mmol/L Anion Gap mmol/L BUN (7-17) mg/dL Creatinine (0.52-1.04) mg/dL Est GFR (CKD-EPI)AfAm (>60 ml/min/1.73 sqM) Est GFR (CKD-EPI)NonAf (>60 ml/min/1.73 sqM) Glucose (74-99) mg/dL Plasma Lactic Acid Robbie (0.7-2.0) mmol/L Calcium (8.4-10.2) mg/dL Total Bilirubin (0.2-1.3) mg/dL AST (14-36) U/L ALT (4-34) U/L Alkaline Phosphatase (38-126) U/L Troponin I 0.071 H* (0.000-0.034) ng/mL Total Protein (6.3-8.2) g/dL Albumin (3.5-5.0) g/dL Urine Color Urine Appearance (Clear) Urine pH (5.0-8.0) Ur Specific [place] (1.001-1.035) Urine Protein (Negative) Urine Glucose (UA) (Negative) Urine Ketones (Negative) Urine Blood (Negative) Urine Nitrite (Negative) Urine Bilirubin (Negative) Urine Urobilinogen (<2.0) mg/dL Ur Leukocyte Esterase (Negative) Urine Opiates Screen Not Detected (NotDetected) Ur Oxycodone Screen Not Detected (NotDetected) Urine Methadone Screen Not Detected (NotDetected) Ur Propoxyphene Screen Not Detected (NotDetected) Ur Barbiturates Screen Not Detected (NotDetected) U Tricyclic Antidepress Detected H (NotDetected) Ur Phencyclidine Scrn Not Detected (NotDetected) Ur Amphetamines Screen Not Detected (NotDetected) U Methamphetamines Scrn Not Detected (NotDetected) U Benzodiazepines Scrn Detected H (NotDetected) Urine Cocaine Screen Not Detected (NotDetected) U Marijuana (THC) Screen Detected H (NotDetected) Serum Alcohol mg/dL Coronavirus (PCR) Not Detected (Not Detectd) Disposition Clinical Impression: Aphasia Disposition: ADMITTED IP TO THIS HOSP Condition: Stable Referrals: [facility] [Primary Care Provider] - 1-2 days
[2021-03-23] MEDS: SODIUM CHLORIDE 0.9% 500 ML 500 ML IV SCH ×2 (16:13→17:00)
[2021-03-23] MEDS ORDERED: levETIRAcetam 500 MG TAB PO STA (16:16)
[2021-03-23 16:21] LABS: Basophils % (A) 0 %; Eosinophils % (A) 0 %; HCT 45.5 % (34.0-46.0); HGB 14.8 gm/dL (11.4-16.0); Hypochromasia Slight; Lymphocytes # (A) 1.2 k/uL (1.0-4.8); Lymphocytes % (A) 9 %; MCH 27.8 pg (25.0-35.0); MCHC 32.6 g/dL (31.0-37.0); MCV 85.4 fL (80.0-100.0); Monocytes # (A) 0.6 k/uL (0-1.0); Monocytes % (A) 4 %; Neutrophils # (A) 11.3 k/uL (1.3-7.7); Neutrophils % (A) 85 %; Platelet Count 282 k/uL (150-450); RBC 5.33 m/uL (3.80-5.40); RDW 14.5 % (11.5-15.5); WBC 13.2 k/uL (3.8-10.6)
--- NOTE | 2021-03-23 16:33 | XR ---
EXAMINATION TYPE: XR chest 1V portable DATE OF EXAM: 03/23/2021 Comparison: 02/26/2021 Clinical History: 60-year-old female Fever Findings: Large patient body habitus. Overlying soft tissue cast hazy densities over the mid and lower lungs. H eart upper limits of normal in size. Aorta and pulmonary vasculature within normal limits. Allowing f or the exam limitations, no definite consolidation or pleural effusion. ACDF hardware. Impression: Limitations due to portable technique and large body habitus. No definite acute process.
[2021-03-23 16:36] LABS: ALT 34 U/L (4-34); AST 41 U/L (14-36); African American GFR (CKD) 75 (>60 ml/min/1.73 sqM); Albumin 4.7 g/dL (3.5-5.0); Alcohol <10 mg/dL; Alkaline Phosphatase 96 U/L (38-126); Anion Gap 12 mmol/L; Blood Urea Nitrogen 16 mg/dL (7-17); Calcium 10.1 mg/dL (8.4-10.2); Carbon Dioxide 23 mmol/L (22-30); Chloride 103 mmol/L (98-107); Glucose 133 mg/dL (74-99); Non-African American GFR(CKD) 65 (>60 ml/min/1.73 sqM); Potassium 4.2 mmol/L (3.5-5.1); Sodium 138 mmol/L (137-145); Total Protein 7.7 g/dL (6.3-8.2)
[2021-03-23 16:37] LABS: Partial Thromboplastin Time 23.6 sec (22.0-30.0); Prothrombin Time 10.8 sec (9.0-12.0)
--- NOTE | 2021-03-23 18:01 | CT ---
EXAMINATION TYPE: CT brain wo con DATE OF EXAM: 03/23/2021 HISTORY: Altered mental status. CT DLP: 1064.4 mGycm. Automated Exposure Control for Dose Reduction was Utilized. TECHNIQUE: CT scan of the head is performed without contrast. COMPARISON: 02/26/2021 CT. FINDINGS: There is no acute intracranial hemorrhage, midline shift, or mass effect identified. There is redemon strated left parietal encephalomalacia. The ventricles, sulci, and cisterns are normal in size and configuration. No abnormal extra-axial fluid collection. No depressed calvarial fracture. The globes are grossly sym metric. Visualized sinuses and mastoid air cells are clear. IMPRESSION: 1. No acute intracranial hemorrhage, midline shift, or mass effect. 2. Nonacute encephalomalacia of the left parietal lobe redemonstrated.
[2021-03-23 18:49] LABS: Appearance,Urine Clear (Clear); Bilirubin,Urine Negative (Negative); Blood,Urine Negative (Negative); Color,Urine Light Yellow; Glucose,Urine (UA) Negative (Negative); Ketones,Urine Trace (Negative); Leukocyte Esterase,Urine Negative (Negative); Nitrite,Urine Negative (Negative); PH, Urine 6.5 (5.0-8.0); Protein,Urine Negative (Negative); Specific Gravity,Urine 1.009 (1.001-1.035); Urobilinogen,Urine <2.0 mg/dL (<2.0)
[2021-03-23 19:09] LABS: Amphetamine Screen,Urine Not Detected (NotDetected); Barbiturate Screen,Urine Not Detected (NotDetected); Benzodiazepines Screen,Urine Detected (NotDetected); Cocaine Screen,Urine Not Detected (NotDetected); Methadone Screen, Urine Not Detected (NotDetected); Opiate Screen,Urine Not Detected (NotDetected); Oxycodone Screen, Urine Not Detected (NotDetected); Phencyclidine Screen,Urine Not Detected (NotDetected); Tricyclic Antidepressant,Urine Detected (NotDetected); Urn Cannabinoid Scrn Detected (NotDetected)
[2021-03-23] MEDS ORDERED: ASPIRIN 81 MG PO STA (20:13)
[2021-03-24] MEDS ORDERED: ALBUTEROL NEBULIZED 2.5 MG/3 ML INHALATION PRN (00:07)
[2021-03-24] MEDS ORDERED: HYDROcodone/APAP 5-325MG 1 EACH TAB PO PRN (00:09)
[2021-03-24] MEDS ORDERED: ACETAMINOPHEN TAB 500 MG TAB PO PRN (00:09)
[2021-03-24] MEDS ORDERED: NITROGLYCERIN SL TABS 0.4 MG TAB SUBLINGUAL PRN (00:10)
[2021-03-24] MEDS ORDERED: PANTOPRAZOLE 40 MG TABLET PO SCH (07:30)
[2021-03-24 08:47] VITALS: RESP 16; TEMP 98.1
[2021-03-24] MEDS ORDERED: LOSARTAN 50 MG TAB PO SCH (09:00)
[2021-03-24] MEDS ORDERED: FLUTICASONE 50MCG/SPRAY NASAL 16GM EA NOSTRIL SCH (09:00)
[2021-03-24] MEDS ORDERED: levETIRAcetam 500 MG TAB PO SCH (09:00)
[2021-03-24] MEDS ORDERED: METOPROLOL TARTRATE 50 MG TAB PO SCH (09:00)
[2021-03-24] MEDS ORDERED: ASPIRIN 81 MG PO SCH (09:00)
[2021-03-24] MEDS ORDERED: SENNOSIDES 8.6 MG TAB PO SCH (09:00)
[2021-03-24] MEDS ORDERED: FOLIC ACID 1 MG TAB PO SCH (09:00)
[2021-03-24] MEDS ORDERED: THIAMINE 100 MG TAB PO SCH (09:00)
[2021-03-24] MEDS ORDERED: CLOPIDOGREL 75 MG TAB PO SCH (09:00)
[2021-03-24] MEDS ORDERED: FLUoxetine HCL 20 MG CAP PO SCH (09:00)
[2021-03-24] MEDS ORDERED: ATORVASTATIN 40 MG TAB PO SCH (09:00)
[2021-03-24] MEDS ORDERED: DOCUSATE 100 MG CAP PO SCH (09:00)
[2021-03-24] MEDS ORDERED: amLODIPine 10 MG TAB PO SCH (09:00)
[2021-03-24 11:53] VITALS: BP 129/85; PULSE 58
[2021-03-24 12:54] LABS: LDL Cholesterol,Calculated 56.4 mg/dL (0.0-131.0); VLDL Calculation 17.6 mg/dL (5.00-40.00)
--- NOTE | 2021-03-24 13:25 | P.HPIM ---
History of Present Illness H&P Date: 03/24/21 (This document was of both as H&P and discharge) HISTORY OF PRESENT ILLNESS This is a 60-year-old female patient of David Akins NP at [facility] with past medical history of mild intermittent asthma, fibromyalgia, hyperlipidemia, hypertension, seizure disorderfollows with Dr. Juarez as her neurologist, HIV, hepatitis C, neuropathy, schizophrenia. Patient was diagnosed with seizure 1 year ago and had only had one episode of seizure activity which she relates is medication related. She is maintained on Keppra . Patient was seen in November 2020 or fall and weakness involving right arm. She was last admitted on 02/25 was still 8/3 and was finally discharged to inpatient rehab for weakness involving lower extremity. Patient had MRI of the brain reveals hyperintense ischemic areas within the left occipital parietal junction, sheets radiata and centrum semiovale including cortex and deep white matter. These are more extensive than the comparison study with no focal areas within the left sheets radiata and centrum semiovale with expanding acute ischemic change. patient did really well in the IPR and was discharged the day before from our inpatient rehab after completing her rehab stay at [facility]. Patient is a poor historian Patient states she was walking outside in the heat and was not drinking enough water. . She complained of inability to speak clearly was fatigue and confused and decided to come to the ER . Patient does have upper extremity weakness on the right bridge of which is chronic and there has improved mobility compared to prior to rehab. Patient was unable to tell that her speech changes started. She was not a TPA candidate. Blood work was drawn which was unremarkable patient does have a WBC of 13.2 and rest of the labs were normal. T head and echo suggested no acute hemorrhage or mass effect. Remote infarct involving the leftparietal lobe with encephalomalacia noted no acute intracranial hemorrhage or midline shift or mass effect was seen. Patient has a urine drug screen and was noted to be positive for marijuana, benzodiazepine and tricyclic antidepressants agent which patient denies that she took. Echo from 02/25 for suggest a normal ejection fraction 55-60%. Patient had bubble study no PFO was noted no valvular or wall abnormality was noted. ROS Constitutional: Denies chills, Denies fevEndorses improvement in lethargicDenies poor appetite,, Denies weight loss Eyes: denies decreased vision, denies diplopia, denies discharge, denies pain Ears: deny: decreased hearing Ears, nose, mouth and throat: Denies dental pain, Denies headache, Denies nasal discharge, Denies nose pain Cardiovascular: Denies chest pain, Denies decreased exercise tolerance, Denies edema, Denies high blood pressure, Denies irregular heart beat, Denies palpitations, Denies paroxysmal nocturnal dyspnea, Denies rapid heart beat, Denies shortness of breath Respiratory: Denies congestion, Denies cough, Denies cough with sputum, Denies dyspnea, Denies home oxygen, Denies wheezing Gastrointestinal: Denies abdominal pain, Denies change in bowel habits, Denies coffee ground emesis, Denies early satiety, Denies excessive gas, Denies heartburn, Denies hematemesis, Denies hematochezia, Denies loss of appetite, Denies nausea, Denies vomiting Genitourinary: Denies dysuria, Denies flank pain, Denies kidney stones, Denies menorrhagia, Denies urgency, Denies urinary frequency Musculoskeletal: Endorses gait dysfunction, endorses limitation of motion, Denies morning stiffness, Denies muscle cramps Integumentary: Denies rash, Denies wounds, Denies brittle nails, Denies change in hair/nails, Denies darkening of skin Neurological: Denies balance difficulties,Endorses changes in speech, Denies double vision, endorses gait dysfunction, Denies loss of vision, endorses motor disturbance improved since yesterday, Denies numbness, Denies paralysis, Denies paresthesias, Denies seizures Psychiatric: Denies anxiety, Denies depression Endocrine: Denies excessive sweating, Denies excessive thirst, Denies high blood sugars, Denies palpitations Hematologic/Lymphatic: Denies easy bruising, Denies lymphadenopathy Physical exam - Constitutional General appearance: cooperative, no acute distress, obese - EENT Eyes: anicteric sclerae, PERRLA, normal appearance as right facial droop with decreased sensation on the right, right hemianopia ENT: hearing grossly normal - Neck Neck: no lymphadenopathy, normal ROM, no other, no rigidity, no stridor, no thyromegaly - Respiratory Respiratory: bilateral: CTA, negative: diminished, dullness, rales, rhonchi - Cardiovascular Rhythm: regular Heart sounds: normal: S1, S2 Abnormal Heart Sounds: no systolic murmur, no diastolic murmur, no rub, no S3 Gallop, no S4 Gallop, no click, no other - Gastrointestinal General gastrointestinal: normal bowel sounds, soft - Integumentary Integumentary: no rash - Neurologic Neurologic: Right facial droop, right upper extremity weakness with positive pronator drift sensation decreased on the right side. Reflexes reduced in the upper limb.speech is clear with some expressive aphasia noted - Musculoskeletal Musculoskeletal: gait normal, strength equal bilaterally - Psychiatric Psychiatric: A&O x's 3, appropriate affect Assessment and plan 1. expressive aphasia with right arm weaknes. Acute CVA could not be ruled out. Patient has diffuse abnormalities noted in previous exam as well. CT head was negative for acute stroke Continue aspirin 325 mg daily, Plavix 75 mg daily Lipitor 40 mg daily, neurology consult,echocardiogram negative for PFO EF 50-55% 2. History of seizure disorder. Continue Keppra 500 mg twice daily. 3. Leukocytosis secondary to dehydration improved on blood draw. 4. Metabolic encephalopathy. Patient is positive for benzos and marijuana in the urine drug screen. She is not on any benzodiazepine prescriptions. Patient refuses the use of marijuana or benzodiazepines. 5. Troponin elevation likely secondary to type II myocardial infarctions. No mismatch of dependence supply. ACS ruled out troponin downtrending 6. History of HIV. 7. History of hepatitis C. 8. Transaminitis of unclear etiology. Acute hepatitis panel ordered was negative. Peripheral neuropathy. 10. Mild intermittent asthma, stable without exacerbation. Continue albuterol nebulizer treatment every 4 hours as needed. 11. Hyperlipidemia. Patient started on Lipitor. 12. Hypertension. Continue Cozaar 100 mg daily, Lopressor 50 mg twice daily. 13. Schizophrenia, generalized anxiety and recurrent depression. Continue doxepin 150 mg at bedtime, Prozac 40 mg daily, perphenazine 8 mg at bedtime, Vistaril 50 mg at bedtime 14. Gastroesophageal reflux disease and GI prophylaxis. Protonix 40 mg daily. 15. DVT prophylaxis. Heparin subcu. 16 disposition patient did be discharged once cleared by neurology Past Medical History Past Medical History: CVA/TIA, Eye Disorder, Fibromyalgia, GERD/Reflux, Hyperlipidemia, Liver Disease, Osteoarthritis (OA), Seizure Disorder Additional Past Medical History / Comment(s): Other HX: had 1 seizure several years ago due to drug interaction, HIV positive, hx. Hep. C, neuropathy, hx. ulcers. Seizure 03/19 History of Any Multi-Drug Resistant Organisms: None Reported Past Surgical History: Hysterectomy Additional Past Surgical History / Comment(s): 08/11/15 Anterior cervical decompression fusion C3-4, C4-5 with carpectomy. Past Anesthesia/Blood Transfusion Reactions: No Reported Reaction Past Psychological History: Anxiety, Depression Additional Psychological History / Comment(s): Pt lives alone. She uses a walker or wheelchair. 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 She gets rides through her insurance. Smoking Status: Former smoker, Never smoker Past Alcohol Use History: None Reported Additional Past Alcohol Use History / Comment(s): Pt states she stopped smoking "years ago." Past Drug Use History: Marijuana Additional Drug Use History / Comment(s): medical use-smokes on occasion. - Past Family History Father History Unknown: Yes Family Medical History: Unable to Obtain Additional Family Medical History / Comment(s): Pt did not know her father. Mother Family Medical History: No Reported History Medications and Allergies Home Medications Medication Instructions Recorded Confirmed Type Docusate [Colace] 100 mg PO DAILY 12/15/16 03/23/21 History Albuterol Sulfate [Ventolin HFA] 2 puff INHALATION RT-Q4H PRN 12/01/19 03/23/21 History Doxepin HCl [SINEquan] 150 mg PO HS 12/01/19 03/23/21 History Metoprolol Tartrate [Lopressor] 50 mg PO BID 12/01/19 03/23/21 History hydrOXYzine pamoate [Vistaril] 50 mg PO HS 12/01/19 03/23/21 History levETIRAcetam [Keppra] 500 mg PO BID 12/01/19 03/23/21 History FLUoxetine HCL [PROzac] 40 mg PO DAILY #7 cap 03/30/20 03/23/21 Rx Fluticasone Nasal [place] [Flonase 1 spray EA NOSTRIL DAILY 09/08/20 03/23/21 History Nasal [place]] Omeprazole 20 mg PO DAILY 09/08/20 03/23/21 History Losartan Potassium [Cozaar] 100 mg PO DAILY 12/13/20 03/23/21 History Clopidogrel [Plavix] 75 mg PO DAILY tab 12/17/20 03/23/21 Rx Folic Acid 1 mg PO DAILY 02/26/21 03/23/21 History Sennosides [Senna] 8.6 mg PO BID 02/26/21 03/23/21 History amLODIPine [Norvasc] 10 mg PO DAILY 02/26/21 03/23/21 History Thiamine [Vitamin B-1] 100 mg PO DAILY tab 03/01/21 03/23/21 Rx Aspirin EC [Ecotrin Low Dose] 81 mg PO DAILY 03/23/21 03/23/21 History Atorvastatin [Lipitor] 40 mg PO DAILY 03/23/21 03/23/21 History Perphenazine 8mg 8 mg PO HS 03/23/21 03/23/21 History Allergies Allergy/AdvReac Type Severity Reaction Status Date / Time Penicillins Allergy Rash/Hives Verified 03/23/21 16:16 propoxyphene napsylate Allergy Itching Verified 03/23/21 16:16 [From Darvocet-N 100] aspirin AdvReac Nausea & Verified 03/23/21 16:16 Vomiting ibuprofen [From Motrin] AdvReac Nausea & Verified 03/23/21 16:16 Vomiting Physical Exam Vitals: Vital Signs Temp Pulse Pulse Resp BP BP Pulse Ox 03/24/21 08:35 98.1 F 83 16 127/85 95 03/24/21 03:28 98.4 F 82 18 135/89 96 03/23/21 23:38 98.3 F 82 18 122/82 97 03/23/21 22:01 98.3 F 93 18 143/92 94 L 03/23/21 21:56 90 16 154/94 94 L 03/23/21 19:28 98.1 F 93 16 144/104 94 L 03/23/21 16:15 98.9 F 103 H 16 93 L 03/23/21 15:36 99.7 F H 129 H 18 146/95 93 L Intake and Output 03/23/21 03/24/21 03/24/21 22:59 06:59 14:59 Other: Voiding Method Toilet # Voids 2 1 Weight 73.482 kg 75.1 kg Results CBC & Chem 7: 03/23/21 15:54 03/23/21 15:54 Labs: Abnormal Lab Results - Last 24 Hours (Table) 03/23/21 03/23/21 03/23/21 Range/Units 15:54 15:54 15:54 WBC 13.2 H (3.8-10.6) k/uL Neutrophils # 11.3 H (1.3-7.7) k/uL Glucose 133 H (74-99) mg/dL AST 41 H (14-36) U/L Troponin I (0.000-0.034) ng/mL Urine Ketones Trace H (Negative) U Tricyclic Antidepress (NotDetected) U Benzodiazepines Scrn (NotDetected) U Marijuana (THC) Screen (NotDetected) 03/23/21 03/23/21 Range/Units 16:10 19:30 WBC (3.8-10.6) k/uL Neutrophils # (1.3-7.7) k/uL Glucose (74-99) mg/dL AST (14-36) U/L Troponin I 0.071 H* (0.000-0.034) ng/mL Urine Ketones (Negative) U Tricyclic Antidepress Detected H (NotDetected) U Benzodiazepines Scrn Detected H (NotDetected) U Marijuana (THC) Screen Detected H (NotDetected) Thrombosis Risk Factor Assmnt - Choose All That Apply Any of the Below Risk Factors Present?: Yes Each Factor Represents 1 point: Obesity (BMI >25) Other Risk Factors: Yes Each Risk Factor Represents 2 Points: Age 61-74 years Other congenital or acquired thrombophilia - If yes, enter type in comment: No Thrombosis Risk Factor Assessment Total Risk Factor Score: 3 Thrombosis Risk Factor Assessment Level: Moderate Risk
--- NOTE | 2021-03-24 16:38 | P.CNNES ---
History of Present Illness Consult date: 03/24/21 Requesting physician: Boogie Neely Reason for Consult: Speech changes History of Present Illness: Patient is a 60-year-old female well known to me from recent multiple admissions to the hospital for recurrent strokes, came to the hospital because she was concerned if she was having a stroke. She was noticing that she was stuttering. It was very hot outside. Because of some speech difficulty, she got concerned and decided to come to the ER. Patient denies any worsening of her weakness. He believes that she does not have a stroke. Patient previously has been noncompliant with her medications, but now she states that she takes her medications regularly. Her blood pressure on arrival was 146/95, pulse rate 129, temperature 99.7. Patient's telemetry monitoring so far since admission has shown sinus rhythm. Computed tomography scan of head showed no acute intracranial process. Non- acute encephalomalacia of the left parietal lobe redemonstrated. Chest x-ray showed limitations due to portable technique and large body habitus. No definite acute process. EKG shows sinus tachycardia with heart rate of 106. Possible left atrial enlargement. Patient has been seen by myself on 12/14/2020 with initial stroke involving the left parietal occipital region. She was again seen in the hospital on , when the same stroke had extended. Patient was not taking her antiplatelet medications regularly at that time. Patient states that now she is compliant with all her medications. 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 Patient's blood test shows WBC 13.0 hemoglobin 14.8, platelets 282. PT/PTT normal, Chem-7 is normal. AST is 41, ALT 34. Troponin was normal at first, but second one was mildly elevated 0.071. Her lipid panel shows cholesterol 111, LDL 56.4, HDL 37 and triglycerides 88. Her last hemoglobin A1c 5.2 on 12/14/2020. Patient had a normal B12 1381, folate 11.5 in the past. Her last CTA of head and neck from 02/26/2021 showed the bifurcation vessels of the left MCA are somewhat diminutive relative to the right, but appear to enhance distally. Small branch vessel occlusion could not be excluded. No sizable aneurysm. Proximally A2 segment of the anterior cerebral arteries particularly on the right are not well visualized patient will be technical and related to positioning. Correlate with MRA. Carotid bifurcations are widely patent. Patient had a SIMON performed 12/17/2020 which showed no embolic source. Review of Systems As above. Chronic right arm weakness, mild stuttering, mild dysarthria. Denies any chest pain, shortness of breath. Denies abdominal pain nausea vomiting diarrhea. Past Medical History Past Medical History: CVA/TIA, Eye Disorder, Fibromyalgia, GERD/Reflux, Hyperlipidemia, Liver Disease, Osteoarthritis (OA), Seizure Disorder Additional Past Medical History / Comment(s): Other HX: had 1 seizure several years ago due to drug interaction, HIV positive, hx. Hep. C, neuropathy, hx. u lcers. Seizure 03/19 History of Any Multi-Drug Resistant Organisms: None Reported Past Surgical History: Hysterectomy Additional Past Surgical History / Comment(s): 08/11/15 Anterior cervical decompression fusion C3-4, C4-5 with carpectomy. Past Anesthesia/Blood Transfusion Reactions: No Reported Reaction Past Psychological History: Anxiety, Depression Additional Psychological History / Comment(s): Pt lives alone. She uses a walker or wheelchair. 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 She gets rides through her insurance. Smoking Status: Former smoker, Never smoker Past Alcohol Use History: None Reported Additional Past Alcohol Use History / Comment(s): Pt states she stopped smoking "years ago." Past Drug Use History: Marijuana Additional Drug Use History / Comment(s): medical use-smokes on occasion. - Past Family History Father History Unknown: Yes Family Medical History: Unable to Obtain Additional Family Medical History / Comment(s): Pt did not know her father. Mother Family Medical History: No Reported History Medications and Allergies Home Medications Medication Instructions Recorded Confirmed Type Docusate [Colace] 100 mg PO DAILY 12/15/16 03/23/21 History Albuterol Sulfate [Ventolin HFA] 2 puff INHALATION RT-Q4H PRN 12/01/19 03/23/21 History Doxepin HCl [SINEquan] 150 mg PO HS 12/01/19 03/23/21 History Metoprolol Tartrate [Lopressor] 50 mg PO BID 12/01/19 03/23/21 History levETIRAcetam [Keppra] 500 mg PO BID 12/01/19 03/23/21 History FLUoxetine HCL [PROzac] 40 mg PO DAILY #7 cap 03/30/20 03/23/21 Rx Fluticasone Nasal [place] [Flonase 1 spray EA NOSTRIL DAILY 09/08/20 03/23/21 History Nasal [place]] Omeprazole 20 mg PO DAILY 09/08/20 03/23/21 History Losartan Potassium [Cozaar] 100 mg PO DAILY 12/13/20 03/23/21 History Clopidogrel [Plavix] 75 mg PO DAILY tab 12/17/20 03/23/21 Rx Folic Acid 1 mg PO DAILY 02/26/21 03/23/21 History Sennosides [Senna] 8.6 mg PO BID 02/26/21 03/23/21 History amLODIPine [Norvasc] 10 mg PO DAILY 02/26/21 03/23/21 History Thiamine [Vitamin B-1] 100 mg PO DAILY tab 03/01/21 03/23/21 Rx Aspirin EC [Ecotrin Low Dose] 81 mg PO DAILY 03/23/21 03/23/21 History Atorvastatin [Lipitor] 40 mg PO DAILY 03/23/21 03/23/21 History Perphenazine 8mg 8 mg PO HS 03/23/21 03/23/21 History Allergies Allergy/AdvReac Type Severity Reaction Status Date / Time Penicillins Allergy Rash/Hives Verified 03/23/21 16:16 propoxyphene napsylate Allergy Itching Verified 03/23/21 16:16 [From Darvocet-N 100] aspirin AdvReac Nausea & Verified 03/23/21 16:16 Vomiting ibuprofen [From Motrin] AdvReac Nausea & Verified 03/23/21 16:16 Vomiting Physical Examination - Vital Signs Vital Signs: Vital Signs Temp Pulse Pulse Resp BP BP Pulse Ox 03/24/21 11:52 98.1 F 58 L 16 129/85 97 03/24/21 08:35 98.1 F 83 16 127/85 95 03/24/21 03:28 98.4 F 82 18 135/89 96 03/23/21 23:38 98.3 F 82 18 122/82 97 03/23/21 22:01 98.3 F 93 18 143/92 94 L 03/23/21 21:56 90 16 154/94 94 L 03/23/21 19:28 98.1 F 93 16 144/104 94 L 03/23/21 16:15 98.9 F 103 H 16 93 L 03/23/21 15:36 99.7 F H 129 H 18 146/95 93 L Intake and Output 03/23/21 03/24/21 03/24/21 22:59 06:59 14:59 Other: Voiding Method Toilet Toilet # Voids 2 1 2 Weight 73.482 kg 75.1 kg Patient is a late middle aged Afro-[place] female, in no acute distress. Patient is alert awake oriented to time place and person. She states it is February and the year is 2000. Speech is mildly dysarthric. She has some word hesitancy, but was able to name all objects. She was able to repeat, but with some dysarthria. Attention, concentration and fund of knowledge is adequate. On cranial examination, pupils are round and reacting to light, visual dasilva are full on confrontation, with no obvious neglect on double simultaneous stimulation. Her extraocular muscles are intact with no nystagmus. Face has slight flattening of the right nasolabial fold. Appears fairly normal or negative testing. Her tongue protrudes to the midline. Palatal elevation and sensation normal, hearing and shoulder shrug normal, facial sensation normal. Shoulder shrug normal. On muscle strength testing, there is right pronator drift. Her strength is (r ight/left) deltoid 5-/5, biceps 5/5, neon sign erector 4+/5. Hip flexion 5-/5. Ankles are normal. Her right arm is obviously spastic. Deep tendon reflexes are brisk in the right upper limb as compared to the left. Plantars are probably downgoing. Sensory to touch is equal with no neglect. Cerebellar function showed mild to moderate ataxia for [id number] testing on the right. No dysdiadochokinesia. Tone is significantly increased in the right upper limb and bulk of muscles normal. Gait deferred. On general examination, there is no carotid bruit or murmur, S1-S2 audible. Abdomen is soft nontender. Chest is clear. Peripheral pulses are present. No edema. Results - Laboratory Findings CBC and BMP: 03/23/21 15:54 03/23/21 15:54 Abnormal Lab Findings: Abnormal Labs 03/23/21 03/23/21 03/23/21 15:54 15:54 15:54 WBC 13.2 H Neutrophils # 11.3 H Glucose 133 H AST 41 H Troponin I HDL Cholesterol Urine Ketones Trace H U Tricyclic Antidepress U Benzodiazepines Scrn U Marijuana (THC) Screen 03/23/21 03/23/21 03/24/21 16:10 19:30 07:09 WBC Neutrophils # Glucose AST Troponin I 0.071 H* HDL Cholesterol 37.0 L Urine Ketones U Tricyclic Antidepress Detected H U Benzodiazepines Scrn Detected H U Marijuana (THC) Screen Detected H 03/24/21 07:09 WBC Neutrophils # Glucose AST Troponin I 0.039 H* HDL Cholesterol Urine Ketones U Tricyclic Antidepress U Benzodiazepines Scrn U Marijuana (THC) Screen Assessment and Plan Assessment: * 60-year-old female with recent history of recurrent strokes involving left hemispheric region with right spastic hemiparesis, came with some concern about stuttering and speech difficulty. Patient believes she is back to herself and does not believe she has a stroke. * Hypertension * X tobacco use * HIV-positive status * Seizure disorder, well controlled on Keppra 500 mg twice a day * Obesity Plan: * Patient states she is compliant with her medications including Plavix, aspirin and Lipitor. I suggested an MRI of the brain to evaluate for any new stroke, in which case, she could be a candidate for Brilinta. Patient declined MRI, stating that she is back to herself, and wants to go home. * Patient was strongly recommended to stay compliant with her Plavix, aspirin and Lipitor and Keppra, along with her blood pressure medications. * Strongly recommend patient follow up with neurologist as an outpatient. * Telemetry monitoring so far showing only sinus rhythm. * Neurologically clear for discharge.
[2021-03-24] MEDS ORDERED: hydrOXYzine pamoate 25 MG CAP PO SCH (21:00)
[2021-03-24] MEDS ORDERED: PERPHENAZINE 4 MG TAB PO SCH (21:00)
[2021-03-24] MEDS ORDERED: DOXEPIN 25 MG CAP PO SCH (21:00)
== END 2021-03-24 16:17 | disposition home or self-care (01) ==
LOC: EC 15:32 → 3SCARD 21:22
PROVIDERS: ADMIT Internal Medicine Geriatric Medicine; ATTEND Internal Medicine Geriatric Medicine
DX: R47.01 Aphasia (principal); G40.909 Epilepsy, unspecified, not intractable, without status epilepticus; E86.0 Dehydration; Z20.822 Contact with and (suspected) exposure to COVID-19; R74.01 Elevation of levels of liver transaminase levels; G93.41 Metabolic encephalopathy; R77.8 Other specified abnormalities of plasma proteins; Z21 Asymptomatic human immunodeficiency virus [HIV] infection status; B19.20 Unspecified viral hepatitis C without hepatic coma; I69.351 Hemiplegia and hemiparesis following cerebral infarction affecting right dominant side; G62.9 Polyneuropathy, unspecified; J45.20 Mild intermittent asthma, uncomplicated; E78.5 Hyperlipidemia, unspecified; I10 Essential (primary) hypertension; F33.9 Major depressive disorder, recurrent, unspecified; F41.1 Generalized anxiety disorder; F20.9 Schizophrenia, unspecified; K21.9 Gastro-esophageal reflux disease without esophagitis; E66.9 Obesity, unspecified; R00.0 Tachycardia, unspecified; M19.90 Unspecified osteoarthritis, unspecified site; I66.02 Occlusion and stenosis of left middle cerebral artery; H57.9 Unspecified disorder of eye and adnexa; R27.0 Ataxia, unspecified; M79.7 Fibromyalgia; Z88.0 Allergy status to penicillin; Z88.6 Allergy status to analgesic agent; Z88.5 Allergy status to narcotic agent; Z79.82 Long term (current) use of aspirin; Z79.899 Other long term (current) drug therapy; Z79.02 Long term (current) use of antithrombotics/antiplatelets; Z87.891 Personal history of nicotine dependence; Z90.710 Acquired absence of both cervix and uterus; Z68.31 Body mass index [BMI] 31.0-31.9, adult
CPT/HCPCS: 99285; 36415; 93005; 97161; 97165; 80061; 80053; 83605; 84484 ×2; 85025; 85610; 85730; 81003; 87040; 80306; 87635; 71045; 70450; G0378 ×2; G0480; 80320

== ENCOUNTER 2021-08-02 11:25 | Emergency (ER) | payer OTHER ==
[2021-08-02] MEDS ORDERED: MORPHINE SULFATE 4 MG/ML SYRINGE IV STA (12:18)
--- NOTE | 2021-08-02 12:23 | ED ---
General Adult HPI - General Chief complaint: Abdominal Pain Stated complaint: abd pain Time Seen by Provider: 08/02/21 11:52 Source: patient Mode of arrival: ambulatory Limitations: no limitations - History of Present Illness Initial comments: Dictation was produced using [employer] dictation software. please excuse any grammatical, word or spelling errors. Chief Complaint: 60-year-old who presents to the emergency room for abdominal pa in History of Present Illness: 60-year-old female she has past medical history of stroke, fibromyalgia dyslipidemia. She presents to the emergency department for 2 days of abdominal pain. Patient reports that her pain is suprapubic area worse on the left compared to the right preaches history of appendectomy and cholecystectomy. Patient denies any history of diverticulitis. No diarrhea. She states that she is able tolerate oral intake. No fevers or constitutional symptoms. States that she had a meal earlier today. The ROS documented in this emergency department record has been reviewed and confirmed by me. Those systems with pertinent positive or negative responses have been documented in the HPI. All other systems are other negative and/or noncontributory. PHYSICAL EXAM: General Impression: Alert and oriented x3, mild distress secondary to pain HEENT: Normocephalic atraumatic, extra-ocular movements intact, pupils equal and reactive to light bilaterally, mucous membranes moist. Cardiovascular: Heart regular rate and rhythm Chest: Able to complete full sentences, no retractions, no tachypnea Abdomen: abdomen soft, severe palpatory tenderness to the bilateral lower hank drants worse on the left compared to the right Musculoskeletal: Pulses present and equal in all extremities, no peripheral edema Motor: no focal deficits noted Neurological: CN II-XII grossly intact, contracture to the right upper extremity Skin: Intact with no visualized rashes Psych: Normal affect and mood ED course: 60-year-old female presents to the emergency department for abdominal pain. Vital signs upon arrival are within acceptable limits. Laboratory evaluation obtained. CBC unremarkable. No leukocytosis. Hemoglobin stable. Coag panel is unremarkable. Metabolic panel is negative. Urinalysis shows no infection. Computed tomography scan abdomen and pelvis shows no acute processes. There is some nonspecific calcifications of the left lower quadrant. Patient is reevaluated at 3:15 PM. Patient is stable for discharge. Advised follow-up with primary care doctor. EKG interpretation: Ventricular rate 93, normal sinus rhythm,. 156, QRS 84, QTC 452. No HI prolongation, no QTC prolongation, no ST or T-wave changes noted. EKG compared to 03/23/2021 showing no changes. Overall, this EKG is unremarkable - Related Data Home Medications Medication Instructions Recorded Confirmed Docusate [Colace] 100 mg PO DAILY 12/15/16 08/02/21 Albuterol Sulfate [Ventolin HFA] 2 puff INHALATION RT-Q4H PRN 12/01/19 08/02/21 Doxepin HCl [SINEquan] 150 mg PO HS 12/01/19 08/02/21 levETIRAcetam [Keppra] 500 mg PO BID 12/01/19 08/02/21 Fluticasone Nasal [place] [Flonase 1 spray EA NOSTRIL DAILY 09/08/20 08/02/21 Nasal [place]] Omeprazole 20 mg PO DAILY 09/08/20 08/02/21 Losartan Potassium [Cozaar] 100 mg PO DAILY 12/13/20 08/02/21 Folic Acid 1 mg PO DAILY 02/26/21 08/02/21 Sennosides [Senna] 8.6 mg PO BID 02/26/21 08/02/21 amLODIPine [Norvasc] 10 mg PO DAILY 02/26/21 08/02/21 Atorvastatin [Lipitor] 40 mg PO DAILY 03/23/21 08/02/21 Perphenazine 8mg 8 mg PO HS 03/23/21 08/02/21 Aspirin 81 mg PO DAILY 08/02/21 08/02/21 Metoprolol Tartrate [Lopressor] 25 mg PO BID 08/02/21 08/02/21 Previous Rx's Medication Instructions Recorded FLUoxetine HCL [PROzac] 40 mg PO DAILY #7 cap 03/30/20 Clopidogrel [Plavix] 75 mg PO DAILY tab 12/17/20 Thiamine [Vitamin B-1] 100 mg PO DAILY tab 03/01/21 Allergies Allergy/AdvReac Type Severity Reaction Status Date / Time Penicillins Allergy Rash/Hives Verified 08/02/21 14:33 propoxyphene napsylate Allergy Itching Verified 08/02/21 14:33 [From Darvocet-N 100] aspirin AdvReac Nausea & Verified 08/02/21 14:33 Vomiting ibuprofen [From Motrin] AdvReac Nausea & Verified 08/02/21 14:33 Vomiting Review of Systems ROS Statement: Those systems with pertinent positive or pertinent negative responses have been documented in the HPI. ROS Other: All systems not noted in ROS Statement are negative. Past Medical History Past Medical History: CVA/TIA, Eye Disorder, Fibromyalgia, GERD/Reflux, Hyperlipidemia, Liver Disease, Osteoarthritis (OA), Seizure Disorder Additional Past Medical History / Comment(s): Other HX: had 1 seizure several years ago due to drug interaction, HIV positive, hx. Hep. C, neuropathy, hx. ulcers. Seizure 03/19 History of Any Multi-Drug Resistant Organisms: None Reported Past Surgical History: Hysterectomy Additional Past Surgical History / Comment(s): 08/11/15 Anterior cervical decompression fusion C3-4, C4-5 with carpectomy. Past Anesthesia/Blood Transfusion Reactions: No Reported Reaction Past Psychological History: Anxiety, Depression Smoking Status: Former smoker, Never smoker Past Alcohol Use History: None Reported Past Drug Use History: Marijuana - Past Family History Father History Unknown: Yes Family Medical History: Unable to Obtain Additional Family Medical History / Comment(s): Pt did not know her father. Mother Family Medical History: No Reported History General Exam Limitations: no limitations Course Vital Signs 08/02/21 11:32 Temperature 98.6 F Pulse Rate 107 H Respiratory 20 Rate Blood Pressure 125/89 O2 Sat by Pulse 100 Oximetry Medical Decision Making - Lab Data Result diagrams: 08/02/21 12:33 08/02/21 12:33 Lab Results 08/02/21 08/02/21 08/02/21 Range/Units 12:33 12:33 12:33 WBC 7.9 (3.8-10.6) k/uL RBC 5.19 (3.80-5.40) m/uL Hgb 14.3 (11.4-16.0) gm/dL Hct 44.7 (34.0-46.0) % MCV 86.1 (80.0-100.0) fL MCH 27.5 (25.0-35.0) pg MCHC 31.9 (31.0-37.0) g/dL RDW 14.3 (11.5-15.5) % Plt Count 246 (150-450) k/uL MPV 7.9 Neutrophils % 74 % Lymphocytes % 18 % Monocytes % 6 % Eosinophils % 1 % Basophils % 0 % Neutrophils # 5.8 (1.3-7.7) k/uL Lymphocytes # 1.4 (1.0-4.8) k/uL Monocytes # 0.4 (0-1.0) k/uL Eosinophils # 0.1 (0-0.7) k/uL Basophils # 0.0 (0-0.2) k/uL PT 10.9 (9.0-12.0) sec INR 1.0 (<1.2) APTT 26.3 (22.0-30.0) sec Sodium 142 (137-145) mmol/L Potassium 3.9 (3.5-5.1) mmol/L Chloride 106 (98-107) mmol/L Carbon Dioxide 24 (22-30) mmol/L Anion Gap 12 mmol/L BUN 9 (7-17) mg/dL Creatinine 0.79 (0.52-1.04) mg/dL Est GFR (CKD-EPI)AfAm >90 (>60 ml/min/1.73 sqM) Est GFR (CKD-EPI)NonAf 81 (>60 ml/min/1.73 sqM) Glucose 114 H (74-99) mg/dL Calcium 9.6 (8.4-10.2) mg/dL Total Bilirubin 0.8 (0.2-1.3) mg/dL AST 44 H (14-36) U/L ALT 41 H (4-34) U/L Alkaline Phosphatase 80 (38-126) U/L Total Protein 7.3 (6.3-8.2) g/dL Albumin 4.1 (3.5-5.0) g/dL Lipase 37 (23-300) U/L Urine Color Urine Appearance (Clear) Urine pH (5.0-8.0) Ur Specific [place] (1.001-1.035) Urine Protein (Negative) Urine Glucose (UA) (Negative) Urine Ketones (Negative) Urine Blood (Negative) Urine Nitrite (Negative) Urine Bilirubin (Negative) Urine Urobilinogen (<2.0) mg/dL Ur Leukocyte Esterase (Negative) 08/02/21 Range/Units 14:23 WBC (3.8-10.6) k/uL RBC (3.80-5.40) m/uL Hgb (11.4-16.0) gm/dL Hct (34.0-46.0) % MCV (80.0-100.0) fL MCH (25.0-35.0) pg MCHC (31.0-37.0) g/dL RDW (11.5-15.5) % Plt Count (150-450) k/uL MPV Neutrophils % % Lymphocytes % % Monocytes % % Eosinophils % % Basophils % % Neutrophils # (1.3-7.7) k/uL Lymphocytes # (1.0-4.8) k/uL Monocytes # (0-1.0) k/uL Eosinophils # (0-0.7) k/uL Basophils # (0-0.2) k/uL PT (9.0-12.0) sec INR (<1.2) APTT (22.0-30.0) sec Sodium (137-145) mmol/L Potassium (3.5-5.1) mmol/L Chloride (98-107) mmol/L Carbon Dioxide (22-30) mmol/L Anion Gap mmol/L BUN (7-17) mg/dL Creatinine (0.52-1.04) mg/dL Est GFR (CKD-EPI)AfAm (>60 ml/min/1.73 sqM) Est GFR (CKD-EPI)NonAf (>60 ml/min/1.73 sqM) Glucose (74-99) mg/dL Calcium (8.4-10.2) mg/dL Total Bilirubin (0.2-1.3) mg/dL AST (14-36) U/L ALT (4-34) U/L Alkaline Phosphatase (38-126) U/L Total Protein (6.3-8.2) g/dL Albumin (3.5-5.0) g/dL Lipase (23-300) U/L Urine Color Yellow Urine Appearance Clear (Clear) Urine pH 6.5 (5.0-8.0) Ur Specific [place] >1.050 H (1.001-1.035) Urine Protein Negative (Negative) Urine Glucose (UA) Negative (Negative) Urine Ketones Trace H (Negative) Urine Blood Negative (Negative) Urine Nitrite Negative (Negative) Urine Bilirubin Negative (Negative) Urine Urobilinogen <2.0 (<2.0) mg/dL Ur Leukocyte Esterase Negative (Negative) Disposition Clinical Impression: Abdominal pain Disposition: HOME SELF-CARE Condition: Good Instructions (If sedation given, give patient instructions): Abdominal Pain (ED) Is patient prescribed a controlled substance at d/c from ED?: No Referrals: [facility] [Primary Care Provider] - 1-2 days
[2021-08-02 12:46] LABS: Basophils % (A) 0 %; Eosinophils # (A) 0.1 k/uL (0-0.7); Eosinophils % (A) 1 %; HCT 44.7 % (34.0-46.0); HGB 14.3 gm/dL (11.4-16.0); Lymphocytes # (A) 1.4 k/uL (1.0-4.8); Lymphocytes % (A) 18 %; MCH 27.5 pg (25.0-35.0); MCHC 31.9 g/dL (31.0-37.0); MCV 86.1 fL (80.0-100.0); Mean Platelet Volume 7.9; Monocytes # (A) 0.4 k/uL (0-1.0); Monocytes % (A) 6 %; Neutrophils # (A) 5.8 k/uL (1.3-7.7); Neutrophils % (A) 74 %; Platelet Count 246 k/uL (150-450); RBC 5.19 m/uL (3.80-5.40); RDW 14.3 % (11.5-15.5); WBC 7.9 k/uL (3.8-10.6)
[2021-08-02 13:03] LABS: ALT 41 U/L (4-34); AST 44 U/L (14-36); African American GFR (CKD) >90 (>60 ml/min/1.73 sqM); Albumin 4.1 g/dL (3.5-5.0); Alkaline Phosphatase 80 U/L (38-126); Anion Gap 12 mmol/L; Blood Urea Nitrogen 9 mg/dL (7-17); Calcium 9.6 mg/dL (8.4-10.2); Carbon Dioxide 24 mmol/L (22-30); Chloride 106 mmol/L (98-107); Glucose 114 mg/dL (74-99); Lipase 37 U/L (23-300); Non-African American GFR(CKD) 81 (>60 ml/min/1.73 sqM); Partial Thromboplastin Time 26.3 sec (22.0-30.0); Potassium 3.9 mmol/L (3.5-5.1); Prothrombin Time 10.9 sec (9.0-12.0); Sodium 142 mmol/L (137-145); Total Bilirubin 0.8 mg/dL (0.2-1.3); Total Protein 7.3 g/dL (6.3-8.2)
--- NOTE | 2021-08-02 13:56 | CT ---
EXAMINATION TYPE: CT abdomen pelvis w con DATE OF EXAM: 08/02/2021 COMPARISON: CT chest 07/01/2015 HISTORY: Abdominal pain CT DLP: 742.9 mGycm Automated exposure control for dose reduction was used. TECHNIQUE: Helical acquisition of images from the lung bases through the pelvis have been completed. CONTRAST: Performed without Oral Contrast and with IV Contrast, patient injected with 100 mL of Isovue 300. FINDINGS: Thickening of the stomach wall shows a similar appearance to prior exam and may be due to l ack of distention, difficult to exclude mucosal lesion LUNG BASES: Dependent atelectatic changes are present, nodular density axial image #2 is stable and b enign in the left lower lobe posteriorly. AORTA: No significant abnormality is appreciated. LIVER/GB: Liver shows low attenuation likely due to hepatic steatosis, gallbladder shows no evident s tone. PANCREAS: No significant abnormality is seen. SPLEEN: No significant abnormality is seen. ADRENALS: No significant abnormality is seen. KIDNEYS: No significant abnormality is seen. REPRODUCTIVE ORGANS: Not seen BOWEL: No significant abnormality is seen. There is a calcification present immediately adjacent to the sigmoid colon, some local soft tissue attenuation is present at this level, axial image 60 series 201, sagittal image #70 series 203, coronal image 36 series 202, findings felt to represent remote i nflammatory change, local diverticulum with the sigmoid colon shows no definite inflammatory change. No evident appendicitis FREE AIR: No Free Air visible. ASCITES: None visible. PELVIC ADENOPATHY: None visualized. RETROPERITONEAL ADENOPATHY: No Retroperitoneal Adenopathy visible. URINARY BLADDER: No significant abnormality is seen. OSSEOUS STRUCTURES: Degenerative disc changes and facet arthropathy noted in the lower lumbar spine. . IMPRESSION: NONSPECIFIC CALCIFICATION OF QUESTIONABLE CLINICAL SIGNIFICANCE MAY BE DUE TO REMOTE INFLAMMATORY THAIS NGE IN THE LEFT LOWER QUADRANT. CORRELATE FOR HEPATIC STEATOSIS. FINDINGS WITHIN THE STOMACH DESCR IBED.
[2021-08-02 14:50] LABS: Appearance,Urine Clear (Clear); Bilirubin,Urine Negative (Negative); Blood,Urine Negative (Negative); Color,Urine Yellow; Glucose,Urine (UA) Negative (Negative); Ketones,Urine Trace (Negative); Leukocyte Esterase,Urine Negative (Negative); Nitrite,Urine Negative (Negative); PH, Urine 6.5 (5.0-8.0); Protein,Urine Negative (Negative); Urobilinogen,Urine <2.0 mg/dL (<2.0)
[2021-08-02 14:54] LABS: Specific Gravity,Urine >1.050 (1.001-1.035)
[2021-08-02 15:33] VITALS: BP 114/80; PULSE 104; RESP 18; TEMP 98.4
== END 2021-08-02 15:31 | disposition home or self-care (01) ==
LOC: EC 11:25
DX: R10.9 Unspecified abdominal pain (principal); K21.9 Gastro-esophageal reflux disease without esophagitis; M19.90 Unspecified osteoarthritis, unspecified site; I63.9 Cerebral infarction, unspecified; Z21 Asymptomatic human immunodeficiency virus [HIV] infection status; Z79.51 Long term (current) use of inhaled steroids; Z87.891 Personal history of nicotine dependence; Z79.810 Long term (current) use of selective estrogen receptor modulators (SERMs); Z79.899 Other long term (current) drug therapy; Z79.811 Long term (current) use of aromatase inhibitors; Z79.52 Long term (current) use of systemic steroids; Z79.02 Long term (current) use of antithrombotics/antiplatelets; Z79.82 Long term (current) use of aspirin; Z88.0 Allergy status to penicillin; Z88.5 Allergy status to narcotic agent; Z79.83 Long term (current) use of bisphosphonates; Z88.6 Allergy status to analgesic agent
CPT/HCPCS: 36415; 93005; 80053; 83690; 85025; 85610; 85730; 81003; 74177; 99284; 96374; J2270; Q9967

== ENCOUNTER 2021-08-04 15:08 | Emergency (ER) | payer OTHER ==
[2021-08-04 15:29] VITALS: RESP 16; TEMP 98.4
[2021-08-04] MEDS ORDERED: HYDROmorphone 0.5 MG/0.5 ML SYRINGE IVP STA (16:45)
[2021-08-04] MEDS ORDERED: SODIUM CHLORIDE 0.9% 1,000 ML IV STA (16:45)
[2021-08-04] MEDS ORDERED: ONDANSETRON 4 MG/2 ML VIAL IVP STA (16:45)
[2021-08-04 17:38] LABS: Basophils % (A) 0 %; Eosinophils # (A) 0.1 k/uL (0-0.7); Eosinophils % (A) 1 %; HCT 44.7 % (34.0-46.0); HGB 14.4 gm/dL (11.4-16.0); Lymphocytes # (A) 1.9 k/uL (1.0-4.8); Lymphocytes % (A) 28 %; MCH 27.9 pg (25.0-35.0); MCHC 32.1 g/dL (31.0-37.0); Mean Platelet Volume 7.8; Monocytes # (A) 0.4 k/uL (0-1.0); Monocytes % (A) 6 %; Neutrophils # (A) 4.4 k/uL (1.3-7.7); Neutrophils % (A) 63 %; Platelet Count 257 k/uL (150-450); RBC 5.14 m/uL (3.80-5.40); RDW 14.4 % (11.5-15.5); WBC 6.9 k/uL (3.8-10.6)
[2021-08-04 17:49] LABS: ALT 38 U/L (4-34); AST 37 U/L (14-36); African American GFR (CKD) >90 (>60 ml/min/1.73 sqM); Albumin 4.4 g/dL (3.5-5.0); Alkaline Phosphatase 82 U/L (38-126); Anion Gap 10 mmol/L; Blood Urea Nitrogen 12 mg/dL (7-17); Calcium 9.6 mg/dL (8.4-10.2); Carbon Dioxide 24 mmol/L (22-30); Chloride 108 mmol/L (98-107); Glucose 86 mg/dL (74-99); Lipase 161 U/L (23-300); Non-African American GFR(CKD) 89 (>60 ml/min/1.73 sqM); Potassium 4.8 mmol/L (3.5-5.1); Sodium 142 mmol/L (137-145); Total Bilirubin 0.8 mg/dL (0.2-1.3); Total Protein 7.7 g/dL (6.3-8.2)
--- NOTE | 2021-08-04 17:49 | ED ---
Abdominal Pain HPI - General Source: patient Mode of arrival: wheelchair Limitations: no limitations <Alicia Velasquez - Last Filed: 08/04/21 21:33> <Rere Perez - Last Filed: 08/05/21 00:32> - General Chief Complaint: Abdominal Pain Stated Complaint: Abd pain Time Seen by Provider: 08/04/21 16:29 - History of Present Illness Initial Comments: 60-year-old female patient has medical history significant for CVA, hypertension, HIV presents to the emergency department today for evaluation of lower abdominal pain. States that she's had the pain for the last 3-4 days. She was seen and evaluated in the emergency department and was discharged home. States that the pain has not improved in fact seems to be worsening. Denies ever having pain similar to this in the past. Denies any nausea, vomiting, constipation, diarrhea. Denies any fever or chills. States her appetite is decreased. She has history of appendectomy, cholecystectomy, and complete hysterectomy. She does not currently take treatment for HIV. Patient denies any recent rash, cough, shortness of breath, chest pain, back pain, numbness, tingling, dizziness, weakness, hematuria, dysuria, urinary urgency, urinary frequency, headache, visual changes, or any other complaints. (Alicia Velasquez) - Related Data Home Medications Medication Instructions Recorded Confirmed Docusate [Colace] 100 mg PO DAILY 12/15/16 08/04/21 Albuterol Sulfate [Ventolin HFA] 2 puff INHALATION RT-Q4H PRN 12/01/19 08/04/21 Doxepin HCl [SINEquan] 150 mg PO HS 12/01/19 08/04/21 levETIRAcetam [Keppra] 500 mg PO BID 12/01/19 08/04/21 Fluticasone Nasal [place] [Flonase 1 spray EA NOSTRIL DAILY 09/08/20 08/04/21 Nasal [place]] Omeprazole 20 mg PO DAILY 09/08/20 08/04/21 Losartan Potassium [Cozaar] 100 mg PO DAILY 12/13/20 08/04/21 Folic Acid 1 mg PO DAILY 02/26/21 08/04/21 Sennosides [Senna] 8.6 mg PO BID 02/26/21 08/04/21 amLODIPine [Norvasc] 10 mg PO DAILY 02/26/21 08/04/21 Atorvastatin [Lipitor] 40 mg PO DAILY 03/23/21 08/04/21 Perphenazine 8mg 8 mg PO HS 03/23/21 08/04/21 Aspirin 81 mg PO DAILY 08/02/21 08/04/21 Metoprolol Tartrate [Lopressor] 25 mg PO BID 08/02/21 08/04/21 hydrOXYzine pamoate [hydrOXYzine 50 mg PO HS 08/04/21 08/04/21 PAMOATE] Previous Rx's Medication Instructions Recorded FLUoxetine HCL [PROzac] 40 mg PO DAILY #7 cap 03/30/20 Clopidogrel [Plavix] 75 mg PO DAILY tab 12/17/20 Thiamine [Vitamin B-1] 100 mg PO DAILY tab 03/01/21 Allergies Allergy/AdvReac Type Severity Reaction Status Date / Time Penicillins Allergy Rash/Hives Verified 08/04/21 18:47 propoxyphene napsylate Allergy Itching Verified 08/04/21 18:47 [From Darvocet-N 100] aspirin AdvReac Nausea & Verified 08/04/21 18:47 Vomiting ibuprofen [From Motrin] AdvReac Nausea & Verified 08/04/21 18:47 Vomiting Review of Systems ROS Other: All systems not noted in ROS Statement are negative. <Alicia Velasquez - Last Filed: 08/04/21 21:33> ROS Other: All systems not noted in ROS Statement are negative. <Rere Perez - Last Filed: 08/05/21 00:32> ROS Statement: Those systems with pertinent positive or pertinent negative responses have been documented in the HPI. Past Medical History Past Medical History: CVA/TIA, Eye Disorder, Fibromyalgia, GERD/Reflux, Hyperlipidemia, Liver Disease, Osteoarthritis (OA), Seizure Disorder Additional Past Medical History / Comment(s): Other HX: had 1 seizure several years ago due to drug interaction, HIV positive, hx. Hep. C, neuropathy, hx. ulcers. Seizure 03/19 History of Any Multi-Drug Resistant Organisms: None Reported Past Surgical History: Hysterectomy Additional Past Surgical History / Comment(s): 08/11/15 Anterior cervical decompression fusion C3-4, C4-5 with carpectomy. Past Anesthesia/Blood Transfusion Reactions: No Reported Reaction Past Psychological History: Anxiety, Depression Smoking Status: Former smoker Past Alcohol Use History: None Reported Past Drug Use History: Marijuana - Past Family History Father History Unknown: Yes Family Medical History: Unable to Obtain Additional Family Medical History / Comment(s): Pt did not know her father. Mother Family Medical History: No Reported History <Alicia Velasquez - Last Filed: 08/04/21 21:33> General Exam Limitations: no limitations General appearance: alert, in no apparent distress, other (This is a well- developed, well-nourished adult female in no acute distress.) Eye exam: Present: normal appearance, PERRL, EOMI. Absent: scleral icterus, conjunctival injection, periorbital swelling ENT exam: Present: normal exam, normal oropharynx, mucous membranes moist Respiratory exam: Present: normal lung sounds bilaterally. Absent: respiratory distress, wheezes, rales, rhonchi, stridor Cardiovascular Exam: Present: regular rate, normal rhythm, normal heart sounds. Absent: systolic murmur, diastolic murmur, rubs, gallop, clicks GI/Abdominal exam: Present: soft, tenderness (Lower abdominal tenderness), normal bowel sounds. Absent: distended, guarding, rebound, rigid Neurological exam: Present: alert, oriented X3, CN II-XII intact Psychiatric exam: Present: normal affect, normal mood Skin exam: Present: warm, dry, intact, normal color. Absent: rash <Alicia Velasquez - Last Filed: 08/04/21 21:33> Course Vital Signs 08/04/21 08/04/21 15:27 20:34 Temperature 98.4 F Pulse Rate 98 88 Respiratory 16 16 Rate Blood Pressure 108/79 110/80 O2 Sat by Pulse 96 92 L Oximetry Medical Decision Making - Lab Data Result diagrams: 08/04/21 17:09 08/04/21 17:09 - Radiology Data Radiology results: report reviewed, image reviewed <Alicia Velasquez - Last Filed: 08/04/21 21:33> - Lab Data Result diagrams: 08/04/21 17:09 08/04/21 17:09 <Rere Perez - Last Filed: 08/05/21 00:32> - Medical Decision Making 60-year-old female patient presented to the ER for the second time this week for lower abdominal pain. Physical examination did reveal lower abdominal tenderness. She is afebrile, vital signs. Labs reviewed and are unremarkable. I did repeat her CT abdomen and pelvis which was again negative. Shows have history of HIV not currently in treatment. Vital signs remained stable. She is resting comfortably on the stretcher. She be discharged in stable condition to follow-up with her primary care physician tomorrow. She is urged discuss possible colonoscopy. Return parameters were discussed in detail. She verbalizes understanding and agrees with this plan. My attending is Dr. Perez. (Alicia Velasquez) I was available for consultation in the emergency department. The history and physical exam were done by the midlevel provider. I was consulted for this patients care. I reviewed the case with the midlevel provider and based on their presentation of the patient, I agree with the assessment, medical decision making and plan of care as documented. (Rere Perez) - Lab Data Lab Results 08/04/21 08/04/21 08/04/21 Range/Units 17:09 17:09 17:09 WBC 6.9 (3.8-10.6) k/uL RBC 5.14 (3.80-5.40) m/uL Hgb 14.4 (11.4-16.0) gm/dL Hct 44.7 (34.0-46.0) % MCV 87.0 (80.0-100.0) fL MCH 27.9 (25.0-35.0) pg MCHC 32.1 (31.0-37.0) g/dL RDW 14.4 (11.5-15.5) % Plt Count 257 (150-450) k/uL MPV 7.8 Neutrophils % 63 % Lymphocytes % 28 % Monocytes % 6 % Eosinophils % 1 % Basophils % 0 % Neutrophils # 4.4 (1.3-7.7) k/uL Lymphocytes # 1.9 (1.0-4.8) k/uL Monocytes # 0.4 (0-1.0) k/uL Eosinophils # 0.1 (0-0.7) k/uL Basophils # 0.0 (0-0.2) k/uL Sodium 142 (137-145) mmol/L Potassium 4.8 (3.5-5.1) mmol/L Chloride 108 H (98-107) mmol/L Carbon Dioxide 24 (22-30) mmol/L Anion Gap 10 mmol/L BUN 12 (7-17) mg/dL Creatinine 0.73 (0.52-1.04) mg/dL Est GFR (CKD-EPI)AfAm >90 (>60 ml/min/1.73 sqM) Est GFR (CKD-EPI)NonAf 89 (>60 ml/min/1.73 sqM) Glucose 86 (74-99) mg/dL Plasma Lactic Acid Robbie (0.7-2.0) mmol/L Calcium 9.6 (8.4-10.2) mg/dL Total Bilirubin 0.8 (0.2-1.3) mg/dL AST 37 H (14-36) U/L ALT 38 H (4-34) U/L Alkaline Phosphatase 82 (38-126) U/L Total Protein 7.7 (6.3-8.2) g/dL Albumin 4.4 (3.5-5.0) g/dL Lipase 161 (23-300) U/L Urine Color Light Yellow Urine Appearance Cloudy H (Clear) Urine pH 7.0 (5.0-8.0) Ur Specific [place] 1.050 H (1.001-1.035) Urine Protein Negative (Negative) Urine Glucose (UA) Negative (Negative) Urine Ketones 1+ H (Negative) Urine Blood Negative (Negative) Urine Nitrite Negative (Negative) Urine Bilirubin Negative (Negative) Urine Urobilinogen <2.0 (<2.0) mg/dL Ur Leukocyte Esterase Negative (Negative) Urine RBC 15 H (0-5) /hpf Urine WBC 4 (0-5) /hpf Ur Squamous Epith Cells 10 H (0-4) /hpf Urine Bacteria Rare H (None) /hpf 08/04/21 Range/Units 17:09 WBC (3.8-10.6) k/uL RBC (3.80-5.40) m/uL Hgb (11.4-16.0) gm/dL Hct (34.0-46.0) % MCV (80.0-100.0) fL MCH (25.0-35.0) pg MCHC (31.0-37.0) g/dL RDW (11.5-15.5) % Plt Count (150-450) k/uL MPV Neutrophils % % Lymphocytes % % Monocytes % % Eosinophils % % Basophils % % Neutrophils # (1.3-7.7) k/uL Lymphocytes # (1.0-4.8) k/uL Monocytes # (0-1.0) k/uL Eosinophils # (0-0.7) k/uL Basophils # (0-0.2) k/uL Sodium (137-145) mmol/L Potassium (3.5-5.1) mmol/L Chloride (98-107) mmol/L Carbon Dioxide (22-30) mmol/L Anion Gap mmol/L BUN (7-17) mg/dL Creatinine (0.52-1.04) mg/dL Est GFR (CKD-EPI)AfAm (>60 ml/min/1.73 sqM) Est GFR (CKD-EPI)NonAf (>60 ml/min/1.73 sqM) Glucose (74-99) mg/dL Plasma Lactic Acid Robbie 0.7 (0.7-2.0) mmol/L Calcium (8.4-10.2) mg/dL Total Bilirubin (0.2-1.3) mg/dL AST (14-36) U/L ALT (4-34) U/L Alkaline Phosphatase (38-126) U/L Total Protein (6.3-8.2) g/dL Albumin (3.5-5.0) g/dL Lipase (23-300) U/L Urine Color Urine Appearance (Clear) Urine pH (5.0-8.0) Ur Specific [place] (1.001-1.035) Urine Protein (Negative) Urine Glucose (UA) (Negative) Urine Ketones (Negative) Urine Blood (Negative) Urine Nitrite (Negative) Urine Bilirubin (Negative) Urine Urobilinogen (<2.0) mg/dL Ur Leukocyte Esterase (Negative) Urine RBC (0-5) /hpf Urine WBC (0-5) /hpf Ur Squamous Epith Cells (0-4) /hpf Urine Bacteria (None) /hpf - Radiology Data CT abdomen and pelvis is obtained. Report is reviewed in its entirety. Impression by Dr. Gonsalez shows no definite acute abnormality of the abdomen and pelvis. Subacute/chronic mild L2 compression fracture. (Alicia Velasquez) Disposition Is patient prescribed a controlled substance at d/c from ED?: No Time of Disposition: 21:00 <Alicia Velasquez - Last Filed: 08/04/21 21:33> <Rere Perez - Last Filed: 08/05/21 00:32> Clinical Impression: Abdominal pain Disposition: HOME SELF-CARE Condition: Good Instructions (If sedation given, give patient instructions): Abdominal Pain (ED) Additional Instructions: Rest. Increase fluids. Take medication as needed for pain. Follow-up through primary care physician in the morning. Discuss colonoscopy. Return for any new, worsening, or concerning symptoms per Referrals: [facility] [Primary Care Provider] - 1-2 days
--- NOTE | 2021-08-04 18:57 | CT ---
EXAMINATION TYPE: CT abdomen pelvis w con DATE OF EXAM: 08/04/2021 COMPARISON: 08/02/2021 HISTORY: Abdominal pain CT DLP: 757.3 mGycm Automated exposure control for dose reduction was used. TECHNIQUE: Helical acquisition of images was performed from the lung bases through the pelvis. CONTRAST: Performed without Oral Contrast and with IV Contrast, patient injected with 100 mL of Isovue 300. FINDINGS: LUNG BASES: No significant abnormality is appreciated. LIVER/GB: No significant abnormality is appreciated. PANCREAS: No significant abnormality is seen. SPLEEN: No significant abnormality is seen. ADRENALS: No significant abnormality is seen. KIDNEYS: No significant abnormality is seen. FREE AIR: No free air is visualized. RETROPERITONEAL ADENOPATHY: None visualized REPRODUCTIVE ORGANS: No significant abnormality is seen URINARY BLADDER: No significant abnormality is seen. PELVIC ADENOPATHY: None visualized. OSSEOUS STRUCTURES: No new abnormality is seen. Subacute/chronic mild L2 compression fracture withou t significant interval change. BOWEL: No acute abnormality is seen. Unchanged small subcentimeter benign left lower quadrant calcif ication. OTHER: None IMPRESSION: NO DEFINITE ACUTE ABNORMALITY OF THE ABDOMEN/PELVIS. SUBACUTE/CHRONIC MILD L2 COMPRESSION FRACTURE.
[2021-08-04 20:13] LABS: Appearance,Urine Cloudy (Clear); Bacteria,Urine Rare /hpf; Bilirubin,Urine Negative (Negative); Blood,Urine Negative (Negative); Color,Urine Light Yellow; Glucose,Urine (UA) Negative (Negative); Ketones,Urine 1+ (Negative); Leukocyte Esterase,Urine Negative (Negative); Nitrite,Urine Negative (Negative); Protein,Urine Negative (Negative); RBC,Urine 15 /hpf (0-5); Squamous Epithelial Cell,Urine 10 /hpf (0-4); Urobilinogen,Urine <2.0 mg/dL (<2.0); WBC,Urine 4 /hpf (0-5)
[2021-08-04 20:35] VITALS: BP 110/80; PULSE 88
[2021-08-04] MEDS ORDERED: ACET/COD 300 MG/30 MG STARTER PACK 6 TAB BTL PO STA (21:00)
== END 2021-08-04 21:11 | disposition home or self-care (01) ==
LOC: EC 15:08
DX: R10.30 Lower abdominal pain, unspecified (principal); I10 Essential (primary) hypertension; B20 Human immunodeficiency virus [HIV] disease; K21.9 Gastro-esophageal reflux disease without esophagitis; E78.5 Hyperlipidemia, unspecified; M79.7 Fibromyalgia; M19.90 Unspecified osteoarthritis, unspecified site; G40.919 Epilepsy, unspecified, intractable, without status epilepticus; Z90.49 Acquired absence of other specified parts of digestive tract; Z79.899 Other long term (current) drug therapy; Z79.82 Long term (current) use of aspirin; Z88.0 Allergy status to penicillin; Z88.8 Allergy status to other drugs, medicaments and biological substances; Z88.6 Allergy status to analgesic agent; Z86.73 Personal history of transient ischemic attack (TIA), and cerebral infarction without residual deficits; Z87.891 Personal history of nicotine dependence
CPT/HCPCS: 36415; 80053; 83605; 83690; 85025; 81001; 74177; 99284; 96374; 96375; 96361; J2405; J1170; Q9967

== ENCOUNTER → 2022-10-13 | Outpatient (CLI) | payer OTHER ==
--- NOTE | 2022-10-16 07:51 | MM ---
Reason for Exam: Screening (asymptomatic). Last mammogram was performed 4 year(s) and 7 month(s) ago. Patient History: Menarche at age 11. First Full-Term at age 32. Late child-bearing (after 28). Left ovary removed at age 49. Right ovary removed at age 49. Hysterectomy at age 49. Postmenopausal. Estrogen for 1 year from age 49 until age 50. Risk Values: Shayla 5 year model risk: 2.2%. NCI Lifetime model risk: 9.1%. Prior Study Comparison: 08/24/2014 Bilateral Screening Mammogram, [facility]. 03/27/2018 Bilateral Screening Mammogram, [facility]. 04/04/2018 Left Diagnostic Mammogram, [facility]. Tissue Density: The breast tissue is heterogeneously dense. This may lower the sensitivity of mammography. Findings: Analyzed By CAD. There are scattered and loosely grouped tiny benign-appearing round calcifications redemonstrated throughout the bilateral breasts. There is no suspicious new group of microcalcifications or new suspicious mass in either breast. Overall Assessment: Benign, BI-RAD 2 Management: Screening Mammogram of both breasts in 1 year. A clinical breast exam by your physician is recommended on an annual basis and results should be correlated with mammographic findings. Electronically signed and approved by: Mark Cornejo M.D.
== END | disposition home or self-care (01) ==
LOC: RADMAMWWP 09:44
PROVIDERS: ATTEND Internal Medicine
DX: Z12.31 Encounter for screening mammogram for malignant neoplasm of breast (principal); Z78.0 Asymptomatic menopausal state
CPT/HCPCS: 77067

== ENCOUNTER 2023-02-15 15:10 | Emergency (ER) | payer OTHER ==
--- NOTE | 2023-02-15 16:29 | XR ---
EXAMINATION TYPE: XR thoracic spine complete DATE OF EXAM: 02/15/2023 4:22 PM INDICATION: Patient age:Female; 62 years old; Reason for study: fall injury; PHH. COMPARISON: No direct comparisons TECHNIQUE: 3 views of the thoracic spine in frontal, lateral, and swimmer's projections. FINDINGS: No evidence of acute fracture. Vertebral body heights are maintained. Anterior cervical fusion hardw are demonstrated. This appears intact. No spondylolisthesis. Mild dextrocurvature of the thoracolumba r spine. Mild multilevel disc space narrowing with endplate sclerosis. IMPRESSION: 1. No acute osseous pathology. 2. Mild degenerative disc disease. 3. Postsurgical changes from anterior cervical fusion.
--- NOTE | 2023-02-15 17:53 | CT ---
EXAMINATION TYPE: CT brain cspine wo con CT DLP: 1285.4 mGycm, Automated exposure control for dose reduction was used. DATE OF EXAM: 02/15/2023 5:42 PM COMPARISON: No relevant priors. CLINICAL INDICATION:Female, 62 years old with history of fall injury; fall, ams TECHNIQUE: Brain: Multiple axial CT images of the brain were obtained without IV contrast. Cspine: Axial CT images from the skull base to the inferior aspect of T2 we obtained without intraven ous contrast. Coronal and sagittal reformatted images were also reviewed. FINDINGS: Brain: Extra-axial spaces: No abnormal extra-axial fluid collections. Ventricular system: Mild ex vacuo dilatation of the posterior horn of the left lateral ventricle. Robbie tricular system is otherwise within normal limits. Cerebral parenchyma: No acute intraparenchymal hemorrhage or mass effect. Remote area of encephalomal acia in the left parieto-occipital lobe. In The remainder of the oakes-white junctions are well differ entiated. Cerebellum: Unremarkable. Mass effect: No evidence of midline shift. Intracranial vasculature: Atherosclerotic calcifications of the intracranial vessels. Soft tissues: Normal. Calvarium/osseous structures: No depressed skull fracture. Paranasal sinuses and mastoid air cells: Clear.Mastoid air cells are Visualized orbits: Orbital contents are intact. Cervical spine: Fracture: None. Osseous structures: Multilevel degenerative disc disease changes with endplate spurring and disc oste ophyte complex's. Multilevel uncovertebral and facet hypertrophy. 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 ACDF changes affecting the C3-C5 cervical vertebra, hardware appears intact. Vertebral alignment: Straightening of the cervical spine which is likely postsurgical and positional. Craniocervical and cervicothoracic junctions aren't otherwise normally aligned. Spinal canal/Neural Foramina: No evidence of significant spinal canal narrowing. No evidence for sign ificant neural foraminal stenosis. Neck soft tissues: Prevertebral soft tissues are within normal limits. Other: The airway is patent. The lung apices are clear. IMPRESSION: 1. No acute intracranial process. 2. Remote injury of the left parieto-occipital lobe 3.No evidence of cervical spine fracture. 4. Multilevel degenerative disc disease.
--- NOTE | 2023-02-15 18:11 | ED ---
Fall HPI - General Chief Complaint: Fall Stated Complaint: Fall,Syncope Time Seen by Provider: 02/15/23 15:30 Source: patient Mode of arrival: EMS Limitations: language barrier (History of aphasia) - History of Present Illness Initial Comments: This patient is a 62-year-old woman with history of previous stroke who presents to have evaluation for fall with head injury. History is somewhat limited due to some mild aphasia. Patient states she has difficulty communicating due to previous stroke. The patient was walking from bathroom to her chair when she believes she passed out and fell hitting her head. She indicates some anterior headache. Patient also has some lower neck/upper back pain, but states that there is some chronic back pain. Patient denies new neurologic symptoms. Denies injury to chest, abdomen, or extremities. MD Complaint: fall Onset/Timin -: hour(s) Fall From: standing When Fall Occurred: 1-[address] Fall Occurred: home Loss of Consciousness: unsure Prolonged Down Time?: no Symptoms Prior to Fall: none Location: head - Related Data Home Medications Medication Instructions Recorded Confirmed Doxepin HCl [SINEquan] 150 mg PO HS 12/01/19 02/16/23 Omeprazole 20 mg PO DAILY 09/08/20 02/16/23 Losartan Potassium [Cozaar] 100 mg PO DAILY 12/13/20 02/16/23 Folic Acid 1 mg PO DAILY 02/26/21 02/16/23 Sennosides [Senna] 8.6 mg PO BID 02/26/21 02/16/23 amLODIPine [Norvasc] 10 mg PO DAILY 02/26/21 02/16/23 Atorvastatin [Lipitor] 40 mg PO DAILY 03/23/21 02/16/23 Perphenazine 8mg 8 mg PO HS 03/23/21 02/16/23 Albuterol Sulfate [Albuterol 2 puff PO RT-QID PRN 11/27/22 02/16/23 Sulfate Hfa] Aspirin EC [Ecotrin Low Dose] 81 mg PO DAILY 02/16/23 02/16/23 Previous Rx's Medication Instructions Recorded FLUoxetine HCL [PROzac] 40 mg PO DAILY #7 cap 03/30/20 Clopidogrel [Plavix] 75 mg PO DAILY tab 12/17/20 Cyanocobalamin [Vitamin B-12] 500 mcg PO DAILY tab 02/21/23 Lacosamide [Vimpat] 50 mg PO BID 3 Days #6 tab 02/21/23 levETIRAcetam [Keppra] 1,000 mg PO BID tab 02/21/23 Allergies Allergy/AdvReac Type Severity Reaction Status Date / Time Penicillins Allergy Rash/Hives Verified 02/16/23 15:54 propoxyphene napsylate Allergy Itching Verified 02/16/23 15:54 [From Darvocet-N 100] aspirin AdvReac Nausea & Verified 02/16/23 15:54 Vomiting ibuprofen [From Motrin] AdvReac Nausea & Verified 02/16/23 15:54 Vomiting Review of Systems ROS Statement: Those systems with pertinent positive or pertinent negative responses have been documented in the HPI. ROS Other: All systems not noted in ROS Statement are negative. Limitations: ROS unobtainable due to patients medical condition Constitutional: Denies: fever, weakness Eyes: Denies: vision change ENT: Denies: hearing loss Respiratory: Denies: cough, dyspnea Cardiovascular: Denies: chest pain, palpitations, edema Gastrointestinal: Denies: abdominal pain, vomiting Genitourinary: Denies: dysuria Musculoskeletal: Reports: as per HPI, back pain Skin: Denies: rash Neurological: Reports: headache, confusion. Denies: weakness, numbness Hematological/Lymphatic: Denies: easy bleeding Past Medical History Past Medical History: CVA/TIA, Eye Disorder, Fibromyalgia, GERD/Reflux, Hyperlipidemia, Liver Disease, Osteoarthritis (OA), Seizure Disorder Additional Past Medical History / Comment(s): Other HX: had 1 seizure several years ago due to drug interaction, HIV positive, hx. Hep. C, neuropathy, hx. ulcers. Seizure 03/19 History of Any Multi-Drug Resistant Organisms: None Reported Past Surgical History: Hysterectomy Additional Past Surgical History / Comment(s): 08/11/15 Anterior cervical decompression fusion C3-4, C4-5 with carpectomy. Past Anesthesia/Blood Transfusion Reactions: No Reported Reaction Past Psychological History: Anxiety, Depression Smoking Status: Former smoker Past Alcohol Use History: None Reported Past Drug Use History: Marijuana - Past Family History Father History Unknown: Yes Family Medical History: Unable to Obtain Additional Family Medical History / Comment(s): Pt did not know her father. Mother Family Medical History: No Reported History General Exam Limitations: altered mental status General appearance: alert, in no apparent distress Head exam: Present: normocephalic, other (The patient does have small contusion and some mild tenderness no palpable deformity) Eye exam: Present: normal appearance, PERRL, EOMI. Absent: scleral icterus, conjunctival injection, nystagmus ENT exam: Present: normal oropharynx Neck exam: Present: normal inspection, tenderness, full ROM Respiratory exam: Present: normal lung sounds bilaterally. Absent: respiratory distress, wheezes, rales, rhonchi, stridor, chest wall tenderness, accessory muscle use Cardiovascular Exam: Present: regular rate, normal rhythm, normal heart sounds. Absent: systolic murmur, diastolic murmur, rubs, gallop GI/Abdominal exam: Present: soft. Absent: distended, tenderness, guarding, rebound, rigid, mass Extremities exam: Present: normal inspection, normal capillary refill. Absent: pedal edema, calf tenderness Back exam: Present: normal inspection, paraspinal tenderness, vertebral tenderness. Absent: CVA tenderness (R), CVA tenderness (L) Neurological exam: Present: alert, oriented X3, CN II-XII intact. Absent: motor sensory deficit Expanded Neurological exam: Present: expressive aphasia (There is some mild expressive aphasia) Patient oriented to: Present: person, place, time Speech: Present: expressive aphasia Cranial nerves: EOM's Intact: Normal, Gag Reflex: Normal, Tongue Deviation: Normal, Facial Sensation: Normal, Facial Palsy with Forehead Movement: Normal Cerebellar function: Finger to Nose: Normal Sensory exam: Upper Extremity Light Touch: Normal, Lower Extremity Light Touch: Normal Motor strength exam: RUE: 5, LUE: 5, RLE: 5, LLE: 5 Eye Response: (4) open spontaneously Motor Response: (6) obeys commands Verbal Response: (4) confused conversation Skin exam: Present: warm, dry, intact, normal color. Absent: rash Course Vital Signs 02/15/23 02/15/23 02/15/23 16:00 18:11 19:50 Temperature 98.2 F Pulse Rate 71 85 85 Respiratory 16 18 18 Rate Blood Pressure 110/69 124/84 124/85 O2 Sat by Pulse 93 L 95 97 Oximetry Medical Decision Making - Medical Decision Making The patient had thoracic spine x-rays which I interpreted as being negative for acute bony injury. The patient had computed tomography scan of the brain and C-spine which I interpreted as being negative for acute cervical fracture. No cranial fracture. No acute intracranial hemorrhage This patient is 62-year-old woman who had a fall injury with resulting headache and back pain. The patient also has some underlying a fascia and difficult to ensure that there is no change from baseline, therefore CT is obtained. She did have studies above, and then on reassessment is feeling better and would like to go home. Discussed appropriate further care and follow-up Was pt. sent in by a medical professional or institution (, PA, NON EMERGENCY SERVICES AMBULANCE DRIVER, urgent care, hospital, or fpc...) When possible be specific @ -[No] Did you speak to anyone other than the patient for history (EMS, parent, family, police, friend...)? What history was obtained from this source @ -[No] Did you review nursing and triage notes (agree or disagree)? Why? @ -[I reviewed and agree with nursing and triage notes] Were old charts reviewed (outside hosp., previous admission, EMS record, old EKG, old radiological studies, urgent care reports/EKG's, fpc records)? Report findings @ -[No old charts were reviewed] Differential Diagnosis (chest pain, altered mental status, abdominal pain women, abdominal pain men, vaginal bleeding, weakness, fever, dyspnea, syncope, headache, dizziness, GI bleed, back pain, seizure, CVA, palpatations, mental health, musculoskeletal)? @ -[Differential CVA Ischemic stroke, hemorrhagic stroke, brain tumor, atypical migraine, Wernicke's encephalopathy, seizure, multiple sclerosis, meningitis, encephalitis, hypoglycemia, Guillain-Will, electrolytes disturbance, myasthenia gravis.... This is not meant to be an all-inclusive list EKG interpreted by me (3pts min.). @ -[As above] X-rays interpreted by me (1pt min.). @ -[As above CT interpreted by me (1pt min.). @ -[As above U/S interpreted by me (1pt. min.). @ -[None done] What testing was considered but not performed or refused? (CT, X-rays, U/S, labs)? Why? @ -[None] What meds were considered but not given or refused? Why? @ -[None] Did you discuss the management of the patient with other professionals (professionals i.e. [employer], PA, NON EMERGENCY SERVICES AMBULANCE DRIVER, lab, RT, psych nurse, social services, academic guidance specialist, teacher, event security officer, case management assistant)? Give summary @ -[No] Was smoking cessation discussed for >3mins.? @ -[No] Was critical care preformed (if so, how long)? @ -[No] Were there social determinants of health that impacted care today? How? (Homelessness, low income, unemployed, alcoholism, drug addiction, transportation, low edu. Level, literacy, decrease access to med. care, snf, rehab)? @ -[No] Was there de-escalation of care discussed even if they declined (Discuss DNR or withdrawal of care, Hospice)? DNR status @ -[No] What co-morbidities impacted this encounter? (DM, HTN, Smoking, COPD, CAD, Cancer, CVA, ARF, Chemo, Hep., AIDS, mental health diagnosis, sleep apnea, morbid obesity)? @ -[None] Was patient admitted / discharged? Hospital course, mention meds given and route, prescriptions, significant lab abnormalities, going to OR and other pertinent info. @ -[As above Undiagnosed new problem with uncertain prognosis? @ -[No] Drug Therapy requiring intensive monitoring for toxicity (Heparin, Nitro, Insulin, Cardizem)? @ -[No] Were any procedures done? @ -[No] Diagnosis/symptom? @ -[Acute fall injury Acute back pain Acute scalp condition Chronic mild aphasia Acute, or Chronic, or Acute on Chronic? @ -[default] Uncomplicated (without systemic symptoms) or Complicated (systemic symptoms)? @ -[Uncomplicated Side effects of treatment? @ -[No] Exacerbation, Progression, or Severe Exacerbation? @ -[No] Poses a threat to life or bodily function? How? (Chest pain, [place], NH, pneumonia, PE, COPD, DKA, ARF, appy, cholecystitis, CVA, Diverticulitis, Homicidal, Suicidal, threat to staff... and all critical care pts) @ -[No] Disposition Clinical Impression: Fall, Back pain Disposition: HOME SELF-CARE Condition: Good Instructions (If sedation given, give patient instructions): Fall Prevention for Older Adults (ED), Back Pain (ED) Is patient prescribed a controlled substance at d/c from ED?: No Referrals: None,Stated [Primary Care Provider] - 1-2 days
[2023-02-15 18:12] VITALS: PULSE 85; RESP 18; TEMP 98.2
[2023-02-15 19:52] VITALS: BP 124/85
== END 2023-02-15 19:53 | disposition home or self-care (01) ==
LOC: EC 15:10
DX: S00.03XA Contusion of scalp, initial encounter (principal); M54.6 Pain in thoracic spine; R47.01 Aphasia; E78.5 Hyperlipidemia, unspecified; K21.9 Gastro-esophageal reflux disease without esophagitis; F32.A Depression, unspecified; F41.9 Anxiety disorder, unspecified; F12.90 Cannabis use, unspecified, uncomplicated; Z21 Asymptomatic human immunodeficiency virus [HIV] infection status; Z79.82 Long term (current) use of aspirin; Z86.73 Personal history of transient ischemic attack (TIA), and cerebral infarction without residual deficits; Z87.891 Personal history of nicotine dependence; Z88.0 Allergy status to penicillin; Z88.6 Allergy status to analgesic agent; Z88.5 Allergy status to narcotic agent; W18.30XA Fall on same level, unspecified, initial encounter; Y92.009 Unspecified place in unspecified non-institutional (private) residence as the place of occurrence of the external cause
CPT/HCPCS: 70450; 72072; 72125; 93005; 99285

== ENCOUNTER 2023-02-16 13:33 | Inpatient (IN) | payer OTHER ==
[2023-02-16 13:51] LABS: Glucose,Whole Blood 98 mg/dL (70-110)
[2023-02-16 14:02] LABS: Basophils % (A) 0 %; Eosinophils % (A) 0 %; HCT 36.9 % (34.0-46.0); HGB 12.6 gm/dL (11.4-16.0); Lymphocytes # (A) 2.4 k/uL (1.0-4.8); Lymphocytes % (A) 25 %; MCH 29.2 pg (25.0-35.0); MCHC 34.1 g/dL (31.0-37.0); MCV 85.8 fL (80.0-100.0); Mean Platelet Volume 8.3; Monocytes # (A) 0.7 k/uL (0-1.0); Monocytes % (A) 7 %; Neutrophils # (A) 6.4 k/uL (1.3-7.7); Neutrophils % (A) 66 %; Platelet Count 242 k/uL (150-450); RBC 4.31 m/uL (3.80-5.40); RDW 15.3 % (11.5-15.5); WBC 9.8 k/uL (3.8-10.6)
[2023-02-16 14:12] LABS: ALT 34 U/L (4-34); AST 49 U/L (14-36); African American GFR (CKD) >90 (>60 ml/min/1.73 sqM); Albumin 4.2 g/dL (3.5-5.0); Alkaline Phosphatase 62 U/L (38-126); Anion Gap 12 mmol/L; Blood Urea Nitrogen 12 mg/dL (7-17); Calcium 9.2 mg/dL (8.4-10.2); Carbon Dioxide 21 mmol/L (22-30); Chloride 109 mmol/L (98-107); Creatine Kinase 908 U/L (30-135); Glucose 98 mg/dL (74-99); Non-African American GFR(CKD) 81 (>60 ml/min/1.73 sqM); Potassium 3.3 mmol/L (3.5-5.1); Sodium 142 mmol/L (137-145); Total Bilirubin 1.2 mg/dL (0.2-1.3); Total Protein 7.5 g/dL (6.3-8.2)
[2023-02-16 14:15] LABS: Prothrombin Time 10.5 sec (9.0-12.0)
--- NOTE | 2023-02-16 14:34 | CT ---
EXAMINATION TYPE: CT brain cspine wo con DATE OF EXAM: 02/16/2023 COMPARISON: 02/15/2023 HISTORY: altered mental status CT DLP: 1376.7 mGycm Automated exposure control for dose reduction was used. TECHNIQUE: CT scan of the head and cervical spine are performed without contrast. FINDINGS: Brain: There is no acute intracranial hemorrhage, mass effect, or midline shift identified. There is mild to moderate generalized degenerative change with abnormal low attenuation involving the left tem poral, occipital and parietal lobes stable with adjacent dystrophic calcification compatible with rem ote ischemia. Low attenuation in the white matter nonspecific signal is typical remote ischemic change. No acute ab normality. Additional areas of low-attenuation in the white matter are typical of remote ischemic change. Cervical spine: Assessment spinal canal limited due to artifact and resolution. Fracture: None. Osseous structures: Multilevel degenerative disc disease changes with endplate spurri ng and disc osteophyte complex's. Multilevel uncovertebral and facet hypertrophy. Incidentally noted congenital nonunion of the posterior arch of C1. ACDF changes affecting the C3-C5 cervical vertebra, hardware appears intact. Vertebral alignment: Straightening of the cervical spine which is likely pos tsurgical and positional. Craniocervical and cervicothoracic junctions aren't otherwise normally alig nery. There is multilevel significant facet arthropathy and uncovertebral joint hypertrophy with multi level significant foraminal encroachment at virtually all levels. Severe degenerative disc disease wi th vacuum discs C2-3. Additional multilevel moderate to severe degenerative disc disease involving th e visualized cervical and upper thoracic spine. IMPRESSION: 1. There is no acute fracture or dislocation evident in the cervical spine. Postsurgical changes with multilevel degenerative disc disease, foraminal encroachment and possible canal stenosis. Recommend follow-up MRI. 2. No acute intracranial hemorrhage, mass effect, or midline shift is seen. Stable remote ischemic ch leslie.
--- NOTE | 2023-02-16 15:13 | XR ---
EXAMINATION TYPE: XR chest 1V DATE OF EXAM: 02/16/2023 COMPARISON: NONE HISTORY: Altered mental status TECHNIQUE: Single frontal view of the chest is obtained. FINDINGS: There is no focal air space opacity, pleural effusion, or pneumothorax seen. The cardiac silhouette size is within normal limits. The osseous structures are intact. Postsurgical change ove rlying the cervical spine. Osteopenia with AC joint arthropathy. There is ectasia of the thoracic aor ta. IMPRESSION: No acute process.
--- NOTE | 2023-02-16 15:14 | XR ---
EXAMINATION TYPE: XR pelvis AP view DATE OF EXAM: 02/16/2023 COMPARISON: NONE HISTORY: Pain The osseous structures are intact and the joint spaces are preserved. No acute fracture is seen. Vi sualized bowel gas pattern is nonspecific. Large amount of contrast is seen in a distended bladder. IMPRESSION: 1. No acute fracture.
--- NOTE | 2023-02-16 15:19 | CT ---
EXAMINATION TYPE: CT angio head neck DATE OF EXAM: 02/16/2023 COMPARISON: CT earlier today HISTORY: 62-year-old female Neuro deficits, acute, stroke suspected. Prior stroke TECHNIQUE: Contiguous axial scanning of the head and neck performed with IV Contrast, patient injecte d with 65 mL of Isovue 370. Coronal/sagittal MIP reconstructions performed. 3-D reconstructions gener ated on a dedicated independent workstation. CT DLP: 233.1 mGycm Automated exposure control for dose reduction was used. FINDINGS: Neck: There is bovine configuration to the aortic arch. Severely hypoplastic or occluded right vertebral artery. Foci of air along the submental region probably venous air introduced during catheterization. ACF hardware. There is extensive soft tissue thickening at the level of the supraglottic airway, axial images 69-71 asymmetry of effacing the left piriform sinus. Right common and right internal carotid arteries are widely patent by NASCET criteria. The left common and left internal carotid arteries are widely patent by NASCET criteria. Head: Nonvisualization of the right vertebral artery. Left vertebral artery is patent. Diminutive basilar a rtery with persistent origin of the bilateral posterior cerebral arteries. Remainder of the pos terior circulation is patent. Mild atherosclerotic calcifications throughout the bilateral carotid siphons without significant narr owing. Remainder of the bilateral ICAs as well as the anterior circulation is patent. No aneurysmal change is seen. IMPRESSION: 1. NECK: ABNORMAL SOFT TISSUE THICKENING IN THE SUPRAGLOTTIC AIRWAY ASYMMETRICALLY EFFACING THE LEFT PIRIFORM SINUS. RECOMMEND ENT REFERRAL TO ASSESS FOR POTENTIAL UNDERLYING NEOPLASM. 2. NECK: SEVERELY HYPOPLASTIC VERSUS OCCLUDED RIGHT VERTEBRAL ARTERY. THE COMMON AND INTERNAL CAROTID ARTERIES REMAIN WIDELY PATENT. 3. HEAD: AGAIN, SEVERELY HYPOPLASTIC VERSUS OCCLUDED RIGHT VERTEBRAL ARTERY. THE BASILAR ARTERY IS SM ALL AND THERE IS PERSISTENT ORIGIN OF THE BILATERAL CARTOGRAPHY TEACHER's (ANATOMIC VARIANT). CORRELATE FOR ANY CHRONIC SYMPTOMS OF VERTEBROBASILAR INSUFFICIENCY. OTHERWISE, NO LARGE VESSEL INTRACRANIAL ARTERIAL OCCLUSION OR ANEURYSMAL CHANGE IS SEEN.
--- NOTE | 2023-02-16 16:05 | ED ---
General Adult HPI - General Chief complaint: Neuro Symptoms/Deficit Stated complaint: Stroke Time Seen by Provider: 02/16/23 13:45 Source: EMS Mode of arrival: EMS Limitations: no limitations - History of Present Illness Initial comments: 62-year-old female with past medical history of stroke and right arm weakness who presents to the emergency department with possible stroke. She was seen yesterday in the emergency room for fall was discharged around 8 PM. She was taken back home by EMS. She does not remember the events of what happened last night. States that she must have fell because she woke up on the ground. According to EMS her primary care doctor tried to get a hold of her and when he did not hear from her, police were called. They found the patient on the ground with right-sided facial droop. They were unsure of the onset of timing. Patient reports 2 previous weakness in her right arm but denies that she has any speech deficit or facial droop from her previous stroke. She does not take blood thinners. She does believe that she hit her head. Patient arrives in a c-collar. Admits to some mild hip pain. No other alleviating, precipitating or modifying factors - Related Data Home Medications Medication Instructions Recorded Confirmed Doxepin HCl [SINEquan] 150 mg PO HS 12/01/19 02/16/23 levETIRAcetam [Keppra] 500 mg PO BID 12/01/19 02/16/23 Omeprazole 20 mg PO DAILY 09/08/20 02/16/23 Losartan Potassium [Cozaar] 100 mg PO DAILY 12/13/20 02/16/23 Folic Acid 1 mg PO DAILY 02/26/21 02/16/23 Sennosides [Senna] 8.6 mg PO BID 02/26/21 02/16/23 amLODIPine [Norvasc] 10 mg PO DAILY 02/26/21 02/16/23 Atorvastatin [Lipitor] 40 mg PO DAILY 03/23/21 02/16/23 Perphenazine 8mg 8 mg PO HS 03/23/21 02/16/23 Metoprolol Tartrate [Lopressor] 25 mg PO BID 08/02/21 02/16/23 hydrOXYzine pamoate [hydrOXYzine 50 mg PO HS 08/04/21 02/16/23 PAMOATE] Albuterol Sulfate [Albuterol 2 puff PO RT-QID PRN 11/27/22 02/16/23 Sulfate Hfa] Aspirin EC [Ecotrin Low Dose] 81 mg PO DAILY 02/16/23 02/16/23 Previous Rx's Medication Instructions Recorded FLUoxetine HCL [PROzac] 40 mg PO DAILY #7 cap 03/30/20 Clopidogrel [Plavix] 75 mg PO DAILY tab 12/17/20 Allergies Allergy/AdvReac Type Severity Reaction Status Date / Time Penicillins Allergy Rash/Hives Verified 02/16/23 15:54 propoxyphene napsylate Allergy Itching Verified 02/16/23 15:54 [From Darvocet-N 100] aspirin AdvReac Nausea & Verified 02/16/23 15:54 Vomiting ibuprofen [From Motrin] AdvReac Nausea & Verified 02/16/23 15:54 Vomiting Review of Systems ROS Statement: Those systems with pertinent positive or pertinent negative responses have been documented in the HPI. ROS Other: All systems not noted in ROS Statement are negative. Past Medical History Past Medical History: CVA/TIA, Eye Disorder, Fibromyalgia, GERD/Reflux, Hyperlipidemia, Liver Disease, Osteoarthritis (OA), Seizure Disorder Additional Past Medical History / Comment(s): Other HX: had 1 seizure several years ago due to drug interaction, HIV positive, hx. Hep. C, neuropathy, hx. ulcers. Seizure 03/19 History of Any Multi-Drug Resistant Organisms: None Reported Past Surgical History: Hysterectomy Additional Past Surgical History / Comment(s): 08/11/15 Anterior cervical decompression fusion C3-4, C4-5 with carpectomy. Past Anesthesia/Blood Transfusion Reactions: No Reported Reaction Past Psychological History: Anxiety, Depression Smoking Status: Former smoker Past Alcohol Use History: None Reported Past Drug Use History: Marijuana - Past Family History Father History Unknown: Yes Family Medical History: Unable to Obtain Additional Family Medical History / Comment(s): Pt did not know her father. Mother Family Medical History: No Reported History General Exam Limitations: physical limitation General appearance: alert, lethargic Head exam: Present: atraumatic, normocephalic, other (Right-sided facial droop) Eye exam: Present: normal appearance, PERRL, EOMI. Absent: scleral icterus, conjunctival injection, periorbital swelling ENT exam: Present: mucous membranes dry Respiratory exam: Present: normal lung sounds bilaterally. Absent: respiratory distress, wheezes, rales, rhonchi, stridor Cardiovascular Exam: Present: regular rate, normal rhythm, normal heart sounds. Absent: systolic murmur, diastolic murmur, rubs, gallop, clicks Extremities exam: Present: other (Weakness right upper and lower extremity. Patient has no strength against gravity of the right upper and bilateral lower extremities. ) Neurological exam: Present: alert Psychiatric exam: Present: flat affect Course Vital Signs 02/16/23 02/16/23 02/16/23 13:38 15:20 15:30 Temperature 98.2 F Pulse Rate 71 75 74 Respiratory 18 16 18 Rate Blood Pressure 130/86 O2 Sat by Pulse 97 100 99 Oximetry 02/16/23 02/16/23 02/16/23 16:00 16:30 17:00 Temperature Pulse Rate 73 75 78 Respiratory 16 15 18 Rate Blood Pressure 116/86 114/83 O2 Sat by Pulse 99 100 Oximetry 02/16/23 19:29 Temperature Pulse Rate 77 Respiratory 16 Rate Blood Pressure 143/104 O2 Sat by Pulse 99 Oximetry Medical Decision Making - Medical Decision Making Was pt. sent in by a medical professional or institution (Dr. PA, DIETARY SERVICES MANAGER, urgent care, hospital, or senior living...) When possible be specific @ -No Did you speak to anyone other than the patient for history (EMS, parent, family, police, friend...)? What history was obtained from this source @ -EMS provide history Did you review nursing and triage notes (agree or disagree)? Why? @ -I reviewed and agree with nursing and triage notes Were old charts reviewed (outside hosp., previous admission, EMS record, old EKG, old radiological studies, urgent care reports/EKG's, senior living records)? Report findings @ -Patient's chart from the day prior was reviewed as the patient was in the ER for a fall Differential Diagnosis (chest pain, altered mental status, abdominal pain women, abdominal pain men, vaginal bleeding, weakness, fever, dyspnea, syncope, headache, dizziness, GI bleed, back pain, seizure, CVA, palpatations, mental health, musculoskeletal)? @ -Differential CVA Ischemic stroke, hemorrhagic stroke, brain tumor, atypical migraine, Wernicke's encephalopathy, seizure, multiple sclerosis, meningitis, encephalitis, hypoglycemia, Guillain-Will, electrolytes disturbance, myasthenia gravis.... This is not meant to be an all-inclusive list EKG interpreted by me (3pts min.). @ -Yes and demonstrates sinus rhythm with a rate of 72. VT interval 184. QRS 108. QTC 330. No acute ST segment elevations or depressions X-rays interpreted by me (1pt min.). @ -Yes and chest x-ray demonstrates no acute process CT interpreted by me (1pt min.). @ -Yes and CT of the brain demonstrates concerning signs for VBI U/S interpreted by me (1pt. min.). @ -None done What testing was considered but not performed or refused? (CT, X-rays, U/S, labs)? Why? @ -None What meds were considered but not given or refused? Why? @ -alteplase however we are unsure of the patient's last known well Did you discuss the management of the patient with other professionals (professionals i.e. , PA, DIETARY SERVICES MANAGER, lab, RT, psych nurse, social professionals, extractor and wringer operator, teacher, staff nuclear weapons officer, rn field case manager)? Give summary @ -Spoke with Dr. palmer for admission Was smoking cessation discussed for >3mins.? @ -No Was critical care preformed (if so, how long)? @ -yes, 35 minutes for code stroke activation Were there social determinants of health that impacted care today? How? (Homelessness, low income, unemployed, alcoholism, drug addiction, transportation, low edu. Level, literacy, decrease access to med. care, [facility], rehab)? @ -No Was there de-escalation of care discussed even if they declined (Discuss DNR or withdrawal of care, Hospice)? DNR status @ -No What co-morbidities impacted this encounter? (DM, HTN, Smoking, COPD, CAD, Cancer, CVA, ARF, Chemo, Hep., AIDS, mental health diagnosis, sleep apnea, morbid obesity)? @ -Previous CVA with right-sided deficits Was patient admitted / discharged? Hospital course, mention meds given and route, prescriptions, significant lab abnormalities, going to OR and other pertinent info. @ -Upon arrival patient was placed into trauma 1. A thorough history and physical exam was performed. Patient does have right-sided facial droop which is suspected to be worse than her previous stroke deficits. Because of this a code stroke was activated. IV is established. Patient does go for CT. Laboratory studies are within normal limits other than a CK of 908. CT of the patient's brain demonstrates concerning signs for vertebrobasilar insufficiency as well as thickening of the supraglottic airway. Recommended admission. ENT and neurology will be consulted. Patient was agreeable to admission. Spoke with Dr. Palmer admission Undiagnosed new problem with uncertain prognosis? @ -Yes Drug Therapy requiring intensive monitoring for toxicity (Heparin, Nitro, Insulin, Cardizem)? @ -No Were any procedures done? @ -No Diagnosis/symptom? @ -Acute right-sided weakness, acute CVA, multiple falls Acute, or Chronic, or Acute on Chronic? @ -Acute Uncomplicated (without systemic symptoms) or Complicated (systemic symptoms)? @ -Complicated Side effects of treatment? @ -No Exacerbation, Progression, or Severe Exacerbation? @ -No Poses a threat to life or bodily function? How? (Chest pain, [place], [place], pneumonia, PE, COPD, DKA, ARF, appy, cholecystitis, CVA, Diverticulitis, Homicidal, Suici nuha, threat to staff... and all critical care pts) @ -Patient presents with concerning signs for significant CVA - Lab Data Result diagrams: 02/16/23 13:44 02/18/23 13:20 Lab Results 02/16/23 02/16/23 02/16/23 Range/Units 13:40 13:44 13:44 WBC 9.8 (3.8-10.6) k/uL RBC 4.31 (3.80-5.40) m/uL Hgb 12.6 (11.4-16.0) gm/dL Hct 36.9 (34.0-46.0) % MCV 85.8 (80.0-100.0) fL MCH 29.2 (25.0-35.0) pg MCHC 34.1 (31.0-37.0) g/dL RDW 15.3 (11.5-15.5) % Plt Count 242 (150-450) k/uL MPV 8.3 Neutrophils % 66 % Lymphocytes % 25 % Monocytes % 7 % Eosinophils % 0 % Basophils % 0 % Neutrophils # 6.4 (1.3-7.7) k/uL Lymphocytes # 2.4 (1.0-4.8) k/uL Monocytes # 0.7 (0-1.0) k/uL Eosinophils # 0.0 (0-0.7) k/uL Basophils # 0.0 (0-0.2) k/uL PT 10.5 (9.0-12.0) sec INR 1.0 (<1.2) APTT 23.0 (22.0-30.0) sec Sodium (137-145) mmol/L Potassium (3.5-5.1) mmol/L Chloride (98-107) mmol/L Carbon Dioxide (22-30) mmol/L Anion Gap mmol/L BUN (7-17) mg/dL Creatinine (0.52-1.04) mg/dL Est GFR (CKD-EPI)AfAm (>60 ml/min/1.73 sqM) Est GFR (CKD-EPI)NonAf (>60 ml/min/1.73 sqM) Glucose (74-99) mg/dL POC Glucose (mg/dL) 98 (70-110) mg/dL POC Glu Obstetrics Technician ID Gila Sommers Calcium (8.4-10.2) mg/dL Total Bilirubin (0.2-1.3) mg/dL AST (14-36) U/L ALT (4-34) U/L Alkaline Phosphatase (38-126) U/L Creatine Kinase (30-135) U/L Troponin I (0.000-0.034) ng/mL Total Protein (6.3-8.2) g/dL Albumin (3.5-5.0) g/dL 02/16/23 02/16/23 Range/Units 13:44 13:44 WBC (3.8-10.6) k/uL RBC (3.80-5.40) m/uL Hgb (11.4-16.0) gm/dL Hct (34.0-46.0) % MCV (80.0-100.0) fL MCH (25.0-35.0) pg MCHC (31.0-37.0) g/dL RDW (11.5-15.5) % Plt Count (150-450) k/uL MPV Neutrophils % % Lymphocytes % % Monocytes % % Eosinophils % % Basophils % % Neutrophils # (1.3-7.7) k/uL Lymphocytes # (1.0-4.8) k/uL Monocytes # (0-1.0) k/uL Eosinophils # (0-0.7) k/uL Basophils # (0-0.2) k/uL PT (9.0-12.0) sec INR (<1.2) APTT (22.0-30.0) sec Sodium 142 (137-145) mmol/L Potassium 3.3 L (3.5-5.1) mmol/L Chloride 109 H (98-107) mmol/L Carbon Dioxide 21 L (22-30) mmol/L Anion Gap 12 mmol/L BUN 12 (7-17) mg/dL Creatinine 0.78 (0.52-1.04) mg/dL Est GFR (CKD-EPI)AfAm >90 (>60 ml/min/1.73 sqM) Est GFR (CKD-EPI)NonAf 81 (>60 ml/min/1.73 sqM) Glucose 98 (74-99) mg/dL POC Glucose (mg/dL) (70-110) mg/dL POC Glu Obstetrics Technician ID Calcium 9.2 (8.4-10.2) mg/dL Total Bilirubin 1.2 (0.2-1.3) mg/dL AST 49 H (14-36) U/L ALT 34 (4-34) U/L Alkaline Phosphatase 62 (38-126) U/L Creatine Kinase 908 H (30-135) U/L Troponin I <0.012 (0.000-0.034) ng/mL Total Protein 7.5 (6.3-8.2) g/dL Albumin 4.2 (3.5-5.0) g/dL Disposition Clinical Impression: Cerebrovascular accident (CVA), Facial droop, Fall Disposition: ADMITTED IP TO THIS [facility] Condition: Serious Is patient prescribed a controlled substance at d/c from ED?: No Time of Disposition: 16:04 Decision to Admit Reason: Admit from EC Decision Date: 02/16/23 Decision Time: 16:04
[2023-02-16] MEDS ORDERED: ASPIRIN 325 MG TAB PO STA (16:43)
--- NOTE | 2023-02-16 17:41 | P.HPIM ---
History of Present Illness H&P Date: 02/16/23 Patient is a 62-year-old female with PMH of CVA with right-sided residual weakness, hypertension, seizure disorder, smoker, asthma presents the ED after waking up on the floor. She is unsure of the events leading to waking up on the floor. She woke up with a right sided facial droop. Patient states that she lives alone and uses the aid of a walker to ambulate. She currently reports hunger. She denies any headache, lower extremity edema, nausea or vomiting, fever or chills, cough, chest pain, shortness of breath, palpitations, changes in urination or bowel habits. In the ED, her vital signs are stable. CBC was unremarkable. Coagulation panel within normal limits. CMP showed potassium of 3.3, chloride of 109, bicarb of 21, AST 49. Creatinine kinase 908. Troponin less than 0.012. CT head and C-spine showed no acute intracranial hemorrhage. CTA head and neck showed soft tissue thickening of the supraglottic airway, hypoplastic versus occluded right vertebral artery. Chest x-ray was negative. Pelvic x-ray was negative. Patient is admitted for workup of CVA. Pertinent positives and negatives as discussed in HPI, a complete review of systems was performed and all other systems are negative. General: non toxic, no distress, appears at stated age Derm: warm, dry Head: atraumatic, normocephalic, symmetric Eyes: EOMI, no lid lag, anicteric sclera Cardiovascular: S1S2 reg, no murmur Lungs: CTA bilateral, no rhonchi, no rales , no accessory muscle use Abdominal: soft, nontender to palpation, no guarding, no appreciable organomegaly Ext: no gross muscle atrophy, no edema, no contractures Neuro: CN II-XI grossly intact except R facial droop, RUE contractures. RLE 3/5 strength. RADHA and LLE 4-5/5 strength. Sensation intact to touch. Psych: Alert, oriented, appropriate affect Syncopal episode CVA versus seizure Supraglottic thickening Vertebral stenosis Hypokalemia Hyperchloremic metabolic acidosis Transaminitis Elevated CPK Chronic conditions: CVA with right-sided residual weakness, hypertension, seizure disorder, smoker, asthma Based on my assessment of this patient, this patient meets a high complexity level of care. Syncopal episode CVA versus seizure: Stroke workup will be pursued. Obtain echocardiogram. Obtain MRI brain. Obtain hemoglobin A1c and lipid panel. PT, OT and ST consulted. Neurology consulted. Advanced neurochecks ordered. Telemetry monitoring. ASA 81 mg PO QD. Lipitor 40 mg PO QHS. Supraglottic thickening: ENT consult. Vertebral stenosis: Vascular surgery consult. Hypokalemia: Replace with 40 meq IV. Hyperchloremic metabolic acidosis: Repeat BMP tomorrow morning. Transaminitis: Unknown etiology. Mildly elevated. Continue to monitor. Elevated CPK: Encourage hydration by mouth. Renal function within normal limits. FULL CODE. Heparin SQ for DVT prophylaxis. Patient has an acute diagnosis of CVA vs seizure that poses a threat to life or bodily function. I have reviewed the following commercial sales consultant notes: I have reviewed the results of the following tests: CBC, CMP, Coag panel, Trop, CPK, CT head, CT C-spine, CTA head and neck, Pelvic XR I have ordered the following tests: Echo. MRI brain. A1c. Lipid panel. I have discussed the care of this patient with the following independent historian: I have independently interpreted the following test below: CXR I have discussed the management of this patient with the following physician: Past Medical History Past Medical History: CVA/TIA, Eye Disorder, Fibromyalgia, GERD/Reflux, Hyperlipidemia, Liver Disease, Osteoarthritis (OA), Seizure Disorder Additional Past Medical History / Comment(s): Other HX: had 1 seizure several years ago due to drug interaction, HIV positive, hx. Hep. C, neuropathy, hx. ulcers. Seizure 03/19 History of Any Multi-Drug Resistant Organisms: None Reported Past Surgical History: Hysterectomy Additional Past Surgical History / Comment(s): 08/11/15 Anterior cervical decompression fusion C3-4, C4-5 with carpectomy. Past Anesthesia/Blood Transfusion Reactions: No Reported Reaction Past Psychological History: Anxiety, Depression Smoking Status: Former smoker Past Alcohol Use History: None Reported Past Drug Use History: Marijuana - Past Family History Father History Unknown: Yes Family Medical History: Unable to Obtain Additional Family Medical History / Comment(s): Pt did not know her father. Mother Family Medical History: No Reported History Medications and Allergies Home Medications Medication Instructions Recorded Confirmed Type Doxepin HCl [SINEquan] 150 mg PO HS 12/01/19 02/16/23 History levETIRAcetam [Keppra] 500 mg PO BID 12/01/19 02/16/23 History FLUoxetine HCL [PROzac] 40 mg PO DAILY #7 cap 03/30/20 02/16/23 Rx Omeprazole 20 mg PO DAILY 09/08/20 02/16/23 History Losartan Potassium [Cozaar] 100 mg PO DAILY 12/13/20 02/16/23 History Clopidogrel [Plavix] 75 mg PO DAILY tab 12/17/20 02/16/23 Rx Folic Acid 1 mg PO DAILY 02/26/21 02/16/23 History Sennosides [Senna] 8.6 mg PO BID 02/26/21 02/16/23 History amLODIPine [Norvasc] 10 mg PO DAILY 02/26/21 02/16/23 History Atorvastatin [Lipitor] 40 mg PO DAILY 03/23/21 02/16/23 History Perphenazine 8mg 8 mg PO HS 03/23/21 02/16/23 History Metoprolol Tartrate [Lopressor] 25 mg PO BID 08/02/21 02/16/23 History hydrOXYzine pamoate [hydrOXYzine 50 mg PO HS 08/04/21 02/16/23 History PAMOATE] Albuterol Sulfate [Albuterol 2 puff PO RT-QID PRN 11/27/22 02/16/23 History Sulfate Hfa] Aspirin EC [Ecotrin Low Dose] 81 mg PO DAILY 02/16/23 02/16/23 History Allergies Allergy/AdvReac Type Severity Reaction Status Date / Time Penicillins Allergy Rash/Hives Verified 02/16/23 15:54 propoxyphene napsylate Allergy Itching Verified 02/16/23 15:54 [From Darvocet-N 100] aspirin AdvReac Nausea & Verified 02/16/23 15:54 Vomiting ibuprofen [From Motrin] AdvReac Nausea & Verified 02/16/23 15:54 Vomiting Physical Exam Vitals: Vital Signs Temp Pulse Resp BP Pulse Ox 02/16/23 17:00 78 18 114/83 02/16/23 16:30 75 15 116/86 100 02/16/23 16:00 73 16 99 02/16/23 15:30 74 18 99 02/16/23 15:20 75 16 100 02/16/23 13:38 98.2 F 71 18 130/86 97 Intake and Output 02/16/23 02/16/23 02/16/23 06:59 14:59 22:59 Other: Weight 74.843 kg Results CBC & Chem 7: 02/16/23 13:44 02/16/23 13:44 Labs: Abnormal Lab Results - Last 24 Hours (Table) 02/16/23 Range/Units 13:44 Potassium 3.3 L (3.5-5.1) mmol/L Chloride 109 H (98-107) mmol/L Carbon Dioxide 21 L (22-30) mmol/L AST 49 H (14-36) U/L Creatine Kinase 908 H (30-135) U/L
[2023-02-16] MEDS: POTASSIUM CHLORIDE 10 MEQ in WATER FOR INJECTION 1 100ML.BAG IVPB SCH ×2 (18:27→19:35)
[2023-02-16] MEDS: SODIUM CHLORIDE 0.9% 500 ML 500 ML IV SCH ×2 (18:28→23:28)
[2023-02-16] MEDS ORDERED: ATORVASTATIN 80 MG TAB PO SCH (21:00)
[2023-02-16] MEDS ORDERED: MORPHINE SULFATE 2 MG/ML SYRINGE IVP STA (21:13)
[2023-02-16] MEDS: levETIRAcetam 500 MG TAB PO SCH (21:18)
[2023-02-16] MEDS: HEPARIN SODIUM,PORCINE/PF 5,000 UNIT/0.5 ML SYRINGE SQ SCH (21:19)
[2023-02-16] MEDS: PERPHENAZINE 4 MG TAB PO SCH (22:04)
[2023-02-17] MEDS: SODIUM CHLORIDE 0.9% 500 ML 500 ML IV SCH (05:40)
[2023-02-17 08:54] LABS: African American GFR (CKD) >90 (>60 ml/min/1.73 sqM); Anion Gap 9 mmol/L; Blood Urea Nitrogen 8 mg/dL (7-17); Calcium 9.2 mg/dL (8.4-10.2); Carbon Dioxide 27 mmol/L (22-30); Chloride 107 mmol/L (98-107); Glucose 129 mg/dL (74-99); Non-African American GFR(CKD) >90 (>60 ml/min/1.73 sqM); Potassium 3.1 mmol/L (3.5-5.1); Sodium 143 mmol/L (137-145)
[2023-02-17] MEDS ORDERED: ATORVASTATIN 40 MG TAB PO SCH (09:00)
[2023-02-17] MEDS ORDERED: ASPIRIN 325 MG TAB PO SCH (09:00)
[2023-02-17] MEDS ORDERED: NON FORMULARY DRUG (Aspirin Ec 81 MG Tablet) PO SCH (09:00)
[2023-02-17] MEDS: levETIRAcetam 500 MG TAB PO SCH ×2 (09:07→19:52)
[2023-02-17] MEDS: FLUoxetine HCL 20 MG CAP PO SCH (09:07)
[2023-02-17] MEDS: amLODIPine 10 MG TAB PO SCH (09:07)
[2023-02-17] MEDS: CLOPIDOGREL 75 MG TAB PO SCH (09:07)
[2023-02-17] MEDS: LOSARTAN 50 MG TAB PO SCH (09:08)
[2023-02-17] MEDS: HEPARIN SODIUM,PORCINE/PF 5,000 UNIT/0.5 ML SYRINGE SQ SCH ×2 (09:08→19:51)
[2023-02-17] MEDS: ATORVASTATIN 40 MG TAB PO SCH (09:08)
[2023-02-17] MEDS: PANTOPRAZOLE 40 MG TABLET PO SCH (09:08)
[2023-02-17] MEDS: MORPHINE SULFATE 2 MG/ML SYRINGE IVP PRN ×2 (10:45→19:57)
[2023-02-17] MEDS: POTASSIUM CHLORIDE 20 MEQ in WATER FOR INJECTION 1 100ML.BAG IVPB SCH ×2 (10:46→13:01)
[2023-02-17] MEDS ORDERED: LACOSAMIDE 50 MG TABLET PO STA (11:16)
--- NOTE | 2023-02-17 12:24 | P.GSCN ---
History of Present Illness Consult date: 02/17/23 Reason for Consult: Occluded vertebral artery. History of present illness: patient is a 62-year-old female presented with a history of falling. This was associated with a right-sided facial droop. During workup occluded right vertebral artery was documented on CTA of the carotids. Patient has a history CVA in the past. Cardiac: Regular rate and rhythm. Lungs: Clear to auscultation bilaterally. Neurologic: Right facial droop is identified. Flexion contracture of the right upper extremity is also noted although patient is able to move all 4 extremities. Abdomen: Soft and otherwise benign. Past Medical History Past Medical History: CVA/TIA, Eye Disorder, Fibromyalgia, GERD/Reflux, Hyperlipidemia, Liver Disease, Osteoarthritis (OA), Seizure Disorder Additional Past Medical History / Comment(s): Other HX: had 1 seizure several years ago due to drug interaction, HIV positive, hx. Hep. C, neuropathy, hx. ulcers. Seizure 03/19 History of Any Multi-Drug Resistant Organisms: None Reported Past Surgical History: Hysterectomy Additional Past Surgical History / Comment(s): 08/11/15 Anterior cervical decompression fusion C3-4, C4-5 with carpectomy. Past Anesthesia/Blood Transfusion Reactions: No Reported Reaction Past Psychological History: Anxiety, Depression Additional Psychological History / Comment(s): Pt lives alone. She uses a walker or wheelchair. She has never had a carrier driver's license. She gets rides through her insurance. Smoking Status: Former smoker Past Alcohol Use History: None Reported Additional Past Alcohol Use History / Comment(s): Pt states she stopped smoking "years ago." Past Drug Use History: Marijuana Additional Drug Use History / Comment(s): medical use-smokes on occasion. - Past Family History Father History Unknown: Yes Family Medical History: Unable to Obtain Additional Family Medical History / Comment(s): Pt did not know her father. Mother Family Medical History: No Reported History Medications and Allergies Home Medications Medication Instructions Recorded Confirmed Type Doxepin HCl [SINEquan] 150 mg PO HS 12/01/19 02/16/23 History levETIRAcetam [Keppra] 500 mg PO BID 12/01/19 02/16/23 History FLUoxetine HCL [PROzac] 40 mg PO DAILY #7 cap 03/30/20 02/16/23 Rx Omeprazole 20 mg PO DAILY 09/08/20 02/16/23 History Losartan Potassium [Cozaar] 100 mg PO DAILY 12/13/20 02/16/23 History Clopidogrel [Plavix] 75 mg PO DAILY tab 12/17/20 02/16/23 Rx Folic Acid 1 mg PO DAILY 02/26/21 02/16/23 History Sennosides [Senna] 8.6 mg PO BID 02/26/21 02/16/23 History amLODIPine [Norvasc] 10 mg PO DAILY 02/26/21 02/16/23 History Atorvastatin [Lipitor] 40 mg PO DAILY 03/23/21 02/16/23 History Perphenazine 8mg 8 mg PO HS 03/23/21 02/16/23 History Metoprolol Tartrate [Lopressor] 25 mg PO BID 08/02/21 02/16/23 History hydrOXYzine pamoate [hydrOXYzine 50 mg PO HS 08/04/21 02/16/23 History PAMOATE] Albuterol Sulfate [Albuterol 2 puff PO RT-QID PRN 11/27/22 02/16/23 History Sulfate Hfa] Aspirin EC [Ecotrin Low Dose] 81 mg PO DAILY 02/16/23 02/16/23 History Allergies Allergy/AdvReac Type Severity Reaction Status Date / Time Penicillins Allergy Rash/Hives Verified 02/16/23 15:54 propoxyphene napsylate Allergy Itching Verified 02/16/23 15:54 [From Darvocet-N 100] aspirin AdvReac Nausea & Verified 02/16/23 15:54 Vomiting ibuprofen [From Motrin] AdvReac Nausea & Verified 02/16/23 15:54 Vomiting Surgical - Exam Osteopathic Statement: *. No significant issues noted on an osteopathic structural exam other than those noted in the History and Physical/Consult. Vital Signs Temp Pulse Resp BP Pulse Ox 98.2 F 71 18 130/86 97 02/16/23 13:38 02/16/23 13:38 02/16/23 13:38 02/16/23 13:38 02/16/23 13:38 Patient is resting comfortably. Results - Labs 02/16/23 13:44 02/17/23 08:18 Abnormal Lab Results - Last 24 Hours (Table) 02/16/23 02/17/23 Range/Units 13:44 08:18 Potassium 3.3 L 3.1 L (3.5-5.1) mmol/L Chloride 109 H (98-107) mmol/L Carbon Dioxide 21 L (22-30) mmol/L Glucose 129 H (74-99) mg/dL AST 49 H (14-36) U/L Creatine Kinase 908 H (30-135) U/L Diabetes panel 02/16/23 02/17/23 Range/Units 13:44 08:18 Sodium 142 143 (137-145) mmol/L Potassium 3.3 L 3.1 L (3.5-5.1) mmol/L Chloride 109 H 107 (98-107) mmol/L Carbon Dioxide 21 L 27 (22-30) mmol/L BUN 12 8 (7-17) mg/dL Creatinine 0.78 0.69 (0.52-1.04) mg/dL Glucose 98 129 H (74-99) mg/dL Calcium 9.2 9.2 (8.4-10.2) mg/dL AST 49 H (14-36) U/L ALT 34 (4-34) U/L Alkaline Phosphatase 62 (38-126) U/L Total Protein 7.5 (6.3-8.2) g/dL Albumin 4.2 (3.5-5.0) g/dL Calcium panel 02/16/23 02/17/23 Range/Units 13:44 08:18 Calcium 9.2 9.2 (8.4-10.2) mg/dL Albumin 4.2 (3.5-5.0) g/dL Pituitary panel 02/16/23 02/17/23 Range/Units 13:44 08:18 Sodium 142 143 (137-145) mmol/L Potassium 3.3 L 3.1 L (3.5-5.1) mmol/L Chloride 109 H 107 (98-107) mmol/L Carbon Dioxide 21 L 27 (22-30) mmol/L BUN 12 8 (7-17) mg/dL Creatinine 0.78 0.69 (0.52-1.04) mg/dL Glucose 98 129 H (74-99) mg/dL Calcium 9.2 9.2 (8.4-10.2) mg/dL Adrenal panel 02/16/23 02/17/23 Range/Units 13:44 08:18 Sodium 142 143 (137-145) mmol/L Potassium 3.3 L 3.1 L (3.5-5.1) mmol/L Chloride 109 H 107 (98-107) mmol/L Carbon Dioxide 21 L 27 (22-30) mmol/L BUN 12 8 (7-17) mg/dL Creatinine 0.78 0.69 (0.52-1.04) mg/dL Glucose 98 129 H (74-99) mg/dL Calcium 9.2 9.2 (8.4-10.2) mg/dL Total Bilirubin 1.2 (0.2-1.3) mg/dL AST 49 H (14-36) U/L ALT 34 (4-34) U/L Alkaline Phosphatase 62 (38-126) U/L Total Protein 7.5 (6.3-8.2) g/dL Albumin 4.2 (3.5-5.0) g/dL - Imaging CT scan - chest: report reviewed Assessment and Plan Assessment: 1: Possible right vertebral artery occlusion versus contrast timing issues. 2: No acute surgical intervention, recommend continued medical care. 3: Will obtain carotid duplex study. Plan: #1: Carotid duplex. #2: Agree with current medical care. Time with Patient: Less than 30
--- NOTE | 2023-02-17 12:45 | P.PN ---
Subjective Progress Note Date: 02/17/23 Patient is a 62-year-old female with PMH of CVA with right-sided residual weakness, hypertension, seizure disorder, smoker, asthma presents the ED after waking up on the floor. She is unsure of the events leading to waking up on the floor. She woke up with a right sided facial droop. Patient states that she lives alone and uses the aid of a walker to ambulate. She currently reports hunger. She denies any headache, lower extremity edema, nausea or vomiting, fever or chills, cough, chest pain, shortness of breath, palpitations, changes in urination or bowel habits. In the ED, her vital signs are stable. CBC was unremarkable. Coagulation panel within normal limits. CMP showed potassium of 3.3, chloride of 109, bicarb of 21, AST 49. Creatinine kinase 908. Troponin less than 0.012. CT head and C-spine showed no acute intracranial hemorrhage. CTA head and neck showed soft tissue thickening of the supraglottic airway, hypoplastic versus occluded right vertebral artery. Chest x-ray was negative. Pelvic x-ray was negative. Patient is admitted for workup of CVA. 02/17 Patient was seen and examined. No acute events overnight. BMP shows K of 3.1, glucose of 129. Lipid panel shows LDL 34.9. Patient reports abdominal pain, unable to describe any further. Clinical condition essentially unchanges. Case discussed with Dr. Benitez, added Vimpat for possible seizure, continue CVA workup. General: non toxic, no distress, appears at stated age Derm: warm, dry Head: atraumatic, normocephalic, symmetric Eyes: EOMI, no lid lag, anicteric sclera Cardiovascular: S1S2 reg, no murmur Lungs: CTA bilateral, no rhonchi, no rales , no accessory muscle use Abdominal: soft, nontender to palpation, no guarding, no appreciable organomegaly Ext: no gross muscle atrophy, no edema, no contractures Neuro: CN II-XI grossly intact except R facial droop, RUE contractures. RLE 3/5 strength. RADHA and LLE 4-5/5 strength. Sensation intact to touch. Psych: Alert, oriented, appropriate affect Syncopal episode CVA versus seizure Supraglottic thickening Vertebral stenosis Hypokalemia Transaminitis Elevated CPK Chronic conditions: CVA with right-sided residual weakness, hypertension, seizure disorder, smoker, asthma Based on my assessment of this patient, this patient meets a high complexity level of care. Syncopal episode CVA versus seizure: Stroke workup will be pursued. Obtain echocardiogram. Obtain MRI brain. Obtain hemoglobin A1c. Obtain EEG. PT, OT and ST consulted. Neurology on board. Advanced neurochecks ordered. Seziure and Fall precautions. Telemetry monitoring. ASA 81 mg PO QD. Lipitor 40 mg PO QHS. Continue Keppra 100 mg PO BID and started on Vimpat 100 mg PO BID. Supraglottic thickening: ENT consult. Vertebral stenosis: Vascular surgery consulted, agree with [facility]. Hypokalemia: Replace with 40 meq IV. Transaminitis: Unknown etiology. Mildly elevated. Continue to monitor. Elevated CPK: Encourage hydration by mouth. Renal function within normal limits. FULL CODE. Heparin SQ for DVT prophylaxis. Patient has an acute diagnosis of CVA vs seizure that poses a threat to life or bodily function. I have reviewed the following beauty consultant notes: Vascular Sx note reviewed. I have reviewed the results of the following tests: BMP, Lipid panel. I have ordered the following tests: Pending: Echo. MRI brain. A1c. BMP ordered for tomorrow morning. I have discussed the care of this patient with the following independent historian: I have independently interpreted the following test below: I have discussed the management of this patient with the following physician: Discussed with Dr. Benitez as above. Objective - Vital Signs Vital signs: Vital Signs Temp 98.8 F 02/17/23 08:10 Pulse 85 02/17/23 11:00 Resp 17 02/17/23 11:00 BP 118/82 02/17/23 11:00 Pulse Ox 96 02/17/23 11:00 FiO2 Intake & Output 02/16/23 02/17/23 02/17/23 18:59 06:59 18:59 Intake Total 118 Balance 118 Weight 74.843 kg 74.843 kg Intake: Oral 118 Other: Voiding Method Diaper Diaper # Voids 1 - Labs CBC & Chem 7: 02/16/23 13:44 02/17/23 08:18 Labs: Abnormal Lab Results - Last 24 Hours (Table) 02/16/23 02/17/23 Range/Units 13:44 08:18 Potassium 3.3 L 3.1 L (3.5-5.1) mmol/L Chloride 109 H (98-107) mmol/L Carbon Dioxide 21 L (22-30) mmol/L Glucose 129 H (74-99) mg/dL AST 49 H (14-36) U/L Creatine Kinase 908 H (30-135) U/L
--- NOTE | 2023-02-17 12:59 | P.CNNES ---
History of Present Illness Consult date: 02/17/23 Requesting physician: Rere Perez Reason for Consult: acute right facial droop, possible cva, vbi History of Present Illness: This is a 62-year-old woman with history of stroke with residual right sided weakness, seizure presented emergency department because the patient was found on the ground. History was obtained from medical record and nurse. It seems the patient was found down on the ground with right facial droop and unsure onset of timing. It seems per the ED the patient reports 2 previous weakness in her right arm but denies that she had any speech deficit or facial droop from her previous stroke. She denies any blood thinners to the ED team. She notified the ED that she believes that she hit her head. She was seen the day prior to ED for fall and was discharged around 8pm and was taken home by EMS. Upon seeing her she was drowsy and could not give me reliable history. Per the nurse she resides by her self. Per her records, it seems patient is on Keppra 500mg bid, ASA 81mg and Plavix 75mg. Unsure if she missed her medications or not. Some of the work-up during this hospital visit consisted of: CBC with differential is unremarkable. CK level is 908 Initial serum glucose is 98 Potassium latest is 3.1 CT head and neck is reported as there is no acute fracture or dislocation evident in the cervical spine. Postsurgical changes with multilevel degenerative disc disease, foraminal enroachment and possible canal stenosis. Recommend follow-up MRI. No acute intracranial hemorrhage, mass effect or midline shift. Stable remote ischemic changes. The ischemic remote changes are over the left temporal, occipital and parietal lobe. I personally reviewed the CT of the head and I agree with the report. I also reviewed the CT cervical spine and the patient does have old the postsurgical cervical changes. CT angiography of the neck is reported as abnormal soft tissue thickening in the supraglottic airway asymmetrical effacing the left pyriform sinus. Recommend ENT referral to assess for potential underlying neoplasm. 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 The common and internal carotid artery remains widely patent. CT angiography of the head is reported as severely hypoplastic versus occluded right vertebral artery. The basilar artery is small and there is persistent origin of the bilateral PERSONAL INJURY LEGAL ASSISTANT (anatomic variant) correlate for any chronic symptoms of vertebral basilar insufficiency otherwise no large vessel intracranial arterial occlusion or aneurysm. Review of Systems Review of systems Limited but the prone positive and negative aspiration) Past Medical History Past Medical History: CVA/TIA, Eye Disorder, Fibromyalgia, GERD/Reflux, Hyperlipidemia, Liver Disease, Osteoarthritis (OA), Seizure Disorder Additional Past Medical History / Comment(s): Other HX: had 1 seizure several years ago due to drug interaction, HIV positive, hx. Hep. C, neuropathy, hx. ulcers. Seizure 03/19 History of Any Multi-Drug Resistant Organisms: None Reported Past Surgical History: Hysterectomy Additional Past Surgical History / Comment(s): 08/11/15 Anterior cervical decompression fusion C3-4, C4-5 with carpectomy. Past Anesthesia/Blood Transfusion Reactions: No Reported Reaction Past Psychological History: Anxiety, Depression Additional Psychological History / Comment(s): Pt lives alone. She uses a walker or wheelchair. 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 She gets rides through her insurance. Smoking Status: Former smoker Past Alcohol Use History: None Reported Additional Past Alcohol Use History / Comment(s): Pt states she stopped smoking "years ago." Past Drug Use History: Marijuana Additional Drug Use History / Comment(s): medical use-smokes on occasion. - Past Family History Father History Unknown: Yes Family Medical History: Unable to Obtain Additional Family Medical History / Comment(s): Pt did not know her father. Mother Family Medical History: No Reported History Medications and Allergies Home Medications Medication Instructions Recorded Confirmed Type Doxepin HCl [SINEquan] 150 mg PO HS 12/01/19 02/16/23 History levETIRAcetam [Keppra] 500 mg PO BID 12/01/19 02/16/23 History FLUoxetine HCL [PROzac] 40 mg PO DAILY #7 cap 03/30/20 02/16/23 Rx Omeprazole 20 mg PO DAILY 09/08/20 02/16/23 History Losartan Potassium [Cozaar] 100 mg PO DAILY 12/13/20 02/16/23 History Clopidogrel [Plavix] 75 mg PO DAILY tab 12/17/20 02/16/23 Rx Folic Acid 1 mg PO DAILY 02/26/21 02/16/23 History Sennosides [Senna] 8.6 mg PO BID 02/26/21 02/16/23 History amLODIPine [Norvasc] 10 mg PO DAILY 02/26/21 02/16/23 History Atorvastatin [Lipitor] 40 mg PO DAILY 03/23/21 02/16/23 History Perphenazine 8mg 8 mg PO HS 03/23/21 02/16/23 History Metoprolol Tartrate [Lopressor] 25 mg PO BID 08/02/21 02/16/23 History hydrOXYzine pamoate [hydrOXYzine 50 mg PO HS 08/04/21 02/16/23 History PAMOATE] Albuterol Sulfate [Albuterol 2 puff PO RT-QID PRN 11/27/22 02/16/23 History Sulfate Hfa] Aspirin EC [Ecotrin Low Dose] 81 mg PO DAILY 02/16/23 02/16/23 History Allergies Allergy/AdvReac Type Severity Reaction Status Date / Time Penicillins Allergy Rash/Hives Verified 02/16/23 15:54 propoxyphene napsylate Allergy Itching Verified 02/16/23 15:54 [From Darvocet-N 100] aspirin AdvReac Nausea & Verified 02/16/23 15:54 Vomiting ibuprofen [From Motrin] AdvReac Nausea & Verified 02/16/23 15:54 Vomiting Physical Examination - Vital Signs Vital Signs: Vital Signs Temp Pulse Pulse Resp BP BP Pulse Ox 02/17/23 11:00 85 17 118/82 96 02/17/23 08:10 98.8 F 98 18 109/77 97 02/17/23 04:00 78 16 136/78 98 02/17/23 01:31 16 02/17/23 00:00 65 16 125/72 97 02/16/23 20:40 97.8 F 86 16 131/80 98 02/16/23 19:29 77 16 143/104 99 02/16/23 17:00 78 18 114/83 02/16/23 16:30 75 15 116/86 100 02/16/23 16:00 73 16 99 02/16/23 15:30 74 18 99 02/16/23 15:20 75 16 100 02/16/23 13:38 98.2 F 71 18 130/86 97 Intake and Output 02/16/23 02/17/23 02/17/23 22:59 06:59 14:59 Intake Total 118 Balance 118 Intake: Oral 118 Other: Voiding Method Diaper Diaper Diaper # Voids 2 1 Weight 74.843 kg GENERAL: The patient is laying in bed and does not appear in acute distress. NEUROLOGICAL: Limited because of condition. Higher mental function: The patient is moderate to severe drowsy but is awake multiple voice appeared she is oriented to self. She stated that she is in the hospital but does not know the name. Could not tell me the year or the month. She is able to name objects correctly such as watch and pen. She is able to follow some simple commands such as showing a thumbs up, sticking out her tongue and smiling. Language is a limited but appears she has expressive aphasia. Cranial nerves: The pupils are round, equal and reactive to light. Heart assistive visual dasilva or extraocular movement because of her condition. Has mild right lower facial droop. No dysarthria is appreciated Motor: The strength is to assess individual muscles because of poor cooperation but has right-sided weakness worse on the upper than the lower. She has increased tone over the right upper mostly in the hand. Cerebellum: Unable to assess because of a corporation. Sensation: Unable to assess. Reflexes (right/left): 3+ right upper while lowers are 2-3+. Left is 2+. Plantars are mute bilaterally. Results - Laboratory Findings CBC and BMP: 02/16/23 13:44 02/17/23 08:18 Abnormal Lab Findings: Abnormal Labs 02/16/23 02/17/23 13:44 08:18 Potassium 3.3 L 3.1 L Chloride 109 H Carbon Dioxide 21 L Glucose 129 H AST 49 H Creatine Kinase 908 H Assessment and Plan Assessment: This is a 62-year-old woman who presented to our facility because she was found down at home on the floor notified the ED team that she had that you onset right lower facial droop.. She presented the day to our facility before because of a fall. Recurrent falls (and found self on ground) with reported right lower facial droop that's new: I feel patient had breakthrough seizures. Cannot rule out acute or subacute stroke CT angiography of the neck has abnormal soft tissue thickening in the supraglottic airway asymmetrical effacing the left pyriform sinus. R/O underlying neoplasm. 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 History of seizure and is on Keppra History of the stroke over the left parietal, occipital and temporal region with residual right hemiparesis (upper > lower, spastic right hand. I feel likely expressive aphasia is old) History of hepatitis C History of HIV History of anterior cervical decompression fusion over C3 to C4, C4-C5 in 2016 Anxiety Depression Plan: I ordered Keppra level, TSH, vitamin B12, folate and ammonia level I loaded the patient with Vimpat 100 mg once. I went up on her Keppra from 500mg bid to 1000mg bid. MRI Brain is ordered to rule out acute or subacute stroke. I also ordered MRI C-spine to rule out any significant stenosis or cervical myelopathy causing her falls. EEG is ordered and pending (will likely be completed this Sunday). I ordered urine drug screen. Lipid panel and HbA1c is ordered. 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 Vascular surgery is consulted and they ordered carotid duplex. CT angiography of the neck has abnormal soft tissue thickening in the supraglottic airway asymmetrical effacing the left pyriform sinus. R/O underlying neoplasm. Recommend ENT evaluation. Continue neuro checks. Cardiac monitoring On fall precaution ON seizure precaution and pad. PT, OT and PROBATE CLERK are consulted. Will defer the rest of medical management to primary team. For DVT prophylaxis: on Sub q heparin 5000U every 12 hours. The plan is discussed with primary team and her nurse. Thank you for the consultation. Time with Patient: Greater than 30
[2023-02-17 14:37] LABS: Chol/HDL Ratio 2.53 Ratio; LDL Cholesterol,Calculated 40.8 mg/dL (0.0-131.0); VLDL Calculation 17.84 mg/dL (5.00-40.00)
[2023-02-17 16:12] LABS: Appearance,Urine Clear (Clear); Bilirubin,Urine Negative (Negative); Blood,Urine Negative (Negative); Color,Urine Yellow; Glucose,Urine (UA) Negative (Negative); Ketones,Urine 1+ (Negative); Leukocyte Esterase,Urine Negative (Negative); Nitrite,Urine Negative (Negative); PH, Urine 6.5 (5.0-8.0); Protein,Urine Trace (Negative)
--- NOTE | 2023-02-17 16:13 | US ---
EXAMINATION TYPE: US carotid duplex BILAT DATE OF EXAM: 02/17/2023 COMPARISON: NONE CLINICAL INDICATION: Female, 62 years old with history of stenosis; Right facial droop. Fall TECHNIQUE: Carotid duplex ultrasound examination. Indirect Doppler criteria was utilized. FINDINGS: EXAM MEASUREMENTS: RIGHT: Peak Systolic Velocity (PSV) cm/sec ----- Right CCA: 62.4 ----- Right ICA: 89.9 ----- Right ECA: 60.1 ICA/CCA ratio: 1.44 RIGHT: End Diastole cm/sec ----- Right CCA: 18.2 ----- Right ICA: 28.8 ----- Right ECA: 10.3 LEFT: Peak Systolic Velocity (PSV) cm/sec ----- Left CCA: 63.7 ----- Left ICA: 88.1 ----- Left ECA: 61.1 ICA/CCA ratio: 1.38 LEFT: End Diastole cm/sec ----- Left CCA: 12.8 ----- Left ICA: 33.1 ----- Left ECA: 8.3 VERTEBRALS (direction of flow): Right Vertebral: unable to visualize Left Vertebral: Antegrade Rhythm: Normal EGG AND SPICE MIXER NOTES: Mild plaque bilateral bifurcations. No evidence of increased velocities IMPRESSION: No ultrasound evidence for hemodynamically significant stenosis of the bilateral internal carotid art eries. Criteria for Assigning % of Stenosis / Diameter reduction (Estimation based on the indirect measurements of the internal carotid artery velocities (ICA PSV). 1. Normal (no stenosis)=ICA PSV < 125 cm/s: ratio < 2.0: ICA EDV<40 cm/s. 2. Less than 50% stenosis=ICA PSV < 125 cm/s: ratio < 2.0: ICA EDV<40 cm/s. 3. 50 to 69% stenosis=ICA PSV of 125 to 230 cm/s: ration 2.0 ? 4.0: ICA EDV 40-100 cm/s. 4. Greater than 70% stenosis to near occlusion= ICA PSV > 230 cm/s: ratio > 4.0: ICA EDV > 100 cm/s. 5. Near occlusion= ICA PSV velocities may be low or undetectable: variable ratio and ICA EDV. 6. Total occlusion=unable to detect flow.
[2023-02-17 16:44] LABS: Amphetamine Screen,Urine Not Detected (NotDetected); Barbiturate Screen,Urine Not Detected (NotDetected); Benzodiazepines Screen,Urine Detected (NotDetected); Cocaine Screen,Urine Not Detected (NotDetected); Methadone Screen, Urine Not Detected (NotDetected); Opiate Screen,Urine Detected (NotDetected); Oxycodone Screen, Urine Not Detected (NotDetected); Phencyclidine Screen,Urine Not Detected (NotDetected); Tricyclic Antidepressant,Urine Detected (NotDetected); Urn Cannabinoid Scrn Detected (NotDetected)
[2023-02-17] MEDS: PERPHENAZINE 4 MG TAB PO SCH (19:52)
[2023-02-17] MEDS ORDERED: levETIRAcetam 500 MG TAB PO SCH ×2 (21:00)
[2023-02-17] MEDS ORDERED: LACOSAMIDE 50 MG TABLET PO SCH ×2 (21:00)
[2023-02-18] MEDS: MORPHINE SULFATE 2 MG/ML SYRINGE IVP PRN ×4 (04:14→23:28)
[2023-02-18] MEDS ORDERED: CYANOCOBALAMIN 1,000 MCG/ML 1 ML VIAL IM ONE (08:00)
[2023-02-18] MEDS: HEPARIN SODIUM,PORCINE/PF 5,000 UNIT/0.5 ML SYRINGE SQ SCH ×2 (08:55→20:04)
[2023-02-18] MEDS: levETIRAcetam 500 MG TAB PO SCH ×2 (08:56→20:04)
[2023-02-18] MEDS: ATORVASTATIN 40 MG TAB PO SCH (08:56)
[2023-02-18] MEDS: ASPIRIN 81 MG PO SCH (08:56)
[2023-02-18] MEDS: PANTOPRAZOLE 40 MG TABLET PO SCH (08:56)
[2023-02-18] MEDS: amLODIPine 10 MG TAB PO SCH (08:56)
[2023-02-18] MEDS: FLUoxetine HCL 20 MG CAP PO SCH (08:56)
[2023-02-18] MEDS: CLOPIDOGREL 75 MG TAB PO SCH (08:56)
[2023-02-18] MEDS: LOSARTAN 50 MG TAB PO SCH (08:56)
--- NOTE | 2023-02-18 11:29 | P.PN ---
Subjective Progress Note Date: 02/18/23 I am seeing the patient as follow-up and per the nurse she seems more responsive compared to yesterday. No clinical seizures. Patient feels she is doing better and denies any worsening of her facial droop t hat brought her to the hospital and could not tell me what brought here. Denies of any new focal deficits. Denies of headache. Objective - Vital Signs Vital signs: Vital Signs Temp 98 F 02/18/23 08:00 Pulse 94 02/18/23 08:00 Resp 17 02/18/23 08:00 BP 107/68 02/18/23 08:00 Pulse Ox 93 L 02/18/23 08:00 FiO2 Intake & Output 02/17/23 02/18/23 02/18/23 18:59 06:59 18:59 Intake Total 354 354 Output Total 200 Balance 154 354 Intake: Oral 354 354 Output: Urine 200 Other: Voiding Method Diaper Diaper Diaper # Voids 1 - Exam GENERAL: The patient is laying in bed and does not appear in acute distress. NEUROLOGICAL: Somewhat Limited because of cooperation Higher mental function: The patient is awake, alert, oriented to self and time. She stated she was in the hospital but did not know name. She correctly name objects (pen and watch). She is more responsive and expressing her self better today compared to yesterday. She has mild expressive aphasia. Cranial nerves: The pupils are round, equal and reactive to light. Visual dasilva seems full throughout confrontation. Has mild right lower facial droop (denies it got worse). No dysarthria. Tongue is midline and moves side to side. Motor: The strength is has right sided weakness (upper > lowers) with increases tone over the right hand. Left sided is 5/5. Sensation: Normal to touch throughout. Reflexes (right/left): 3+ right upper while lowers are 2-3+. Left is 2+. Some of the work-up during this hospital visit consisted of: Lipid panels triglyceride of 89, cholesterol of 97, LDLs 40 and HDL is 38 Vitamin B12 is 381. Folate is 40 TSH is 0.903 Hemoglobin A1c is 5.4. Ammonia level is 10 CK level is 908 Initial serum glucose is 98 Potassium latest is 3.1 CT head and neck is reported as there is no acute fracture or dislocation evident in the cervical spine. Postsurgical changes with multilevel degenerative disc disease, foraminal enroachment and possible canal stenosis. Recommend follow-up MRI. No acute intracranial hemorrhage, mass effect or midline shift. Stable remote ischemic changes. The ischemic remote changes are over the left temporal, occipital and parietal lobe. I personally reviewed the CT of the head and I agree with the report. I also reviewed the CT cervical spine and the patient does have old the postsurgical cervical changes. CT angiography of the neck is reported as abnormal soft tissue thickening in the supraglottic airway asymmetrical effacing the left pyriform sinus. Recommend ENT referral to assess for potential underlying neoplasm. 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 The common and internal carotid artery remains widely patent. CT angiography of the head is reported as severely hypoplastic versus occluded right vertebral artery. The basilar artery is small and there is persistent origin of the bilateral [facility] (anatomic variant) correlate for any chronic symptoms of vertebral basilar insufficiency otherwise no large vessel intracrani al arterial occlusion or aneurysm. Carotid duplex: It is reported as no ultrasound evidence for hemodynamically significant stenosis of bilateral internal carotid arteries. Urine drug screen is positive for opiates, tricyclic antidepressant, benzo and marijuana. - Labs CBC & Chem 7: 02/16/23 13:44 02/17/23 08:18 Labs: Abnormal Lab Results - Last 24 Hours (Table) 02/17/23 02/17/23 02/17/23 Range/Units 08:18 13:07 15:15 HDL Cholesterol 38.40 L (40.00-60.00) mg/dL Folate 40.00 H (4.40-31.00) ng/mL Urine Protein Trace H (Negative) Urine Ketones 1+ H (Negative) Urine Opiates Screen Detected H (NotDetected) U Tricyclic Antidepress Detected H (NotDetected) U Benzodiazepines Scrn Detected H (NotDetected) U Marijuana (THC) Screen Detected H (NotDetected) Assessment and Plan Assessment: This is a 62-year-old woman who presented to our facility because she was found down at home on the floor notified the ED team that she had that you onset right lower facial droop.. She presented the day to our facility before because of a fall. Recurrent falls (and found self on ground) with reported right lower facial asha op that's new per ED but she denies any new facial weakness to me: I feel patient had breakthrough seizures. Cannot rule out acute or subacute stroke CT angiography of the neck has abnormal soft tissue thickening in the supraglottic airway asymmetrical effacing the left pyriform sinus. R/O underlyi ng neoplasm. 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 I feel likely expressive aphasia is old) History of hepatitis C History of HIV History of anterior cervical decompression fusion over C3 to C4, C4-C5 in 2016 Anxiety Depression Plan: I loaded the patient with Vimpat 100 mg once on 02/17/2023. I went up on her home Keppra from 500mg bid to 1000mg bid on 02/17/23. Today she is more responsive and following commands. MRI Brain is ordered to rule out acute or subacute stroke. Pending MRI C-spine to rule out any significant stenosis or cervical myelopathy causing her falls. EEG is ordered and pending (will likely be completed this Sunday). Urine drug screen is positive for opiates, tricyclic antidepressant, benzo and marijuana. 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 Vascular surgery is consulted. Patient is on ASA 81mg, Plavix 75mg daily. Also on Lipitor 40mg daily. CT angiography of the neck has abnormal soft tissue thickening in the supraglottic airway asymmetrical effacing the left pyriform sinus. R/O underlying neoplasm. Recommend ENT evaluation. Continue neuro checks. Cardiac monitoring On fall precaution ON seizure precaution and pad. PT, OT and PERSONAL SHOPPER are consulted. For low normal vitamin B12: I gave her one time Vitamin B12 1000mcg IM then 500mcg daily after that. Recommend repeat Vitamin B12 level within 2-3 months down the line. Will defer the rest of medical management to primary team. For DVT prophylaxis: on Sub q heparin 5000U every 12 hours. The plan is discussed with her nurse. Dr. Landeros will start neurology service tomorrow A.M. Time with Patient: Less than 30
--- NOTE | 2023-02-18 11:44 | P.PN ---
Subjective Progress Note Date: 02/18/23 Patient is a 62-year-old female with PMH of CVA with right-sided residual weakness, hypertension, seizure disorder, smoker, asthma presents the ED after waking up on the floor. She is unsure of the events leading to waking up on the floor. She woke up with a right sided facial droop. Patient states that she lives alone and uses the aid of a walker to ambulate. She currently reports hunger. She denies any headache, lower extremity edema, nausea or vomiting, fever or chills, cough, chest pain, shortness of breath, palpitations, changes in urination or bowel habits. In the ED, her vital signs are stable. CBC was unremarkable. Coagulation panel within normal limits. CMP showed potassium of 3.3, chloride of 109, bicarb of 21, AST 49. Creatinine kinase 908. Troponin less than 0.012. CT head and C-spine showed no acute intracranial hemorrhage. CTA head and neck showed soft tissue thickening of the supraglottic airway, hypoplastic versus occluded right vertebral artery. Chest x-ray was negative. Pelvic x-ray was negative. Patient is admitted for workup of CVA. 02/17 Patient was seen and examined. No acute events overnight. BMP shows K of 3.1, glucose of 129. Lipid panel shows LDL 34.9. Patient reports abdominal pain, unable to describe any further. Clinical condition essentially unchanged. Case discussed with Dr. Benitez, added Vimpat for possible seizure, continue CVA workup. 02/18 Patient was seen and examined. More vocal today. Carotid doppler shows no significant stenosis of BL internal carotid arteries. Ammonia 10. B12 381. Folate 40. TSH 0.903. UA negative for LE or nitrite. UDS + benzo, TCA, THC, opiates. Hg A1c 5.4. General: non toxic, no distress, appears at stated age Derm: warm, dry Head: atraumatic, normocephalic, symmetric Eyes: EOMI, no lid lag, anicteric sclera Cardiovascular: S1S2 reg, no murmur Lungs: CTA bilateral, no rhonchi, no rales , no accessory muscle use Abdominal: soft, nontender to palpation, no guarding, no appreciable organomegaly Ext: no gross muscle atrophy, no edema, no contractures Neuro: CN II-XI grossly intact except R facial droop, RUE contractures. RLE 3/5 strength. ARDHA and LLE 4-5/5 strength. Sensation intact to touch. Psych: Alert, oriented, appropriate affect Syncopal episode CVA versus seizure Supraglottic thickening Vertebral stenosis Hypokalemia Transaminitis Elevated CPK Chronic conditions: CVA with right-sided residual weakness, hypertension, seizure disorder, smoker, asthma Based on my assessment of this patient, this patient meets a high complexity level of care. Syncopal episode CVA versus seizure: Stroke workup will be pursued. Obtain echocardiogram. Obtain MRI brain and C-spine. Obtain EEG. PT, OT and ST consulted. Neurology on board. Advanced neurochecks ordered. Seziure and Fall precautions. Telemetry monitoring. ASA 81 mg PO QD. Lipitor 40 mg PO QHS. Continue Keppra 1000 mg PO BID. Supraglottic thickening: ENT consult. Vertebral stenosis: Vascular surgery on board. Hypokalemia: Repeat BMP pending. Transaminitis: Unknown etiology. Mildly elevated. Continue to monitor. Elevated CPK: Encourage hydration by mouth. Renal function within normal limits. Diet: NDD3 FULL CODE. Heparin SQ for DVT prophylaxis. Patient has an acute diagnosis of CVA vs seizure that poses a threat to life or bodily function. I have reviewed the following telecommunications consultant notes: Neurology note reviewed. I have reviewed the results of the following tests: Carotid doppler. Ammonia. UA. B12. Folate. TSH. UDS. A1c. I have ordered the following tests: Pending: Echo. MRI brain/C-spine. EEG. BMP I have discussed the care of this patient with the following independent historian: I have independently interpreted the following test below: I have discussed the management of this patient with the following physician: Discussed with Dr. Benitez as above. Objective - Vital Signs Vital signs: Vital Signs Temp 98 F 02/18/23 08:00 Pulse 94 02/18/23 08:00 Resp 17 02/18/23 08:00 BP 107/68 02/18/23 08:00 Pulse Ox 93 L 02/18/23 08:00 FiO2 Intake & Output 02/17/23 02/18/23 02/18/23 18:59 06:59 18:59 Intake Total 354 354 Output Total 200 Balance 154 354 Intake: Oral 354 354 Output: Urine 200 Other: Voiding Method Diaper Diaper Diaper # Voids 1 - Labs CBC & Chem 7: 02/16/23 13:44 02/17/23 08:18 Labs: Abnormal Lab Results - Last 24 Hours (Table) 02/17/23 02/17/23 02/17/23 Range/Units 08:18 13:07 15:15 HDL Cholesterol 38.40 L (40.00-60.00) mg/dL Folate 40.00 H (4.40-31.00) ng/mL Urine Protein Trace H (Negative) Urine Ketones 1+ H (Negative) Urine Opiates Screen Detected H (NotDetected) U Tricyclic Antidepress Detected H (NotDetected) U Benzodiazepines Scrn Detected H (NotDetected) U Marijuana (THC) Screen Detected H (NotDetected)
[2023-02-18 14:07] LABS: African American GFR (CKD) >90 (>60 ml/min/1.73 sqM); Anion Gap 8 mmol/L; Blood Urea Nitrogen 11 mg/dL (7-17); Calcium 9.1 mg/dL (8.4-10.2); Carbon Dioxide 25 mmol/L (22-30); Chloride 107 mmol/L (98-107); Glucose 148 mg/dL (74-99); Non-African American GFR(CKD) 88 (>60 ml/min/1.73 sqM); Sodium 140 mmol/L (137-145)
[2023-02-18] MEDS: PERPHENAZINE 4 MG TAB PO SCH (20:04)
[2023-02-19] MEDS: MORPHINE SULFATE 2 MG/ML SYRINGE IVP PRN ×4 (05:30→23:37)
[2023-02-19] MEDS: ASPIRIN 81 MG PO SCH (08:35)
[2023-02-19] MEDS: PANTOPRAZOLE 40 MG TABLET PO SCH (08:35)
[2023-02-19] MEDS: CLOPIDOGREL 75 MG TAB PO SCH (08:35)
[2023-02-19] MEDS: CYANOCOBALAMIN 500 MCG TAB PO SCH (08:35)
[2023-02-19] MEDS: levETIRAcetam 500 MG TAB PO SCH ×2 (08:35→19:59)
[2023-02-19] MEDS: ATORVASTATIN 40 MG TAB PO SCH (08:35)
[2023-02-19] MEDS: LOSARTAN 50 MG TAB PO SCH (08:35)
[2023-02-19] MEDS: amLODIPine 10 MG TAB PO SCH (08:35)
[2023-02-19] MEDS: FLUoxetine HCL 20 MG CAP PO SCH (08:35)
[2023-02-19] MEDS: HEPARIN SODIUM,PORCINE/PF 5,000 UNIT/0.5 ML SYRINGE SQ SCH ×2 (08:37→19:59)
--- NOTE | 2023-02-19 11:32 | P.PN ---
Subjective Progress Note Date: 02/19/23 Principal diagnosis: Vertebral artery occlusion Patient was seen and examined today as a follow-up for right vertebral artery occlusion. Patient underwent carotid duplex reporting right vertebral artery unable to visualize, left vertebral antegrade flow. No ultrasound evidence for hemodynamically significant stenosis of the bilateral internal carotid arteries. Carotid duplex and CTA head and neck personally reviewed by Dr. Lucero. Patient currently undergoing EEG. No complaints of any new focal deficits. Denies any headache. Patient scheduled to undergo MRI of the brain and MRI of the cervical spine. Objective - Vital Signs Vital signs: Vital Signs Temp 96.7 F L 02/19/23 08:00 Pulse 93 02/19/23 08:00 Resp 16 02/19/23 08:00 BP 109/66 02/19/23 08:00 Pulse Ox 95 02/19/23 08:00 FiO2 Intake & Output 02/18/23 02/19/23 02/19/23 18:59 06:59 18:59 Intake Total 590 118 Output Total 300 200 Balance 290 -200 118 Intake: Oral 590 118 Output: Urine 300 200 Other: Voiding Method Diaper Diaper Diaper # Voids 1 - Exam General appearance: The patient is alert, oriented, appears in no acute distress. HET: Head is normocephalic and atraumatic. Neck: Supple. Heart: Regular. Lungs: Equal expansion, normal respiratory effort. Abdomen: Soft, nontender, nondistended. Extremities: Normal skin color and turgor. Neurological: Right facial droop, some mild expressive aphasia and difficulty with thought process. - Labs CBC & Chem 7: 02/16/23 13:44 02/18/23 13:20 Labs: Abnormal Lab Results - Last 24 Hours (Table) 02/18/23 Range/Units 13:20 Glucose 148 H (74-99) mg/dL Assessment and Plan Assessment: 1. Right vertebral artery occlusion 2. Recurrent falls with right facial droop 3. History of seizure disorder 4. History of stroke residual right hemiparesis and expressive aphasia Plan: 1. Carotid duplex and CT angiogram head and neck reviewed by Dr. Lucero 2. No surgical intervention indicated, this was discussed with the patient surgical intervention is high risk and not indicated for complete occlusion. She verbalized understanding. 3. Continue with current medical management Thank you for this consultation, we will sign off at this time. The impression and plan of care has been dictated as directed. I performed a history and examination of this patient, discussed the same with the dictator. I agree with the dictator's note ,documented as a scribe. Any additional findings or plans will be noted.
--- NOTE | 2023-02-19 12:50 | EEG ---
ELECTROENCEPHALOGRAM REPORT PREAMBLE: This is a 62-year-old female with history of seizure disorder, currently on Keppra, was brought to the hospital after she was found down on the ground with right facial droop. EEG FINDINGS: This is a 21-channel digital EEG recorded with video component, utilizing 10/20 international system with referential and bipolar montages. Background consists of well developed, well regulated moderate voltage activity in 9 hertz alpha. Background is posterior dominant and seems to be reactive to eye opening and closing. There is frequent and intermittent focal slowing in rhythmic or arrhythmic delta range involving the left frontal temporal region. Photic driving response was not clearly seen. At the end of the study, there was an electrographic seizure recorded, consisting of 4 Hz spike and slow waves, which may be originating in the left frontal region, sometimes extending to the right frontal region as well. Clinically, the patient was having myoclonic twitching of bifacial region at that time. The seizure lasted for about 9 seconds. Different stages of sleep were not clearly seen. IMPRESSION: Abnormal EEG due to: 1. Frequent moderate to high amplitude rhythmic and arrhythmic delta slowing in the left frontal temporal region, suggestive of focal cortical neuronal dysfunction. 2. Recording of electrographic seizure, consisting of spike and slow waves, mainly originating in the left frontal region, extending to the right frontal region at 4 Hz, lasted for 9 seconds. Clinically, there was myoclonic twitching of the bifacial region during this seizure. This EEG suggests underlying cortical irritability and tendency for seizures. 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 Clinical correlation is recommended. MMJEAN CARLOS / NGHIAN: [id number] / JUANITA
--- NOTE | 2023-02-19 14:14 | CT ---
EXAMINATION TYPE: CT brain cspine wo con CT DLP: 1327.1 mGycm, Automated exposure control for dose reduction was used. DATE OF EXAM: 02/19/2023 2:01 PM COMPARISON: CT brain C-spine 02/19/2023. CLINICAL INDICATION:Female, 62 years old with history of r/o CVA; right sided facial droop,possible T IA, fall TECHNIQUE: Brain: Multiple axial CT images of the brain were obtained without IV contrast. Cspine: Axial CT images from the skull base to the inferior aspect of T2 we obtained without intraven ous contrast. Coronal and sagittal reformatted images were also reviewed. FINDINGS: Brain: Extra-axial spaces: No abnormal extra-axial fluid collections. Ventricular system: Ex vacuo dilatation of the posterior horn of the left lateral ventricle. Cerebral parenchyma: No acute intraparenchymal hemorrhage or mass effect. Remote left parietal occipi nando lobe ischemia with encephalomalacia The oakes-white junction is well differentiated. Scattered hyp oattenuating areas are seen within the white matter. Cerebellum: Unremarkable. Mass effect: No evidence of midline shift. Intracranial vasculature: unremarkable Soft tissues: Normal. Calvarium/osseous structures: No depressed skull fracture. Remote right medial orbital wall fracture. Paranasal sinuses and mastoid air cells: The mastoid air cells are clear. Redemonstration of mild to moderate mucosal thickening of the left frontal sinus. Visualized orbits: Orbital contents are intact. Cervical spine: Osseous structures: Multilevel degenerative disc disease changes with endplate spurring and disc oste ophyte complex's. Multilevel uncovertebral and facet hypertrophy. 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 ACDF changes affecting the C3-C5 cervical vertebra, hardware appears intact. Vertebral alignment: Straightening of the cervical spine which is likely postsurgical and positional. Craniocervical and cervicothoracic junctions aren't otherwise normally aligned. Spinal canal/Neural Foramina: No gross evidence of significant central canal stenosis. Evaluation is limited due to streak artifact from cervical hardware. Facet joint uncovertebral joint arthropathy sc attered throughout the cervical spine with varying degrees of neural foraminal stenosis. Neck soft tissues: Prevertebral soft tissues are within normal limits. Other: The airway is patent. The lung apices are clear. IMPRESSION: 1. No acute intracranial process. 2. Remote injury of the left parieto-occipital lobe 3. Nonspecific white matter changes likely related chronic small vessel ischemic disease. 4. No evidence of cervical spine fracture. 5. Multilevel degenerative disc disease.
--- NOTE | 2023-02-19 15:42 | P.PN ---
Subjective Progress Note Date: 02/19/23 Patient is a 62-year-old female with PMH of CVA with right-sided residual weakness, hypertension, seizure disorder, smoker, asthma presents the ED after waking up on the floor. She is unsure of the events leading to waking up on the floor. She woke up with a right sided facial droop. Patient states that she lives alone and uses the aid of a walker to ambulate. She currently reports hunger. She denies any headache, lower extremity edema, nausea or vomiting, fever or chills, cough, chest pain, shortness of breath, palpitations, changes in urination or bowel habits. In the ED, her vital signs are stable. CBC was unremarkable. Coagulation panel within normal limits. CMP showed potassium of 3.3, chloride of 109, bicarb of 21, AST 49. Creatinine kinase 908. Troponin less than 0.012. CT head and C-spine showed no acute intracranial hemorrhage. CTA head and neck showed soft tissue thickening of the supraglottic airway, hypoplastic versus occluded right vertebral artery. Chest x-ray was negative. Pelvic x-ray was negative. Patient is admitted for workup of CVA. 02/17 Patient was seen and examined. No acute events overnight. BMP shows K of 3.1, glucose of 129. Lipid panel shows LDL 34.9. Patient reports abdominal pain, unable to describe any further. Clinical condition essentially unchanged. Case discussed with Dr. Benitez, added Vimpat for possible seizure, continue CVA workup. 02/18 Patient was seen and examined. More vocal today. Carotid doppler shows no significant stenosis of BL internal carotid arteries. Ammonia 10. B12 381. Folate 40. TSH 0.903. UA negative for LE or nitrite. UDS + benzo, TCA, THC, opiates. Hg A1c 5.4. 02/19 Patient was seen and examined. Clinical condition essentially unchanged. BMP shows glucose of 148. EEG done which shows epileptiform activity. General: non toxic, no distress, appears at stated age Derm: warm, dry Head: atraumatic, normocephalic, symmetric Eyes: EOMI, no lid lag, anicteric sclera Cardiovascular: S1S2 reg, no murmur Lungs: CTA bilateral, no rhonchi, no rales , no accessory muscle use Abdominal: soft, nontender to palpation, no guarding, no appreciable organomegaly Ext: no gross muscle atrophy, no edema, no contractures Neuro: CN II-XI grossly intact except R facial droop, RUE contractures. RLE 3/5 strength. RADHA and LLE 4-5/5 strength. Sensation intact to touch. Psych: Alert, oriented, appropriate affect Syncopal episode CVA versus seizure Supraglottic thickening Vertebral stenosis Transaminitis Elevated CPK Chronic conditions: CVA with right-sided residual weakness, hypertension, seizure disorder, smoker, asthma Based on my assessment of this patient, this patient meets a high complexity level of care. Syncopal episode CVA versus seizure: Stroke workup will be pursued. Recent echocardiogram done 11/2022 shows EF 55-60%. Unable to obtain MRI brain and C- spine so repeat CT head and C-spine ordered. EEG shows epileptiform discharges. PT, OT and ST consulted. Neurology on board. Advanced neurochecks ordered. Seziure and Fall precautions. Telemetry monitoring. ASA 81 mg PO QD. Lipitor 40 mg PO QHS. Continue Keppra 1000 mg PO BID. Supraglottic thickening: ENT consult. Vertebral stenosis: Vascular surgery on board, no surgical intervention. Transaminitis: Unknown etiology. Mildly elevated. Continue to monitor. Elevated CPK: Encourage hydration by mouth. Renal function within normal limits. Patient does not have capacity to make decisions. Paperwork filled out for guardianship. Discussed with Dr. Landeros regarding abnormal EEG, he will need to evaluate the patient prior to adjusting medications. Plans for SNF when medically appropriate, patient agreeable. Diet: NDD3 FULL CODE. Heparin SQ for DVT prophylaxis. Patient has an acute diagnosis of CVA vs seizure that poses a threat to life or bodily function. I have reviewed the following insurance consultant notes: Vascular Sx note reviewed. I have reviewed the results of the following tests: BMP, EEG. I have ordered the following tests: Pending: Repeat CT brain/C-spine. I have discussed the care of this patient with the following independent istorian: I have independently interpreted the following test below: I have discussed the management of this patient with the following physician: Discussed with Dr. Landeros as above. Objective - Vital Signs Vital signs: Vital Signs Temp 96.7 F L 02/19/23 08:00 Pulse 91 02/19/23 12:00 Resp 18 02/19/23 13:52 BP 98/69 02/19/23 12:00 Pulse Ox 93 L 02/19/23 12:00 FiO2 Intake & Output 02/18/23 02/19/23 02/19/23 18:59 06:59 18:59 Intake Total 590 236 Output Total 300 200 Balance 290 -200 236 Intake: Oral 590 236 Output: Urine 300 200 Other: Voiding Method Diaper Diaper Diaper # Voids 1 - Labs CBC & Chem 7: 02/16/23 13:44 02/18/23 13:20
[2023-02-19] MEDS: PERPHENAZINE 4 MG TAB PO SCH (19:59)
[2023-02-19] MEDS: LACOSAMIDE 50 MG TABLET PO SCH (19:59)
--- NOTE | 2023-02-19 20:53 | P.PN ---
Subjective Progress Note Date: 02/19/23 Patient was initially seen by Dr. Sea Benitez. Please refer to his note for details. Patient has been seen by myself previously for recurrent strokes. Patient has history of large left MCA territory stroke and also has history of seizure disorder. 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 Patient usually at home walks without any device. She came to the hospital with recurrent falls. There was some report of possible right facial droop. MRI of the brain, cervical spine and EEG were initiated. Patient was on Keppra 500 mg twice a day, and the dose was increased to 1 g twice a day. No further seizures. PT OT were working. Patient is off balance, felt slightly dizzy when she got up, she spastic on the right side. Some of the work-up during this hospital visit consisted of: Lipid panels triglyceride of 89, cholesterol of 97, LDLs 40 and HDL is 38 Vitamin B12 is 381. Folate is 40 TSH is 0.903 Hemoglobin A1c is 5.4. Ammonia level is 10 CK level is 908 Initial serum glucose is 98 Potassium latest is 3.1 CT head and neck is reported as there is no acute fracture or dislocation evident in the cervical spine. Postsurgical changes with multilevel degenerative disc disease, foraminal enroachment and possible canal stenosis. Recommend follow-up MRI. No acute intracranial hemorrhage, mass effect or midline shift. Stable remote ischemic changes. The ischemic remote changes are over the left temporal, occipital and parietal lobe. I personally reviewed the CT of the head and I agree with the report. CT angiography of the neck is reported as abnormal soft tissue thickening in the supraglottic airway asymmetrical effacing the left pyriform sinus. Recommend ENT referral to assess for potential underlying neoplasm. 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 The common and internal carotid artery remains widely patent. CT angiography of the head is reported as severely hypoplastic versus occluded right vertebral artery. The basilar artery is small and there is persistent origin of the bilateral CLAY ARTISAN (anatomic variant) correlate for any chronic symptoms of vertebral basilar insufficiency otherwise no large vessel intracranial arterial occlusion or aneurysm. Carotid duplex: It is reported as no ultrasound evidence for hemodynamically significant stenosis of bilateral internal carotid arteries. Urine drug screen is positive for opiates, tricyclic antidepressant, benzo and marijuana. Objective - Vital Signs Vital signs: Vital Signs Temp 96.7 F L 02/19/23 08:00 Pulse 91 02/19/23 12:00 Resp 18 02/19/23 13:52 BP 98/69 02/19/23 12:00 Pulse Ox 93 L 02/19/23 12:00 FiO2 Intake & Output 02/18/23 02/19/23 02/19/23 18:59 06:59 18:59 Intake Total 590 236 Output Total 300 200 Balance 290 -200 236 Intake: Oral 590 236 Output: Urine 300 200 Other: Voiding Method Diaper Diaper Diaper # Voids 1 - Exam Patient is alert and awake, but has somewhat slow mentation. Speech is mildly slurred, which is baseline. On cranial examination, patient has right facial droop, central type. 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 The lower extremities is hip flexion 3+/5 ankle dorsiflexion 5/5. Sensory to touch revealed neglect on the right side and also decreased sensation on the right it appears. - Labs CBC & Chem 7: 02/16/23 13:44 02/18/23 13:20 Assessment and Plan Assessment: This is a 62-year-old woman who presented to our facility because she was found down at home on the floor notified the ED team that she had that new onset right lower facial droop.. She presented the day to our facility before because of a fall. Recurrent falls (and found self on ground) with reported right lower facial droop that's new per ED but she denies any new facial weakness to me: I feel p atient had breakthrough seizures. Cannot rule out acute or subacute stroke CT angiography of the neck has abnormal soft tissue thickening in the supraglottic airway asymmetrical effacing the left pyriform sinus. R/O underlying neoplasm. 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 I feel likely expressive aphasia is old) History of hepatitis C History of HIV History of anterior cervical decompression fusion over C3 to C4, C4-C5 in 2016 Anxiety Depression Plan: EEG performed today revealed frequent moderate to high and this showed rhythmic and arrhythmic delta slowing in the left frontal temporal region, suggestive of focal cortical neuronal dysfunction. Regarding of electrographic seizure, cons isting of spike and slow wave mainly originating in the left frontal region, at 4 Hz, extending to the right frontal region as well, lasted for 9 seconds. Clinically, there was myoclonic twitching of the bifacial region during the seizure. This EEG suggests underlying localization related epilepsy. Clinical correlation is recommended. Patient was taking Keppra 500 mg twice a day. The dose of Keppra was increased to 1000 mg twice a day starting 2 days ago on 02/17/2023. Patient had a seizure documented on EEG performed today. Patient will also be started on Vimpat 50 mg twice a day. The doses of seizure medications can be increased in the future, for any breakthrough seizures. Patient declined MRI of the brain and cervical spine initiated by Dr. Benitez. Repeat CT head performed today revealed remote injury of the left parieto- occipital lobe. No acute intracranial process. Nonspecific white per day changes, likely related to chronic small vessel ischemic disease. I personally reviewed CT head, agree with the findings. CT of the cervical spine showed no evidence of cervical spine fracture, multilevel degenerative disc disease. Urine drug screen is positive for opiates, tricyclic antidepressant, benzo and marijuana. 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 CTA also revealed abnormal soft tissue thickening in t he supraglottic airway asymmetrical effacing the left pyriform sinus. Rule out underlying neoplasm. ENT consultation recommended. Vascular surgery input appreciated, no surgical intervention, only medical management. Patient is on ASA 81mg, Plavix 75mg daily. Also on Lipitor 40mg daily. Cardiac monitoring On fall precaution ON seizure precaution and pad. PT, OT and CHIEF SOLUTION ARCHITECT are consulted. For low normal vitamin B12: Dr. Benitez has given one time Vitamin B12 1000mcg IM then 500mcg daily after that. Recommend repeat Vitamin B12 level within 2-3 months down the line. Will defer the rest of medical management to primary team. For DVT prophylaxis: on Sub q heparin 5000U every 12 hours. Neurologically clear for discharge, if she is remains stable overnight. Discussed with primary physician.
[2023-02-19] MEDS: DOXEPIN 25 MG CAP PO SCH (21:02)
[2023-02-20] MEDS: MORPHINE SULFATE 2 MG/ML SYRINGE IVP PRN ×3 (08:24→21:16)
[2023-02-20] MEDS: HEPARIN SODIUM,PORCINE/PF 5,000 UNIT/0.5 ML SYRINGE SQ SCH ×2 (08:24→21:15)
[2023-02-20] MEDS: FLUoxetine HCL 20 MG CAP PO SCH (08:24)
[2023-02-20] MEDS: ATORVASTATIN 40 MG TAB PO SCH (08:25)
[2023-02-20] MEDS: LACOSAMIDE 50 MG TABLET PO SCH ×2 (08:25→21:15)
[2023-02-20] MEDS: levETIRAcetam 500 MG TAB PO SCH ×2 (08:25→21:15)
[2023-02-20] MEDS: LOSARTAN 50 MG TAB PO SCH (08:25)
[2023-02-20] MEDS: amLODIPine 10 MG TAB PO SCH (08:25)
[2023-02-20] MEDS: PANTOPRAZOLE 40 MG TABLET PO SCH (08:25)
[2023-02-20] MEDS: CLOPIDOGREL 75 MG TAB PO SCH (08:25)
[2023-02-20] MEDS: CYANOCOBALAMIN 500 MCG TAB PO SCH (08:25)
[2023-02-20] MEDS: ASPIRIN 81 MG PO SCH (08:25)
--- NOTE | 2023-02-20 12:25 | CDI ---
Documentation Clarification Form Date: 02/20/2023 12:07:53 PM From: Halie Muniz RN, CCDS Admit Date: 02/16/2023 04:44:00 PM Patient Name: Ilda Mojica Visit Number: [id number] Discharge Date: ATTENTION: The Clinical Documentation Specialists (CDI) and [facility] Coding Staff appreciate your assistance in clarifying documentation. Please respond to the clarification below the line at the bottom and electronically sign. The CDI & [facility] Coding staff will review the response and follow-up if needed. Please note: Queries are made part of the Legal Health Record. If you have any questions, please contact the author of this message via ITS. Dr. Inder Casey Your patient has an abnormal lab value: elevated CPK 908 on admission. Please clarify if there is an additional diagnosis and/or clinical significance related to this value. History/Risk Factors: CVA/TIA, Eye Disorder, Fibromyalgia, GERD/Reflux, Hyperlipidemia, Liver Disease, Osteoarthritis (OA), Seizure Disorder, Hep.C, HIV positive, former smoker Clinical indicators: 62-year-old female with past medical history of stroke and right arm weakness who presents to the emergency department with possible stroke. EMS found the patient on the ground with right-sided facial droop. Unsure of timing. 02/16 VS: 130/86 71 18 98.2 97% RA 02/16 Labs: WBC 9.8 BUN11 CR 0.73 CPK 908 Treatment: .9 NS @ 100 MLS HR 02/16-02/17 Encourage hydration by mouth Is there an additional diagnosis and/or clinical significance related to the above lab result/information? [ ] Mild Rhabdomylosis due to fall, with unknown down time. [ x] No additional diagnosis/Not clinically significant [ ] Other, please specify [ ] Unable to determine (Template Last Revised: August 2020) MTDD
--- NOTE | 2023-02-20 12:30 | P.PN ---
Subjective Progress Note Date: 02/20/23 Hospital Course: 62-year-old female with PMH of CVA with right-sided residual weakness, hypertension, seizure disorder, smoker, asthma presents the ED after waking up on the floor. She is unsure of the events leading to waking up on the floor. She woke up with a right sided facial droop. Patient states that she lives alone and uses the aid of a walker to ambulate. She currently reports hunger. She denies any headache, lower extremity edema, nausea or vomiting, fever or chills, cough, chest pain, shortness of breath, palpitations, changes in urination or bowel habits. In the ED, her vital signs are stable. CBC was unremarkable. Coagulation panel within normal limits. CMP showed potassium of 3.3, chloride of 109, bicarb of 21, AST 49. Creatinine kinase 908. Troponin less than 0.012. CT head and C-spine showed no acute intracranial hemorrhage. CTA head and neck showed soft tissue thickening of the supraglottic airway, hypoplastic versus occluded right vertebral artery. Chest x-ray was negative. Pelvic x-ray was negative. Patient is admitted for workup of CVA. Carotid doppler shows no significant stenosis of BL internal carotid arteries. EEG done which shows epileptiform activity. Patient declined MRI. New strokelike symptoms likely in the setting of breakthrough seizures. Started on new antiepileptics. Patient currently going through guardianship paperwork, pending rehab discharge. Subjective: She is seen and examined at bedside. No acute events overnight. Pertinent positives and negatives as discussed above, a complete review of systems was performed and all other systems are negative. Vitals Signs Reviewed. General: non toxic, no distress, appears at stated age Derm: warm, dry Head: atraumatic, normocephalic, symmetric Eyes: EOMI, no lid lag, anicteric sclera Cardiovascular: S1S2 reg, no murmur Lungs: CTA bilateral, no rhonchi, no rales , no accessory muscle use Abdominal: soft, nontender to palpation, no guarding, no appreciable organomegaly Ext: no gross muscle atrophy, no edema, no contractures Neuro: CN II-XI grossly intact except R facial droop, RUE contractures. RLE 3/5 strength. RADHA and LLE 4-5/5 strength. Sensation intact to touch. Psych: Alert, oriented, appropriate affect Data Reviewed Today: Pertinent Labs: No new labs Imaging: No new imaging Assessment and Plan: Breakthrough seizures History of seizure disorder History of CVA with right-sided residual weakness Supraglottic thickening Vertebral stenosis Transaminitis Elevated CPK Hypertension Nicotine dependence Asthma -Continue aspirin, Plavix, atorvastatin -On Keppra thousand milligrams twice a day, Vimpat 50 mg twice a day -Needs outpatient ENT consult, no surgical interventions by vascular surgery -Pending rehab DVT ppx: Subcu heparin Code status: Full code Anticipated discharge place: Pending clinical course Anticipated discharge time: Pending clinical course Objective - Vital Signs Vital signs: Vital Signs Temp 98.1 F 02/20/23 08:14 Pulse 80 02/20/23 11:25 Resp 18 02/20/23 11:25 BP 124/83 02/20/23 11:25 Pulse Ox 92 L 02/20/23 11:25 FiO2 Intake & Output 02/19/23 02/20/23 02/20/23 18:59 06:59 18:59 Intake Total 354 120 Output Total 200 Balance 154 120 Intake: Oral 354 120 Output: Urine 200 Other: Voiding Method Diaper Diaper Bedside Commode Diaper # Voids 1 1 0 # Bowel Movements 0 - Labs CBC & Chem 7: 02/16/23 13:44 02/18/23 13:20
[2023-02-20] MEDS: DOXEPIN 25 MG CAP PO SCH (21:15)
[2023-02-20] MEDS: PERPHENAZINE 4 MG TAB PO SCH (21:15)
[2023-02-21] MEDS: MORPHINE SULFATE 2 MG/ML SYRINGE IVP PRN ×2 (03:32→08:45)
[2023-02-21] MEDS: LOSARTAN 50 MG TAB PO SCH (07:54)
[2023-02-21] MEDS: FLUoxetine HCL 20 MG CAP PO SCH (07:55)
[2023-02-21] MEDS: CYANOCOBALAMIN 500 MCG TAB PO SCH (07:55)
[2023-02-21] MEDS: CLOPIDOGREL 75 MG TAB PO SCH (07:55)
[2023-02-21] MEDS: levETIRAcetam 500 MG TAB PO SCH (07:55)
[2023-02-21] MEDS: HEPARIN SODIUM,PORCINE/PF 5,000 UNIT/0.5 ML SYRINGE SQ SCH (07:55)
[2023-02-21] MEDS: PANTOPRAZOLE 40 MG TABLET PO SCH (07:55)
[2023-02-21] MEDS: ASPIRIN 81 MG PO SCH (07:55)
[2023-02-21] MEDS: ATORVASTATIN 40 MG TAB PO SCH (07:55)
[2023-02-21] MEDS: LACOSAMIDE 50 MG TABLET PO SCH (07:55)
[2023-02-21] MEDS: amLODIPine 10 MG TAB PO SCH (07:56)
[2023-02-21 08:00] VITALS: BP 131/87; PULSE 104; RESP 18; TEMP 98
--- NOTE | 2023-02-21 09:50 | P.DS ---
Providers Date of admission: 02/16/23 16:44 Expected date of discharge: 02/21/23 Attending physician: Inder Casey MD Consults: 02/16/23 16:45 Consult Physician Urgent Consulting Provider: Sea Benitez Consult Reason/Comments: acute right sided facial droop, possible cva, vbi Do you want consulting provider notified?: Yes Primary care physician: Ibrahima Siddiqui MD Hospital Course: Discharge Diagnosis: Breakthrough seizures History of seizure disorder History of CVA with right-sided residual weakness Supraglottic thickening Vertebral stenosis Transaminitis Elevated CPK Hypertension Nicotine dependence Asthma Hospital Course: 62-year-old female with PMH of CVA with right-sided residual weakness, hypertension, seizure disorder, smoker, asthma presents the ED after waking up on the floor. She is unsure of the events leading to waking up on the floor. She woke up with a right sided facial droop. Patient states that she lives alone and uses the aid of a walker to ambulate. She currently reports hunger. She denies any headache, lower extremity edema, nausea or vomiting, fever or chills, cough, chest pain, shortness of breath, palpitations, changes in urination or bowel habits. In the ED, her vital signs are stable. CBC was unremarkable. Coagulation panel within normal limits. CMP showed potassium of 3.3, chloride of 109, bicarb of 21, AST 49. Creatinine kinase 908. Troponin less than 0.012. CT head and C-spine showed no acute intracranial hemorrhage. CTA head and neck showed soft tissue thickening of the supraglottic airway, hypoplastic versus occluded right vertebral artery. ENT and vascular surgery was consulted, no acute interventions. Chest x-ray was negative. Pelvic x-ray was negative. Patient is admitted for workup of CVA. Neurology consulted. Carotid doppler shows no significant stenosis of BL internal carotid arteries. EEG done which shows epileptiform activity. Patient declined MRI. New strokelike symptoms lik galilea in the setting of breakthrough seizures. Started on new antiepileptics. Being discharged to subacute rehab. Patient seen and examined at bedside. Vital signs reviewed and stable. General: non toxic, no distress, appears at stated age Derm: warm, dry Head: atraumatic, normocephalic, symmetric Eyes: EOMI, no lid lag, anicteric sclera Cardiovascular: S1S2 reg, no murmur Lungs: CTA bilateral, no rhonchi, no rales , no accessory muscle use Abdominal: soft, nontender to palpation, no guarding, no appreciable organomegaly Ext: no gross muscle atrophy, no edema, no contractures Neuro: CN II-XI grossly intact except R facial droop, RUE contractures. RLE 3/5 strength. RADHA and LLE 4-5/5 strength. Sensation intact to touch. Psych: Alert, oriented, appropriate affect A total of 36 minutes of time were spent preparing this complex discharge summary. Patient was discharged on 02/21/23 at 9:47. Patient Condition at Discharge: Stable Plan - Discharge Summary Discharge Rx Participant: No New Discharge Prescriptions: New levETIRAcetam [Keppra] 1,000 mg PO BID tab Cyanocobalamin [Vitamin B-12] 500 mcg PO DAILY tab Lacosamide [Vimpat] 50 mg PO BID 3 Days #6 tab Continue Doxepin HCl [SINEquan] 150 mg PO HS FLUoxetine HCL [PROzac] 40 mg PO DAILY #7 cap Omeprazole 20 mg PO DAILY amLODIPine [Norvasc] 10 mg PO DAILY Folic Acid 1 mg PO DAILY Sennosides [Senna] 8.6 mg PO BID Atorvastatin [Lipitor] 40 mg PO DAILY Losartan Potassium [Cozaar] 100 mg PO DAILY Clopidogrel [Plavix] 75 mg PO DAILY tab Perphenazine 8mg 8 mg PO HS Albuterol Sulfate [Albuterol Sulfate Hfa] 2 puff PO RT-QID PRN PRN Reason: Shortness Of Breath Aspirin EC [Ecotrin Low Dose] 81 mg PO DAILY Discontinued levETIRAcetam [Keppra] 500 mg PO BID Metoprolol Tartrate [Lopressor] 25 mg PO BID hydrOXYzine pamoate [hydrOXYzine PAMOATE] 50 mg PO HS Discharge Medication List Doxepin HCl [SINEquan] 150 mg PO HS 12/01/19 [History] FLUoxetine HCL [PROzac] 40 mg PO DAILY #7 cap 03/30/20 [Rx] Omeprazole 20 mg PO DAILY 09/08/20 [History] Losartan Potassium [Cozaar] 100 mg PO DAILY 12/13/20 [History] Clopidogrel [Plavix] 75 mg PO DAILY tab 12/17/20 [Rx] Folic Acid 1 mg PO DAILY 02/26/21 [History] Sennosides [Senna] 8.6 mg PO BID 02/26/21 [History] amLODIPine [Norvasc] 10 mg PO DAILY 02/26/21 [History] Atorvastatin [Lipitor] 40 mg PO DAILY 03/23/21 [History] Perphenazine 8mg 8 mg PO HS 03/23/21 [History] Albuterol Sulfate [Albuterol Sulfate Hfa] 2 puff PO RT-QID PRN 11/27/22 [History] Aspirin EC [Ecotrin Low Dose] 81 mg PO DAILY 02/16/23 [History] Cyanocobalamin [Vitamin B-12] 500 mcg PO DAILY tab 02/21/23 [Rx] Lacosamide [Vimpat] 50 mg PO BID 3 Days #6 tab 02/21/23 [Rx] levETIRAcetam [Keppra] 1,000 mg PO BID tab 02/21/23 [Rx] Follow up Appointment(s)/Referral(s): None,Stated [REFERRING] - 1-2 days Noah Colby MD [REFERRING] - 1 Week Shan Fajardo MD [STAFF PHYSICIAN] - 1 Week Binta Beltran DO [STAFF PHYSICIAN] - 1 Week Patient Instructions/Handouts: Epilepsy (DC) Activity/Diet/Wound Care/Special Instructions: Please see your PCP and neurologist. You will also need to see ENT and vascular surgery. Discharge Disposition: TRANSFER TO SNF/ECF
[2023-02-21 14:50] VITALS: BMI 27.4
--- NOTE | 2023-03-02 00:10 | P.PN ---
Subjective Progress Note Date: 02/20/23 02/20/2023: Patient was seen for a follow-up. Patient is laying comfortably in the bed. Offers no complaints. 02/19/2023: Patient was initially seen by Dr. Sea Benitez. Please refer to his note for details. Patient has been seen by myself previously for recurrent strokes. Patient has history of large left MCA territory stroke and also has history of seizure disorder. 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 Patient usually at home walks without any device. She came to the hospital with recurrent falls. There was some report of possible right f acial droop. MRI of the brain, cervical spine and EEG were initiated. Patient was on Keppra 500 mg twice a day, and the dose was increased to 1 g twice a day. No further seizures. PT OT were working. Patient is off balance, felt slightly dizzy when she got up, she spastic on the right side. Some of the work-up during this hospital visit consisted of: Lipid panels triglyceride of 89, cholesterol of 97, LDLs 40 and HDL is 38 Vitamin B12 is 381. Folate is 40 TSH is 0.903 Hemoglobin A1c is 5.4. Ammonia level is 10 CK level is 908 Initial serum glucose is 98 Potassium latest is 3.1 CT head and neck is reported as there is no acute fracture or dislocation evident in the cervical spine. Postsurgical changes with multilevel degenerative disc disease, foraminal enroachment and possible canal stenosis. Recommend follow-up MRI. No acute intracranial hemorrhage, mass effect or midline shift. Stable remote ischemic changes. The ischemic remote changes are over the left temporal, occipital and parietal lobe. I personally reviewed the CT of the head and I agree with the report. CT angiography of the neck is reported as abnormal soft tissue thickening in the supraglottic airway asymmetrical effacing the left pyriform sinus. Recommend ENT referral to assess for potential underlying neoplasm. 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 The common and internal carotid artery remains widely patent. CT angiography of the head is reported as severely hypoplastic versus occluded right vertebral artery. The basilar artery is small and there is persistent origin of the bilateral FOOT CASTER (anatomic variant) correlate for any chronic symptoms of vertebral basilar insufficiency otherwise no large vessel intracranial arterial occlusion or aneurysm. Carotid duplex: It is reported as no ultrasound evidence for hemodynamically significant stenosis of bilateral internal carotid arteries. Urine drug screen is positive for opiates, tricyclic antidepressant, benzo and marijuana. Objective - Vital Signs Vital signs: Vital Signs Temp 98 F 02/21/23 07:59 Pulse 104 H 02/21/23 07:59 Resp 18 02/21/23 08:00 BP 131/87 02/21/23 07:59 Pulse Ox 95 02/21/23 07:59 FiO2 - Exam Patient is alert and awake, but has somewhat slow mentation. Speech is mildly slurred, which is baseline. On cranial examination, patient has right facial droop, central type. On muscle strength testing (right/left) deltoid 3 to 3-/5, biceps 0/5, triceps 2/5, resume writer 0/5. The lower extremities is hip flexion 3+/5 ankle dorsiflexion 5/5. Sensory to touch revealed neglect on the right side and also decreased sensation on the right it appears. - Labs CBC & Chem 7: 02/16/23 13:44 02/18/23 13:20 Assessment and Plan Assessment: This is a 62-year-old woman who presented to our facility because she was found down at home on the floor notified the ED team that she had that new onset right lower facial droop.. She presented the day to our facility before because of a fall. Recurrent falls (and found self on ground) with reported right lower facial d darinel that's new per ED but she denies any new facial weakness to me: I feel patient had breakthrough seizures. Cannot rule out acute or subacute stroke CT angiography of the neck has abnormal soft tissue thickening in the supraglottic airway asymmetrical effacing the left pyriform sinus. R/O underl jackeline neoplasm. 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 I feel likely expressive aphasia is old) History of hepatitis C History of HIV History of anterior cervical decompression fusion over C3 to C4, C4-C5 in 2016 Anxiety Depression Plan: EEG 02/19/2023 revealed frequent moderate to high amplitude rhythmic and arrhythmic delta slowing in the left frontal temporal region, suggestive of focal cortical neuronal dysfunction. Recording of an electrographic seizure, consisting of spike and slow wave mainly originating in the left frontal region, at 4 Hz, extending to the right frontal region as well, lasted for 9 seconds. Clinically, there was myoclonic twitching of the bifacial region during the seizure. This EEG suggests underlying cortical irritability and tendency for seizures. 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 Clinical correlation is recommended. Patient was taking Keppra 500 mg twice a day. The dose of Keppra was increased to 1000 mg twice a day starting 2 days ago on 02/17/2023. Patient had a seizure documented on EEG performed yesterday. Patient will also be started on Vimpat 50 mg twice a day. The doses of seizure medications can be increased in the future, for any breakthrough seizures. Patient declined MRI of the brain and cervical spine initiated by Dr. Benitez. Repeat CT head performed 02/19/2023 revealed remote injury of the left parieto- occipital lobe. No acute intracranial process. Nonspecific white per day changes, likely related to chronic small vessel ischemic disease. I personally reviewed CT head, agree with the findings. CT of the cervical spine 02/19/2023 showed no evidence of cervical spine fracture, multilevel degenerative disc disease. Urine drug screen is positive for opiates, tricyclic antidepressant, benzo and marijuana. 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 CTA also revealed abnormal soft tissue thickening in the supraglottic airway asymmetrical effacing the left pyriform sinus. Rule out underlying neoplasm. ENT consultation recommended. Vascular surgery input appreciated, no surgical intervention, only medical darren hero. Patient is on ASA 81mg, Plavix 75mg daily. Also on Lipitor 40mg daily. Cardiac monitoring On fall precaution ON seizure precaution and pad. PT, OT and BOTTOM BUFFER are consulted. For low normal vitamin B12: Dr. Benitez has given one time Vitamin B12 1000mcg IM then 500mcg daily after that. Recommend repeat Vitamin B12 level within 2-3 months down the line. Will defer the rest of medical management to primary team. For DVT prophylaxis: on Sub q heparin 5000U every 12 hours. Neurologically clear for discharge, if she is remains stable overnight. Discussed with primary physician.
== END 2023-02-21 15:02 | DRG 53 ==
LOC: EC 13:33 → 3SCARD 16:44 → OBSVTOIN 16:44 → 3SCARD 17:10
PROVIDERS: ADMIT Student in an Organized Health Care Education/Training Program; ATTEND Student in an Organized Health Care Education/Training Program
DX: G40.909 Epilepsy, unspecified, not intractable, without status epilepticus (principal); I65.01 Occlusion and stenosis of right vertebral artery; I69.351 Hemiplegia and hemiparesis following cerebral infarction affecting right dominant side; L85.9 Epidermal thickening, unspecified; E78.5 Hyperlipidemia, unspecified; E87.6 Hypokalemia; E87.8 Other disorders of electrolyte and fluid balance, not elsewhere classified; F32.A Depression, unspecified; F41.9 Anxiety disorder, unspecified; I10 Essential (primary) hypertension; I69.320 Aphasia following cerebral infarction; M79.7 Fibromyalgia; K21.9 Gastro-esophageal reflux disease without esophagitis; R29.6 Repeated falls; R29.810 Facial weakness; R74.8 Abnormal levels of other serum enzymes; Z21 Asymptomatic human immunodeficiency virus [HIV] infection status; Z79.02 Long term (current) use of antithrombotics/antiplatelets; Z79.82 Long term (current) use of aspirin; Z79.899 Other long term (current) drug therapy; Z91.81 History of falling; Z28.311 Partially vaccinated for COVID-19; M19.90 Unspecified osteoarthritis, unspecified site; Z86.19 Personal history of other infectious and parasitic diseases; Z60.2 Problems related to living alone; Z71.3 Dietary counseling and surveillance; Z88.6 Allergy status to analgesic agent; Z88.0 Allergy status to penicillin; Z88.8 Allergy status to other drugs, medicaments and biological substances
CPT/HCPCS: 36415; 70450; 70496; 70498; 71045; 72125; 72170; 80048; 80053; 80061; 80177; 80306; 81003; 82140; 82550; 82607; 82746; 83036; 84443; 84484; 85025; 85610; 85730; 93005; 93880; 95816; 96365; 99291